=== PATIENT | male | born 1965 | race Caucasian/White ===

== ENCOUNTER 2017-07-09 03:12 | Inpatient (IN) | payer MEDICARE ==
[~2017-07-09] VITALS: Ht 182.9 cm; Wt 94.5 kg
[~2017-07-09 03:12] MED LIST: ACET500 PO; AMIT25 PO; AMIT50 PO; AMIT75 PO; AMOCLA875 PO; AMOX500 PO; ANTIBIOTIC; ASCO250CH PO; ATOR10 PO; Bactrim 400-801 EACH PO; Bactrim Ds Tab1 EACH PO; Bisac-Evac10 MG PR; CEPH500 PO; CIPR500 PO; CLIN150; CLIN300 PO; CLON.1 PO; CLON.1TP TP; CODACE30 PO; CRUTCH4 USE; CYCL10 PO; CYMBALTA; Cleocin HCl150 MG PO; DOCU100 PO; DOXY100 PO; DULO30 PO; DULO60 PO; ENOX120I SC; ENOXAPARIN150 MG/1 M SQ; FAMO20 PO; FLUC200 PO; GABA100 PO; GABA300 PO; GABA600 PO; GAVILAX17 GM PO; HYDMOR2 PO; HYDMOR4 PO; HYDR1TAB94; HYDR1TAB94 PO; IBUP400 PO; IBUP600 PO; INSDET100 SC; INSLI100I SUBQ; INSU100I6; INSU100I6 SC; INSUASPI SC; INSUASPI SUBQ; INSULANI SC; INSULANI SUBQ; INSULANPEN; INSULANPEN SC; LEVEMIR FL100 UNIT/1 SC; LEVEMIR FL100 UNIT/1 SQ; LINE600 PO; LORA1; LORA1 PO; Lantus100 UNIT/1 SC; METF500 PO; METH5 PO; MORP15ER PO; MORP30ER PO; MORP60ER PO; MORPHINE; NAPR220 PO; NAPR500 PO; NICO21TP TOP; Novolog Fl100 UNIT/1 SQ; OXYACE5T PO; OXYC10ER PO; OXYC10TA19; OXYC10TA19 PO; OXYC15ER PO; OXYC30 PO; OXYC30ER PO; OXYC5 PO; PARO10 PO; PARO20 PO; PERCOCET 10/325; PREG100 PO; PROC10 PO; PROM25 PO; Prednisone20 MG PO; RANI150 PO; ROXICODONE5 MG PO; RXCLIN PO; RXIBUP800 PO; SACC250C PO; SOMA350 MG PO; SULTRIDS PO; TAMS.4ER PO; TOBDEXOPO OP; TRAM50 PO; TRAZ100 PO; TRAZ50 PO; Ultram50 MG PO; VANC250 PO; VANCO 1 GR1 GM/250 M IV; Vancocin HCL1000 M1 IV; WARF10 PO; WARF5 PO; ZOLP5 PO; [UNRECOGNIZED DRUG - OTHER]; [UNRECOGNIZED DRUG - OTHER]
[2017-07-09 04:08] LABS: Alanine Aminotransfer (ALT/SGP 11 U/L (12-78); Albumin, Blood 2.6 g/dL (3.4-5.0); Albumin/Globulin Ratio 0.5 (0.8-1.8); Alk Phos 88 U/L (50-136); Anion Gap 7 mmol/L (6-16); Aspartate Aminotrans (AST/SGOT 9 U/L (12-37); Bilirubin, Total 0.2 mg/dL (0.1-1.0); Blood Urea Nitrogen 28 mg/dL (8-24); Bun/Creatinine Ratio 25.9 (12.0-20.0); CO2, Blood 26 mmol/L (21-32); Calcium, Blood 8.2 mg/dL (8.5-10.1); Chloride, Blood 102 mmol/L (98-108); Creatinine, Blood 1.08 mg/dL (0.60-1.20); Globulin, Blood 5.6 g/dL (2.2-4.0); Glomerular Filtration Rate >60 (60-); Glucose, Blood 207 mg/dL (70-99); Potassium, Blood 4.6 mmol/L (3.5-5.5); Sodium, Blood 135 mmol/L (136-145); Total Protein, Blood 8.2 g/dL (6.4-8.2)
[2017-07-09 04:09] LABS: BASOPHILS ABSOLUTE AUTO 0.03 K/mm3 (0.00-0.23); BASOPHILS PERCENT AUTO 0 % (0-2); EOSINOPHILS ABSOLUTE AUTO 0.06 K/mm3 (0.00-0.68); EOSINOPHILS PERCENT AUTO 0 % (0-6); Hemoglobin 11.2 g/dL (13.5-17.5); IMMATURE GRAN ABSOLUTE AUTO 0.04 K/mm3 (0.00-0.10); IMMATURE GRAN PERCENT AUTO 0 % (0-1); LYMPHOCYTES PERCENT AUTO 16 % (21-46); MONOCYTES ABSOLUTE AUTO 1.16 K/mm3 (0.16-1.47); MONOCYTES PERCENT AUTO 8 % (4-13); Mean Corpuscular HGB 27.1 pg (26.0-34.0); Mean Corpuscular HGB Conc 32.9 g/dL (31.5-36.5); Mean Corpuscular Volume 82 fL (80-100); Mean Platelet Volume 11.5 fL (9.1-12.4); NEUTROPHILS ABSOLUTE AUTO 10.92 K/mm3 (1.96-9.15); NEUTROPHILS PERCENT AUTO 75 % (41-73); Platelet Count 429 K/mm3 (150-400); RDW Coefficient Variation 15.8 % (11.7-14.2); RDW Standard Deviation 47.1 fL (35.1-46.3); Red Blood Cell Count 4.13 M/mm3 (4.30-5.90); White Blood Cell Count 14.51 K/mm3 (4.00-11.30)
[2017-07-09 04:44] LABS: International Normalized Ratio 1.07; Prothrombin Time Results 11.1 Sec (9.7-11.5)
[2017-07-09 06:45] LABS: BASOPHILS ABSOLUTE AUTO 0.02 K/mm3 (0.00-0.23); BASOPHILS PERCENT AUTO 0 % (0-2); EOSINOPHILS PERCENT AUTO 1 % (0-6); Hematocrit 31.4 % (37.0-53.0); Hemoglobin 10.3 g/dL (13.5-17.5); IMMATURE GRAN ABSOLUTE AUTO 0.03 K/mm3 (0.00-0.10); IMMATURE GRAN PERCENT AUTO 0 % (0-1); LYMPHOCYTES ABSOLUTE AUTO 3.27 K/mm3 (0.84-5.20); LYMPHOCYTES PERCENT AUTO 25 % (21-46); MONOCYTES ABSOLUTE AUTO 0.97 K/mm3 (0.16-1.47); MONOCYTES PERCENT AUTO 7 % (4-13); Mean Corpuscular HGB Conc 32.8 g/dL (31.5-36.5); Mean Corpuscular Volume 82 fL (80-100); Mean Platelet Volume 11.2 fL (9.1-12.4); NEUTROPHILS ABSOLUTE AUTO 8.88 K/mm3 (1.96-9.15); NEUTROPHILS PERCENT AUTO 67 % (41-73); Platelet Count 390 K/mm3 (150-400); RDW Coefficient Variation 15.7 % (11.7-14.2); RDW Standard Deviation 46.8 fL (35.1-46.3); Red Blood Cell Count 3.82 M/mm3 (4.30-5.90); White Blood Cell Count 13.27 K/mm3 (4.00-11.30)
[2017-07-09 07:03] LABS: Alanine Aminotransfer (ALT/SGP 12 U/L (12-78); Albumin, Blood 2.5 g/dL (3.4-5.0); Albumin/Globulin Ratio 0.5 (0.8-1.8); Alk Phos 86 U/L (50-136); Anion Gap 5 mmol/L (6-16); Aspartate Aminotrans (AST/SGOT 10 U/L (12-37); Bilirubin, Total 0.2 mg/dL (0.1-1.0); Blood Urea Nitrogen 31 mg/dL (8-24); Bun/Creatinine Ratio 28.4 (12.0-20.0); CO2, Blood 26 mmol/L (21-32); Calcium, Blood 8.6 mg/dL (8.5-10.1); Chloride, Blood 103 mmol/L (98-108); Creatinine, Blood 1.09 mg/dL (0.60-1.20); Globulin, Blood 5.4 g/dL (2.2-4.0); Glomerular Filtration Rate >60 (60-); Glucose, Blood 144 mg/dL (70-99); Potassium, Blood 4.3 mmol/L (3.5-5.5); Sodium, Blood 134 mmol/L (136-145); Total Protein, Blood 7.9 g/dL (6.4-8.2)
[2017-07-10 05:44] LABS: BASOPHILS ABSOLUTE AUTO 0.01 K/mm3 (0.00-0.23); BASOPHILS PERCENT AUTO 0 % (0-2); EOSINOPHILS PERCENT AUTO 0 % (0-6); Hematocrit 30.3 % (37.0-53.0); Hemoglobin 9.9 g/dL (13.5-17.5); IMMATURE GRAN ABSOLUTE AUTO 0.03 K/mm3 (0.00-0.10); IMMATURE GRAN PERCENT AUTO 0 % (0-1); LYMPHOCYTES ABSOLUTE AUTO 1.14 K/mm3 (0.84-5.20); LYMPHOCYTES PERCENT AUTO 9 % (21-46); MONOCYTES ABSOLUTE AUTO 0.67 K/mm3 (0.16-1.47); MONOCYTES PERCENT AUTO 5 % (4-13); Mean Corpuscular HGB 26.8 pg (26.0-34.0); Mean Corpuscular HGB Conc 32.7 g/dL (31.5-36.5); Mean Corpuscular Volume 82 fL (80-100); Mean Platelet Volume 11.4 fL (9.1-12.4); NEUTROPHILS ABSOLUTE AUTO 11.11 K/mm3 (1.96-9.15); NEUTROPHILS PERCENT AUTO 86 % (41-73); Platelet Count 363 K/mm3 (150-400); RDW Coefficient Variation 15.7 % (11.7-14.2); RDW Standard Deviation 46.9 fL (35.1-46.3); White Blood Cell Count 12.96 K/mm3 (4.00-11.30)
[2017-07-10 06:27] LABS: Albumin, Blood 2.2 g/dL (3.4-5.0); Anion Gap 10 mmol/L (6-16); Blood Urea Nitrogen 44 mg/dL (8-24); Bun/Creatinine Ratio 30.6 (12.0-20.0); CO2, Blood 22 mmol/L (21-32); Chloride, Blood 104 mmol/L (98-108); Creatinine, Blood 1.44 mg/dL (0.60-1.20); Glomerular Filtration Rate 55 (60-); Glucose, Blood 179 mg/dL (70-99); Potassium, Blood 4.8 mmol/L (3.5-5.5); Sodium, Blood 136 mmol/L (136-145)
[2017-07-10 15:59] LABS: Vancomycin, Trough 20.8 ug/mL (5.0-10.0)
[2017-07-11 05:26] LABS: BASOPHILS ABSOLUTE AUTO 0.04 K/mm3 (0.00-0.23); BASOPHILS PERCENT AUTO 0 % (0-2); EOSINOPHILS ABSOLUTE AUTO 0.15 K/mm3 (0.00-0.68); EOSINOPHILS PERCENT AUTO 1 % (0-6); Hematocrit 28.8 % (37.0-53.0); Hemoglobin 9.3 g/dL (13.5-17.5); IMMATURE GRAN ABSOLUTE AUTO 0.02 K/mm3 (0.00-0.10); IMMATURE GRAN PERCENT AUTO 0 % (0-1); LYMPHOCYTES ABSOLUTE AUTO 2.23 K/mm3 (0.84-5.20); LYMPHOCYTES PERCENT AUTO 21 % (21-46); MONOCYTES ABSOLUTE AUTO 0.61 K/mm3 (0.16-1.47); MONOCYTES PERCENT AUTO 6 % (4-13); Mean Corpuscular HGB 26.6 pg (26.0-34.0); Mean Corpuscular HGB Conc 32.3 g/dL (31.5-36.5); Mean Corpuscular Volume 82 fL (80-100); Mean Platelet Volume 11.4 fL (9.1-12.4); NEUTROPHILS ABSOLUTE AUTO 7.78 K/mm3 (1.96-9.15); NEUTROPHILS PERCENT AUTO 72 % (41-73); Platelet Count 331 K/mm3 (150-400); RDW Coefficient Variation 16.1 % (11.7-14.2); RDW Standard Deviation 48.2 fL (35.1-46.3); White Blood Cell Count 10.83 K/mm3 (4.00-11.30)
[2017-07-11 05:47] LABS: Albumin, Blood 2.2 g/dL (3.4-5.0); Anion Gap 7 mmol/L (6-16); Blood Urea Nitrogen 35 mg/dL (8-24); Bun/Creatinine Ratio 30.2 (12.0-20.0); CO2, Blood 25 mmol/L (21-32); Calcium, Blood 8.2 mg/dL (8.5-10.1); Chloride, Blood 106 mmol/L (98-108); Creatinine, Blood 1.16 mg/dL (0.60-1.20); Glomerular Filtration Rate >60 (60-); Glucose, Blood 279 mg/dL (70-99); Phosphorus, Blood 2.2 mg/dL (2.5-4.9); Potassium, Blood 4.5 mmol/L (3.5-5.5); Sodium, Blood 138 mmol/L (136-145)
[2017-07-11 18:04] LABS: Vancomycin, Trough 20.3 ug/mL (5.0-10.0)
[2017-07-12 05:32] LABS: BASOPHILS ABSOLUTE AUTO 0.07 K/mm3 (0.00-0.23); BASOPHILS PERCENT AUTO 1 % (0-2); EOSINOPHILS ABSOLUTE AUTO 0.44 K/mm3 (0.00-0.68); EOSINOPHILS PERCENT AUTO 6 % (0-6); Hematocrit 32.5 % (37.0-53.0); Hemoglobin 10.4 g/dL (13.5-17.5); IMMATURE GRAN ABSOLUTE AUTO 0.01 K/mm3 (0.00-0.10); IMMATURE GRAN PERCENT AUTO 0 % (0-1); LYMPHOCYTES ABSOLUTE AUTO 2.66 K/mm3 (0.84-5.20); LYMPHOCYTES PERCENT AUTO 37 % (21-46); MONOCYTES ABSOLUTE AUTO 0.46 K/mm3 (0.16-1.47); MONOCYTES PERCENT AUTO 6 % (4-13); Mean Corpuscular HGB 26.4 pg (26.0-34.0); Mean Corpuscular Volume 83 fL (80-100); Mean Platelet Volume 11.5 fL (9.1-12.4); NEUTROPHILS ABSOLUTE AUTO 3.54 K/mm3 (1.96-9.15); NEUTROPHILS PERCENT AUTO 49 % (41-73); Platelet Count 391 K/mm3 (150-400); RDW Coefficient Variation 16.1 % (11.7-14.2); RDW Standard Deviation 48.7 fL (35.1-46.3); Red Blood Cell Count 3.94 M/mm3 (4.30-5.90); White Blood Cell Count 7.18 K/mm3 (4.00-11.30)
[2017-07-12 05:56] LABS: Albumin, Blood 2.3 g/dL (3.4-5.0); Anion Gap 5 mmol/L (6-16); Blood Urea Nitrogen 25 mg/dL (8-24); Bun/Creatinine Ratio 22.9 (12.0-20.0); CO2, Blood 28 mmol/L (21-32); Calcium, Blood 8.7 mg/dL (8.5-10.1); Chloride, Blood 103 mmol/L (98-108); Creatinine, Blood 1.09 mg/dL (0.60-1.20); Glomerular Filtration Rate >60 (60-); Glucose, Blood 296 mg/dL (70-99); Potassium, Blood 4.6 mmol/L (3.5-5.5); Sodium, Blood 136 mmol/L (136-145)
[2017-07-13 06:47] LABS: BASOPHILS ABSOLUTE AUTO 0.07 K/mm3 (0.00-0.23); BASOPHILS PERCENT AUTO 1 % (0-2); EOSINOPHILS ABSOLUTE AUTO 0.59 K/mm3 (0.00-0.68); EOSINOPHILS PERCENT AUTO 7 % (0-6); Hemoglobin 11.2 g/dL (13.5-17.5); IMMATURE GRAN ABSOLUTE AUTO 0.03 K/mm3 (0.00-0.10); IMMATURE GRAN PERCENT AUTO 0 % (0-1); LYMPHOCYTES ABSOLUTE AUTO 3.43 K/mm3 (0.84-5.20); LYMPHOCYTES PERCENT AUTO 38 % (21-46); MONOCYTES ABSOLUTE AUTO 0.59 K/mm3 (0.16-1.47); MONOCYTES PERCENT AUTO 7 % (4-13); Mean Corpuscular HGB 27.4 pg (26.0-34.0); Mean Corpuscular HGB Conc 32.9 g/dL (31.5-36.5); Mean Corpuscular Volume 83 fL (80-100); Mean Platelet Volume 11.2 fL (9.1-12.4); NEUTROPHILS ABSOLUTE AUTO 4.43 K/mm3 (1.96-9.15); NEUTROPHILS PERCENT AUTO 48 % (41-73); Platelet Count 410 K/mm3 (150-400); RDW Coefficient Variation 16.1 % (11.7-14.2); RDW Standard Deviation 48.3 fL (35.1-46.3); Red Blood Cell Count 4.09 M/mm3 (4.30-5.90); White Blood Cell Count 9.14 K/mm3 (4.00-11.30)
[2017-07-13 07:02] LABS: Albumin, Blood 2.4 g/dL (3.4-5.0); Anion Gap 8 mmol/L (6-16); Blood Urea Nitrogen 30 mg/dL (8-24); Bun/Creatinine Ratio 25.2 (12.0-20.0); CO2, Blood 25 mmol/L (21-32); Chloride, Blood 105 mmol/L (98-108); Creatinine, Blood 1.19 mg/dL (0.60-1.20); Glomerular Filtration Rate >60 (60-); Glucose, Blood 225 mg/dL (70-99); Phosphorus, Blood 3.9 mg/dL (2.5-4.9); Potassium, Blood 5.3 mmol/L (3.5-5.5); Sodium, Blood 138 mmol/L (136-145)
[2017-07-14 05:19] LABS: BASOPHILS ABSOLUTE AUTO 0.07 K/mm3 (0.00-0.23); BASOPHILS PERCENT AUTO 1 % (0-2); EOSINOPHILS ABSOLUTE AUTO 0.58 K/mm3 (0.00-0.68); EOSINOPHILS PERCENT AUTO 6 % (0-6); Hematocrit 33.1 % (37.0-53.0); Hemoglobin 10.6 g/dL (13.5-17.5); IMMATURE GRAN ABSOLUTE AUTO 0.04 K/mm3 (0.00-0.10); IMMATURE GRAN PERCENT AUTO 0 % (0-1); LYMPHOCYTES ABSOLUTE AUTO 3.91 K/mm3 (0.84-5.20); LYMPHOCYTES PERCENT AUTO 43 % (21-46); MONOCYTES ABSOLUTE AUTO 0.52 K/mm3 (0.16-1.47); MONOCYTES PERCENT AUTO 6 % (4-13); Mean Corpuscular HGB 26.6 pg (26.0-34.0); Mean Corpuscular Volume 83 fL (80-100); Mean Platelet Volume 11.6 fL (9.1-12.4); NEUTROPHILS ABSOLUTE AUTO 3.95 K/mm3 (1.96-9.15); NEUTROPHILS PERCENT AUTO 44 % (41-73); Platelet Count 416 K/mm3 (150-400); RDW Coefficient Variation 16.2 % (11.7-14.2); RDW Standard Deviation 48.9 fL (35.1-46.3); Red Blood Cell Count 3.98 M/mm3 (4.30-5.90); White Blood Cell Count 9.07 K/mm3 (4.00-11.30)
[2017-07-14 05:40] LABS: Anion Gap 8 mmol/L (6-16); Blood Urea Nitrogen 39 mg/dL (8-24); Bun/Creatinine Ratio 33.6 (12.0-20.0); CO2, Blood 24 mmol/L (21-32); Calcium, Blood 8.8 mg/dL (8.5-10.1); Chloride, Blood 104 mmol/L (98-108); Creatinine, Blood 1.16 mg/dL (0.60-1.20); Glomerular Filtration Rate >60 (60-); Glucose, Blood 209 mg/dL (70-99); Potassium, Blood 4.9 mmol/L (3.5-5.5); Sodium, Blood 136 mmol/L (136-145)
[2017-07-16] MEDS ORDERED: ACET325 PO (10:53)
[2017-07-16] MEDS ORDERED: DOCU100 PO (10:55)
[2017-07-16] MEDS ORDERED: POLY500 PO (10:55)
[2017-07-16] MEDS ORDERED: ENOX40I SC (10:56)
[2017-07-16] MEDS ORDERED: GABA600 PO (10:57)
[2017-07-16] MEDS ORDERED: Novolog Fl100 UNIT/1 SC (10:59)
[2017-07-16] MEDS ORDERED: LEVEMIR FL100 UNIT/1 SC (11:00)
[2017-07-16] MEDS ORDERED: NICO21TP TOP (11:02)
[2017-07-16] MEDS ORDERED: Percocet 5-3251 EACH PO (11:03)
[2017-07-16] MEDS ORDERED: TRAZ50 PO (11:04)
[2017-07-16] MEDS ORDERED: CEPH500 PO (11:18)
[2017-07-16] MEDS ORDERED: VANCOMYCIN125 MG/2.5 PO (11:21)
== END 2017-07-16 14:04 | disposition home or self-care (01) | DRG 629 ==
LOC: ER 03:12 → MEDS 05:01 → ENPENDDIS 07-16 10:00 → MEDS 07-16 14:04
PROVIDERS: Emergency Medicine; Family Medicine; Hospitalist; Internal Medicine; Student in an Organized Health Care Education/Training Program
PROC: 0QBP0ZZ Excision of Left Metatarsal, Open Approach (ICD-10-PCS; principal; 2017-07-09 13:45)
DX: E11.69 Type 2 diabetes mellitus with other specified complication (principal); M86.172 Other acute osteomyelitis, left ankle and foot; N17.9 Acute kidney failure, unspecified; E11.40 Type 2 diabetes mellitus with diabetic neuropathy, unspecified; A04.72 Enterocolitis due to Clostridium difficile, not specified as recurrent; E11.628 Type 2 diabetes mellitus with other skin complications; E11.51 Type 2 diabetes mellitus with diabetic peripheral angiopathy without gangrene; I95.9 Hypotension, unspecified; E11.65 Type 2 diabetes mellitus with hyperglycemia; F11.20 Opioid dependence, uncomplicated; T81.31XA Disruption of external operation (surgical) wound, not elsewhere classified, initial encounter; L02.612 Cutaneous abscess of left foot; L03.116 Cellulitis of left lower limb; M86.679 Other chronic osteomyelitis, unspecified ankle and foot; B95.5 Unspecified streptococcus as the cause of diseases classified elsewhere; F41.9 Anxiety disorder, unspecified; F17.210 Nicotine dependence, cigarettes, uncomplicated; I10 Essential (primary) hypertension; K21.9 Gastro-esophageal reflux disease without esophagitis; M54.9 Dorsalgia, unspecified; G89.29 Other chronic pain; Z86.14 Personal history of Methicillin resistant Staphylococcus aureus infection; Z79.891 Long term (current) use of opiate analgesic; Z79.899 Other long term (current) drug therapy; Z89.432 Acquired absence of left foot; Z89.421 Acquired absence of other right toe(s); Z79.4 Long term (current) use of insulin
CPT/HCPCS: 36415; 73590; 73630; 80048; 80053; 80069; 80202; 82947; 83605; 85025; 85610; 85730; 87040; 87070; 87075; 87077; 87186; 87205; 87493; 88305; 96365; 96375; 99285; J0171; J0360; J0690; J0696; J1170; J1650; J1815; J2060; J2250; J2270; J2405; J2543; J2765; J3010; J3370; J7030; J7050; J7120

== ENCOUNTER 2017-07-27 00:13 | Inpatient (IN) | payer MEDICARE ==
[~2017-07-27] VITALS: Ht 182.9 cm; Wt 93.3 kg
[~2017-07-27 00:13] MED LIST changes: +ACET325 PO; +ENOX40I SC; +Novolog Fl100 UNIT/1 SC; +POLY500 PO; +Percocet 5-3251 EACH PO; +VANCOMYCIN125 MG/2.5 PO
[2017-07-27 00:58] LABS: International Normalized Ratio 0.96
[2017-07-27 00:59] LABS: BASOPHILS ABSOLUTE AUTO 0.02 K/mm3 (0.00-0.23); BASOPHILS PERCENT AUTO 0 % (0-2); EOSINOPHILS ABSOLUTE AUTO 0.25 K/mm3 (0.00-0.68); EOSINOPHILS PERCENT AUTO 2 % (0-6); Hematocrit 30.3 % (37.0-53.0); Hemoglobin 10.1 g/dL (13.5-17.5); IMMATURE GRAN ABSOLUTE AUTO 0.04 K/mm3 (0.00-0.10); IMMATURE GRAN PERCENT AUTO 0 % (0-1); LYMPHOCYTES ABSOLUTE AUTO 3.52 K/mm3 (0.84-5.20); LYMPHOCYTES PERCENT AUTO 25 % (21-46); MONOCYTES ABSOLUTE AUTO 1.03 K/mm3 (0.16-1.47); MONOCYTES PERCENT AUTO 7 % (4-13); Mean Corpuscular HGB 26.9 pg (26.0-34.0); Mean Corpuscular HGB Conc 33.3 g/dL (31.5-36.5); Mean Corpuscular Volume 81 fL (80-100); Mean Platelet Volume 11.1 fL (9.1-12.4); NEUTROPHILS ABSOLUTE AUTO 8.98 K/mm3 (1.96-9.15); NEUTROPHILS PERCENT AUTO 65 % (41-73); Platelet Count 385 K/mm3 (150-400); RDW Coefficient Variation 17.4 % (11.7-14.2); RDW Standard Deviation 51.4 fL (35.1-46.3); Red Blood Cell Count 3.76 M/mm3 (4.30-5.90); White Blood Cell Count 13.84 K/mm3 (4.00-11.30)
[2017-07-27 01:01] LABS: Albumin, Blood 2.8 g/dL (3.4-5.0); Albumin/Globulin Ratio 0.5 (0.8-1.8); Bilirubin, Total 0.1 mg/dL (0.1-1.0); Bun/Creatinine Ratio 28.1 (12.0-20.0); C-REACTIVE PROTEIN, EXT RANGE 11.1 mg/dL (0.000-0.300); Calcium, Blood 8.3 mg/dL (8.5-10.1); Creatinine, Blood 1.39 mg/dL (0.60-1.20); Globulin, Blood 5.2 g/dL (2.2-4.0); Potassium, Blood 4.9 mmol/L (3.5-5.5)
[2017-07-27 09:52] LABS: Alanine Aminotransfer (ALT/SGP 20 U/L (12-78); Albumin, Blood 2.3 g/dL (3.4-5.0); Albumin/Globulin Ratio 0.5 (0.8-1.8); Alk Phos 80 U/L (50-136); Anion Gap 8 mmol/L (6-16); Aspartate Aminotrans (AST/SGOT 14 U/L (12-37); Bilirubin, Total 0.3 mg/dL (0.1-1.0); Blood Urea Nitrogen 37 mg/dL (8-24); Bun/Creatinine Ratio 28.9 (12.0-20.0); CO2, Blood 22 mmol/L (21-32); Calcium, Blood 7.7 mg/dL (8.5-10.1); Chloride, Blood 108 mmol/L (98-108); Creatinine, Blood 1.28 mg/dL (0.60-1.20); Globulin, Blood 4.3 g/dL (2.2-4.0); Glomerular Filtration Rate >60 (60-); Glucose, Blood 115 mg/dL (70-99); Potassium, Blood 4.6 mmol/L (3.5-5.5); Sodium, Blood 138 mmol/L (136-145); Total Protein, Blood 6.6 g/dL (6.4-8.2)
[2017-07-27 12:57] LABS: BASOPHILS ABSOLUTE AUTO 0.03 K/mm3 (0.00-0.23); BASOPHILS PERCENT AUTO 0 % (0-2); EOSINOPHILS ABSOLUTE AUTO 0.35 K/mm3 (0.00-0.68); EOSINOPHILS PERCENT AUTO 4 % (0-6); Hematocrit 32.8 % (37.0-53.0); Hemoglobin 10.6 g/dL (13.5-17.5); IMMATURE GRAN ABSOLUTE AUTO 0.02 K/mm3 (0.00-0.10); IMMATURE GRAN PERCENT AUTO 0 % (0-1); LYMPHOCYTES ABSOLUTE AUTO 2.38 K/mm3 (0.84-5.20); LYMPHOCYTES PERCENT AUTO 25 % (21-46); MONOCYTES ABSOLUTE AUTO 0.68 K/mm3 (0.16-1.47); MONOCYTES PERCENT AUTO 7 % (4-13); Mean Corpuscular HGB Conc 32.3 g/dL (31.5-36.5); Mean Platelet Volume 11.2 fL (9.1-12.4); NEUTROPHILS ABSOLUTE AUTO 6.21 K/mm3 (1.96-9.15); NEUTROPHILS PERCENT AUTO 64 % (41-73); Platelet Count 349 K/mm3 (150-400); RDW Coefficient Variation 17.6 % (11.7-14.2); RDW Standard Deviation 54.4 fL (35.1-46.3); Red Blood Cell Count 3.93 M/mm3 (4.30-5.90); White Blood Cell Count 9.67 K/mm3 (4.00-11.30)
[2017-07-27 13:02] LABS: Mean Corpuscular Volume 84 fL (80-100)
[2017-07-27 22:53] LABS: Vancomycin, Trough 15.1 ug/mL (5.0-10.0)
[2017-07-28 05:19] LABS: BASOPHILS ABSOLUTE AUTO 0.05 K/mm3 (0.00-0.23); BASOPHILS PERCENT AUTO 1 % (0-2); EOSINOPHILS ABSOLUTE AUTO 0.32 K/mm3 (0.00-0.68); EOSINOPHILS PERCENT AUTO 4 % (0-6); Hematocrit 31.5 % (37.0-53.0); Hemoglobin 10.1 g/dL (13.5-17.5); IMMATURE GRAN ABSOLUTE AUTO 0.02 K/mm3 (0.00-0.10); IMMATURE GRAN PERCENT AUTO 0 % (0-1); LYMPHOCYTES PERCENT AUTO 28 % (21-46); MONOCYTES ABSOLUTE AUTO 0.68 K/mm3 (0.16-1.47); MONOCYTES PERCENT AUTO 8 % (4-13); Mean Corpuscular HGB 26.9 pg (26.0-34.0); Mean Corpuscular HGB Conc 32.1 g/dL (31.5-36.5); Mean Corpuscular Volume 84 fL (80-100); Mean Platelet Volume 11.2 fL (9.1-12.4); NEUTROPHILS ABSOLUTE AUTO 4.99 K/mm3 (1.96-9.15); NEUTROPHILS PERCENT AUTO 60 % (41-73); Platelet Count 344 K/mm3 (150-400); RDW Coefficient Variation 17.8 % (11.7-14.2); RDW Standard Deviation 54.5 fL (35.1-46.3); Red Blood Cell Count 3.76 M/mm3 (4.30-5.90); White Blood Cell Count 8.36 K/mm3 (4.00-11.30)
[2017-07-28 05:56] LABS: Anion Gap 10 mmol/L (6-16); Blood Urea Nitrogen 32 mg/dL (8-24); Bun/Creatinine Ratio 29.9 (12.0-20.0); CO2, Blood 20 mmol/L (21-32); Calcium, Blood 8.2 mg/dL (8.5-10.1); Chloride, Blood 106 mmol/L (98-108); Creatinine, Blood 1.07 mg/dL (0.60-1.20); Glomerular Filtration Rate >60 (60-); Glucose, Blood 245 mg/dL (70-99); Sodium, Blood 136 mmol/L (136-145)
[2017-07-29] MEDS ORDERED: TRAM50 PO (13:00)
== END 2017-07-29 14:50 | disposition home or self-care (01) | DRG 565 ==
LOC: ER 00:13 → MEDS 01:28 → ENPENDDIS 07-29 11:06 → MEDS 07-29 14:50
PROVIDERS: Emergency Medicine; Internal Medicine
DX: T87.44 Infection of amputation stump, left lower extremity (principal); M86.9 Osteomyelitis, unspecified; F11.20 Opioid dependence, uncomplicated; E11.69 Type 2 diabetes mellitus with other specified complication; T87.81 Dehiscence of amputation stump; E11.51 Type 2 diabetes mellitus with diabetic peripheral angiopathy without gangrene; E11.42 Type 2 diabetes mellitus with diabetic polyneuropathy; F15.10 Other stimulant abuse, uncomplicated; G89.29 Other chronic pain; D63.8 Anemia in other chronic diseases classified elsewhere; F17.210 Nicotine dependence, cigarettes, uncomplicated; E11.621 Type 2 diabetes mellitus with foot ulcer; K21.9 Gastro-esophageal reflux disease without esophagitis; L97.524 Non-pressure chronic ulcer of other part of left foot with necrosis of bone; Z86.14 Personal history of Methicillin resistant Staphylococcus aureus infection; Z79.4 Long term (current) use of insulin; Z89.422 Acquired absence of other left toe(s); Z89.412 Acquired absence of left great toe; Z89.431 Acquired absence of right foot; Z91.14 Patient's other noncompliance with medication regimen
CPT/HCPCS: 36415; 73630; 80048; 80053; 80202; 82947; 83605; 85025; 85610; 85651; 85730; 86140; 87040; 87070; 87075; 87205; 93922; 96365; 96366; 96367; 96375; 99285; J0690; J1650; J1815; J1817; J1885; J2060; J2543; J3010; J3370; J7030; J7050

== ENCOUNTER 2017-08-19 19:31 | Inpatient (IN) | payer MEDICARE ==
[~2017-08-19] VITALS: Ht 182.9 cm; Wt 90.7 kg
[2017-08-19 22:40] LABS: BASOPHILS ABSOLUTE AUTO 0.06 K/mm3 (0.00-0.23); BASOPHILS PERCENT AUTO 1 % (0-2); EOSINOPHILS ABSOLUTE AUTO 0.25 K/mm3 (0.00-0.68); EOSINOPHILS PERCENT AUTO 3 % (0-6); Hematocrit 32.7 % (37.0-53.0); Hemoglobin 10.7 g/dL (13.5-17.5); IMMATURE GRAN ABSOLUTE AUTO 0.03 K/mm3 (0.00-0.10); IMMATURE GRAN PERCENT AUTO 0 % (0-1); LYMPHOCYTES ABSOLUTE AUTO 2.89 K/mm3 (0.84-5.20); LYMPHOCYTES PERCENT AUTO 30 % (21-46); MONOCYTES ABSOLUTE AUTO 0.53 K/mm3 (0.16-1.47); MONOCYTES PERCENT AUTO 6 % (4-13); Mean Corpuscular HGB 26.4 pg (26.0-34.0); Mean Corpuscular HGB Conc 32.7 g/dL (31.5-36.5); Mean Corpuscular Volume 81 fL (80-100); Mean Platelet Volume 11.5 fL (9.1-12.4); NEUTROPHILS ABSOLUTE AUTO 5.93 K/mm3 (1.96-9.15); NEUTROPHILS PERCENT AUTO 61 % (41-73); Platelet Count 335 K/mm3 (150-400); RDW Coefficient Variation 15.9 % (11.7-14.2); RDW Standard Deviation 46.5 fL (35.1-46.3); Red Blood Cell Count 4.05 M/mm3 (4.30-5.90); White Blood Cell Count 9.69 K/mm3 (4.00-11.30)
[2017-08-19 22:54] LABS: Alanine Aminotransfer (ALT/SGP 20 U/L (12-78); Albumin, Blood 2.8 g/dL (3.4-5.0); Albumin/Globulin Ratio 0.5 (0.8-1.8); Alk Phos 106 U/L (50-136); Anion Gap 7 mmol/L (6-16); Aspartate Aminotrans (AST/SGOT 25 U/L (12-37); Bilirubin, Total 0.3 mg/dL (0.1-1.0); Blood Urea Nitrogen 30 mg/dL (8-24); Bun/Creatinine Ratio 28.8 (12.0-20.0); CO2, Blood 27 mmol/L (21-32); Calcium, Blood 8.7 mg/dL (8.5-10.1); Chloride, Blood 102 mmol/L (98-108); Creatinine, Blood 1.04 mg/dL (0.60-1.20); Globulin, Blood 5.8 g/dL (2.2-4.0); Glomerular Filtration Rate >60 (60-); Glucose, Blood 150 mg/dL (70-99); Potassium, Blood 4.9 mmol/L (3.5-5.5); Sodium, Blood 136 mmol/L (136-145); Total Protein, Blood 8.6 g/dL (6.4-8.2)
[2017-08-20 04:57] LABS: BASOPHILS ABSOLUTE AUTO 0.07 K/mm3 (0.00-0.23); BASOPHILS PERCENT AUTO 1 % (0-2); EOSINOPHILS ABSOLUTE AUTO 0.28 K/mm3 (0.00-0.68); EOSINOPHILS PERCENT AUTO 4 % (0-6); Hematocrit 30.3 % (37.0-53.0); Hemoglobin 9.6 g/dL (13.5-17.5); IMMATURE GRAN ABSOLUTE AUTO 0.02 K/mm3 (0.00-0.10); IMMATURE GRAN PERCENT AUTO 0 % (0-1); LYMPHOCYTES ABSOLUTE AUTO 2.56 K/mm3 (0.84-5.20); LYMPHOCYTES PERCENT AUTO 32 % (21-46); MONOCYTES ABSOLUTE AUTO 0.63 K/mm3 (0.16-1.47); MONOCYTES PERCENT AUTO 8 % (4-13); Mean Corpuscular HGB 26.2 pg (26.0-34.0); Mean Corpuscular HGB Conc 31.7 g/dL (31.5-36.5); Mean Corpuscular Volume 83 fL (80-100); Mean Platelet Volume 11.8 fL (9.1-12.4); NEUTROPHILS ABSOLUTE AUTO 4.42 K/mm3 (1.96-9.15); NEUTROPHILS PERCENT AUTO 55 % (41-73); Platelet Count 340 K/mm3 (150-400); RDW Standard Deviation 49.1 fL (35.1-46.3); Red Blood Cell Count 3.66 M/mm3 (4.30-5.90); White Blood Cell Count 7.98 K/mm3 (4.00-11.30)
[2017-08-20 05:19] LABS: Alanine Aminotransfer (ALT/SGP 19 U/L (12-78); Albumin, Blood 2.4 g/dL (3.4-5.0); Albumin/Globulin Ratio 0.5 (0.8-1.8); Alk Phos 96 U/L (50-136); Anion Gap 8 mmol/L (6-16); Aspartate Aminotrans (AST/SGOT 11 U/L (12-37); Bilirubin, Total 0.2 mg/dL (0.1-1.0); Blood Urea Nitrogen 30 mg/dL (8-24); Bun/Creatinine Ratio 27.5 (12.0-20.0); CO2, Blood 25 mmol/L (21-32); Calcium, Blood 8.5 mg/dL (8.5-10.1); Chloride, Blood 103 mmol/L (98-108); Creatinine, Blood 1.09 mg/dL (0.60-1.20); Globulin, Blood 5.2 g/dL (2.2-4.0); Glomerular Filtration Rate >60 (60-); Glucose, Blood 208 mg/dL (70-99); Potassium, Blood 4.1 mmol/L (3.5-5.5); Sodium, Blood 136 mmol/L (136-145); Total Protein, Blood 7.6 g/dL (6.4-8.2)
[2017-08-21 04:44] LABS: BASOPHILS ABSOLUTE AUTO 0.07 K/mm3 (0.00-0.23); BASOPHILS PERCENT AUTO 1 % (0-2); EOSINOPHILS PERCENT AUTO 2 % (0-6); Hemoglobin 11.2 g/dL (13.5-17.5); IMMATURE GRAN ABSOLUTE AUTO 0.02 K/mm3 (0.00-0.10); IMMATURE GRAN PERCENT AUTO 0 % (0-1); LYMPHOCYTES ABSOLUTE AUTO 3.03 K/mm3 (0.84-5.20); LYMPHOCYTES PERCENT AUTO 35 % (21-46); MONOCYTES ABSOLUTE AUTO 0.63 K/mm3 (0.16-1.47); MONOCYTES PERCENT AUTO 7 % (4-13); Mean Corpuscular HGB 26.3 pg (26.0-34.0); Mean Corpuscular Volume 82 fL (80-100); Mean Platelet Volume 11.3 fL (9.1-12.4); NEUTROPHILS ABSOLUTE AUTO 4.71 K/mm3 (1.96-9.15); NEUTROPHILS PERCENT AUTO 54 % (41-73); Platelet Count 448 K/mm3 (150-400); RDW Coefficient Variation 15.9 % (11.7-14.2); Red Blood Cell Count 4.26 M/mm3 (4.30-5.90); White Blood Cell Count 8.66 K/mm3 (4.00-11.30)
[2017-08-21 05:01] LABS: Anion Gap 4 mmol/L (6-16); Blood Urea Nitrogen 30 mg/dL (8-24); Bun/Creatinine Ratio 28.8 (12.0-20.0); CO2, Blood 29 mmol/L (21-32); Calcium, Blood 8.9 mg/dL (8.5-10.1); Chloride, Blood 103 mmol/L (98-108); Creatinine, Blood 1.04 mg/dL (0.60-1.20); Glomerular Filtration Rate >60 (60-); Glucose, Blood 125 mg/dL (70-99); Potassium, Blood 4.8 mmol/L (3.5-5.5); Sodium, Blood 136 mmol/L (136-145)
[2017-08-21 11:13] LABS: Vancomycin, Trough 20.7 ug/mL (5.0-10.0)
[2017-08-22 14:29] LABS: Vancomycin, Trough 20.9 ug/mL (5.0-10.0)
[2017-08-23 05:07] LABS: BASOPHILS ABSOLUTE AUTO 0.04 K/mm3 (0.00-0.23); BASOPHILS PERCENT AUTO 0 % (0-2); EOSINOPHILS ABSOLUTE AUTO 0.01 K/mm3 (0.00-0.68); EOSINOPHILS PERCENT AUTO 0 % (0-6); Hematocrit 27.8 % (37.0-53.0); Hemoglobin 8.9 g/dL (13.5-17.5); IMMATURE GRAN ABSOLUTE AUTO 0.08 K/mm3 (0.00-0.10); IMMATURE GRAN PERCENT AUTO 1 % (0-1); LYMPHOCYTES ABSOLUTE AUTO 2.51 K/mm3 (0.84-5.20); LYMPHOCYTES PERCENT AUTO 16 % (21-46); MONOCYTES ABSOLUTE AUTO 0.91 K/mm3 (0.16-1.47); MONOCYTES PERCENT AUTO 6 % (4-13); Mean Corpuscular Volume 81 fL (80-100); Mean Platelet Volume 11.8 fL (9.1-12.4); NEUTROPHILS ABSOLUTE AUTO 12.67 K/mm3 (1.96-9.15); NEUTROPHILS PERCENT AUTO 78 % (41-73); Platelet Count 365 K/mm3 (150-400); RDW Coefficient Variation 15.7 % (11.7-14.2); RDW Standard Deviation 46.7 fL (35.1-46.3); Red Blood Cell Count 3.42 M/mm3 (4.30-5.90); White Blood Cell Count 16.22 K/mm3 (4.00-11.30)
[2017-08-23 05:34] LABS: Anion Gap 8 mmol/L (6-16); Blood Urea Nitrogen 45 mg/dL (8-24); Bun/Creatinine Ratio 39.8 (12.0-20.0); CO2, Blood 26 mmol/L (21-32); Calcium, Blood 8.5 mg/dL (8.5-10.1); Chloride, Blood 101 mmol/L (98-108); Creatinine, Blood 1.13 mg/dL (0.60-1.20); Glomerular Filtration Rate >60 (60-); Glucose, Blood 281 mg/dL (70-99); Potassium, Blood 4.5 mmol/L (3.5-5.5); Sodium, Blood 135 mmol/L (136-145)
[2017-08-23 15:04] LABS: Vancomycin, Trough 15.9 ug/mL (5.0-10.0)
[2017-08-24 05:37] LABS: BASOPHILS ABSOLUTE AUTO 0.07 K/mm3 (0.00-0.23); BASOPHILS PERCENT AUTO 1 % (0-2); EOSINOPHILS ABSOLUTE AUTO 0.19 K/mm3 (0.00-0.68); EOSINOPHILS PERCENT AUTO 2 % (0-6); Hematocrit 31.7 % (37.0-53.0); Hemoglobin 10.2 g/dL (13.5-17.5); IMMATURE GRAN ABSOLUTE AUTO 0.04 K/mm3 (0.00-0.10); IMMATURE GRAN PERCENT AUTO 0 % (0-1); LYMPHOCYTES ABSOLUTE AUTO 4.47 K/mm3 (0.84-5.20); LYMPHOCYTES PERCENT AUTO 40 % (21-46); MONOCYTES ABSOLUTE AUTO 0.77 K/mm3 (0.16-1.47); MONOCYTES PERCENT AUTO 7 % (4-13); Mean Corpuscular HGB 26.6 pg (26.0-34.0); Mean Corpuscular HGB Conc 32.2 g/dL (31.5-36.5); Mean Corpuscular Volume 83 fL (80-100); Mean Platelet Volume 11.6 fL (9.1-12.4); NEUTROPHILS ABSOLUTE AUTO 5.62 K/mm3 (1.96-9.15); NEUTROPHILS PERCENT AUTO 50 % (41-73); Platelet Count 373 K/mm3 (150-400); RDW Coefficient Variation 16.5 % (11.7-14.2); RDW Standard Deviation 49.4 fL (35.1-46.3); Red Blood Cell Count 3.84 M/mm3 (4.30-5.90); White Blood Cell Count 11.16 K/mm3 (4.00-11.30)
[2017-08-25] MEDS ORDERED: ANCEF 1 GM1 GM/50 ML IV (14:32)
[2017-08-25] MEDS ORDERED: NICO21TP TOP (14:33)
[2017-08-25] MEDS ORDERED: DOXY100 PO (14:33)
[2017-08-25] MEDS ORDERED: Norco 10-325 T1 EACH PO (14:34)
== END 2017-08-25 13:21 | DRG 475 ==
LOC: ER 19:31 → MEDS 08-20 00:16 → ENPENDDIS 08-25 09:30 → EDPENDDIS 08-25 09:30 → MEDS 08-25 13:21
PROVIDERS: Emergency Medicine; Internal Medicine; Podiatrist Foot & Ankle Surgery
PROC: 3E0234Z Introduction of Serum, Toxoid and Vaccine into Muscle, Percutaneous Approach (ICD-10-PCS; 2017-08-20)
PROC: 0Y6N0ZC Detachment at Left Foot, Partial 3rd Ray, Open Approach (ICD-10-PCS; 2017-08-22)
PROC: 0Y6N0ZD Detachment at Left Foot, Partial 4th Ray, Open Approach (ICD-10-PCS; 2017-08-22)
PROC: 0Y6N0ZF Detachment at Left Foot, Partial 5th Ray, Open Approach (ICD-10-PCS; 2017-08-22)
PROC: 0L8P0ZZ Division of Left Lower Leg Tendon, Open Approach (ICD-10-PCS; 2017-08-22)
PROC: 0Y6N0Z9 Detachment at Left Foot, Partial 1st Ray, Open Approach (ICD-10-PCS; principal; 2017-08-22 07:30)
PROC: 0Y6N0ZB Detachment at Left Foot, Partial 2nd Ray, Open Approach (ICD-10-PCS; 2017-08-22 07:30)
DX: T87.44 Infection of amputation stump, left lower extremity (principal); M86.172 Other acute osteomyelitis, left ankle and foot; E11.69 Type 2 diabetes mellitus with other specified complication; E11.40 Type 2 diabetes mellitus with diabetic neuropathy, unspecified; F11.20 Opioid dependence, uncomplicated; L03.116 Cellulitis of left lower limb; Z23 Encounter for immunization; F17.210 Nicotine dependence, cigarettes, uncomplicated; Z91.19 Patient's noncompliance with other medical treatment and regimen
CPT/HCPCS: 36415; 73630; 80048; 80053; 80202; 82947; 85025; 88307; 88311; 93971; 96365; 96375; 96376; 97116; 97161; 99285; G8978; G8979; G8980; J0690; J1100; J1170; J1650; J1815; J1817; J1885; J2270; J2405; J3010; J3370; J7030; J7050; J7120

== ENCOUNTER 2017-09-14 14:08 | Emergency (ER) | payer MEDICARE ==
[~2017-09-14] VITALS: Ht 188 cm; Wt 102.1 kg
[~2017-09-14 14:08] MED LIST changes: +ANCEF 1 GM1 GM/50 ML IV; +Norco 10-325 T1 EACH PO
== END 2017-09-14 16:18 | disposition home or self-care (01) ==
LOC: ER 14:08
DX: M79.662 Pain in left lower leg (principal); Z79.899 Other long term (current) drug therapy; Z79.4 Long term (current) use of insulin; Z79.2 Long term (current) use of antibiotics; E11.40 Type 2 diabetes mellitus with diabetic neuropathy, unspecified; K21.9 Gastro-esophageal reflux disease without esophagitis; I10 Essential (primary) hypertension; F17.210 Nicotine dependence, cigarettes, uncomplicated
CPT/HCPCS: 73590; 99283

== ENCOUNTER 2018-03-12 16:01 | Emergency (ER) | payer MEDICARE ==
[~2018-03-12] VITALS: Ht 182.9 cm; Wt 93.0 kg
[2018-03-12 17:39] LABS: Adenovirus F 40/41 Not Detected (NOT DETECT); Astrovirus Not Detected (NOT DETECT); Campylobacter Sp Not Detected (NOT DETECT); Cryptosporidium Not Detected (NOT DETECT); Cyclospora Cayetanensis Not Detected (NOT DETECT); E. Coli O157 Not Detected (NOT DETECT); Entamoeba Histolytica Not Detected (NOT DETECT); Enteroaggregative E. coli-EAEC Not Detected (NOT DETECT); Enteropathogenic E. coli-EPEC Not Detected (NOT DETECT); Enterotoxigenic E. coli-ETEC Not Detected (NOT DETECT); Giardia Lamblia Not Detected (NOT DETECT); Norovirus GI/GII Not Detected (NOT DETECT); Plesiomonas Shigelloides Not Detected (NOT DETECT); Rotavirus A Not Detected (NOT DETECT); Salmonella Sp Not Detected (NOT DETECT); Sapovirus Not Detected (NOT DETECT); Shiga Toxin-prod E. coli-STEC Not Detected (NOT DETECT); Shigella/Enteroin E. coli-EIEC Not Detected (NOT DETECT); Vibrio Cholerae Not Detected (NOT DETECT); Vibrio Sp Not Detected (NOT DETECT); Yersinia Enterocolitica Not Detected (NOT DETECT)
== END 2018-03-12 19:28 | disposition home or self-care (01) ==
LOC: ER 16:01
PROVIDERS: Emergency Medicine
DX: R19.7 Diarrhea, unspecified (principal); E11.40 Type 2 diabetes mellitus with diabetic neuropathy, unspecified; I10 Essential (primary) hypertension; K21.9 Gastro-esophageal reflux disease without esophagitis; F17.210 Nicotine dependence, cigarettes, uncomplicated; Z79.899 Other long term (current) drug therapy; Z79.4 Long term (current) use of insulin
CPT/HCPCS: 87507; 99284

== ENCOUNTER 2019-04-02 11:44 | Inpatient (IN) | payer MEDICARE ==
[~2019-04-02] VITALS: Ht 182.9 cm; Wt 123.0 kg
[~2019-04-02 11:44] MED LIST changes: +Adipex-P37.5 M1 PO
--- NOTE | 2019-04-02 13:09 | NUR ---
PATIENT WAS ADMITTED TO DAY SURGERY FOR HIS PROCEDURE. THE PATIENT STATED THAT HE WAS NPO SINCE 04/01/19.
--- NOTE | 2019-04-02 18:50 | NUR ---
pt arrived to room 208 from pacu s/p r ankle debridement with wound vac with jacques wrap cdi pt can wiggle toes food given dr vazquez by to see pt
[2019-04-03 05:23] LABS: BASOPHILS ABSOLUTE AUTO 0.01 K/mm3 (0.00-0.23); BASOPHILS PERCENT AUTO 0 % (0-2); EOSINOPHILS PERCENT AUTO 0 % (0-6); Hematocrit 35.9 % (37.0-53.0); Hemoglobin 11.6 g/dL (13.5-17.5); IMMATURE GRAN ABSOLUTE AUTO 0.03 K/mm3 (0.00-0.10); IMMATURE GRAN PERCENT AUTO 0 % (0-1); LYMPHOCYTES ABSOLUTE AUTO 0.86 K/mm3 (0.84-5.20); LYMPHOCYTES PERCENT AUTO 8 % (21-46); MONOCYTES ABSOLUTE AUTO 0.37 K/mm3 (0.16-1.47); MONOCYTES PERCENT AUTO 4 % (4-13); Mean Corpuscular HGB 28.5 pg (26.0-34.0); Mean Corpuscular HGB Conc 32.3 g/dL (31.5-36.5); Mean Corpuscular Volume 88 fL (80-100); Mean Platelet Volume 11.9 fL (9.1-12.4); NEUTROPHILS ABSOLUTE AUTO 9.16 K/mm3 (1.96-9.15); NEUTROPHILS PERCENT AUTO 88 % (41-73); Platelet Count 243 K/mm3 (150-400); RDW Coefficient Variation 13.6 % (11.7-14.2); RDW Standard Deviation 44.2 fL (35.1-46.3); Red Blood Cell Count 4.07 M/mm3 (4.30-5.90); White Blood Cell Count 10.43 K/mm3 (4.00-11.30)
[2019-04-03 06:08] LABS: Anion Gap 7 mmol/L (6-16); Blood Urea Nitrogen 32 mg/dL (8-24); Bun/Creatinine Ratio 27.8 (12.0-20.0); CO2, Blood 25 mmol/L (21-32); Calcium, Blood 8.9 mg/dL (8.5-10.1); Chloride, Blood 103 mmol/L (98-108); Creatinine, Blood 1.15 mg/dL (0.60-1.20); Glomerular Filtration Rate >60 (60-); Glucose, Blood 300 mg/dL (70-99); Potassium, Blood 6.1 mmol/L (3.5-5.5); Sodium, Blood 135 mmol/L (136-145)
--- NOTE | 2019-04-03 06:25 | NUR ---
Pt alert and oriented. Vital signs stable. Medicated for pain as ordered. Pain not relieved. Called placed to Dr. Baron, orders to resume home methadone recieved. Patients blood glucose 462, orders received to place on Medium scale Novolog. Critical lab of potassium 6.1. Dr Baron notified and stated he will review the labs and place orders.
[2019-04-03 09:27] LABS: Anion Gap 7 mmol/L (6-16); Blood Urea Nitrogen 35 mg/dL (8-24); Bun/Creatinine Ratio 32.1 (12.0-20.0); CO2, Blood 23 mmol/L (21-32); Calcium, Blood 9.1 mg/dL (8.5-10.1); Chloride, Blood 103 mmol/L (98-108); Creatinine, Blood 1.09 mg/dL (0.60-1.20); Glomerular Filtration Rate >60 (60-); Glucose, Blood 302 mg/dL (70-99); Potassium, Blood 5.5 mmol/L (3.5-5.5); Sodium, Blood 133 mmol/L (136-145)
--- NOTE | 2019-04-03 10:52 | NUR ---
DR. TORRES HERE TO SEE PT, NOTIFIED REGARDING NUMBNESS AND PT NOT BEING ABLE TO MOVE TOES ON R FOOT.
--- NOTE | 2019-04-03 15:37 | NUR ---
PT C/O 02/20 PAIN ON R ANKLE/FOOT, PT NOW ABLE TO MOVE TOES, 2 NORCO GIVEN, PT ASSISTED TO REPOSITION AND ELEVATE RLE IN BED WITH PILLOWS, CONT. TO MONITOR FOR ANY CHANGES.
--- NOTE | 2019-04-03 17:10 | NUR ---
SUMMARY REPORTS PAIN IS BETTER ON R ANKLE BUT CONTINUES TO HAVE NUMBNESS ON RLE, WOUND VAC DSG INTACT CONTINUES TO DRAIN SEROSANGUINOUS DRAINAGE, NO ACUTE CHANGES THIS SHIFT.
--- NOTE | 2019-04-03 18:02 | NUR ---
ASSUMED CARE OF PT AT APPROX 1700. REPORT RECEIVED FROM PREVIOUS RN. PT SITTING UP IN BED EATING DINNER AT THIS MOMENT. NO COMPLAINTS OF PAIN AND NO REQUESTS AT THIS TIME.
[2019-04-03 20:25] LABS: Vancomycin, Trough 15.4 ug/mL (5.0-10.0)
--- NOTE | 2019-04-04 00:15 | NUR ---
IV ACCESS: PT PERIPHERAL IV INFITRATED. ICU JUNIOR STAFF ACCOUNTANT KATIA ATTEMPTED TO PLACE MIDLINE W/O SUCCESS. SHE ALSO ATTEMPTED TO OBTAIN PERIPHERAL ACCESS W/ASSISTANCE OF ULTRASOUND; NO USABLE SITES FOUND. PT REP HX OF DIFFICULTY OBTAINING IV ACCESS, WELL DIFFICULTY W/PICC LINE PLACEMENT IN PAST. HOSPITALIST NOTIFIED, ABX REV. ORDER TO HOLD ABX FOR TONIGHT AND PLACE ORDER FOR PICC LINE SOON PICC RN AVAILABLE. PLAN TO NOTIFY MD FOR CHANGES IN PT CONDITION FOR POSS STAT CENTRAL LINE PLACEMENT.
--- NOTE | 2019-04-04 06:42 | NUR ---
POD 2 S/P I&D OF R ANKLE. PT VSS T/O NIGHT. DRESSING INTACT W/MOD SS DRNG. PAIN MGD PER EMAR W/REP RELIEF. PT REP NO CHANGE IN NUMBNESS, IS WEAKLY WIGGLING TOES. IV ACCESS LOST, ABX ON HOLD PER MD UNTIL ABLE TO OBTAIN PICC LINE. PT JOAN REG PO, ADA DIET OPTIONS ENC. PT INDEP UP TO SOB, IS CALING FOR ASSISTANCE, WILL CONT TO MONITOR UNTIL REP GIVEN TO ONCOMING RN.
--- NOTE | 2019-04-04 08:07 | NUR ---
SITTING UP IN BED, STATES DIDN'T SLEEP WELL LAST NIGHT, NO IV ACCESS AT THIS TIME PENDING PICC PLACEMENT, PT HAS BEEN REQUESTING SNACKS FREQUENTLY T/O THE NIGHT, ADA SNACKS HAS BEEN REQUESTED YESTERDAY TO BE SENT BETWEEN MEALS, DISCUSSED BLOOD SUGAR CONTROL AND ADA DIET WITH PT PT VERBALIZES UNDERSTANDING.
[2019-04-04 08:59] LABS: Anion Gap 4 mmol/L (6-16); Blood Urea Nitrogen 39 mg/dL (8-24); Bun/Creatinine Ratio 35.1 (12.0-20.0); CO2, Blood 26 mmol/L (21-32); Calcium, Blood 8.8 mg/dL (8.5-10.1); Chloride, Blood 106 mmol/L (98-108); Creatinine, Blood 1.11 mg/dL (0.60-1.20); Glomerular Filtration Rate >60 (60-); Glucose, Blood 194 mg/dL (70-99); Potassium, Blood 4.5 mmol/L (3.5-5.5); Sodium, Blood 136 mmol/L (136-145)
--- NOTE | 2019-04-04 10:34 | NUR ---
DISCUSSED WITH CROP ROLLER WAYS TO HELP CONTROL PT'S BLOOD SUGAR THROUGH DIET, PT CONTINUES TO ASK FOR MORE FOOD DESPITE BEING GIVEN ADA SNACKS IN BETWEEN MEALS AND CALLING DOWN TO THE KITCHEN AND ASKING FOR MORE FOOD.
--- NOTE | 2019-04-05 06:32 | NUR ---
POD 3 S/P I&S OF R ANKLE. PT VSS T/O NIGHT. WOUND VAC DRESSING INTACT W/SS DRNG. PRE REP NUMBNESS RESOLVED W/RETURN OF SENSATION, AND BETTER STRENGTH/MOVEMENT OF FOOT. PAIN MGD PER EMAR W/REP RELIEF. PT NON COMPLIANT W/DIET. PT EDUCATED OFTEN AND OFFERRED ADA DIET OPTIONS, PT DECLINING OPTIONS. PT USING CALL LIGHT FOR ASSISTACE. PLAN FOR PICC LINE PLACEMENT TODAY. AWAITING INFECTIOUS DISEASE CONSULT. WILL CONT TO MONITOR UNTIL REP GIVEN TO ONCOMING RN.
[2019-04-05 08:10] LABS: BASOPHILS PERCENT AUTO 1 % (0-2); EOSINOPHILS ABSOLUTE AUTO 0.49 K/mm3 (0.00-0.68); EOSINOPHILS PERCENT AUTO 4 % (0-6); Hematocrit 34.9 % (37.0-53.0); Hemoglobin 11.2 g/dL (13.5-17.5); IMMATURE GRAN ABSOLUTE AUTO 0.05 K/mm3 (0.00-0.10); IMMATURE GRAN PERCENT AUTO 0 % (0-1); LYMPHOCYTES ABSOLUTE AUTO 3.07 K/mm3 (0.84-5.20); LYMPHOCYTES PERCENT AUTO 27 % (21-46); MONOCYTES ABSOLUTE AUTO 1.18 K/mm3 (0.16-1.47); MONOCYTES PERCENT AUTO 10 % (4-13); Mean Corpuscular HGB 28.5 pg (26.0-34.0); Mean Corpuscular HGB Conc 32.1 g/dL (31.5-36.5); Mean Corpuscular Volume 89 fL (80-100); Mean Platelet Volume 11.9 fL (9.1-12.4); NEUTROPHILS ABSOLUTE AUTO 6.64 K/mm3 (1.96-9.15); NEUTROPHILS PERCENT AUTO 58 % (41-73); Platelet Count 232 K/mm3 (150-400); RDW Coefficient Variation 14.3 % (11.7-14.2); RDW Standard Deviation 46.1 fL (35.1-46.3); Red Blood Cell Count 3.93 M/mm3 (4.30-5.90); White Blood Cell Count 11.53 K/mm3 (4.00-11.30)
[2019-04-05 08:31] LABS: Bun/Creatinine Ratio 31.6 (12.0-20.0); Calcium, Blood 8.6 mg/dL (8.5-10.1); Creatinine, Blood 1.33 mg/dL (0.60-1.20)
--- NOTE | 2019-04-05 13:15 | NUR ---
DR TENORIO HERE RECENTLY TO SEE PT.
--- NOTE | 2019-04-05 13:49 | NUR ---
NURSE LOOKED FOR SITE FOR PICC LINE, NO IDEAL SITE VISUALIZED. NURSE REQUESTED PT TO PUSH FLUIDS AND WILL RETURN AT APPROX 1500 TO ATTEMPT AGAIN. POWERGLIDE TEAM ATTEMPTED INSERTION, UNABLE TO OBTAIN SITE. DR. TENORIO CONSULTED WITH VERO THIS MORNING.
--- NOTE | 2019-04-05 14:09 | NUR ---
04/05/19 1409 Kusum Hopson VERIFICATIONS: EDIT CHART.
--- NOTE | 2019-04-05 18:35 | NUR ---
SHIFT SUMMARY: NO ACUTE CHANGES. VSS. WOUND VAC DRSG CHANGED BY DR. ROSA. AMBULATING INDEPENDENTLY IN ROOM. UNABLE TO OBTAIN PICC OR POWERGLIDE. ABLE TO MAKE NEEDS KNOWN. HAS DIETARY SNACK IN REFRIGERATOR. RESTING IN BED W/ CALL LIGHT IN REACH. USES HIS CALL LIGHT APPROPRIATELY.
--- NOTE | 2019-04-05 19:05 | NUR ---
recvd report from previous shift frantz esteban. pt sitting/dangling on bed, a/o x 4, pleasant/cooperative,requests pain medication, has finished dinner, call light within reach, bed rails up x 2 y\
--- NOTE | 2019-04-06 01:28 | NUR ---
2149-FOLLOWING STARTING IV INFUSION OF VANCOMYCIN, PT CALLED NURSE IN STATING HIS ARM "BURNED, FELT LIKE POISON". RAN VANCO WITH IV FLUID CONCURRENTLY, PT DID STILL NOT TOLERATE INFUSION. LIZY GARCIA ATTEMPTED POWER GLIDE, UNSUCCESSFUL. THIS IS FOLLOWING PICC LINE PLACEMENT ATTEMPTS X 2 DAYS SHIFT, POWER GLIDE PLACEMENT ATTEMPTS X 2. WILL NOTIFY HOSPITALIST.
--- NOTE | 2019-04-06 05:53 | NUR ---
shift summary: vss, no acute changes, pt remained a/0 x 4. pt tolerated PO intake requesting snacks/milk >x 5 t/o shift. pt medicated per mar with pain control states at 6/10 at the lowest in his low back (chronic back pain) , operative R foot at 4/10. pt independent in room and ambulating in hallway. Peripheral IV access unobtainable with multiple attemps at PICC line and power glide 04/05/19 day shift as well as restaurant shift supervisor. Order for central line placement to be obtained today per hospitalist. Wound vac operative R foot intact, patent, sealed.
--- NOTE | 2019-04-06 18:00 | NUR ---
DISCUSSED WITH , CHARGE NURSE, AND CLINICAL COORDINATOR RE: INABILITY TO OBTAIN IV/PICC/POWERGLIDE ACCESS.
[2019-04-06 18:32] LABS: International Normalized Ratio 0.91; Prothrombin Time Results 9.7 Sec (9.7-11.5)
--- NOTE | 2019-04-06 18:44 | NUR ---
SHIFT SUMMARY: NO ACUTE CHANGES. VSS. CONTINUES TO SNACK FREQUENTLY. NO PERIPHERAL IV ACCESS AT THIS TIME. POWERGLIDE TEAM UNABLE TO PLACE LINE. DR. ROSA ROUNDED THIS AFTERNOON. AMBULATING INDEPENDENTLY IN ROOM. CLEARED BY PT TODAY. SITTING AT THE SIDE OF THE BED WITH CALL LIGHT IN REACH.
--- NOTE | 2019-04-06 21:00 | NUR ---
UNABLE TO INFUSE SCHED VANCO D/T NO IV ACCESS DESPITE MULT IV ATTEMPTS DURING DAY SHIFT AND LAST NIGHT. PROVIDER AWARE.
[2019-04-07 04:46] LABS: International Normalized Ratio 0.89; Prothrombin Time Results 9.5 Sec (9.7-11.5)
--- NOTE | 2019-04-07 07:52 | NUR ---
SHIFT SUMMARY: PT S/P I&D TO RIGHT FOOT. WOUND VAC IN PLACE AND DRAINING SS FLUID. INDEPENDENT IN ROOM AND ALREADY CLEARED BY PHYSICAL THERAPY. PT STILL IN NEED OF IV ACCESS. SCHED VANCO NOT ADMINISTERED. CHRONIC BACK PAIN BEING MANAGED WITH 2 NORCO PER EMAR. PT GIVEN NICOTINE GUM Q4. PT IN THE SHOWER THIS MORNING. AMBULATING INDEPENDENTLY.
--- NOTE | 2019-04-07 18:35 | NUR ---
SHIFT SUMMARY S/P RIGHT BKA, STUMP SOCK IN PLACE AND ELEVATED ON PILLOWS. NO DRAINAGE NOTED, DRESSING C/D/I. PAIN MANAGED PER EMAR WITH ICE AND REPOSITIONING. WORKED WITH PT/OT TODAY, TOLERATED IT WELL. UP IN WHEELCHAIR. LOPEZ CATH PATENT AND DRAINING CLEAR, YELLOW URINE. A&O, VSS, SPO2 ABOVE 90% ON 3L. FAMILY AT BEDSIDE T/O SHIFT. PLEASANT AND COOPERATIVE. CALL LIGHT WITHIN REACH.
--- NOTE | 2019-04-07 18:44 | NUR ---
MIDLINE CONFIRMED OKAY TO USE BY MICHEL Carrion RN. PHARMACY NOTIFIED. ORDERS OBTAINED FROM DR. HANKINS FOR FLUIDS.
--- NOTE | 2019-04-07 18:45 | NUR ---
SHIFT SUMMARY PT A&O WITH VSS T/O SHIFT TODAY. KLEOPPER IN TO CHANGE DRESSING ON RIGHT ANKLE THIS AFTERNOON. WOUND VAC IN PLACE WITH SEROSANGEOUS DRAINAGE. DRESSING C/D/I. MIDLINE PLACED IN LUE. NOTIFIED PHARMACY OF NEW MIDLINE. PT IND IN ROOM. CALL LIGHT WITHIN REACH, PT IS PLEASANT AND COOPERATIVE.
--- NOTE | 2019-04-07 18:56 | NUR ---
Radilology read midline PICC in axillary and Dr Villa gave permission to use. Patient was difficult access and was unable to advance line and left in axillary. Good blood return and flushed well.
[2019-04-08 06:15] LABS: Hematocrit 31.3 % (37.0-53.0); Mean Corpuscular HGB 28.2 pg (26.0-34.0); Mean Corpuscular HGB Conc 31.9 g/dL (31.5-36.5); Mean Corpuscular Volume 88 fL (80-100); Mean Platelet Volume 12.2 fL (9.1-12.4); Platelet Count 245 K/mm3 (150-400); RDW Coefficient Variation 14.1 % (11.7-14.2); RDW Standard Deviation 45.7 fL (35.1-46.3); Red Blood Cell Count 3.54 M/mm3 (4.30-5.90); White Blood Cell Count 10.74 K/mm3 (4.00-11.30)
--- NOTE | 2019-04-08 06:35 | NUR ---
Pt alert and oriented, Vital signs stable. Ambulating to bathroom independently. IVF infusing. Unable to get blood return from PICC. Wound vacc line leaking, dressing changed. Complaints of pain, medicated as ordered.
[2019-04-08 06:40] LABS: Calcium, Blood 8.7 mg/dL (8.5-10.1); Creatinine, Blood 1.36 mg/dL (0.60-1.20); Potassium, Blood 5.1 mmol/L (3.5-5.5)
[2019-04-08 06:57] LABS: International Normalized Ratio 0.9; Prothrombin Time Results 9.6 Sec (9.7-11.5)
--- NOTE | 2019-04-08 11:23 | NUR ---
DR. LEROY IN TO SEE PT THIS MORNING. PLAN FOR D/C TO SNF TODAY.
--- NOTE | 2019-04-08 12:39 | NUR ---
DISCHARGE SUMMARY PT D/C TO [facility] AT 1240 VIA TRANSPORT SERVICE. REPORT GIVEN TO VALERIO AT 1235. PT DECLINED WHEELCHAIR AND AMBULATED IND FROM UNIT. A&O, VSS, PAIN MANAGED PER EMAR, AND BLOOD SUGAR CONTROLLED WITH ADA DIET/EMAR. WOUND VAC DRESSING ON R. ANKLE IN PLACE; VAC D/C UPON DISCHARGE. SL POWERGLIDE IN LUE. SCRIPT AND PERSONAL BELONGS GIVEN TO PATIENT AT DISCHARGE.
[2019-04-19] MEDS ORDERED: FLORASTOR (11:50)
[2019-04-19] MEDS ORDERED: COLACE (11:50)
[2019-04-19] MEDS ORDERED: CLIN300 PO (11:51)
[2019-04-19] MEDS ORDERED: INSDET100 (11:51)
== END 2019-04-08 12:40 | DRG 982 ==
LOC: SURS 11:44 → ORSCMMR 11:44 → ORD 13:15 → ORSCMMR 13:15 → SURS 18:33 → ORSCMMR 18:34 → SURS 18:34
PROVIDERS: Hospitalist; Internal Medicine; ADMIT Orthopaedic Surgery
PROC: 0QBJ0ZZ Excision of Right Fibula, Open Approach (ICD-10-PCS; 2019-04-02)
PROC: 0QTJ0ZZ Resection of Right Fibula, Open Approach (ICD-10-PCS; principal; 2019-04-02 15:00)
DX: E11.69 Type 2 diabetes mellitus with other specified complication (principal); M86.671 Other chronic osteomyelitis, right ankle and foot; F11.20 Opioid dependence, uncomplicated; E11.42 Type 2 diabetes mellitus with diabetic polyneuropathy; Z79.4 Long term (current) use of insulin; F32.9 Major depressive disorder, single episode, unspecified; I10 Essential (primary) hypertension; K21.9 Gastro-esophageal reflux disease without esophagitis
CPT/HCPCS: 36415; 36569; 71045; 80048; 80202; 82947; 83735; 85025; 85027; 85610; 85651; 86140; 87071; 87075; 87077; 87205; 97116; 97162; 97166; 97530; 97535; A9270-GY; C1751; J0610; J0690; J1100; J1650; J1815; J1885; J2250; J2270; J2370; J2405; J2543; J2704; J3010; J3370; J3480; J7030; J7050; J7120

== ENCOUNTER 2019-04-14 09:56 | Day surgery (SDC) | payer MEDICARE ==
--- NOTE | 2019-04-14 13:24 | NUR ---
PICC INSERTION : ATTEMPTED 2X ON L UPPER ARM, ACCESSED VEIN BOTH TIMES BUT WAS UNSUCCESSFUL TO THREAD GUIDWIRE. PT HAS HX OF IV DRUG USE AND HAS NO VEIN ACCESSIBLE ON R UPPER ARM. PT STATES THAT HE HAS HAD AT LEAST 5 PICCS IN PAST AND THEY HAD TO BE LONG ARM AND APPROX 4 OR 5 POWER GLIDES THAT HAVE FAILED. CALLED DIRECTOR RENETTA AT [facility] AND INFORMED HER THAT PT IS NOT CANDIDATE FOR PICC OR POWER GLIDE. POSSIBLY PT WOULD BENEFIT FROM MEDIPORT SHE STATES THAT SHE WILL PASS THIS ON TO THE NURSE PRACTIONER
[2019-04-19] MEDS ORDERED: FLORASTOR (11:50)
[2019-04-19] MEDS ORDERED: COLACE (11:50)
[2019-04-19] MEDS ORDERED: INSDET100 (11:51)
[2019-04-19] MEDS ORDERED: CLIN300 PO (11:51)
== END 2019-04-14 23:15 | disposition home or self-care (01) ==
LOC: ATC 09:56
DX: M86.8X6 Other osteomyelitis, lower leg (principal)
CPT/HCPCS: 36569; C1751; C1894

== ENCOUNTER 2019-04-20 08:33 | Day surgery (SDC) | payer MEDICARE ==
[~2019-04-20] VITALS: Ht 182.9 cm; Wt 131.3 kg
[~2019-04-20 08:33] MED LIST changes: +COLACE; +FLORASTOR; +INSDET100
[2019-04-20] MEDS ORDERED: DOCU100 PO (09:16)
[2019-04-20] MEDS ORDERED: Florastor250 MG PO (09:17)
[2019-04-20] MEDS ORDERED: Vancocin HCL1000 M1 IV (09:18)
--- NOTE | 2019-04-20 09:21 | NUR ---
History, Chart, Medications and Allergies reviewed before start of procedure. Patient confirms NPO status and agrees with scheduled surgery. Lungs decreased throughout. NO JEWELRY, CONTACTS, GLASSES OR HEARING DEVICES PRESENT AT ADMIT.
--- NOTE | 2019-04-20 10:12 | NUR ---
Patient States Post-Procedure ride home has been arranged.
--- NOTE | 2019-04-20 10:18 | NUR ---
PER DR JC MCINTYRE TO LLE ONLY & PATIENT WILL BE SENT TO OR WITH HIS WOUND VAC INTACT.
--- NOTE | 2019-04-20 10:23 | NUR ---
BUTT MAKER REPORT COMPLETED AT BEDSIDE WITH JAYLAN Ackerman RN.
--- NOTE | 2019-04-20 10:25 | NUR ---
PER JAYLAN, WILL GIVE OR FIVE MINUTES AND THEN BRING.
--- NOTE | 2019-04-20 13:10 | NUR ---
Discharge instructions reviewed with patient. Patient verbalizes understanding. Copy given to patient to take home. Report given to RADHA Brady at [facility]. Tunneled Catheter Infusion policy faxed for reference if needed. Right upper arm IV site bleeding, pressure dressing placed. Pt educated to remove dressing once back at [facility]. Discharged via wheelchair to private car for ride home, pt to return to care facility. Belonging gathered.
== END 2019-04-20 22:41 | disposition home or self-care (01) ==
LOC: ORSCMMR 08:33
PROVIDERS: Surgery
PROC: 05H533Z Insertion of Infusion Device into Right Subclavian Vein, Percutaneous Approach (ICD-10-PCS; principal; 2019-04-20 10:45)
DX: Z79.2 Long term (current) use of antibiotics (principal); M86.60 Other chronic osteomyelitis, unspecified site; I87.2 Venous insufficiency (chronic) (peripheral); E11.9 Type 2 diabetes mellitus without complications; F32.9 Major depressive disorder, single episode, unspecified; I10 Essential (primary) hypertension; Z79.899 Other long term (current) drug therapy
CPT/HCPCS: 77001; 82947; C1751; J0690; J1100; J1642; J2250; J2405; J2704; J3010; J7120

== ENCOUNTER 2019-05-31 00:09 | Day surgery (SDC) | payer MEDICARE ==
[~2019-05-31 00:09] MED LIST changes: +Florastor250 MG PO
== END 2019-05-31 22:56 | disposition home or self-care (01) ==
LOC: WOUND 00:09
DX: E11.621 Type 2 diabetes mellitus with foot ulcer (principal); L97.512 Non-pressure chronic ulcer of other part of right foot with fat layer exposed; E11.52 Type 2 diabetes mellitus with diabetic peripheral angiopathy with gangrene; I96 Gangrene, not elsewhere classified; E11.69 Type 2 diabetes mellitus with other specified complication; M86.8X7 Other osteomyelitis, ankle and foot; E11.42 Type 2 diabetes mellitus with diabetic polyneuropathy; I10 Essential (primary) hypertension; F15.10 Other stimulant abuse, uncomplicated; F11.10 Opioid abuse, uncomplicated; Z87.891 Personal history of nicotine dependence; Z79.4 Long term (current) use of insulin; Z79.899 Other long term (current) drug therapy
CPT/HCPCS: 87071; 87075; 87205; G0463

== ENCOUNTER 2019-06-03 10:45 | Day surgery (SDC) | payer MEDICARE | END 2019-06-03 23:18 | disposition home or self-care (01) | LOC: WOUND 10:45 | DX: E11.622 Type 2 diabetes mellitus with other skin ulcer (principal); L97.812 Non-pressure chronic ulcer of other part of right lower leg with fat layer exposed; E11.42 Type 2 diabetes mellitus with diabetic polyneuropathy; I10 Essential (primary) hypertension; Z79.4 Long term (current) use of insulin; Z79.899 Other long term (current) drug therapy ==

== ENCOUNTER 2019-06-14 14:35 | Day surgery (SDC) | payer MEDICARE | END 2019-06-14 23:07 | disposition home or self-care (01) | LOC: WOUND 14:35 | DX: E11.621 Type 2 diabetes mellitus with foot ulcer (principal); L97.513 Non-pressure chronic ulcer of other part of right foot with necrosis of muscle; E11.52 Type 2 diabetes mellitus with diabetic peripheral angiopathy with gangrene; I96 Gangrene, not elsewhere classified; E11.42 Type 2 diabetes mellitus with diabetic polyneuropathy; I10 Essential (primary) hypertension; Z79.899 Other long term (current) drug therapy; F11.10 Opioid abuse, uncomplicated; Z79.4 Long term (current) use of insulin; F15.10 Other stimulant abuse, uncomplicated ==

== ENCOUNTER 2019-06-21 15:00 | Day surgery (SDC) | payer MEDICARE | END 2019-06-21 22:43 | disposition home or self-care (01) | LOC: WOUND 15:00 | DX: E11.622 Type 2 diabetes mellitus with other skin ulcer (principal); L97.812 Non-pressure chronic ulcer of other part of right lower leg with fat layer exposed; E11.42 Type 2 diabetes mellitus with diabetic polyneuropathy; I10 Essential (primary) hypertension; Z87.891 Personal history of nicotine dependence; Z79.4 Long term (current) use of insulin; Z79.899 Other long term (current) drug therapy | CPT/HCPCS: Q4133 ==

== ENCOUNTER 2019-06-23 15:11 | Day surgery (SDC) | payer MEDICARE | END 2019-06-23 23:56 | disposition home or self-care (01) | LOC: WOUND 15:11 | DX: E11.622 Type 2 diabetes mellitus with other skin ulcer (principal); L97.812 Non-pressure chronic ulcer of other part of right lower leg with fat layer exposed; E11.42 Type 2 diabetes mellitus with diabetic polyneuropathy; I10 Essential (primary) hypertension; Z79.4 Long term (current) use of insulin; Z79.899 Other long term (current) drug therapy ==

== ENCOUNTER 2019-06-25 14:45 | Day surgery (SDC) | payer MEDICARE | END 2019-06-26 22:41 | disposition home or self-care (01) | LOC: WOUND 14:45 | DX: E11.622 Type 2 diabetes mellitus with other skin ulcer (principal); L97.813 Non-pressure chronic ulcer of other part of right lower leg with necrosis of muscle; E11.52 Type 2 diabetes mellitus with diabetic peripheral angiopathy with gangrene; I96 Gangrene, not elsewhere classified; E11.42 Type 2 diabetes mellitus with diabetic polyneuropathy; I10 Essential (primary) hypertension; F15.10 Other stimulant abuse, uncomplicated; F11.10 Opioid abuse, uncomplicated; E11.69 Type 2 diabetes mellitus with other specified complication; M86.9 Osteomyelitis, unspecified; Z79.4 Long term (current) use of insulin; Z79.2 Long term (current) use of antibiotics; Z79.899 Other long term (current) drug therapy ==

== ENCOUNTER 2019-06-28 14:59 | Day surgery (SDC) | payer MEDICARE | END 2019-06-28 22:39 | disposition home or self-care (01) | LOC: WOUND 14:59 | DX: E11.622 Type 2 diabetes mellitus with other skin ulcer (principal); L97.812 Non-pressure chronic ulcer of other part of right lower leg with fat layer exposed; E11.42 Type 2 diabetes mellitus with diabetic polyneuropathy; I10 Essential (primary) hypertension; Z79.4 Long term (current) use of insulin; Z79.899 Other long term (current) drug therapy | CPT/HCPCS: Q4133 ==

== ENCOUNTER 2019-07-05 15:04 | Day surgery (SDC) | payer MEDICARE | END 2019-07-05 22:55 | disposition home or self-care (01) | LOC: WOUND 15:04 | DX: E11.622 Type 2 diabetes mellitus with other skin ulcer (principal); L97.815 Non-pressure chronic ulcer of other part of right lower leg with muscle involvement without evidence of necrosis ==

== ENCOUNTER 2019-07-12 15:02 | Day surgery (SDC) | payer MEDICARE | END 2019-07-12 22:58 | disposition home or self-care (01) | LOC: WOUND 15:02 | DX: E11.622 Type 2 diabetes mellitus with other skin ulcer (principal); L97.812 Non-pressure chronic ulcer of other part of right lower leg with fat layer exposed; E11.42 Type 2 diabetes mellitus with diabetic polyneuropathy; I10 Essential (primary) hypertension; M86.8X6 Other osteomyelitis, lower leg; Z79.4 Long term (current) use of insulin; Z79.899 Other long term (current) drug therapy | CPT/HCPCS: G0463 ==

== ENCOUNTER 2019-07-19 15:03 | Day surgery (SDC) | payer MEDICARE | END 2019-07-19 22:42 | disposition home or self-care (01) | LOC: WOUND 15:03 | DX: T81.89XA Other complications of procedures, not elsewhere classified, initial encounter (principal); E11.52 Type 2 diabetes mellitus with diabetic peripheral angiopathy with gangrene; I96 Gangrene, not elsewhere classified; E11.621 Type 2 diabetes mellitus with foot ulcer; L97.513 Non-pressure chronic ulcer of other part of right foot with necrosis of muscle; E11.42 Type 2 diabetes mellitus with diabetic polyneuropathy; I10 Essential (primary) hypertension; F15.10 Other stimulant abuse, uncomplicated; F11.10 Opioid abuse, uncomplicated; S91.311A Laceration without foreign body, right foot, initial encounter; Z79.4 Long term (current) use of insulin; Z79.899 Other long term (current) drug therapy; X58.XXXA Exposure to other specified factors, initial encounter; Y83.8 Other surgical procedures as the cause of abnormal reaction of the patient, or of later complication, without mention of misadventure at the time of the procedure ==

== ENCOUNTER 2019-07-26 00:20 | Day surgery (SDC) | payer MEDICARE, OTHER | END 2019-07-26 22:42 | disposition home or self-care (01) | LOC: WOUND 00:20 | DX: M96.89 Other intraoperative and postprocedural complications and disorders of the musculoskeletal system (principal); S91.311A Laceration without foreign body, right foot, initial encounter; E11.621 Type 2 diabetes mellitus with foot ulcer; L97.513 Non-pressure chronic ulcer of other part of right foot with necrosis of muscle; E11.52 Type 2 diabetes mellitus with diabetic peripheral angiopathy with gangrene; I96 Gangrene, not elsewhere classified; I10 Essential (primary) hypertension; F15.10 Other stimulant abuse, uncomplicated; F11.10 Opioid abuse, uncomplicated; E11.42 Type 2 diabetes mellitus with diabetic polyneuropathy; Z79.891 Long term (current) use of opiate analgesic; Z79.4 Long term (current) use of insulin; Z79.2 Long term (current) use of antibiotics; Z79.899 Other long term (current) drug therapy; X58.XXXA Exposure to other specified factors, initial encounter; Y83.8 Other surgical procedures as the cause of abnormal reaction of the patient, or of later complication, without mention of misadventure at the time of the procedure ==

== ENCOUNTER 2019-08-09 00:22 | Day surgery (SDC) | payer MEDICARE | END 2019-08-09 23:11 | disposition home or self-care (01) | LOC: WOUND 00:22 | DX: E11.622 Type 2 diabetes mellitus with other skin ulcer (principal); E11.42 Type 2 diabetes mellitus with diabetic polyneuropathy; L97.812 Non-pressure chronic ulcer of other part of right lower leg with fat layer exposed; I10 Essential (primary) hypertension; Z79.899 Other long term (current) drug therapy; Z79.4 Long term (current) use of insulin ==

== ENCOUNTER 2019-08-16 00:08 | Day surgery (SDC) | payer MEDICARE, OTHER | END 2019-08-16 22:45 | disposition home or self-care (01) | LOC: WOUND 00:08 | DX: E11.622 Type 2 diabetes mellitus with other skin ulcer (principal); E11.42 Type 2 diabetes mellitus with diabetic polyneuropathy; L97.812 Non-pressure chronic ulcer of other part of right lower leg with fat layer exposed; S81.801A Unspecified open wound, right lower leg, initial encounter; L03.115 Cellulitis of right lower limb; I10 Essential (primary) hypertension; Z79.899 Other long term (current) drug therapy; Z79.4 Long term (current) use of insulin; X58.XXXA Exposure to other specified factors, initial encounter | CPT/HCPCS: G0463 ==

== ENCOUNTER 2019-08-23 00:21 | Day surgery (SDC) | payer MEDICARE, OTHER | END 2019-08-23 23:13 | disposition home or self-care (01) | LOC: WOUND 00:21 | DX: E11.622 Type 2 diabetes mellitus with other skin ulcer (principal); L97.812 Non-pressure chronic ulcer of other part of right lower leg with fat layer exposed; S81.801D Unspecified open wound, right lower leg, subsequent encounter; L03.115 Cellulitis of right lower limb; E11.42 Type 2 diabetes mellitus with diabetic polyneuropathy; I10 Essential (primary) hypertension; Z79.899 Other long term (current) drug therapy; Z79.4 Long term (current) use of insulin ==

== ENCOUNTER 2019-09-06 00:07 | Day surgery (SDC) | payer MEDICARE, OTHER | END 2019-09-06 23:56 | disposition home or self-care (01) | LOC: WOUND 00:07 | DX: E11.622 Type 2 diabetes mellitus with other skin ulcer (principal); E11.42 Type 2 diabetes mellitus with diabetic polyneuropathy; L97.812 Non-pressure chronic ulcer of other part of right lower leg with fat layer exposed; S81.801D Unspecified open wound, right lower leg, subsequent encounter; I10 Essential (primary) hypertension; Z79.4 Long term (current) use of insulin; Z79.899 Other long term (current) drug therapy | CPT/HCPCS: Q4133 ==

== ENCOUNTER 2019-09-13 00:32 | Day surgery (SDC) | payer MEDICARE, OTHER | END 2019-09-13 22:48 | disposition home or self-care (01) | LOC: WOUND 00:32 | DX: E11.622 Type 2 diabetes mellitus with other skin ulcer (principal); L97.812 Non-pressure chronic ulcer of other part of right lower leg with fat layer exposed; S81.801D Unspecified open wound, right lower leg, subsequent encounter; E11.42 Type 2 diabetes mellitus with diabetic polyneuropathy; I10 Essential (primary) hypertension; Z79.4 Long term (current) use of insulin; Z79.899 Other long term (current) drug therapy ==

== ENCOUNTER 2019-09-20 00:19 | Day surgery (SDC) | payer MEDICARE, OTHER | END 2019-09-20 12:00 | disposition home or self-care (01) | LOC: WOUND 00:19 | DX: E11.622 Type 2 diabetes mellitus with other skin ulcer (principal); E11.42 Type 2 diabetes mellitus with diabetic polyneuropathy; L97.812 Non-pressure chronic ulcer of other part of right lower leg with fat layer exposed; S81.801D Unspecified open wound, right lower leg, subsequent encounter; I10 Essential (primary) hypertension; Z79.899 Other long term (current) drug therapy; Z79.4 Long term (current) use of insulin | CPT/HCPCS: 87070; 87075; 87147; 87205 ==

== ENCOUNTER 2019-10-18 00:16 | Day surgery (SDC) | payer MEDICARE, MEDICAID | END 2019-10-18 23:08 | disposition home or self-care (01) | LOC: WOUND 00:16 | DX: L97.812 Non-pressure chronic ulcer of other part of right lower leg with fat layer exposed (principal); S81.801D Unspecified open wound, right lower leg, subsequent encounter; R60.0 Localized edema; E11.9 Type 2 diabetes mellitus without complications | CPT/HCPCS: Q4133 ==

== ENCOUNTER 2019-11-01 00:09 | Day surgery (SDC) | payer MEDICARE | END 2019-11-01 22:49 | disposition home or self-care (01) | LOC: WOUND 00:09 | DX: E11.622 Type 2 diabetes mellitus with other skin ulcer (principal); L97.812 Non-pressure chronic ulcer of other part of right lower leg with fat layer exposed; S81.801D Unspecified open wound, right lower leg, subsequent encounter; E11.42 Type 2 diabetes mellitus with diabetic polyneuropathy; I10 Essential (primary) hypertension; Z79.899 Other long term (current) drug therapy; Z79.4 Long term (current) use of insulin ==

== ENCOUNTER 2019-11-08 12:20 | Day surgery (SDC) | payer MEDICARE | END 2019-11-22 22:47 | disposition home or self-care (01) | LOC: WOUND 12:20 | DX: E11.622 Type 2 diabetes mellitus with other skin ulcer (principal); L97.812 Non-pressure chronic ulcer of other part of right lower leg with fat layer exposed; S81.801D Unspecified open wound, right lower leg, subsequent encounter; R60.0 Localized edema; L97.815 Non-pressure chronic ulcer of other part of right lower leg with muscle involvement without evidence of necrosis ==

== ENCOUNTER 2019-11-15 00:31 | Day surgery (SDC) | payer MEDICARE | END 2019-11-15 22:45 | disposition home or self-care (01) | LOC: WOUND 00:31 | DX: E11.622 Type 2 diabetes mellitus with other skin ulcer (principal); L97.812 Non-pressure chronic ulcer of other part of right lower leg with fat layer exposed; S81.801D Unspecified open wound, right lower leg, subsequent encounter; Z79.4 Long term (current) use of insulin ==

== ENCOUNTER 2019-12-13 00:32 | Day surgery (SDC) | payer MEDICARE | END 2019-12-13 23:01 | disposition home or self-care (01) | LOC: WOUND 00:32 | DX: E11.622 Type 2 diabetes mellitus with other skin ulcer (principal); L97.812 Non-pressure chronic ulcer of other part of right lower leg with fat layer exposed; S81.801D Unspecified open wound, right lower leg, subsequent encounter; E11.42 Type 2 diabetes mellitus with diabetic polyneuropathy; I10 Essential (primary) hypertension; Z79.899 Other long term (current) drug therapy; Z79.4 Long term (current) use of insulin ==

== ENCOUNTER 2019-12-20 00:41 | Day surgery (SDC) | payer MEDICARE | END 2019-12-20 23:14 | disposition home or self-care (01) | LOC: WOUND 00:41 | DX: E11.622 Type 2 diabetes mellitus with other skin ulcer (principal); L97.812 Non-pressure chronic ulcer of other part of right lower leg with fat layer exposed; S81.801D Unspecified open wound, right lower leg, subsequent encounter; X58.XXXD Exposure to other specified factors, subsequent encounter; I10 Essential (primary) hypertension; E11.42 Type 2 diabetes mellitus with diabetic polyneuropathy ==

== ENCOUNTER 2019-12-27 00:22 | Day surgery (SDC) | payer MEDICARE | END 2019-12-27 22:42 | disposition home or self-care (01) | LOC: WOUND 00:22 | DX: E11.622 Type 2 diabetes mellitus with other skin ulcer (principal); L97.812 Non-pressure chronic ulcer of other part of right lower leg with fat layer exposed; S81.801D Unspecified open wound, right lower leg, subsequent encounter; E11.42 Type 2 diabetes mellitus with diabetic polyneuropathy; I10 Essential (primary) hypertension; Z79.899 Other long term (current) drug therapy; Z79.4 Long term (current) use of insulin ==

== ENCOUNTER 2020-01-07 00:20 | Day surgery (SDC) | payer MEDICARE | END 2020-01-07 22:59 | disposition home or self-care (01) | LOC: WOUND 00:20 | DX: E11.621 Type 2 diabetes mellitus with foot ulcer (principal); L97.522 Non-pressure chronic ulcer of other part of left foot with fat layer exposed; L97.812 Non-pressure chronic ulcer of other part of right lower leg with fat layer exposed; S81.801D Unspecified open wound, right lower leg, subsequent encounter; E11.42 Type 2 diabetes mellitus with diabetic polyneuropathy; I10 Essential (primary) hypertension ==

== ENCOUNTER 2020-01-13 00:15 | Day surgery (SDC) | payer MEDICARE | END 2020-01-13 22:45 | disposition home or self-care (01) | LOC: WOUND 00:15 | DX: E11.622 Type 2 diabetes mellitus with other skin ulcer (principal); S81.801D Unspecified open wound, right lower leg, subsequent encounter; E11.621 Type 2 diabetes mellitus with foot ulcer; E11.42 Type 2 diabetes mellitus with diabetic polyneuropathy; I10 Essential (primary) hypertension; L97.815 Non-pressure chronic ulcer of other part of right lower leg with muscle involvement without evidence of necrosis; L97.412 Non-pressure chronic ulcer of right heel and midfoot with fat layer exposed; Z79.899 Other long term (current) drug therapy; Z79.4 Long term (current) use of insulin ==

== ENCOUNTER 2020-06-05 11:36 | Day surgery (SDC) | payer MEDICARE | END 2020-06-05 23:19 | disposition home or self-care (01) | LOC: WOUND 11:36 | DX: E11.622 Type 2 diabetes mellitus with other skin ulcer (principal); L97.313 Non-pressure chronic ulcer of right ankle with necrosis of muscle; E11.52 Type 2 diabetes mellitus with diabetic peripheral angiopathy with gangrene; I96 Gangrene, not elsewhere classified; E11.69 Type 2 diabetes mellitus with other specified complication; M86.8X7 Other osteomyelitis, ankle and foot; E11.42 Type 2 diabetes mellitus with diabetic polyneuropathy; I10 Essential (primary) hypertension; Z79.4 Long term (current) use of insulin; Z79.899 Other long term (current) drug therapy ==

== ENCOUNTER 2020-06-19 00:26 | Day surgery (SDC) | payer MEDICARE | END 2020-06-19 22:55 | disposition home or self-care (01) | LOC: WOUND 00:26 | DX: E11.622 Type 2 diabetes mellitus with other skin ulcer (principal); L97.312 Non-pressure chronic ulcer of right ankle with fat layer exposed; E11.52 Type 2 diabetes mellitus with diabetic peripheral angiopathy with gangrene; I96 Gangrene, not elsewhere classified; E11.69 Type 2 diabetes mellitus with other specified complication; M86.8X7 Other osteomyelitis, ankle and foot; E11.42 Type 2 diabetes mellitus with diabetic polyneuropathy; I10 Essential (primary) hypertension; B19.20 Unspecified viral hepatitis C without hepatic coma; Z79.4 Long term (current) use of insulin; Z79.899 Other long term (current) drug therapy | CPT/HCPCS: G0463 ==

== ENCOUNTER 2020-07-10 00:25 | Day surgery (SDC) | payer MEDICARE | END 2020-07-10 23:02 | disposition home or self-care (01) | LOC: WOUND 00:25 | DX: E11.622 Type 2 diabetes mellitus with other skin ulcer (principal); L97.312 Non-pressure chronic ulcer of right ankle with fat layer exposed; E11.52 Type 2 diabetes mellitus with diabetic peripheral angiopathy with gangrene; I96 Gangrene, not elsewhere classified; E11.69 Type 2 diabetes mellitus with other specified complication; M86.8X9 Other osteomyelitis, unspecified sites; I10 Essential (primary) hypertension; E11.42 Type 2 diabetes mellitus with diabetic polyneuropathy; F15.10 Other stimulant abuse, uncomplicated; F11.10 Opioid abuse, uncomplicated; Z79.4 Long term (current) use of insulin | CPT/HCPCS: G0463 ==

== ENCOUNTER 2020-07-31 00:30 | Day surgery (SDC) | payer MEDICARE ==
[~2020-07-31 00:30] MED LIST changes: +METH40 PO
== END 2020-07-31 22:42 | disposition home or self-care (01) ==
LOC: WOUND 00:30
DX: L97.812 Non-pressure chronic ulcer of other part of right lower leg with fat layer exposed (principal); E11.52 Type 2 diabetes mellitus with diabetic peripheral angiopathy with gangrene; I10 Essential (primary) hypertension; E11.42 Type 2 diabetes mellitus with diabetic polyneuropathy; E11.622 Type 2 diabetes mellitus with other skin ulcer; Z79.4 Long term (current) use of insulin; Z79.899 Other long term (current) drug therapy
CPT/HCPCS: A9270

== ENCOUNTER 2020-08-16 00:20 | Day surgery (SDC) | payer MEDICARE | END 2020-08-16 23:45 | disposition home or self-care (01) | LOC: WOUND 00:20 | DX: E11.622 Type 2 diabetes mellitus with other skin ulcer (principal); L97.812 Non-pressure chronic ulcer of other part of right lower leg with fat layer exposed; R60.0 Localized edema; L97.822 Non-pressure chronic ulcer of other part of left lower leg with fat layer exposed; E11.42 Type 2 diabetes mellitus with diabetic polyneuropathy; I10 Essential (primary) hypertension | CPT/HCPCS: A9270 ==

== ENCOUNTER 2020-09-02 08:50 | Emergency (ER) | payer MEDICARE ==
[~2020-09-02] VITALS: Ht 182.9 cm; Wt 124.7 kg
[2020-09-02 09:50] LABS: BASOPHILS ABSOLUTE AUTO 0.05 K/mm3 (0.00-0.23); BASOPHILS PERCENT AUTO 0 % (0-2); EOSINOPHILS ABSOLUTE AUTO 0.08 K/mm3 (0.00-0.68); EOSINOPHILS PERCENT AUTO 1 % (0-6); Hematocrit 34.8 % (37.0-53.0); Hemoglobin 11.4 g/dL (13.5-17.5); IMMATURE GRAN ABSOLUTE AUTO 0.06 K/mm3 (0.00-0.10); IMMATURE GRAN PERCENT AUTO 0 % (0-1); LYMPHOCYTES ABSOLUTE AUTO 1.56 K/mm3 (0.84-5.20); LYMPHOCYTES PERCENT AUTO 12 % (21-46); MONOCYTES ABSOLUTE AUTO 0.97 K/mm3 (0.16-1.47); MONOCYTES PERCENT AUTO 7 % (4-13); Mean Corpuscular HGB 28.4 pg (26.0-34.0); Mean Corpuscular HGB Conc 32.8 g/dL (31.5-36.5); Mean Corpuscular Volume 87 fL (80-100); Mean Platelet Volume 11.8 fL (9.1-12.4); NEUTROPHILS ABSOLUTE AUTO 10.84 K/mm3 (1.96-9.15); NEUTROPHILS PERCENT AUTO 80 % (41-73); Platelet Count 208 K/mm3 (150-400); RDW Coefficient Variation 13.9 % (11.7-14.2); RDW Standard Deviation 44.6 fL (35.1-46.3); Red Blood Cell Count 4.02 M/mm3 (4.30-5.90); White Blood Cell Count 13.56 K/mm3 (4.00-11.30)
[2020-09-02 10:09] LABS: Albumin, Blood 3.1 g/dL (3.4-5.0); Albumin/Globulin Ratio 0.7 (0.8-1.8); Bilirubin, Total 0.2 mg/dL (0.1-1.0); Bun/Creatinine Ratio 30.1 (12.0-20.0); C-REACTIVE PROTEIN, EXT RANGE 6.62 mg/dL (0.000-0.300); Calcium, Blood 9.2 mg/dL (8.5-10.1); Creatinine, Blood 1.43 mg/dL (0.60-1.20); Globulin, Blood 4.6 g/dL (2.2-4.0); Potassium, Blood 5.1 mmol/L (3.5-5.5); Total Protein, Blood 7.7 g/dL (6.4-8.2)
[2020-09-02] MEDS ORDERED: CLIN300 PO (10:35)
== END 2020-09-02 11:43 | disposition home or self-care (01) ==
LOC: ER 08:50
PROVIDERS: Emergency Medicine
DX: L03.115 Cellulitis of right lower limb (principal); I10 Essential (primary) hypertension; E11.40 Type 2 diabetes mellitus with diabetic neuropathy, unspecified; K21.9 Gastro-esophageal reflux disease without esophagitis; F17.210 Nicotine dependence, cigarettes, uncomplicated; Z89.421 Acquired absence of other right toe(s); Z79.4 Long term (current) use of insulin; Z79.899 Other long term (current) drug therapy
CPT/HCPCS: 36415; 73630; 80053; 85025; 85651; 86140; 96365-59; 99284-25

== ENCOUNTER 2020-09-04 07:35 | Inpatient (IN) | payer MEDICARE ==
[~2020-09-04] VITALS: Ht 182.9 cm; Wt 116.0 kg
[2020-09-04 08:45] LABS: BASOPHILS ABSOLUTE AUTO 0.03 K/mm3 (0.00-0.23); BASOPHILS PERCENT AUTO 0 % (0-2); EOSINOPHILS PERCENT AUTO 0 % (0-6); Hematocrit 34.9 % (37.0-53.0); Hemoglobin 11.2 g/dL (13.5-17.5); IMMATURE GRAN ABSOLUTE AUTO 0.12 K/mm3 (0.00-0.10); IMMATURE GRAN PERCENT AUTO 1 % (0-1); LYMPHOCYTES PERCENT AUTO 4 % (21-46); MONOCYTES ABSOLUTE AUTO 0.69 K/mm3 (0.16-1.47); MONOCYTES PERCENT AUTO 3 % (4-13); Mean Corpuscular HGB 28.2 pg (26.0-34.0); Mean Corpuscular HGB Conc 32.1 g/dL (31.5-36.5); Mean Corpuscular Volume 88 fL (80-100); Mean Platelet Volume 12.7 fL (9.1-12.4); NEUTROPHILS ABSOLUTE AUTO 19.75 K/mm3 (1.96-9.15); NEUTROPHILS PERCENT AUTO 92 % (41-73); Platelet Count 198 K/mm3 (150-400); RDW Coefficient Variation 14.4 % (11.7-14.2); RDW Standard Deviation 46.1 fL (35.1-46.3); Red Blood Cell Count 3.97 M/mm3 (4.30-5.90); White Blood Cell Count 21.39 K/mm3 (4.00-11.30)
[2020-09-04 09:22] LABS: Albumin, Blood 2.9 g/dL (3.4-5.0); Albumin/Globulin Ratio 0.6 (0.8-1.8); Bilirubin, Total 0.5 mg/dL (0.1-1.0); Bun/Creatinine Ratio 33.8 (12.0-20.0); Calcium, Blood 9.2 mg/dL (8.5-10.1); Creatinine, Blood 1.95 mg/dL (0.60-1.20); Globulin, Blood 5.1 g/dL (2.2-4.0); Potassium, Blood 5.2 mmol/L (3.5-5.5)
[2020-09-04 09:25] LABS: Influenza A, PCR NEGATIVE (NEGATIVE); Influenza B, PCR NEGATIVE (NEGATIVE); Resp Syncytial Virus, PCR NEGATIVE (NEGATIVE); SARS-Cov-2 (COVID-19) PCR, MMC NEGATIVE (NEGATIVE); Troponin I 0.682 ng/mL (0.000-0.040)
[2020-09-04 11:29] LABS: PCO2 Arterial 45.3 mmHg (35-45); PO2 Arterial 74.8 mmHg (80-100); pH Blood Arterial 7.33 (7.35-7.45)
[2020-09-04] MEDS ORDERED: ZOLOFT100 M4 PO (11:52)
[2020-09-04] MEDS ORDERED: PREGABALIN150 M1 PO (11:52)
[2020-09-04] MEDS ORDERED: METFORMIN HCL500 M2 PO (11:53)
[2020-09-04] MEDS ORDERED: NEURONTIN300 MG PO (11:53)
[2020-09-04] MEDS ORDERED: ARIPIPRAZOLE2 M1 PO (11:53)
[2020-09-04 13:26] LABS: U Amphetamine Screen Not Detected; U Barbituate Screen Not Detected; U Benzodiazapine Screen Not Detected; U Buprenorphine Screen Not Detected; U Cannabinoids Screen Not Detected; U Cocaine Screen Not Detected; U Methadone Screen DETECTED; U Methamphetamine Screen Not Detected; U Opiates Screen Not Detected; U Oxycodone Screen Not Detected; U Phencyclidine Screen Not Detected; U Propoxyphene Screen Not Detected
--- NOTE | 2020-09-04 18:55 | NUR ---
SHIFT SUMMARY RECIEVED PATIENT FROM ER AT 1500, NOT IN RESPIRATORY DISTRESS, AND WALKED TO THE BED WITH NO ASSISTANCE. VSS, AFIBRILE, ON 6L NC. PT FELL ASLEEP SOON HE GOT BACK INTO BED, ARROUSES TO VOICE. STATES HE IS HAVING SOME CONFUSION WHEN HE WAKES UP, BUT ANSWERS ALL ORIENTATION QUESTIONS. USES URINAL AND TRIED TO USE BEDSIDE COMMODE, BUT STATES IT WAS A FALSE ALARM.
--- NOTE | 2020-09-04 20:43 | NUR ---
ASSUMED CARE: ASSUMED CARE FROM CHITRA GARCIA. PT C/O LOWER BACK PAIN 01/20. STATES WENT THRU WITHDRAWALS LAST NIGHT AFTER THEY GAVE HIM NARCAN IN THE ER. GETS EXTREMELY SOB WITH EXERTION WITH SATS DOWN TO 82%. LS CLEAR T/O DIMINISAHED IN THE BASES WITH BIOX 92% ON 6L N/C. HEART SOUNDS S1 AND S2 AUSCULTATED, BUT DISTANT WITH MONITOR SHOWING NSR WITH HR 81. SKIN PALE, WITH WOULNDS AND SCABS AND SCARS ALL OVER. 20G L WRSIT S/L. 20G L SHOULDER WITH NS @ 75CC/HR. ABD R/O WITH HYPO BTX4. ABULATES WITH ASSIST TO COMMODE.
[2020-09-04 23:06] LABS: Source, Urine Clean Catch
[2020-09-04 23:08] LABS: Bilirubin, Urine Neg (Neg); Blood, Urine 1+ (Neg); Glucose Qualitative, Urine Neg (Neg); Ketones, Urine Neg (Neg); Leukocyte Esterase, Urine Neg (Neg); Nitrite, Urine Neg (Neg); Protein, Urine 1+ (Neg); Specific Gravity, Urine 1.015 (1.003-1.022); Urobilinogen, Urine NORM (Normal)
[2020-09-04 23:24] LABS: U Amphetamine Screen Not Detected; U Barbituate Screen Not Detected; U Benzodiazapine Screen Not Detected; U Cocaine Screen Not Detected; U Methadone Screen DETECTED; U Methamphetamine Screen Not Detected
[2020-09-04 23:25] LABS: U Buprenorphine Screen Not Detected; U Cannabinoids Screen Not Detected; U Opiates Screen Not Detected; U Oxycodone Screen Not Detected; U Phencyclidine Screen Not Detected; U Propoxyphene Screen Not Detected
[2020-09-04 23:29] LABS: Appearance, Urine Clear (Clear); Color, Urine Yellow (P-Yellow)
[2020-09-04 23:32] LABS: Bacteria Few /hpf; Squamous Epithelial Cells Few /hpf (Few); White Blood Cells, Urine 0-2 /hpf (0-5)
[2020-09-05 03:23] LABS: BASOPHILS ABSOLUTE AUTO 0.03 K/mm3 (0.00-0.23); BASOPHILS PERCENT AUTO 0 % (0-2); EOSINOPHILS ABSOLUTE AUTO 0.07 K/mm3 (0.00-0.68); EOSINOPHILS PERCENT AUTO 0 % (0-6); Hematocrit 34.1 % (37.0-53.0); IMMATURE GRAN ABSOLUTE AUTO 0.11 K/mm3 (0.00-0.10); IMMATURE GRAN PERCENT AUTO 1 % (0-1); LYMPHOCYTES ABSOLUTE AUTO 1.03 K/mm3 (0.84-5.20); LYMPHOCYTES PERCENT AUTO 6 % (21-46); MONOCYTES PERCENT AUTO 5 % (4-13); Mean Corpuscular HGB 28.3 pg (26.0-34.0); Mean Corpuscular HGB Conc 32.3 g/dL (31.5-36.5); Mean Corpuscular Volume 88 fL (80-100); Mean Platelet Volume 12.4 fL (9.1-12.4); NEUTROPHILS ABSOLUTE AUTO 15.69 K/mm3 (1.96-9.15); NEUTROPHILS PERCENT AUTO 88 % (41-73); Platelet Count 192 K/mm3 (150-400); RDW Coefficient Variation 14.6 % (11.7-14.2); RDW Standard Deviation 47.3 fL (35.1-46.3); Red Blood Cell Count 3.89 M/mm3 (4.30-5.90); White Blood Cell Count 17.83 K/mm3 (4.00-11.30)
[2020-09-05 03:43] LABS: Alanine Aminotransfer (ALT/SGP 37 U/L (12-78); Albumin, Blood 2.7 g/dL (3.4-5.0); Albumin/Globulin Ratio 0.5 (0.8-1.8); Alk Phos 82 U/L (50-136); Anion Gap 3 mmol/L (6-16); Aspartate Aminotrans (AST/SGOT 40 U/L (12-37); Bilirubin, Total 0.3 mg/dL (0.1-1.0); Blood Urea Nitrogen 59 mg/dL (8-24); Bun/Creatinine Ratio 38.8 (12.0-20.0); CO2, Blood 29 mmol/L (21-32); Calcium, Blood 8.7 mg/dL (8.5-10.1); Chloride, Blood 103 mmol/L (98-108); Creatinine, Blood 1.52 mg/dL (0.60-1.20); Glomerular Filtration Rate 51 (60-); Glucose, Blood 157 mg/dL (70-99); Magnesium, Blood 2.2 mg/dL (1.6-2.4); Potassium, Blood 4.8 mmol/L (3.5-5.5); Sodium, Blood 135 mmol/L (136-145); Total Protein, Blood 7.7 g/dL (6.4-8.2); Vancomycin, Random 15.3 ug/mL
--- NOTE | 2020-09-05 05:47 | NUR ---
SHIFT SUMMARY: HAD ATTEMPTED TO PUT BIPAP ON PT, PT TOLERATED IT FOR A MAX OF 2 MINUTES BEFORE HE TORE IT OFF. STATED HE FEELS EXTREMLY CLAUSTROPHOBIC AND NOT ABLE TO TOLERATE IT. PT WAS PLACED ON 12L HI OMAYRA WITH SATS 85-87%. I HAD A DISCUSSION WITH THE PT THIS AM THAT IF HE DIDN'T WEAR THE MASK, HE WOULD END UP HAVING A TUBE DOWN HIS THROAT. I ALSO HAD A DISCUSSION WITH THE PT THAT HE IS WAY TOO SOMULENT THIS AM AND HE AGREED. WE BOTH AGREED THAT THE METHADONE WAS TOO MUCH FOR HIM. PT STATES HE DOESN'T KNOW WHY THOUGH; STATES HE TAKE 180MG OF METHADONE AT HOME. STATES HES BEEN FEELING MORE LETHARGIC SINCE FRIDAY AND THE ONLY THING THAT WAS CHANGED WAS THAT LYRICA WAS ADDED. I EXPLAINED THAT SOMETHING NEEDED TO CHANGE. PT AGREED TO WEAR THE BIPAP. BIPAP WAS PLACED WITH A 9L BLEED IN.
--- NOTE | 2020-09-05 08:53 | NUR ---
ASSUMED CARE PT. ALERT AND ORIENTED THIS AM. RESTLESS IN BED, SITTING UP ON EDGE OF BED THIS AM. MOANING. PT REPORTS PAIN OF 6 TO BACK. REPORTS CHRONIC PAIN. METHADONE ORDERED AND LYRICA RESTARTED PER DR. BRADFORD. PT. CURRENTLY ON 12L HIGH FLOW NC, WITH HUMIDIFIED AIR. PT. DENIES COUGHING ANY THING UP, BUT DOES REPORT FEELING SOB WITH EXCERTION. PT. LS DIM T/O. PT EDUCATED ON INCENTIVE SPIROMETER USE. PT. DENEIS ANY CHEST PAIN OR PRESSURE THIS AM. VSS AT THIS TIME. PT VOIDS USING URINAL AND UP WITH WALKER. REQUESTED PT CALL FOR ASSISTANCE WHEN GETTING UP FOR ASSISTANCE WITH CORDS AND LINES. NON SLIP SOCKS IN PLACE AND BED IN LOW POSITION. PT. USES CALL LIGHT APPROPRIATELY. DR. BRADFORD AT BEDSIDE TO
--- NOTE | 2020-09-05 12:00 | NUR ---
UPDATE PT. REMAINS ON 12L HFNC. PT. RECOVERING MORE SLOWLY THE DAY GOES ON AFTER ACTIVITY. WHEN STANDING TO USE URINAL IT TAKES PT APPROX 15 FOR SPO2 TO RECOVER TO 92%, DROPPING TO THE LOW 80S. PT. DOES GET ANXIOUS WHEN THIS HAPPENS AND NEEDS SOME VERBAL REDIRECTION TO TAKE SLOW DEEP BREATHES. PT. DANGLES AT BEDSIDE FOR MOST OF THE DAY, AND IS ABLE TO REPOSITION HIMSELF IN BED. SPO2 PROBE ROTATED BETWEEN EARS T/O THE DAY, DIFFICULT TO OBTAIN READING ON FINGERS. PT CONTINUES TO USE CALL LIGHT APPROPRIATELY.
--- NOTE | 2020-09-05 15:56 | NUR ---
ANXIETY PT. STOOD TO VOID AND BEGAN TO GET VERY ANXIOUS AND FEEL AIR HUNGRY. PT. ENCOURAGED TO DANGLE AT BEDSIDE AND RECOVER. O2 INCREASED TO 14L. POWERGLIDE PLACED FOR ADDITIONAL IV ACCESS.
--- NOTE | 2020-09-05 16:06 | NUR ---
DR. LAU IN TO SEE PT PLANS FOR CARDIAC CATH AFTER IS MORE STABLE FROM RESP STAND POINT, AND INFECTION.
--- NOTE | 2020-09-05 16:08 | NUR ---
CALL TO DR. BRADFORD UPDATED ON PT CONDITION, INCREASE OXYGEN NEEDS AND ANXIETY. PRN ATIVAN ORDERED WELL PRECEDEX FOR ANXIETY. RT NOTIFIED FOR POSSIBLE NEED FOR AIRVO. PT REFUSING TO ATTEMPT TO TRY BIPAP/CPAP AT THIS TIME. STATES "I CANT DO IT, I WILL NOT PUT THAT THING BACK ON MY FACE".
[2020-09-05 16:09] LABS: International Normalized Ratio 1.1; Prothrombin Time Results 11.7 Sec (9.7-11.5)
--- NOTE | 2020-09-05 17:36 | NUR ---
Spiritual care note: Mr. Francisco was pleasant and dismissive. He feels well supported by friends and family. He reports hope and denied concerns. Advised I would remain available.
--- NOTE | 2020-09-05 17:42 | NUR ---
SHIFT SUMMARY PT. REMAINS ON HIGH FLOW NC WITH INCREASE TO 14L THIS SHIFT. PLANS FOR PRECEDEX OR ATIVAN NEEDED FOR ANXIETY. PT. CONTINUES TO REFUSE BIPAP T/O SHIFT.HEPARIN GTT STARTED THIS SHIFT, PLANS FOR HEART CATH ONCE PT IS MORE STABLE FROM RESP/ SEPSIS STAND POINT PER DR. LAU. PT. VOIDS USING URINAL. CALL LIGHT IN REACH, VSS, REPORT TO ONCOMING RN.
--- NOTE | 2020-09-05 18:23 | NUR ---
PT UP TO TOILET IN ROOM, PT BECOMING FORGETFUL THIS EVENING, CONTINUES TO TAKE OFF BP CUFF AND APOLOGIZING WHEN IT IS REPLACED. PT. REPORTS FEELING ANXIOUS REGARDING ALL THE "NEWS" HE GOT TODAY, RESTLESS IN BED. REMINDED AGAIN OF THE NEED TO CALL PRIOR TO GETTING OOB DUE TO INCREASING O2 DEMAND. BED ALARM ON. PRECEDEX GTT STARTED AT 0.4MCG/KG/MIN.
--- NOTE | 2020-09-05 20:07 | NUR ---
ASSUMPTION OF CARE RECEIVED REPORT FROM LIMA GARCIA AT 1920. ASSUMED CARE OF PATIENT. PATIENT DANGLING ON SIDE OF BED, A/O, STATES JUST FEELING LIKE HE HAD A ROUGH DAY. DENIES PAIN OR DISCOMFORTS. O2 VIA HUMIDIFIED HIGH FLOW AT 15L NASAL CANNULA. SATS 90-94%. ASSISTED PATIENT TO LAY DOWN FROM DANGLING POSITION. PATIENT INSTANTLY BECAME SHORT OF BREATH AND TACHYPNEIC WITH MINIMAL EXERTION. SATS MAINTAINED LOW 90'S. PATIENT WITH OBSERVED ANXIETY WITH SOB, STATING HE JUST CAN'T KEEPING DOING THIS AND IT MAKES HIM SCARED TO WORK THIS HARD TO BREATH. VERBAL REASSURANCE PROVIDED. PATIENT BEGAN TO CALM SLOWLY AND FOCUS ON HIS BREATHING WHICH IMPROVED WITHIN MINUTES. PRECEDEX IS INFUSING AT 0.4MCG/KG/HR. HEPARIN IS INFUSING AT 13UNITS/KG/HR. ENCOURAGED PATIENT TO MINIMIZE ACTIVITY AND TO USE URINAL AT BEDSIDE INSTEAD OF AMBULATING TO COMMODE. PATIENT IN AGREEANCE. WILL REVIEW ORDERS AND TREAT PRESCRIBED.
--- NOTE | 2020-09-05 21:18 | NUR ---
PRECEDEX TURNED PRECEDEX OFF AT 2030 PER BLOOD PRESSURE. CONTINUING TO MONITOR.
--- NOTE | 2020-09-05 23:25 | NUR ---
PRECEDEX PATIENT BECOMING MORE ANXIOUS, MOVING SELF UP AND DOWN FROM CHAIR TO BED. PRECEDEX RESTARTED AT 0.2MCG/KG. EXPLAINED TO PATIENT WHAT THE MEDICATION WAS AND HOW IT WOULD HELP WITH HIS ANXIETY AND TO RELAX. PATIENT AGREED TO THE MEDICATION. RESTARTED AT 2300. AT 2315 PATIENT MUMBLING INCOHERENT SENTENCES, AND DISCONNECTING SELF FROM MONITOR. RN TO ROOM AND ASKED ORIENTATION QUESTIONS. PATIENT A/O, CLOSING EYES AND BEGAN MUMBLING AGAIN. PATIENT STATED HE DIDN'T WANT TO LAY DOWN BECAUSE HE WAS AFRAID AND COULDN'T RELAX. EDUCATED PATIENT ON THE BENEFITS OF RESTING HIS BODY AND SLEEPING. PATIENT VERBALIZED UNDERSTANDING. ASSISTED PATIENT TO BED WITH HOB GREATER THAN 45 DEGREES. INCREASED PRECEDEX TO 0.4MCG/KG. VITALS STABLE. PATIENT CLOSING EYES AND RELAXING HIS BODY WITH VITAL STILL STABLE. WILL MONITOR CLOSELY. BED ALARM ON, CALL LIGHT IN REACH.
--- NOTE | 2020-09-06 00:24 | NUR ---
REASSESSMENT PATIENT WITH INCREASED ANXIETY, INCREASED SOB AND SATS 89-90%. BECOMING MORE CONFUSED, MUMBLING INCOHERENT WORDS. RT ROSS TO ROOM, INITIATED AIRVO WITH SETTINGS 40L 55% FIO2. PATIENT BECOMING MORE ALERT NOW, SATS AT 94% RESPIRATIONS DOWN TO MID 20 FROM HIGH 30'S. AFTER A FEW MINUTES PATIENT BECAME MORE CONFUSED TRYING TO GET OUT OF BED, STATING HE NEEDED TO FIND SOMEPLACE TO GO. PATIENT WAS NOT ABLE TO STATE WHERE HE WAS, STATING HE WAS IN COLD [place] AND WAS SPEAKING INCOMPLETE SENTENCES SUCH "IS THE DOG GETTING A BREAK" AND REMOVES OXYGEN FREQUENTLY. PATIENT KEEPS SAYING IM SO CONFUSED TO WHAT IS GOING ON. PATIENT CURRENTLY BACK IN BED, SATS 94-95%. PATIENT WITH MOMENTS OF ORIENTATION AND CLEAR SENTENCES AND THEN ASKS WHAT IS GOING ON. PATIENT FREQUENTLY APOLOGIZES FOR BEHAVIOR AND ANXIETY. RN CONTINUES TO EXPLAIN ITS OKAY WE'RE JUST TRYING TO KEEP HIM SAFE AND HELP HIM GET BETTER. WILL CONTINUE WITH CURRENT TREATMENTS AND MONITOR.
[2020-09-06 02:40] LABS: PCO2 Arterial 56.3 mmHg (35-45); PO2 Arterial 76.3 mmHg (80-100); pH Blood Arterial 7.23 (7.35-7.45)
--- NOTE | 2020-09-06 03:08 | NUR ---
INTUBATION PATIENT WITH INCREASED CONFUSION, DID NOT WANT TO STAY IN BED, DESAT TO MID 80'S, RR 30-40. DR. VILLEGAS TO ROOM TO ASSESS PATIENT AT 0130. PLACED ORDERS FOR MORPHINE FOR PATIENT'S REPORT BACK PAIN. PATIENT CONTINUED TO STATE HE DIDN'T WANT TO LAY DOWN OR SLEEP BUT COULDN'T CATCH HIS BREATH. KEPT SCREAMING "I CAN'T BREATH". TWO RN ASSISTED TO LAYING DOWN FROM DANGLE POSITION, PATIENT SWINGING ARMS AND TRYING TO PULL O2 OFF AND OTHER LINES. SATS CONTINUED TO DROP AND RESPIRATORY RATE BEGAN TO INCREASE. PATIENT DISORIENTED. ABG RETRIEVED AND REPORTED TO DR. VILLEGAS, PATIENT CLOSED EYES AND BREATHING PATTERN CHANGED. UNABLE TO AROUSE PATIENT, STERNAL RUB AND SHOUTING NAME. PATIENT OPENED EYES AND SAID "WHAT" THEN BECAME UNAROUSABLE AGAIN. DR. VILLEGAS NOTIFIED ED PHYSICIAN WHO CAME TO ROOM, ASSESSED PATIENT AND DECIDED TO INTUBATE. KETAMINE OF 200MG WAS GIVEN AT 0226 VIA IV, 200MG OF SUCC GIVEN AT 0227 VIA IV. ETT SIZE 8.0 PLACED AT 0228 MEASURING 26 CM AT THE TEETH. PROPOFOL INITIATED, PATIENT REMAINED AGITATED ON BOTH PRECEDEX AND PROPOFOL, ATIVAN GIVEN CHARTED. WILL CONTINUE TO MONITOR AND TITRATE FOR SEDATION.
[2020-09-06 03:14] LABS: Source, Urine Catheter
[2020-09-06 03:17] LABS: Appearance, Urine Clear (Clear); Bilirubin, Urine Neg (Neg); Blood, Urine 2+ (Neg); Color, Urine Yellow (P-Yellow); Glucose Qualitative, Urine 1+ (Neg); Ketones, Urine 1+ (Neg); Leukocyte Esterase, Urine 1+ (Neg); Nitrite, Urine Neg (Neg); Protein, Urine 2+ (Neg); Urobilinogen, Urine NORM (Normal)
[2020-09-06 03:23] LABS: Amorphous Mod (0-Heavy); Bacteria Mod /hpf; Squamous Epithelial Cells Not Seen /hpf (Few)
[2020-09-06 03:24] LABS: Hyaline Casts 0-2 /lpf (0-2)
--- NOTE | 2020-09-06 04:00 | NUR ---
REASESSMENT PATIENT REMAINS INTUBATED. SAS 3, TITRATING PROPOFOL DOWN. VITAL STABLE. VENT SETTINGS 16/500/12/100%. PROPOFOL AT 35MCG/KG, PRECEDEX AT 0.7MCG, HEPARIN AT 15UNIT/KG. LOPEZ CATHETER PATENT AND DRAINING CLEAR, YELLOW URINE. WILL CONTINUE TO MONITOR.
--- NOTE | 2020-09-06 06:04 | NUR ---
SHIFT SUMMARY PATIENT WITH INREASED RESPIRATORY DEMANDS AND DISORIENTATION. INTUBATED PREVIOUSLY CHARTED. VENT SETTINGS CURRENTLY 16/500/12/85% SATS ABOVE 95% DIFFICULT TO SEDATE, INITIATED BOTH PRECEDEX AND PROPOFOL PATIENT WAS FIGHTING AGAINST ETT, THRASHING HEAD IN BED FROM SIDE TO SIDE DISCONNECTING VENT FROME ETT AND FIGHTING AGAINST RESTRAINTS. DRIPS TITRATED UNTIL PATIENT SUSTAINED A SAS OF 3. CURRENTLY TITRATING DRIPS DOWN TO MAINTAIN 3. PRECEDEX AT 0.4MCG/KG AND PROPOFOL IS AT 35MCG/KG. HEPARIN CONTINUES TO INFUSE AT 15UNIT/KG. OG AND LOPEZ WERE PLACED AFTER INTUBATION, BOTH PATENT AND VERIFIED PLACEMENT BY GASTRIC RETURN VIA OG AND CLEAR YELLOW URINE IN LOPEZ. HYPOTENSION NOTED BUT IMPROVED WITH INCREASED SEDATION DOSES. MORNING LABS BEING DRAWN AT THIS TIME DUE TO POWER GLIDE DIFFICULT TO DRAW BLOOD, AND MINIMAL OPTIONS DUE TO POOR VASCULAR HISTORY. WILL REVIEW LABS WHEN AVAILABLE. CALL WAS PLACED TO PATIENT'S SISTER UZIEL AT [phone] AT 0600. NO ANSWER, UNABLE TO LEAVE VOICEMAIL THIS WAS FULL. CONTINUING TO MONITOR VITALS AND SEDATION STATUS. WILL GIVE REPORT TO ONCOMING RN.
[2020-09-06 06:29] LABS: BASOPHILS ABSOLUTE AUTO 0.03 K/mm3 (0.00-0.23); BASOPHILS PERCENT AUTO 0 % (0-2); EOSINOPHILS ABSOLUTE AUTO 0.03 K/mm3 (0.00-0.68); EOSINOPHILS PERCENT AUTO 0 % (0-6); Hemoglobin 9.7 g/dL (13.5-17.5); IMMATURE GRAN ABSOLUTE AUTO 0.14 K/mm3 (0.00-0.10); IMMATURE GRAN PERCENT AUTO 1 % (0-1); LYMPHOCYTES ABSOLUTE AUTO 0.65 K/mm3 (0.84-5.20); LYMPHOCYTES PERCENT AUTO 4 % (21-46); MONOCYTES ABSOLUTE AUTO 0.83 K/mm3 (0.16-1.47); MONOCYTES PERCENT AUTO 5 % (4-13); Mean Corpuscular HGB 28.4 pg (26.0-34.0); Mean Corpuscular HGB Conc 32.3 g/dL (31.5-36.5); Mean Corpuscular Volume 88 fL (80-100); Mean Platelet Volume 12.7 fL (9.1-12.4); NEUTROPHILS ABSOLUTE AUTO 15.08 K/mm3 (1.96-9.15); NEUTROPHILS PERCENT AUTO 90 % (41-73); Platelet Count 165 K/mm3 (150-400); RDW Coefficient Variation 14.7 % (11.7-14.2); RDW Standard Deviation 47.8 fL (35.1-46.3); Red Blood Cell Count 3.42 M/mm3 (4.30-5.90); White Blood Cell Count 16.76 K/mm3 (4.00-11.30)
[2020-09-06 06:51] LABS: Albumin, Blood 2.4 g/dL (3.4-5.0); Albumin/Globulin Ratio 0.5 (0.8-1.8); Bilirubin, Total 0.4 mg/dL (0.1-1.0); Bun/Creatinine Ratio 37.9 (12.0-20.0); Creatinine, Blood 1.4 mg/dL (0.60-1.20); Globulin, Blood 4.9 g/dL (2.2-4.0); Magnesium, Blood 2.3 mg/dL (1.6-2.4); Phosphorus, Blood 2.7 mg/dL (2.5-4.9); Potassium, Blood 5.8 mmol/L (3.5-5.5); Total Protein, Blood 7.3 g/dL (6.4-8.2); Troponin I 0.226 ng/mL (0.000-0.040)
--- NOTE | 2020-09-06 08:17 | NUR ---
ASSUMED CARE RECEIVED REPORT FROM RADHA RODRIGUEZ. PT IS SEDATED ON VENTILATOR, SETTINGS: AC16/500/85/12, CURRENT GTTPs: PROPOFOL 20 MCG/KG/MIN, PRECEDEX 0.4 MCG/KG/HR; HEPARIN WAS AT 15 UNITS/KG/HR, WITH A WEIGHT OF 98 KG AND WAS VERIFIED WITH JENNIFER AND ORDER - BUT HAS BEEN TITRATED UP TO 17 UNITS/KG/HR AT 0815 PER PHARMACY, AND VERIFIED BY RADHA JOSHI. HE IS IN SINUS BRADYCARDIA, RATE IN 50s; BP SOFT, BUT MAP > 65; AFEBRILE; RR LOW 20s, SPO2 92, PEAK PRESSURS LOW 30s. PT HAS LOPEZ, PATENT AND DRAINING YELLOW URINE. SWB RESTRAINTS SECURED TO PT AND BED. BED LOW AND LOCKED.
[2020-09-06 10:54] LABS: PCO2 Venous 65.5 mmHg (38-42); pH Blood Venous 7.11 (7.34-7.37)
[2020-09-06 10:55] LABS: Base Excess Venous -8.8 mmol/L; Bicarbonate Venous 16.7 mmol/L (24.0-30.0); PO2 Venous 46.4 mmHg (38-42)
[2020-09-06 10:58] LABS: Influenza A, PCR NEGATIVE (NEGATIVE); Influenza B, PCR NEGATIVE (NEGATIVE); Resp Syncytial Virus, PCR NEGATIVE (NEGATIVE); SARS-Cov-2 (COVID-19) PCR, MMC NEGATIVE (NEGATIVE)
[2020-09-06 11:04] LABS: BASOPHILS ABSOLUTE AUTO 0.09 K/mm3 (0.00-0.23); BASOPHILS PERCENT AUTO 0 % (0-2); EOSINOPHILS ABSOLUTE AUTO 0.11 K/mm3 (0.00-0.68); EOSINOPHILS PERCENT AUTO 0 % (0-6); Hematocrit 33.9 % (37.0-53.0); Hemoglobin 10.7 g/dL (13.5-17.5); IMMATURE GRAN ABSOLUTE AUTO 0.93 K/mm3 (0.00-0.10); IMMATURE GRAN PERCENT AUTO 4 % (0-1); LYMPHOCYTES ABSOLUTE AUTO 5.59 K/mm3 (0.84-5.20); LYMPHOCYTES PERCENT AUTO 21 % (21-46); MONOCYTES ABSOLUTE AUTO 1.55 K/mm3 (0.16-1.47); MONOCYTES PERCENT AUTO 6 % (4-13); Mean Corpuscular HGB 28.5 pg (26.0-34.0); Mean Corpuscular HGB Conc 31.6 g/dL (31.5-36.5); Mean Corpuscular Volume 90 fL (80-100); Mean Platelet Volume 12.9 fL (9.1-12.4); NEUTROPHILS ABSOLUTE AUTO 18.17 K/mm3 (1.96-9.15); NEUTROPHILS PERCENT AUTO 69 % (41-73); NRBC ABSOLUTE 0.03 K/mm3 (0.00-0.02); NRBC Auto 0.1 /100 WBC (0.0-0.2); Platelet Count 237 K/mm3 (150-400); RDW Standard Deviation 50.2 fL (35.1-46.3); Red Blood Cell Count 3.76 M/mm3 (4.30-5.90); White Blood Cell Count 26.44 K/mm3 (4.00-11.30)
[2020-09-06 11:25] LABS: Albumin, Blood 2.3 g/dL (3.4-5.0); Albumin/Globulin Ratio 0.5 (0.8-1.8); Bilirubin, Total 0.5 mg/dL (0.1-1.0); Bun/Creatinine Ratio 34.2 (12.0-20.0); Calcium, Blood 8.3 mg/dL (8.5-10.1); Creatinine, Blood 1.61 mg/dL (0.60-1.20); Globulin, Blood 5.1 g/dL (2.2-4.0); Potassium, Blood 4.2 mmol/L (3.5-5.5); Total Protein, Blood 7.4 g/dL (6.4-8.2); Troponin I 0.174 ng/mL (0.000-0.040)
--- NOTE | 2020-09-06 12:00 | NUR ---
UPDATE: CODE AT 0940 THIS AM PT's VENT WAS ALARMING AND SAVING "SEVERE OCCLUSION", THIS RN AND CHITRA RT WENT INTO ROOM TO SEE PT COUGHING ON VENT. THE RT BEGAN SUCTIONING, AND THEN THE PT WAS STACKING HIS BREATHS AND WAS NOT VENTILATING ADEQUATELY AT ALL. PT's HR HAD BEEN IN THE 50s ALL NIGHT AND MORNING, BUT HAD BETTY'D DOWN TO THE 30s, AND WITHIN SECONDS THE PT HAD DECREASED EVEN FURTHER INTO THE 20s. AT 0943 THE PT HAD NO PULSE AND CPR WAS STARTED. PRECEDEX AND PROPOFOL WAS TURNED OFF, THE RT DISCONNECTED THE PT FROM THE VENT AND STARTED TO BMV THE PT. JUST ONE MINUTE LATER THE PT APPEARED TO BE MOVING HIS ARM, AND THERE WAS A PULSE CHECK, EPI WAS NOT GIVEN - PT WAS IN SINUS TACH, BUT WITHIN SECONDS AGAIN THE PT WENT PULSELESS, AND CPR WAS STARTED AGAIN - 2 MG OF EPI GIVEN TOTAL DURING THIS PERIOD. NS FLUID BOLUS INFUSING. FAMILY HAD BEEN NOTIFIED, "GREG" THE PTs SISTER. 0948 PT HAD HIS SECOND ROSC. FENTANYL AND ATIVAN GIVEN TO PT AT [id number]. PT WAS NOW IN SINUS TACH, AND HAD A FEW HYPERTENSIVE BPs. PT WENT PULSELESS A THIRD TIME AT 1016, CPR WAS STARTED AGAIN, THE 2ND LITER WAS BEING BOLUSED IN, 0.5MG OF EPI GIVEN AND THEN FINALY PT REGAINED ROSC AT 1019, HR IN THE 120s. PT WAS NOT VENTILATING WITH VENT ADEQUATELY AND WAS PUT ON NIMBEX 1.5 MCG/KG/MIN AT 1038. PT WAS BECOMING QUITE HYPOTENSIVE AND WAS STARTED ON LEVO AT 1000, BUT QUICKLY INCREASED TO 20 MCG/MIN; SO VASO AND CARA WERE STARTED AT 1150. PT IS STABLE WITH BP, MAP > 65, AND SPO2 IS AT 88%. PT IS ON NIMBEX AT 1 MCG/KG/MIN. BIS IS ~40. PROPOFOL AT 35 MCG/KG/MIN. LEVO CURRENTLY DOWN TO 15 MCG/MIN. VASO ON 0.04 UNITS/MIN. AND CARA AT 20 MCG/MIN. HEPARIN IS ALSO INFUSING AT 17 UNITS/KG/HOUR, AND NS AT 150 ML/HR. VENT SETTINGS ARE AC 28/450/14/100%. SINUS RHYTHM 80-110. SISTER HAS BEEN AT BEDSIDE, TALKED WITH DR MCNALLY AND THIS RN. NO LONGER IN ICU, BUT STATES SHE WILL BE BACK. TEARFULL, AND UNAWARE BROTHER WAS "... THIS SICK." WILL CONTINUE TO MONITOR.
--- NOTE | 2020-09-06 16:08 | NUR ---
Spiritual care note: Responded to code. I will remain available to pt's sister.
--- NOTE | 2020-09-06 18:25 | NUR ---
END OF SHIFT NO MAJOR CHANGES/ACUTE EVENTS SINCE LAST UPDATE. CURRENT GTTPs: LEVOPHED 5 MCG/MIN, VASOPRESSIN 0.04 UNITS/MIN, NIMBEX 1 MCG/KG/MIN, PROPOFOL 35 MCG/KG/MIN, HEPARIN 18 UNITS/KG/HOUR, AND NS AT 150 ML/HR WITH VANCOMYCIN PB. VENT SETTINGS ARE AC28/400/14/70%. PT IS RIDING THE VENT, SPO2 94%. MAP HAS BEEN > 65. BIS MONITOR IS READING 37-45. SINUS RHYTHM, RATE 70s. AFEBRILE. PT HAS RIGHT FEMORAL VEIN CVC SITE IS CDI. POWERGLIDE IS JOSEPH, AND SITE IS CDI - BUT DOES NOT DRAW BLOOD, AND FLUSHES WITH SLIGHT RESISTANCE. PT HAS BEEN SLIGHTLY DIAPHORETIC AND CLAMMY, HANDS WERE MOTTLED FOR A FEW HOURS FOLLOWING THE CODE BLUE, BUT HAVE A COLOR THAT IS AT OR NEAR HIS BASELINE. DOPPLER WAS NEEDED TO CHECK FOR PEDAL PULSES, BUT CURRENTLY ARE PALPABLE (FAINT). OG TUBE CLAMPED AND AVAILABLE FOR MEDICATION ADMINISTRATION. LOPEZ PATENT AND DRAINING ADEQUATE URINE OUTPUT. BED IS LOW AND LOCKED. SISTER, UZIEL HAS BEEN UPDATED ABOUT CONDITION.
--- NOTE | 2020-09-06 19:33 | NUR ---
ASSESSMENT/ASSUMED CARE PT INTUBATED AND ON [facility] VENT. LUNGS CLEAR BUT DECREASED. VENT SETTINGS AC 28 TV 400 PEEP 14 FIO2 70%. RT SUTIONED CLEAR THIN SECRECTIONS VIA ET TUBE. SAMPLE SENT TO LAB. HEART RATE REGULAR. PT ON LEVOPHED AND VASOPRESSIN TO KEEP MAP >65. EDEMA NOTED TO LOWER EXT. DRSG TO RIGHT ANKLE INTACT. BT+ HYPOACTIVE. OG CLAMPED, PLACEMENT VERIFIED WITH AIR INSTILLED INTO STOMACH. IV 20G TO LEFT WRIST SALINE LOCKED, SITE CLEAR AND FLUSHED WITHOUT DIFFICULTY. POWER GLIDE TO LEFT UPPER ARM SALINE LOCKED, SITE CLEAR, FLUSHED WITHOUT DIFFICULTY. IV 20G TO LEFT SHOULDER/CHEST SALINE LOCKED, FLUSHED WITHOUT DIFFICULTY. CENTRAL LINE TO RIGHT GROIN WITH PROPOFOL AT 35 MCQ/KG/MIN, AND NIMBEX AT 1 MCQ/KG/MIN FOR SEDATION. BISS MONITOR 30-40. TRAIN OF FOURS 4/4. LEVOPHED AT 5 MCQ/MIN WITH VASOPRESSIN AT 0.04 UNITS/MIN TO KEEP MAP >65. HEPARIN AT 18 UNITS/KG/HR, NS AT 150 ML/HR. LOPEZ CATH PATENT AND DRAINING CLEAR YELLOW URINE.
--- NOTE | 2020-09-06 23:06 | NUR ---
VENT SETTINGS RT COLLINS TALKING WITH DR MCNALLY REGARDING VENT SETTINGS. PEAKS 36-38 AND PLAT 30-32. FIO2 DOWN TO 55%. DECREASE TV BY 20 ML INCRIMENTS NEEDED FOR PEAK AND PLAT PRESSURES. STARTING WITH 380 AND DROPPING TO 360 IF NEEDED.
[2020-09-07 05:14] LABS: BASOPHILS ABSOLUTE AUTO 0.04 K/mm3 (0.00-0.23); BASOPHILS PERCENT AUTO 0 % (0-2); EOSINOPHILS ABSOLUTE AUTO 0.29 K/mm3 (0.00-0.68); EOSINOPHILS PERCENT AUTO 2 % (0-6); Hematocrit 28.9 % (37.0-53.0); Hemoglobin 9.3 g/dL (13.5-17.5); IMMATURE GRAN ABSOLUTE AUTO 0.12 K/mm3 (0.00-0.10); IMMATURE GRAN PERCENT AUTO 1 % (0-1); LYMPHOCYTES ABSOLUTE AUTO 1.57 K/mm3 (0.84-5.20); LYMPHOCYTES PERCENT AUTO 13 % (21-46); MONOCYTES ABSOLUTE AUTO 0.89 K/mm3 (0.16-1.47); MONOCYTES PERCENT AUTO 7 % (4-13); Mean Corpuscular HGB 28.2 pg (26.0-34.0); Mean Corpuscular HGB Conc 32.2 g/dL (31.5-36.5); Mean Corpuscular Volume 88 fL (80-100); Mean Platelet Volume 12.8 fL (9.1-12.4); NEUTROPHILS ABSOLUTE AUTO 9.43 K/mm3 (1.96-9.15); NEUTROPHILS PERCENT AUTO 76 % (41-73); Platelet Count 219 K/mm3 (150-400); RDW Coefficient Variation 15.1 % (11.7-14.2); White Blood Cell Count 12.34 K/mm3 (4.00-11.30)
[2020-09-07 05:32] LABS: pH Blood Arterial 7.31 (7.35-7.45)
[2020-09-07 05:33] LABS: PCO2 Arterial 43.6 mmHg (35-45); PO2 Arterial 79.2 mmHg (80-100)
[2020-09-07 05:52] LABS: Alanine Aminotransfer (ALT/SGP 136 U/L (12-78); Albumin, Blood 1.9 g/dL (3.4-5.0); Albumin/Globulin Ratio 0.4 (0.8-1.8); Alk Phos 90 U/L (50-136); Anion Gap 6 mmol/L (6-16); Aspartate Aminotrans (AST/SGOT 129 U/L (12-37); Bilirubin, Total 0.4 mg/dL (0.1-1.0); Blood Urea Nitrogen 41 mg/dL (8-24); Bun/Creatinine Ratio 33.6 (12.0-20.0); CO2, Blood 24 mmol/L (21-32); Calcium, Blood 8.2 mg/dL (8.5-10.1); Chloride, Blood 108 mmol/L (98-108); Creatinine, Blood 1.22 mg/dL (0.60-1.20); Globulin, Blood 4.5 g/dL (2.2-4.0); Glomerular Filtration Rate >60 (60-); Glucose, Blood 175 mg/dL (70-99); Magnesium, Blood 1.9 mg/dL (1.6-2.4); Phosphorus, Blood 2.2 mg/dL (2.5-4.9); Potassium, Blood 4.5 mmol/L (3.5-5.5); Sodium, Blood 138 mmol/L (136-145); Total Protein, Blood 6.4 g/dL (6.4-8.2)
[2020-09-07 06:01] LABS: Troponin I 0.547 ng/mL (0.000-0.040)
--- NOTE | 2020-09-07 06:17 | NUR ---
SHIFT SUMMARY PT CONT INTUBATED AND ON [facility] VENT. CURRENT VENT SETTINGS AC 28 TV 380 PEEP 14 FIO2 70%. LUNGS CONT DECREASED THROUGHOUT. BP IMPROVED DURING THE NIGHT. VASOPRESSIN STOPPED AND LEVOPHED DOWN TO 4 MCQ/MIN. PT CONT SEDATED WITH PROPOFOL AT 35 MCQ/KG/MIN AND NIMBEX AT 1 MCQ/KG/MIN. BISS 32-40. TRAIN OF FOURS 4/4. PT TURNED Q2HR. ORAL CARE DONE. HEPARIN INCREASED DURING THE NIGHT TO 19 UNITS/KG/HR, AWAITING ORDERS TO INCREASE TO 20 UNITS/KG/HR. TROPONIN ELEVATED TO 0.547, DISCUSSED WITH COMMUNICATIONS ASSISTANT, EXPECTED RESULT. REPORT TO ON COMING NURSE.
--- NOTE | 2020-09-07 07:07 | NUR ---
ASSUMED CARE RECEIVED REPORT FROM RADHA OLEA. PT ON VENTILATOR AT AC 28/380/14/50%, PEAK PRESSURES ~31, PLATEAU PRESSURE ~27, HE IS RIDING THE VENT WITH A RR AT 28. 8.0 ETT 24 AT LIP. CURRENT GTTPs: PROPOFOL 35 MCG/KG/MIN, LEVOPHED 3 MCG/MIN, NS 150 ML/HR, AND HEPARIN AT 20 UNITS/KG/HOUR (VERIFIED WITH RADHA OLEA AND CURRENT ORDERS). PT IN SINUS RHYTHM RATE IN THE 60s, MAP STABLE AT 74, SPO2 AT 93%, AND AFEBRILE. BIS MONITOR SHOWING 20-34. PROPOFOL DECREASING TO 30 MCG/KG/MIN AT 0719. 4/4 TOF VIA PNS AT RIGHT EYEBROW. LOPEZ PATENT AND DRAINING LIGHT YELLOW URINE. BED LOW AND LOCKED.
--- NOTE | 2020-09-07 09:54 | NUR ---
UPDATE AT 0820 NIMBEX WAS TURNED OFF, BIS WAS 20-30, AND PT HAD BEEN TOLERATING THE VENT ALL NIGHT AND THIS MORNING, FIO2 DOWN TO 50%, PEEP WAS RECENTLY DECREASED TO [address] MCNALLY. WITHIN 30 MINUTES OF TURNING NIMBEX OFF - THE PT HAD STARTED BREATHING OVER THE VENT (PROPOFOL WAS AT 25 MCG/KG/MIN AT THE TIME), AND EVEN OCCASSIONALLY FIGHTING THE VENT. RR WAS LOW 30s, PEAK PRESSURES INCREASED DUE TO PT STARTING TO BITE/CHEW ON ETT. PT CONTINUED TO BE UNRESPONSIVE TO PAINFUL STIMULI (NAILBED SQUEEZE WITH PEN, AND SUPRAORBITAL PRESS). PT WAS NOT MOVING ANY EXTREMETIES. PROPOFOL WAS INCREASED TWICE, SO PT WOULD TOLERATE THE VENTILATOR, AND IS NOW AT 45 MCG/KG/MIN - BIS IS 41. HE IS RIDING THE VENT, RR BACK TO 28, PEAK PRESSURERS 28-29, PLAT PRESSURES IN THE 20s. SPO2 97%. WILL CONTINUE TO MONITOR. HEMODYNAMICS STABLE, LEVOPHED DOWN TO 2 MCG/MIN -- MAP @ 70-90s; HR REMAINS 60s
[2020-09-07 10:24] LABS: Vancomycin, Trough 15.1 ug/mL (5.0-10.0)
--- NOTE | 2020-09-07 17:18 | NUR ---
END OF SHIFT PT IS CURRENTLY OFF ALL VASOPRESSORS, AND NIMBEX. GTTPs INFUSING: PROPOFOL 40 MCG/KG/MIN, HEPARIN 21 UNITS/KG/HOUR (WEIGHT = 98 KG), AND NS 150 ML/HR. HE IS RIDING THE VENT: AC 28/380/12/40%. DR. MCNALLY HAS INSTRUCTED THE RTs AND NURSES TO DECREASE PEEP TOLERATED WITH FIO2 AT 50% OR BELOW. PEAK PRESSURES WHEN PROPERLY SEDATED/COMFORTABLE ARE 25-30, BUT WHEN SEDATION IS DECREASED OR PT IS STIMULATED TO BREAK THROUGH SEDATION (PT WILL REMAIN UNRESPONSIVE TO NOXIOUS STIMULI, BUT WILL SOMETIMES START CHEWING/BITING ETT), WHICH WILL CAUSE AN INCREASE IN PEAK PRESSURES TO 35-45. SPO2 HAS BEEN 87-91% FOR THE LAST FEW HOURS ON 12 PEEP AND 40% FIO2. THE SPO2 PROBE HAS BEEN ROTATING SITES ON THE PTs EARLOBES (LEFT TO RIGHT, DIFFERENT AREAS ON EACH EAR, ETC...). PT CONTINUES TO BE IN SINUS RHYTHM WITH A RATE IN THE 60s. PT IS NO LONGER RECEIVING LEVOPHED AND HIS BLOOD PRESSURE HAS BEEN SOFT SINCE, BUT MAPs HAVE REMAINED > 60 AND SBP > 90. VITAL HIGH PROTEIN TF WAS STARTED TODAY AT 25ML/HR, WITH Q4H 30 ML WATER FLUSHES. IT WILL START TO BEEP AND REQUIRE MORE VOLUME TO BE ADDED WHEN ITS TIME TO ADVANCED THE RATE 10-20ML/HR (IF RESIDUALS ARE NORMAL, AND PT IS TOLERATING THE TF) - WHICH WOULD BE 8 HOURS AFTER BEING STARTED. RESIDUALS AT 1630 WERE 85 ML OF BILE MIXED WITH FORMULA. PT HAS HAD ADEQUATE URINE OUTPUT, BUT HAS ALSO HAD A LARGE AMOUNT OF INTAKE FROM IV FLUIDS/GTTPS. SEE I/Os FLOWSHEET. PTs ULCER UNDER HIS RIGHT FOOT HAS BEEN CLEANED WITH WOUND CLEANSER AND LEFT OPEN TO AIR, NO DRAINAGE BEING PRODUCED. PTs LLE HAS IMPROVED IN BOTH COLOR AND WARMTH, NO LONGER COOL TO TOUCH OR ABNORMALLY PALE. CAP REFIL IS 3s OR LESS. RLE CONTINUES TO HAVE MORE SWELLING WHEN COMPARED TO THE LLE. THIS IS A NEW FINDING SINCE THE 1200 REASSESSMENT. BED LOW AND LOCKED. SISTER, UZIEL, AT BEDSIDE - HAS BEEN UPDATED ON PLAN OF CARE.
--- NOTE | 2020-09-07 18:01 | NUR ---
Spiritual care note: Supportive visit to pt's sister, Milagros. Facilitated conevrsation about Dino's life. She told me stories of his struggles, heartbreaks, and his unending protection of his baby sister. She was tearful throughout, but quite appropriate. She tells me she is heartend that Dino is showing signs of improvement. I provided theraputic listening, group counselor, and encouraged self-care. [employer] services will remain available.
--- NOTE | 2020-09-07 19:18 | NUR ---
UPDATE - RESPIRATORY DISTRESS REPOSITIONED PT AT 1830, AND IN PROCESS OF LAYING THE PT FLAT, BOOSTING HIM, SUCTIONING HIM, ETC... HIS WORK OF BREATHING INCREASED, RR UP IN THE 35-40s, AND SPO2 DOWN IN THE LOW TO MID 80s (THOUGH IT WAS DIFFICULT TO GET AN ACCURATE PULSE OXIMETERY DURING THIS TIME). HE CONTINUED TO BE UNRESPONSIVE, BUT CHEWING/MOVING MOUTH. PEAK PRESSURES IN 30-40s, NO SECRETIONS WHEN SUCTIONED. UPON AUSCULTATION PT WAS VERY TIGHT/WHEEZING. NOC NURSE HAD RECENTLY ENTERED ROOM, AND MEG WELLS -RT WAS PAGED. PROPOFOL TURNED UP TO 45 MCG/KG/MIN, AND 50 MCG OF FENTANYL GIVEN. PT's RR DOWN LOW 30s, PEAK PRESSURES DOWN TO 25-35. FIO2 INCREASED TO 100% FOR TIME BEING. ONCOMING CHARLI RN HAD GIVEN 2MG OF ATIVAN, AND INCREASED PROPOFOL TO 50 MCG/KG/MIN. RT GAVE PT AN ALBUTEROL NEB TREATMENT VIA ETT. AT 1930 - PT's WORK OF BREATHING HAS DECREASED, BUT NOT COMPLETELY RESOLVED. LESS WHEEZY/TIGHT, BUT STILL PRESENT T/O. RR 31, PEAK 23. FIO2 70%. SPO2 89-90%. REPORTED OFF TO RADHA OLEA.
--- NOTE | 2020-09-07 20:00 | NUR ---
ASSESSMENT/ASSUMED CARE PT CONT INTUBATED AND ON [facility] VENT. INCREASED WORK OF BREATHING NOTED WITH RESP RATE 35-40. INCREASED SEDATION WITH PROPOFOL TO 50 MCQ/KG/MIN AND ATIVAN 2 MG GIVEN. SPO2 DOWN TO 85% INCREASED FIO2 UP TO 80%. LUNGS WITH INS AND EXP WHEEZES AND DECREASED IN THE BASES. BISS UP TO 47. VENT SETTINGS AC 28 TV 380 PEEP 10 FIO2 80%. CALL TO DR MCNALLY REGARDING INCREASED WORK OF BREATHING AND DECREASED SPO2. RECEIVED ORDERS TO INCREASE PEEP TO 14 AND PT MED WITH 100 MCQ FENTANYL. BISS 57-61. ORDER ALSO OBTAINED TO RESTART NIMBEX IF ATIVAN, FENTANYL AND PROPOFOL NOT SEDATING PT TO TOLERATE VENT. HEART RATE 80-90. PT STABLE. TUBE FEED VITAL HP AT 25 ML/HR, RESIDUAL ZERO, INCREASED TO GOAL RATE OF 45 ML/HR WITH WATER 30 ML Q4HR. CENTRAL LINE TO RIGHT GROIN SITE STABLE. HEPARIN AT 21 UNITS/KG/HR AND NS AT 150 ML/HR. LOPEZ CATH PATENT AND DRAINING CLEAR YELLOW URINE.
--- NOTE | 2020-09-07 20:40 | NUR ---
SEDATION PT WITH CONT RESP RATE 35-40, SPO2 DOWN TO 88% AND BISS 40-50 AFTER FENTANYL, ATIVAN AND PROPFOL. STARTED ON NIMBEX 1 MCQ/KG/MIN.
--- NOTE | 2020-09-07 21:40 | NUR ---
RESTRAINTS PT SEDATED WITH PROPOFOL AND NIMBEX AT 1 MCQ/KG/MIN. BISS AT 32-37. TRAIN OF FOUR /. PT REPOSITIONED AND RESTRAINTS REMOVED.
[2020-09-08 04:25] LABS: BASOPHILS ABSOLUTE AUTO 0.03 K/mm3 (0.00-0.23); BASOPHILS PERCENT AUTO 0 % (0-2); EOSINOPHILS ABSOLUTE AUTO 0.22 K/mm3 (0.00-0.68); EOSINOPHILS PERCENT AUTO 2 % (0-6); Hematocrit 25.2 % (37.0-53.0); Hemoglobin 8.2 g/dL (13.5-17.5); IMMATURE GRAN ABSOLUTE AUTO 0.15 K/mm3 (0.00-0.10); IMMATURE GRAN PERCENT AUTO 1 % (0-1); LYMPHOCYTES ABSOLUTE AUTO 1.08 K/mm3 (0.84-5.20); LYMPHOCYTES PERCENT AUTO 10 % (21-46); MONOCYTES PERCENT AUTO 7 % (4-13); Mean Corpuscular HGB 28.4 pg (26.0-34.0); Mean Corpuscular HGB Conc 32.5 g/dL (31.5-36.5); Mean Corpuscular Volume 87 fL (80-100); Mean Platelet Volume 12.1 fL (9.1-12.4); NEUTROPHILS ABSOLUTE AUTO 9.01 K/mm3 (1.96-9.15); NEUTROPHILS PERCENT AUTO 80 % (41-73); NRBC ABSOLUTE 0.02 K/mm3 (0.00-0.02); NRBC Auto 0.2 /100 WBC (0.0-0.2); Platelet Count 176 K/mm3 (150-400); RDW Coefficient Variation 15.5 % (11.7-14.2); RDW Standard Deviation 49.3 fL (35.1-46.3); Red Blood Cell Count 2.89 M/mm3 (4.30-5.90); White Blood Cell Count 11.29 K/mm3 (4.00-11.30)
[2020-09-08 04:49] LABS: Alanine Aminotransfer (ALT/SGP 87 U/L (12-78); Albumin, Blood 1.6 g/dL (3.4-5.0); Albumin/Globulin Ratio 0.4 (0.8-1.8); Alk Phos 72 U/L (50-136); Anion Gap 5 mmol/L (6-16); Aspartate Aminotrans (AST/SGOT 47 U/L (12-37); Bilirubin, Total 0.2 mg/dL (0.1-1.0); Blood Urea Nitrogen 32 mg/dL (8-24); Bun/Creatinine Ratio 27.1 (12.0-20.0); CO2, Blood 24 mmol/L (21-32); Calcium, Blood 7.6 mg/dL (8.5-10.1); Chloride, Blood 110 mmol/L (98-108); Creatinine, Blood 1.18 mg/dL (0.60-1.20); Globulin, Blood 4.3 g/dL (2.2-4.0); Glomerular Filtration Rate >60 (60-); Glucose, Blood 169 mg/dL (70-99); Magnesium, Blood 1.9 mg/dL (1.6-2.4); Phosphorus, Blood 2.8 mg/dL (2.5-4.9); Potassium, Blood 4.7 mmol/L (3.5-5.5); Sodium, Blood 139 mmol/L (136-145); Total Protein, Blood 5.9 g/dL (6.4-8.2)
--- NOTE | 2020-09-08 05:55 | NUR ---
SHIFT SUMMARY PT CONT INTUBATED AND ON [facility] VENT. PT RESTARTED ON NIMBEX DURING THE NIGHT FOR VENT COMPLIANCE. CURRENT VENT SETTINGS AC 28 TV 380 PEEP 14 FIO2 50%. LUNGS CLEAR BUT DECREASED. BEFORE NIMBEX WAS STARTED RESP RATE WAS 35-40, FIO2 WAS UP TO 80%, LUNGS HAD INSP AND EXP WHEEZES THROUGHOUT WITH LONG EXP PHASE. HEART RATE REGULAR, BP STABLE. BISS 32. TRAIN OF FOUR 4/4. PT TURNED Q2HR. RESTRAINTS REMOVED AFTER STARTING NIMBEX. TUBE FEED INCREASED TO GOAL RATE OF 45 ML/HR WITH MIN RESIDUAL. REPORT TO ON COMING NURSE
--- NOTE | 2020-09-08 07:30 | NUR ---
ASSUMED CARE BEDSIDE REPORT RECIEVED. PT IS INTUBATED, SEDATED, AND PARALYZED. VENT SETTINGS AC 28, TV 380, PEEP 14, FIO2 45%. PT SEDATED WITH PROPOFOL AT 25 MCG/KG/MIN. PT PARALYZED WITH NIMBEX AT 1 MCG/KG/MIN. TRAIN OF FOUR IS 4/4, BIS MONITOR 20-40'S. CENTRAL LINE TO RIGHT FEMORAL SITE C/D/I. NS INFUSING AT 150 ML/HR. HEPARIN INFUSING AT 21 UNITS/KG/HR. OGT IN PLACE WITH TF AT 45 ML/HR GOAL RATE. LOPEZ TEMP PROBE IN PLACE WITH CLEAR YELLOW OUTPUT NOTED. PT NOT RESPONSIVE TO NOXIOUS STIMULI. EXTREMITIES FLACCID. WILL CONTINUE TO MONITOR.
[2020-09-08 12:45] LABS: Troponin I 0.202 ng/mL (0.000-0.040)
[2020-09-08 12:49] LABS: C-REACTIVE PROTEIN, EXT RANGE >19.000 mg/dL (0.000-0.300)
[2020-09-08 14:49] LABS: Adenovirus Not Detected (NOT DETECT); Bordetella pertussis Not Detected (NOT DETECT); Chlamydophila pneumoniae Not Detected (NOT DETECT); Coronavirus 229E Not Detected (NOT DETECT); Coronavirus HKU1 Not Detected (NOT DETECT); Coronavirus NL63 Not Detected (NOT DETECT); Coronavirus OC43 Not Detected (NOT DETECT); Human Metapneumovirus Not Detected (NOT DETECT); Human Rhinovirus/Enterovirus Not Detected (NOT DETECT); Influenza A/2009-H1 Not Detected (NOT DETECT); Influenza A/H1 Not Detected (NOT DETECT); Influenza A/H3 Not Detected (NOT DETECT); Influenza B Not Detected (NOT DETECT); Mycoplasma pneumoniae Not Detected (NOT DETECT); Parainfluenza Virus 1 Not Detected (NOT DETECT); Parainfluenza Virus 2 Not Detected (NOT DETECT); Parainfluenza Virus 3 Not Detected (NOT DETECT); Parainfluenza Virus 4 Not Detected (NOT DETECT); Respiratory Syncytial Virus Not Detected (NOT DETECT); SARS-Cov-2 (COVID-19), BioFire Not Detected (NOT DETECT)
--- NOTE | 2020-09-08 17:05 | NUR ---
SHIFT SUMMARY NO ACUTE CHANGES THIS SHIFT. PT REMAINS INTUBATED AND SEDATED. VENT SETTINGS AC 28, TV 380, PEEP 8, FIO2 50%. PT REMAINS SEDATED WITH PROPOFOL AT 25 MCG/KG/MIN. PT PARALYZED WITH NIMBEX AT 1 MCG/KG/MIN. TRAIN OF FOUR IS 4/4 WITH BIS 20-40'S THIS SHIFT. PT WITH NO PURPOSFUL MOVEMENTS AND NO RESPONSE TO NOXIOUS STIMULI. VITAL SIGNS HAVE REMAINED STABLE. OGT IN PLACE WITH TF AT 45 ML/HR GOAL RATE. MINIMAL RESIDUALS NOTED. CENTRAL LINE TO RIGHT FEMORAL SITE REMAINS C/D/I. NS INFUSING TKO. HEPARIN GTT INFUSING AT 21 UNITS/KG/HR. LOPEZ TEMP PROBE IN PLACE WITH LARGE AMOUNT OF CLEAR YELLOW URINE OUTPUT NOTED. PT SISTER UPDATED VIA PHONE TODAY. NO FAMILY VISIT AT BEDSIDE. WILL CONTINUE TO MONITOR AND REPORT OFF TO ONCOMING RN.
--- NOTE | 2020-09-08 20:00 | NUR ---
ASSUMED PT CARE @ 1900: PT LAYING SUPINE IN BED. INTUBATED, SEDATED, PARALYZED. GTTs: NIMBEX @ 1 mcg/kg/hr, HEPARIN @ 21u/kg/hr, PROPOFOL @ 25mcg/kg/min. BIS 30s. TOF 4/4. VENT: AC 28/380 8/50. PT UNRESPONSIVE TO BOTH VERBAL & NOXIOUS STIMULI. BIS & PT RESPONSE DEMONSTRATES A GOOD LEVEL OF SEDATION W/ PARALYSIS. HR 60s, SINUS RHYTHM. WILL CONTINUE TO MONITOR CLOSELY & REPORT APPROPRIATE.
[2020-09-09 06:53] LABS: Magnesium, Blood 2.1 mg/dL (1.6-2.4); Phosphorus, Blood 3.6 mg/dL (2.5-4.9)
--- NOTE | 2020-09-09 06:57 | NUR ---
SHIFT SUMMARY: PT REMAINS INTUBATED, SEDATED, PARALYZED. GTTs: NIMBEX @ 1mcg/kg/min, PROPOFOL 45mcg/kg/min. HEPARIN DC'd. VENT: AC, 28/380, PEEP 8 & 50% FiO2. PT WAS STABLE FOR MOST OF THE NIGHT & WAS ABLE TO REST. BIS MAINTAINED 30s-40s. TOWARDS THE END OF THE SHIFT, PT BECAME AGITATED, GRIMACING & BIS INC TO 50s-60s. AFTER REPOSITIONING & INC TO PROPOFOL, PT RETURNED TO BASELINE. Tof4 CONSISTENTLY 4/4. NO ACUTE NEG CHANGES THROUGHOUT SHIFT.
[2020-09-09 08:29] LABS: BASOPHILS ABSOLUTE AUTO 0.02 K/mm3 (0.00-0.23); BASOPHILS PERCENT AUTO 0 % (0-2); EOSINOPHILS PERCENT AUTO 0 % (0-6); Hematocrit 28.6 % (37.0-53.0); Hemoglobin 9.2 g/dL (13.5-17.5); IMMATURE GRAN ABSOLUTE AUTO 0.35 K/mm3 (0.00-0.10); IMMATURE GRAN PERCENT AUTO 4 % (0-1); LYMPHOCYTES ABSOLUTE AUTO 0.38 K/mm3 (0.84-5.20); LYMPHOCYTES PERCENT AUTO 5 % (21-46); MONOCYTES ABSOLUTE AUTO 0.17 K/mm3 (0.16-1.47); MONOCYTES PERCENT AUTO 2 % (4-13); Mean Corpuscular HGB 27.8 pg (26.0-34.0); Mean Corpuscular HGB Conc 32.2 g/dL (31.5-36.5); Mean Corpuscular Volume 86 fL (80-100); Mean Platelet Volume 12.4 fL (9.1-12.4); NEUTROPHILS PERCENT AUTO 89 % (41-73); Platelet Count 245 K/mm3 (150-400); RDW Coefficient Variation 15.7 % (11.7-14.2); RDW Standard Deviation 50.2 fL (35.1-46.3); Red Blood Cell Count 3.31 M/mm3 (4.30-5.90); White Blood Cell Count 8.42 K/mm3 (4.00-11.30)
[2020-09-09 08:37] LABS: Anion Gap 6 mmol/L (6-16); Blood Urea Nitrogen 34 mg/dL (8-24); Bun/Creatinine Ratio 34.2 (12.0-20.0); CO2, Blood 24 mmol/L (21-32); Calcium, Blood 8.1 mg/dL (8.5-10.1); Chloride, Blood 111 mmol/L (98-108); Creatinine, Blood 0.99 mg/dL (0.60-1.20); Glomerular Filtration Rate >60 (60-); Glucose, Blood 328 mg/dL (70-99); Potassium, Blood 4.9 mmol/L (3.5-5.5); Sodium, Blood 141 mmol/L (136-145)
--- NOTE | 2020-09-09 08:39 | NUR ---
ASSUMED CARE BEDSIDE REPORT RECIEVED. PT IS INTUBATED, SEDATED, AND PARALYZED. VENT SETTINGS AC 28, TV 380, PEEP 8, FIO2 60%. PT SEDATED WITH PROPOFOL AT 45 MCG/KG/MIN. NIMBEX INFUSING AT 1 MCG/KG/MIN AND NS TKO. CENTRAL LINE TO RIGHT FEMORAL SITE C/D/I. OGT IN PLACE WITH TF AT GOAL RATE, NO RESIDUALS NOTED. LOPEZ TEMP IN PLACE WITH CLEAR YELLOW OUTPUT NOTED. POWERGLIDE TO JOSEPH C/D/I. PT WITH NO PURPOSFUL MOVEMENTS AT THIS TIME. BIS MONITOR 20-40'S AT THIS TIME. TRAIN OF FOUR IS 4/4. VITAL SIGNS STABLE. WILL CONTINUE TO MONITOR.
[2020-09-09 16:48] LABS: Vancomycin, Trough 17.3 ug/mL (5.0-10.0)
--- NOTE | 2020-09-09 17:45 | NUR ---
SHIFT SUMMARY PT DOING BETTER THIS AFTERNOON. PT REMAINS INTUBATED AND SEDATED. NIMBEX ON STANDBY THIS AFTERNOON. PT FIGHTING AGAINST VENT WITH LESS SEDATION AND NIMBEX BEING OFF. PT SWITCHED TO PRESSURE SUPPORT 02/18, FIO2 60%. PT TOLERATING VENT WELL. PT WITH COPIOUS ETT SECRETIONS THIS AFTERNOON. PT WITH EYES OPEN, BUT DOES NOT TRACK. COUGH AND GAG PRESENT WITH SUCTION. PT DOES NOT FOLLOW COMMANDS. PROPOFOL AT 25 MCG/KG/MIN AND NS TKO. CENTRAL LINE TO RIGHT FEMORAL SITE C/D/I. OGT IN PLACE WITH TF AT 30 ML/HR GOAL RATE. LOPEZ TEMP PROBE IN PLACE WITH LARGE VOLUME OF CLEAR YELLOW URINE OUTPUT NOTED. VITAL SIGNS HAVE REMAINED STABLE. SBW RESTRAINTS IN PLACE. WILL CONTINUE TO MONITOR AND REPORT OFF TO ONCOMING RN.
[2020-09-09 18:09] LABS: ANA DIRECT Negative (Negative); ANTI-DNA (DS) AB QN 1 IU/mL (0-9); ANTISCLERODERMA-70 ANTIBODIES <0.2 AI (0.0-0.9); RNP ANTIBODIES <0.2 AI (0.0-0.9); SJOGREN'S ANTI-SS-A <0.2 AI (0.0-0.9); SJOGREN'S ANTI-SS-B 0.2 AI (0.0-0.9); SMITH ANTIBODIES <0.2 AI (0.0-0.9)
--- NOTE | 2020-09-09 19:30 | NUR ---
ASSUMING PT CARE: PT LAYING SUPINE IN BED. INTUBATED & SEDATED. PROPOFOL GTT @ 25mcg/kg/min. VENT: SPONTANEOUS W/ PS 8, 60%. PT AWAKES TO HIS NAME, OPENS EYES BUT DOES NOT TRACK STAFF AROUND THE ROOM. UPWARD GAZE. UNABLE TO FOLLOW COMMANDS. RECOILS W/ ORAL CARE. RR EVEN & UNLABORED. WILL CONTINUE TO MONITOR & RETURN PT BACK TO AC WHEN APPROPRIATE.
--- NOTE | 2020-09-09 21:00 | NUR ---
UPDATE: TIDAL VOLUMES DECREASING, RR SHALLOW & TACHYPNEIC. SATS 87%. PT BITING ETT & SHAKING HEAD. RT CALLED TO BEDSIDE & PT PLACED BACK ON AC. PROPOFOL INC TO 45mcg/kg/min & PT MEDICATED W/ FENTANYL. PT APPEARS MUCH MORE COMFORTABLE & IS TOLERATING ETT WELL.
[2020-09-10 05:49] LABS: BASOPHILS ABSOLUTE AUTO 0.02 K/mm3 (0.00-0.23); BASOPHILS PERCENT AUTO 0 % (0-2); EOSINOPHILS PERCENT AUTO 0 % (0-6); Hematocrit 28.6 % (37.0-53.0); Hemoglobin 9.4 g/dL (13.5-17.5); IMMATURE GRAN ABSOLUTE AUTO 0.35 K/mm3 (0.00-0.10); IMMATURE GRAN PERCENT AUTO 3 % (0-1); LYMPHOCYTES ABSOLUTE AUTO 0.96 K/mm3 (0.84-5.20); LYMPHOCYTES PERCENT AUTO 7 % (21-46); MONOCYTES PERCENT AUTO 5 % (4-13); Mean Corpuscular HGB 28.2 pg (26.0-34.0); Mean Corpuscular HGB Conc 32.9 g/dL (31.5-36.5); Mean Corpuscular Volume 86 fL (80-100); NEUTROPHILS ABSOLUTE AUTO 11.64 K/mm3 (1.96-9.15); NEUTROPHILS PERCENT AUTO 85 % (41-73); NRBC ABSOLUTE 0.04 K/mm3 (0.00-0.02); NRBC Auto 0.3 /100 WBC (0.0-0.2); Platelet Count 281 K/mm3 (150-400); RDW Coefficient Variation 15.6 % (11.7-14.2); RDW Standard Deviation 48.8 fL (35.1-46.3); Red Blood Cell Count 3.33 M/mm3 (4.30-5.90); White Blood Cell Count 13.67 K/mm3 (4.00-11.30)
--- NOTE | 2020-09-10 05:51 | NUR ---
SHIFT SUMMARY: PT CONTINUES TO BE INTUBATED, SEDATED. GTTs PRECEDEX 0.3mcg/kg/hr, PROPOFOL 35mcg/kg/min. VENT: AB 28/380, 8/70%. THROUGHOUT THE NIGHT, PT HAD DIFFICULTY MAINTAINING SATS >90%. WHEN AGITATED W/ ORAL CARE OR REPOSITIONING, PT WAS DIFFICULT TO SEDATE. GAGGING & BITING ETT, PULLING AT RESTRAINTS. PROPOFOL INC INCREMENTALLY & EVENTUALLY PRECEDEX DRIP WAS STARTED. SINCE THAT TIME, PT HAS MAINTAINED A GOOD LEVEL OF SEDATION & APPEARS COMFORTABLE. NO ACUTE NEG CHANGES THROUGHOUT SHIFT.
[2020-09-10 06:15] LABS: Alanine Aminotransfer (ALT/SGP 61 U/L (12-78); Albumin, Blood 1.7 g/dL (3.4-5.0); Albumin/Globulin Ratio 0.3 (0.8-1.8); Alk Phos 75 U/L (50-136); Anion Gap 5 mmol/L (6-16); Aspartate Aminotrans (AST/SGOT 22 U/L (12-37); Bilirubin, Total 0.2 mg/dL (0.1-1.0); Blood Urea Nitrogen 44 mg/dL (8-24); CO2, Blood 26 mmol/L (21-32); Calcium, Blood 8.4 mg/dL (8.5-10.1); Chloride, Blood 110 mmol/L (98-108); Glomerular Filtration Rate >60 (60-); Glucose, Blood 318 mg/dL (70-99); Magnesium, Blood 2.2 mg/dL (1.6-2.4); Phosphorus, Blood 3.2 mg/dL (2.5-4.9); Potassium, Blood 4.8 mmol/L (3.5-5.5); Sodium, Blood 141 mmol/L (136-145); Total Protein, Blood 6.7 g/dL (6.4-8.2)
--- NOTE | 2020-09-10 08:30 | NUR ---
ASSUMED CARE BEDSIDE REPORT RECIEVED. PT IS LAYING IN BED INTUBATED AND SEDATED. VENT SETTINGS AC 28, TV 380, PEEP 8, FIO2 70%. PT WITH LARGE VOLUMES OF ORAL AND ETT SECRETIONS WITH SUCTIONING. PT WITHDRAWS BUE'S TO NOXIOUS SIMULI, BUT DOES NOT FOLLOW ANY COMMANDS. COUGH AND GAG PRESENT. VITAL SIGNS STABLE. CENTRAL LINE TO RIGHT FEMORAL SITE C/D/I. PROPOFOL AND PRECEDEX INFUSING. OGT IN PLACE WITH TF AT GOAL RATE. LOPEZ TEMP PROBE IN PLACE WITH CLEAR YELLOW URINE OUTPUT NOTED. SBW RESTRAINTS IN PLACE. WILL CONTINUE TO MONITOR.
--- NOTE | 2020-09-10 17:47 | NUR ---
SHIFT SUMMARY NO ACUTE CHANGES THIS SHIFT. PT REMAINS INTUBATED AND SEDATED. VENT SETTINGS CHANGED TO AC 18, TV 530, PEEP 10, FIO2 55%. SEDATION MINIMIZED. PROPOFOL INFUSING AT 10 MCG/KG/MIN AND PRECEDEX AT 0.9 MCG/KG/MIN. PT SPONTANEOUSLY OPENS EYS, BUT DOES NOT TRACK. PT MOVES UPPER EXTREMITIES SPONTANEOUSLY, BUT DOES NOT FOLLOW ANY COMMANDS. PT WITH COPIOUS ETT SECRETIONS WITH SUCTIONING. CENTRAL LINE TO RIGHT FEMORAL SITE REMAINS INTACT. OGT IN PLACE WITH TF AT GOAL RATE. LOPEZ TEMP PROBE IN PLACE WITH LARGE VOLUME OF CLEAR YELLOW URINE OUTPUT NOTED. SBW RESTRAINTS IN PLACE. VITAL SIGNS HAVE REMAINED STABLE. PT SISTER AT BEDSIDE TO VISIST THIS AFTERNOON. WILL CONTINUE TO MONITOR AND REPORT OFF TO ONCOMING RN.
--- NOTE | 2020-09-10 19:30 | NUR ---
UPDATE: ASSUMED PT CARE @ 1900. PT RESTING SUPINE IN BED. VENT: AC 18/530, 10/55%. GTTs: PRECEDEX 0.3mcg/kg/hr, PROPOFOL 10mcg/kg/min. RR EVEN & UNLABORED. PT SYNCHRONOUS W/ VENT. PT OPENS EYES W/ FIXED UPWARD GAZE TO NAME, HOWEVER UNABLE TO TRACK. UNABLE TO FOLLOW COMMANDS. ONCE DISTURBED, PT BITES @ THE ETT & THRASHES HEAD FROM SIDE TO SIDE & HITS HEAD AGAINST THE HEADREST/PILLOW. AFTER PROPOFOL INC & IVP FENTANYL, PT WAS ABLE TO BETTER TOLERATE ETT. CONTINUES TO REST @ THIS TIME. WILL CONTINUE TO MONITOR & REPORT APPROPRIATE. SEE SHIFT ASSESSMENT.
[2020-09-11 03:25] LABS: BASOPHILS ABSOLUTE AUTO 0.03 K/mm3 (0.00-0.23); BASOPHILS PERCENT AUTO 0 % (0-2); EOSINOPHILS PERCENT AUTO 0 % (0-6); Hematocrit 31.4 % (37.0-53.0); Hemoglobin 10.4 g/dL (13.5-17.5); IMMATURE GRAN ABSOLUTE AUTO 0.53 K/mm3 (0.00-0.10); IMMATURE GRAN PERCENT AUTO 5 % (0-1); LYMPHOCYTES ABSOLUTE AUTO 1.66 K/mm3 (0.84-5.20); LYMPHOCYTES PERCENT AUTO 15 % (21-46); MONOCYTES ABSOLUTE AUTO 0.74 K/mm3 (0.16-1.47); MONOCYTES PERCENT AUTO 7 % (4-13); Mean Corpuscular HGB 27.7 pg (26.0-34.0); Mean Corpuscular HGB Conc 33.1 g/dL (31.5-36.5); Mean Corpuscular Volume 84 fL (80-100); Mean Platelet Volume 11.9 fL (9.1-12.4); NEUTROPHILS ABSOLUTE AUTO 8.34 K/mm3 (1.96-9.15); NEUTROPHILS PERCENT AUTO 74 % (41-73); NRBC ABSOLUTE 0.04 K/mm3 (0.00-0.02); NRBC Auto 0.4 /100 WBC (0.0-0.2); Platelet Count 329 K/mm3 (150-400); RDW Coefficient Variation 15.4 % (11.7-14.2); RDW Standard Deviation 46.7 fL (35.1-46.3); Red Blood Cell Count 3.75 M/mm3 (4.30-5.90)
[2020-09-11 04:20] LABS: Alanine Aminotransfer (ALT/SGP 56 U/L (12-78); Anion Gap 5 mmol/L (6-16); Aspartate Aminotrans (AST/SGOT 21 U/L (12-37); Blood Urea Nitrogen 45 mg/dL (8-24); Bun/Creatinine Ratio 45.3 (12.0-20.0); CO2, Blood 27 mmol/L (21-32); Calcium, Blood 8.5 mg/dL (8.5-10.1); Chloride, Blood 107 mmol/L (98-108); Creatinine, Blood 0.99 mg/dL (0.60-1.20); Glomerular Filtration Rate >60 (60-); Glucose, Blood 343 mg/dL (70-99); Phosphorus, Blood 3.5 mg/dL (2.5-4.9); Potassium, Blood 4.9 mmol/L (3.5-5.5); Sodium, Blood 139 mmol/L (136-145)
[2020-09-11 04:21] LABS: Bilirubin, Total 0.2 mg/dL (0.1-1.0)
[2020-09-11 04:24] LABS: Albumin/Globulin Ratio 0.4 (0.8-1.8); Alk Phos 81 U/L (50-136); Globulin, Blood 5.4 g/dL (2.2-4.0); Total Protein, Blood 7.4 g/dL (6.4-8.2); Troponin I 0.214 ng/mL (0.000-0.040)
[2020-09-11 05:03] LABS: PCO2 Arterial 36.9 mmHg (35-45); PO2 Arterial 70.9 mmHg (80-100); pH Blood Arterial 7.48 (7.35-7.45)
--- NOTE | 2020-09-11 05:30 | NUR ---
UPDATE: SPOKE W/ JEFERSON REGARDING PT'S NEED FOR INC SEDATION & REQUESTED ORDERS TO INC MAX PRECEDEX RATE TO 1.4mcg. HOWEVER, D/T BRADYCARDIA, JEFERSON STS PT IS OK TO HAVE INC IN PROPOFOL & TO USE PRN FENTANYL FOR AGITATION. PLAN FOR SEDATION VACATION THIS AM.
--- NOTE | 2020-09-11 06:32 | NUR ---
SHIFT SUMMARY: PT REMAINS INTUBATED & SEDATED. GTTs: PROPOFOL 25mcg/kg/min, PRECEDEX 0.7mcg/kg/hr. VENT: AC 18/530, 10/50%. PT RESTED WELL THROUGHOUT THE NIGHT. PT BECAME AGITATED W/ ORAL CARE & REPOSITIONING, BITING ETT & THRASHING HEAD FROM SIDE TO SIDE. PRN FENTANYL RESOLVED PT's AGITATION. GOOD URINE OUTPUT, 2,650mls. NO ACUTE NEG CHANGES THIS SHIFT. WILL CONTINUE TO MONITOR & REPORT APPROPRIATE.
[2020-09-11 18:08] LABS: CCP ANTIBODIES IGG/IGA 6 units (0-19)
--- NOTE | 2020-09-11 18:45 | NUR ---
SHIFT SUMMARY SEDATION VACATION THIS MORNING-DOES NOT FOLLOW COMMANDS OR TRACK. VERY RESTLESS AND TRYS TO REACH UP TO PULL ET TUBE, BUT NOT REALLY PURPOSEFUL MOVEMENT. PROPFOL TURNED BACK ON @25 WITH PRECEDEX @ 0.7. FIO2 REDUCED TO 40%. PTS SISTER CAME TO VISIT AND WANTED TO TALK TO THE MD BUT SHE WAS NOT ABLE TO WAIT AROUND TO TALK TO HIM. HE ATTEMPTED TO CALL HER BUT HER VOICEMAIL IS FULL, SO UNABLE TO LEAVE A MESSAGE. SPOKE TO UZIEL AND LET HER KNOW THAT THE MD TRIED TO CALL HER BUT HER VOICEMAIL WAS FULL. HE WILL BE IN TOMORROW AND SHE CAN ATTEMPT TO SPEAK WITH HIM THEN. PROPOFOL REDUCED TO 20ML, TRIED TO GO TO 15 BUT PT BECOMES TO RESTLESS, AND TURNED BACK UP TO 20.
--- NOTE | 2020-09-11 19:30 | NUR ---
ASSUMING PT CARE: PT LAYING SUPINE IN BED. INTUBATED, SEDATED. VENT: AC 18/530, 10/40%. GTTs PRECEDEX 0.7 mcg/kg/hr, PROPOFOL 20mcg/kg/min. PT FIGHTING ETT, THRASHING HEAD FROM SIDE TO SIDE. UNABLE TO FOLLOW COMMANDS. UPWARD GAZE, UNABLE TO TRACK OBJECTS IN FIELD OF VISION OR TRACK STAFF ABOUT THE ROOM. AFTER PRN FENTANYL, PT WAS ABLE TO TOLERATE ETT & ORAL CARE. VS STABLE. WILL CONTINUE TO MONITOR & REPORT APPROPRIATE.
[2020-09-12 05:00] LABS: BASOPHILS ABSOLUTE AUTO 0.06 K/mm3 (0.00-0.23); BASOPHILS PERCENT AUTO 1 % (0-2); EOSINOPHILS ABSOLUTE AUTO 0.24 K/mm3 (0.00-0.68); EOSINOPHILS PERCENT AUTO 2 % (0-6); Hematocrit 32.2 % (37.0-53.0); Hemoglobin 10.6 g/dL (13.5-17.5); IMMATURE GRAN ABSOLUTE AUTO 0.46 K/mm3 (0.00-0.10); IMMATURE GRAN PERCENT AUTO 4 % (0-1); LYMPHOCYTES ABSOLUTE AUTO 2.43 K/mm3 (0.84-5.20); LYMPHOCYTES PERCENT AUTO 21 % (21-46); MONOCYTES ABSOLUTE AUTO 0.86 K/mm3 (0.16-1.47); MONOCYTES PERCENT AUTO 7 % (4-13); Mean Corpuscular HGB 27.7 pg (26.0-34.0); Mean Corpuscular HGB Conc 32.9 g/dL (31.5-36.5); Mean Corpuscular Volume 84 fL (80-100); Mean Platelet Volume 11.5 fL (9.1-12.4); NEUTROPHILS ABSOLUTE AUTO 7.82 K/mm3 (1.96-9.15); NEUTROPHILS PERCENT AUTO 66 % (41-73); Platelet Count 295 K/mm3 (150-400); RDW Standard Deviation 45.9 fL (35.1-46.3); Red Blood Cell Count 3.83 M/mm3 (4.30-5.90); White Blood Cell Count 11.87 K/mm3 (4.00-11.30)
[2020-09-12 05:21] LABS: Albumin, Blood 1.9 g/dL (3.4-5.0); Anion Gap 7 mmol/L (6-16); Blood Urea Nitrogen 42 mg/dL (8-24); Bun/Creatinine Ratio 41.6 (12.0-20.0); CO2, Blood 27 mmol/L (21-32); Calcium, Blood 8.5 mg/dL (8.5-10.1); Chloride, Blood 106 mmol/L (98-108); Creatinine, Blood 1.01 mg/dL (0.60-1.20); Glomerular Filtration Rate >60 (60-); Glucose, Blood 245 mg/dL (70-99); Magnesium, Blood 1.8 mg/dL (1.6-2.4); Phosphorus, Blood 3.2 mg/dL (2.5-4.9); Potassium, Blood 3.8 mmol/L (3.5-5.5); Sodium, Blood 140 mmol/L (136-145); Troponin I 0.239 ng/mL (0.000-0.040)
--- NOTE | 2020-09-12 05:58 | NUR ---
SHIFT SUMMARY: PT REMAINS INTUABTED, SEDATED. VENT: AC 18/530, 8/40%. GTTs: PRECEDEX 0.5mcg/kg/hr, PROPOFOL 30 mcg/kg/min. PT CONTINUES TO BE INTOLERANT OF ANY DEC IN SEDATION, THRASHING HEAD FROM SIDE TO SIDE, PULLING @ RESTRAINTS, & BITING @ ETT. FENTALYL IVPs HAS BEEN VERY SUCCESSFUL IN SOOTHING PT. W/ SEDATION VACATION, PT UNABLE TO FOLLOW COMMANDS, NO IMPROVEMENT IN NEURO STATUS. NO ACUTE NEG CHANGES THIS SHIFT. WILL CONTINUE TO MONITOR & REPORT OFF TO ONCOMING RN.
--- NOTE | 2020-09-12 07:00 | NUR ---
ASSUMED CARE PTS BP ARE SOFT THIS MORNING, STARTED TRENDING DOWN AROUND 0600 THIS MORNING. NS BOLUS STARTED, SEDATION REDUCED. PROPOFOL TURNED DOWN FROM 20 TO 10, PRECEDEX TITRATED TO 0.2, BP'S STILL SOFT. DR. ALVARADO ORDERED LR 1000ML BOLUS, TITRATE PROP OFF AND REPLACE WITH PRECEDEX
[2020-09-12 13:10] LABS: ATYPICAL PANCA <1:20 titer (Neg:<1:20); CYTOPLASMIC (C-ANCA) <1:20 titer (Neg:<1:20); PERINUCLEAR (P-ANCA) <1:20 titer (Neg:<1:20)
--- NOTE | 2020-09-12 17:57 | NUR ---
SHIFT SUMMARY SEDATION VACATION AGAIN DID NOT GO WELL. PATIENT BECOMES EXTREMELY AGGITATED, TRYS TO SIT UP, SHAKES HIS HEAD, ARCHES HIS BACK OFF THE BED AND KICKS HIS LEGS EVERYWHERE. PT DOES NOT TRACK OR FOLLOW COMMANDS. PATIENT STARTED BREATHING 48 BREATHS PER MINUTE, FACE TURNING RED AND STRUGGLING. 5MG PROPOFOL PUSH, 20O FENTANYL AND PRECEDEX INCREASED TO 1.4 TO CALM HIM DOWN AND GET HIS BREATHING BACK UNDER CONTROL. 1 LITER LR GIVEN TO CORRECT SOFT BLOOD PRESSURE EARLY THIS AM, WITH GOOD RESULTS. ORDER FOR PRECEDEX TO BE TITRATED UP TO 1.4 IN [facility]. PT NOW ON 1.2 PRECEDEX AND 15 PROPOFOL. NO CHANGES TO BE MADE OVERNIGHT. ZYPREXA ADDED AND MD WILL RE-EVALUATE IN THE MORNING.
--- NOTE | 2020-09-12 20:38 | NUR ---
Assumed Care Bedside report recieved from RADHA Proctor. Pt intubated and sedated. Propofol GTT 15 MCG/KG/MIN and Precedex 1.2 mcg/kg/hr. Vent settings of PS 10/5, FIO2 50%, SPO2 > 95%. Pt withdraws to noxious stimuli, moving head back/forth during oral care but does not open eyes/follow commands. HR 50. BP stable. OG in place with TF at goal rate. Temp david in place with celar yellow urine output. SWB in place. Right femoral dressing C/D/I. Will continue to monitor.
[2020-09-13 03:39] LABS: BASOPHILS ABSOLUTE AUTO 0.05 K/mm3 (0.00-0.23); BASOPHILS PERCENT AUTO 0 % (0-2); EOSINOPHILS ABSOLUTE AUTO 0.25 K/mm3 (0.00-0.68); EOSINOPHILS PERCENT AUTO 2 % (0-6); Hematocrit 34.8 % (37.0-53.0); Hemoglobin 11.5 g/dL (13.5-17.5); IMMATURE GRAN ABSOLUTE AUTO 0.33 K/mm3 (0.00-0.10); IMMATURE GRAN PERCENT AUTO 2 % (0-1); LYMPHOCYTES ABSOLUTE AUTO 2.42 K/mm3 (0.84-5.20); LYMPHOCYTES PERCENT AUTO 17 % (21-46); MONOCYTES ABSOLUTE AUTO 0.99 K/mm3 (0.16-1.47); MONOCYTES PERCENT AUTO 7 % (4-13); Mean Corpuscular HGB 27.9 pg (26.0-34.0); Mean Corpuscular Volume 85 fL (80-100); Mean Platelet Volume 11.7 fL (9.1-12.4); NEUTROPHILS ABSOLUTE AUTO 10.37 K/mm3 (1.96-9.15); NEUTROPHILS PERCENT AUTO 72 % (41-73); Platelet Count 291 K/mm3 (150-400); RDW Coefficient Variation 14.9 % (11.7-14.2); RDW Standard Deviation 45.7 fL (35.1-46.3); Red Blood Cell Count 4.12 M/mm3 (4.30-5.90); White Blood Cell Count 14.41 K/mm3 (4.00-11.30)
[2020-09-13 03:58] LABS: Anion Gap 5 mmol/L (6-16); Blood Urea Nitrogen 41 mg/dL (8-24); Bun/Creatinine Ratio 40.2 (12.0-20.0); CO2, Blood 29 mmol/L (21-32); Calcium, Blood 8.5 mg/dL (8.5-10.1); Chloride, Blood 105 mmol/L (98-108); Creatinine, Blood 1.02 mg/dL (0.60-1.20); Glomerular Filtration Rate >60 (60-); Glucose, Blood 260 mg/dL (70-99); Magnesium, Blood 1.7 mg/dL (1.6-2.4); Phosphorus, Blood 3.9 mg/dL (2.5-4.9); Potassium, Blood 4.2 mmol/L (3.5-5.5); Sodium, Blood 139 mmol/L (136-145)
--- NOTE | 2020-09-13 04:30 | NUR ---
UPDATE Pt with increased agitation. Thrashing in bed, kicking legs, and pulling on restraints. Treated per emar and Propofol titrated, see flow sheet. Pt has mucous plug on left upper lung per RT. Copious secretion's suctioned during lavage via RT. Pt SPO2 decreasing to 82-83% and after lavage and mucous plug removal SPO2 increased to 92%. Vent settings PS 10/6, SPO2 increased to 60%. Pt not following commands, opening eyes but not tracking.
--- NOTE | 2020-09-13 06:08 | NUR ---
Shift Summary Pt continues to be intubated and sedated. Vent settings PS 10/5, fio2 60%, SPO2 > 90%. Sedated with Precedex 1.2 mcg/kg/hr and Propofol 20 mcg/kg/min. Pt responds to noxious stimuli and occasionally thrashing in bed with turns/oral care. Treated with PRN Fentanyl once. Temp david in place, 1000 ml of dark clear yellow urine. OG tube in place, tube feed at goal. VSS. Pt remains in sinus aidee (HR 50's). Will report to oncoming shift.
--- NOTE | 2020-09-13 19:10 | NUR ---
ASSUMED PT CARE: REPORT TAKEN FROM RADHA BUENROSTRO. PT LAYING SUPINE IN BED. INTUBATED & SEDATED. VENT: AC 18/530, 5/60%. GTTs: PROPOFOL 16mcg/kg/min, PRECEDEX 1.7mcg/kg/hr. PT RESTING SOUNDLY WHEN UNDISTURBED, OCCASSIONALLY BITES AGAINST ETT & TURNS HEAD FROM SIDE TO SIDE, QUICKLY RETURNS TO RESTING. WILL CONTINUE TO MONITOR & REPORT APPROPRIATE.
--- NOTE | 2020-09-13 19:26 | NUR ---
SHIFT SUMMARY PT DOES NOT RESPOND TO VOICE, WILL REACT TO PAIN. OUTPUT CONTINUES TO BE MORE THAN HE RECIEVES. TURNED EVERY 2 HOURS. PLAN TO DO A SEDATION VACATION WITH HIS SISTER HERE TO SEE IF HE REACT TO HER VOICE
[2020-09-14 04:41] LABS: BASOPHILS ABSOLUTE AUTO 0.04 K/mm3 (0.00-0.23); BASOPHILS PERCENT AUTO 0 % (0-2); EOSINOPHILS ABSOLUTE AUTO 0.23 K/mm3 (0.00-0.68); EOSINOPHILS PERCENT AUTO 2 % (0-6); Hematocrit 37.9 % (37.0-53.0); Hemoglobin 12.6 g/dL (13.5-17.5); IMMATURE GRAN ABSOLUTE AUTO 0.28 K/mm3 (0.00-0.10); IMMATURE GRAN PERCENT AUTO 2 % (0-1); LYMPHOCYTES ABSOLUTE AUTO 2.33 K/mm3 (0.84-5.20); LYMPHOCYTES PERCENT AUTO 16 % (21-46); MONOCYTES ABSOLUTE AUTO 0.75 K/mm3 (0.16-1.47); MONOCYTES PERCENT AUTO 5 % (4-13); Mean Corpuscular HGB 27.8 pg (26.0-34.0); Mean Corpuscular HGB Conc 33.2 g/dL (31.5-36.5); Mean Corpuscular Volume 84 fL (80-100); Mean Platelet Volume 12.2 fL (9.1-12.4); NEUTROPHILS ABSOLUTE AUTO 10.64 K/mm3 (1.96-9.15); NEUTROPHILS PERCENT AUTO 75 % (41-73); Platelet Count 306 K/mm3 (150-400); RDW Coefficient Variation 14.7 % (11.7-14.2); RDW Standard Deviation 44.7 fL (35.1-46.3); Red Blood Cell Count 4.54 M/mm3 (4.30-5.90); White Blood Cell Count 14.27 K/mm3 (4.00-11.30)
[2020-09-14 05:05] LABS: Anion Gap 6 mmol/L (6-16); Blood Urea Nitrogen 42 mg/dL (8-24); Bun/Creatinine Ratio 37.2 (12.0-20.0); CO2, Blood 29 mmol/L (21-32); Calcium, Blood 8.8 mg/dL (8.5-10.1); Chloride, Blood 103 mmol/L (98-108); Creatinine, Blood 1.13 mg/dL (0.60-1.20); Glomerular Filtration Rate >60 (60-); Glucose, Blood 319 mg/dL (70-99); Potassium, Blood 3.8 mmol/L (3.5-5.5); Sodium, Blood 138 mmol/L (136-145)
--- NOTE | 2020-09-14 06:03 | NUR ---
SHIFT SUMMARY: PT REMAINS INTUBATED, SEDATED. VENT SETTINGS & GTTs UNCHANGED PREVIOUSLY DOCUMENTED. PT STIRRS, SHAKES HEAD, & BITES ETT WHEN DISTURBED BUT QUICKLY RETURNS TO RESTING. POWERGLIDE TO LUE FAILED & REMOVED. 18g PERIPHERAL IV TO LUE. NO BM, PT GIVEN MILK OF MAG. NO ACUTE NEG CHANGES. WILL CONTINUE TO MONITOR & REPORT APPROPRIATE.
--- NOTE | 2020-09-14 07:34 | NUR ---
DR. ALVARADO CALLED AND INFORMED THAT PATIENT'S SBP IN 70S THIS AM. 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 ORDER FOR LR BOLUS RECEIVED.
--- NOTE | 2020-09-14 09:03 | NUR ---
INITIAL ASSESSMENT PATIENT INTUBATED AND ON SEDATION. PATIENT ONLY RESPONDING TO NURSING CARE/ NOXIOUS STIMULI THIS MORNING INITIALLY. PATIENT LATER RESPONDED TO VERBAL STIMULI BY TURNING TOWARD NURSE THAT WAS SPEAKING TO HIM. NO TRACKING OF EYES NOTED. PATIENT WAS ABLE TO NOD HEAD YES AND SQUEEZE NURSE'S HAND WITH R HAND ON COMMAND. PATIENT ABLE TO MOVE ALL EXTREMITIES. PATIENT BECOMES VERY AGITATED WITH NURSING CARE/ REPOSITIONING. PATIENT RECEIVING SCHEDULED METHADONE TO HELP WITH SIGNS OF PAIN. PATIENT HAS TEMP OF 99.6 DEGREES FAHRENHEIT. PATIENT SATTING 90% AND GREATER ON VENT SETTINGS AC 18, TV 530, PEEP 5 AND 60% FIO2. LUNGS CLEAR IN UPPER LOBES AND DIMINISHED IN LOWER LOBES. SCANT AMOUNT OF WHITE SPUTUM SUCTIONED FROM ETT THIS AM. PATIENT IN SB, HR IN THE 50S. SBP 70S TO 90S. PATIENT RECEIVED 1 L LR BOLUS THIS AM FOR HYPOTENSION. FOOT PULSES DOPPLERED. 1+ EDEMA NOTED TO ALL EXTREMITIES. ABDOMEN MODERATELY DISTENDED, SOFT, WITH HYPOACTIVE BS NOTED. OG IN PLACE. VHP TF INFUSING AT GOAL RATE OF 35 MLS/ HOUR WITH 30 ML WATER FLUSH Q4H. RESIDUAL OF ZERO THIS AM. PATIENT GIVEN PRN SUPPOSITORY. TEMP PROBE LOPEZ IN PLACE DRAINING DARK YELLOW COLORED URINE. SCATTERED SCABS AND SCARS NOTED T/O. DIABETIC ULCERS SCATTERED TO FEET. PATIENT HAS MANY TOES THAT ARE AMPUTATED. PRECEDEX INFUSING AT 1.2 MCG/ KG/ HOUR AND PROPOFOL INFUSING AT 15 MCG/ KG/ MINUTE. CALL LIGHT IN REACH. WILL CONTINUE TO MONITOR PATIENT FREQUENTLY THROUGHOUT SHIFT.
--- NOTE | 2020-09-14 09:13 | NUR ---
DR. ALVARADO IN ROOM TO SEE PATIENT. DOCTOR INFORMED THAT BOLUS HELPED BP SLIGHTLY BUT THAT SBP LOW 80S AND MAP UNDER 65. NURSE SHOWED DOCTOR COOL AND MOTTLED LEFT FOOT. INFORMED THAT PATIENT WAS ABLE TO FOLLOW A COUPLE OF COMMANDS THIS AM. ORDERS RECEIVED.
--- NOTE | 2020-09-14 12:42 | NUR ---
PATIENT AFEBRILE AT THIS TIME. PATIENT NOT FOLLOWING COMMANDS AT THIS TIME. PRECEDEX AT 1 MCG/ KG/ HOUR AND PROPOFOL AT 20 MCG/ KG/ MINUTE. PATIENT IN SR, HR IN THE 60S. SBP IN THE 90S. LEVOPHED ON SB AT THIS TIME. PATIENT SATTING 90% AND GREATER ON AC 18, TV 530, PEEP 5, 50% FIO2. PATIENT STARTED ON ANTIBIOTICS VANCOMYCIN AND CEFEPIME. PATIENT STARTED ON ENULOSE PT. BLOOD SUGAR OF 318; COVERAGE GIVEN. NO OTHER ACUTE CHANGES TO NOTE ON AT THIS TIME. WILL CONTINUE TO MONITOR.
--- NOTE | 2020-09-14 16:08 | NUR ---
PATIENT'S SISTER, UZIEL, IN ROOM WITH PATIENT. UPDATED ON PATIENT STATUS. PROPOFOL ON SB AT THIS TIME TO ALLOW PATIENT TO COMMUNICATE WITH SISTER.
--- NOTE | 2020-09-14 16:15 | NUR ---
PATIENT AFEBRILE. PROPOFOL ON SB. PATIENT IS REMAINING CALM WITH SISTER AT BEDSIDE. PATIENT ORIENTED TO FAMILY AND FOLLOWING SIMPLE COMMANDS. HR IN THE 50S. SBP IN THE 90S. TF INCREASED TO NEW GOAL RATE OF 45 MLS/ HOUR. NO OTHER ACUTE CHANGES TO NOTE ON AT THIS TIME. WILL CONTINUE TO MONITOR.
--- NOTE | 2020-09-14 18:19 | NUR ---
SHIFT SUMMARY PATIENT REMAINS INTUBATED AND ON SEDATION. PATIENT DECREASED ON SEDATION TODAY AND WAS ABLE TO REMAIN CALM AND FOLLOW SOME SIMPLE COMMANDS. PATIENT REMAINED MOVING ALL EXTREMITIES. PATIENT RECEIVED SCHEDULED METHADONE AND PRN FENTANYL FOR SIGNS/ COMPLAINTS OF PAIN. PATIENT HAD TMAX OF 99.6 DEGREES FAHRENHEIT. PATIENT REMAINED ON VENT SETTINGS OF AC 18, TV 530, PEEP 5 AND FIO2 DECREASED FROM 60% TO 50%. PATIENT REMAINED SB TO SR, HR 50S TO 60S. SBP 70S TO 140S. PATIENT RECEIVED 1 L LR BOLUS THIS AM AND STARTED ON LEVOPHED DRIP. LEVOPHED DRIP HAS BEEN OFF FOR SEVERAL HOURS AND BP REMAINS STABLE. NO BM THIS SHIFT. PATIENT GIVEN SUPPOSITORY AND STARTED ON LACTULOSE UNTIL HAS BM. VHP INCREASED TO 45 MLS FROM 35 MLS. BLOOD SUGARS 318- 367; LANTUS DOSE INCREASED. LOPEZ DRAINED ADEQUATE AMOUNT OF DARK YELLOW COLORED URINE. NO CHANGE IN SKIN. PATIENT REPOSITIONED THROUGHOUT SHIFT. PRECEDEX INFUSING AT 1.0 MCG/ KG/ MINUTE AND PROPOFOL AT 10 MCG/ KG/ HOUR. PATIENT STARTED ON CEFEPIME AND VANCO THIS SHIFT. PATIENT APPEARS COMFORTABLE AT THIS TIME. BED LOW. WILL BE GIVING REPORT TO ONCOMING BUILDING MAINTENANCE TECHNICIAN NURSE SHORTLY.
--- NOTE | 2020-09-14 18:42 | NUR ---
Spiritual care note: Provided emotional support and prayer to pt's sister at bedside. She was rather quiet and tearful and did not engage in conversation. she does feel relief that Jeremiah has opened his eyes. Rotary Saw Operator services will remain available.
--- NOTE | 2020-09-14 19:30 | NUR ---
ASSUMED CARE RECEIVED REPORT FROM RADHA CARSON. PT IS LYING IN BED ON LEFT SIDE, INTUBATED WITH 8.0 ETT, 24 AT GUM WITH VENT SETTINGS ON AT AC18/530/5/45%. CURRENTLY HE IS RIDING THE VENT, RATE AT 18/MIN; PEAK PRESSURE OF 19. SEDATED WITH PROPOFOL 10 MCG/KG/MIN, AND PRECEDEX 1.0 MCG/KG/HR. NS ON TKO, AND LEVO IS ON STANDBY. TF OF VITAL HIGH PROTEIN INFUSING VIA OG TUBE AT 45 ML/HR WITH Q4H 30 ML WATER FLUSHES. HE IS IN SINUS BETTY, RATE 50s. BP IS SOFT, BUT MAP > 60 & SBP 90-105. SPO2 96%. CORE TEMP VIA LOPEZ AT 99.9. LOPEZ IS PATENT AND DRAINING LIGHT YELLOW URINE. BED LOW AND LOCKED. PT APPEARS TO BE AWAKE, BUT IS CALM AND HAS RELAXED MUSCLES.
--- NOTE | 2020-09-15 | NUR ---
RIGHT PERIPHERAL IV IN FOREARM HAS LEVOPHED INFUSING. ORDERED BY DR. ALVARADO IF NEEDED, BUT IS NOT TO INFUSE GREATER THAN 8 MCG/MIN. STARTING A 1 MCG/MIN AT 0000. IV FLUSHES WELL, AND DRAWS BLOOD (SLUGGISHLY). SITE WNL, NO SIGNS OF INFILTRATION.
--- NOTE | 2020-09-15 00:45 | NUR ---
UPDATE/SEDATION VACATION PROPOFOL WAS TURNED OFF FROM 2200 - 0000. PRECEDEX REMAINED ON AT 1 MCG/KG/HR. BLOOD PRESSURES WERE LOW, MAP > 60, BUT SBP WAS 79-90. BLOOD PRESSURE REMAINED ON THE LOWER SIDE TILL 0038 (BP: 109/65, 79), LEVOPHED WAS TURNED ON TO 1 MCG/MIN AT 0000. DURING THE SEDATION VACATION THE PT WAS FAIRLY ALERT, KEEPING EYES OPEN AND TRACKING, FOLLOWING SIMPLE COMMANDS AND ANSWERING YES/NO QUESTIONS BY NODDING AND SHAKING HEAD APPROPRIATELY. PT WAS NOT CONSISTENT IN ANSWERING QUESTIONS, AND SOMETIMES WOULD NOT ANSWER, OR JUST VERY SLOWLY. HE NODDED TO BEING ASKED IF HE WAS IN PAIN (GIVEN 50 MCG OF FENTANYL). HE SHOOK HIS HEAD "NO" TO "ARE YOU COLD, DO YOU WANT A BLANKET?". HE HAS MOVED ALL FOUR OF HIS EXTREMITIES, GROSS MOVEMENT MAINLY. HE WAS ABLE TO SQUEEZE MY FINGERS ON COMMAND WITH A WEAK BUT EQUAL WOVEN WOOD SHADE ASSEMBLER. PT DOES LIKE TO STARE BLANKLY AHEAD WHEN NOT BEING STIMULATED, EYE LIDS WILL BE HALF CLOSED. BED LOW AND LOCKED. SWB RESTRAINTS SECURED TO PT AND BED.
--- NOTE | 2020-09-15 02:00 | NUR ---
UPDATE PT HAVING INCREASING RESTLESSNESS, AND ANXIETY, THOUGH, HE CONTINUES TO BE COOPERATIVE AND REDIRECTABLE. BLOOD PRESSURE HAS IMPROVED, PROPOFOL WAS INITIALLY TURNED UP TO 20 MCG/KG/MIN (THEN BACK DOWN TO 10 MCG/KG/HR HALF AN HOUR LATER) AND PRECEDEX UP TO 1.4 MCG/KG/HR. (SEE ICU FLOWSHEET FOR SPECIFIC TIMES THESE MEDS WERE TITRATED). PT CONTINUES TO HAVE EYES OPEN FOR LONGER PERIODS OF TIME - STARING OUT AHEAD. BUT IS NOT MOVING AROUND SO OFTEN, RESTLESSLY. CPOT OF 0-1. BP HAS IMPROVED, SBP 105-120, MAP 70-80s. HR REMAINS IN THE 50-62 RANGE. LEVO REMAINS AT 1 MCG/MIN.
[2020-09-15 03:32] LABS: BASOPHILS ABSOLUTE AUTO 0.04 K/mm3 (0.00-0.23); BASOPHILS PERCENT AUTO 0 % (0-2); EOSINOPHILS ABSOLUTE AUTO 0.15 K/mm3 (0.00-0.68); EOSINOPHILS PERCENT AUTO 1 % (0-6); Hematocrit 34.1 % (37.0-53.0); Hemoglobin 11.1 g/dL (13.5-17.5); IMMATURE GRAN ABSOLUTE AUTO 0.25 K/mm3 (0.00-0.10); IMMATURE GRAN PERCENT AUTO 2 % (0-1); LYMPHOCYTES ABSOLUTE AUTO 2.31 K/mm3 (0.84-5.20); LYMPHOCYTES PERCENT AUTO 14 % (21-46); MONOCYTES ABSOLUTE AUTO 1.09 K/mm3 (0.16-1.47); MONOCYTES PERCENT AUTO 7 % (4-13); Mean Corpuscular HGB 27.4 pg (26.0-34.0); Mean Corpuscular HGB Conc 32.6 g/dL (31.5-36.5); Mean Corpuscular Volume 84 fL (80-100); Mean Platelet Volume 12.4 fL (9.1-12.4); NEUTROPHILS ABSOLUTE AUTO 12.96 K/mm3 (1.96-9.15); NEUTROPHILS PERCENT AUTO 77 % (41-73); Platelet Count 278 K/mm3 (150-400); RDW Coefficient Variation 14.8 % (11.7-14.2); RDW Standard Deviation 45.3 fL (35.1-46.3); Red Blood Cell Count 4.05 M/mm3 (4.30-5.90)
[2020-09-15 03:46] LABS: Anion Gap 7 mmol/L (6-16); Blood Urea Nitrogen 51 mg/dL (8-24); Bun/Creatinine Ratio 47.7 (12.0-20.0); CO2, Blood 25 mmol/L (21-32); Calcium, Blood 8.5 mg/dL (8.5-10.1); Chloride, Blood 107 mmol/L (98-108); Creatinine, Blood 1.07 mg/dL (0.60-1.20); Glomerular Filtration Rate >60 (60-); Glucose, Blood 290 mg/dL (70-99); Potassium, Blood 4.1 mmol/L (3.5-5.5); Sodium, Blood 139 mmol/L (136-145)
--- NOTE | 2020-09-15 05:25 | NUR ---
UPDATE FIO2 INCREASED TO 40%, PT's SPO2 HAS BEEN 86-89% WITH A GOOD WAVEFORM. PT WAS SUCTIONED WITH NO SECRETIONS COMING UP, NO CHANGES TO PEAK PRESSURES, OR MINUTE VENTILATION. PT APPEARED TO BE IN A DEEPER SEDATION LEVEL SO PROPOFOL WAS PLACED ON STANDBY, AND PRECEDEX DECREASED TO 1.2 MCG/KG/HOUR. WILL CONTINUE TO MONITOR. RT HAS BEEN NOTIFIED OF SPO2 DROP.
--- NOTE | 2020-09-15 05:54 | NUR ---
UPDATE PT HYPOTENSIVE - LEVO STARTED BACK UP AT 0540, AND WAS INCREASED TO 5 MCG/MIN (SEE VITALS AND ICU FLOWSHEET). PROPOFOL WAS PUT ON STANDBY, AND PRECEDEX DECREASED TO 1.2 MCG/KG/HOUR. PT WAS NO LONGER RESPONDING TO VERBAL STIMULI. THOUGH, HE CONTINUED TO BE RESPONSIVE TO NOXIOUS STIMULI LIKE REPOSITIONING, AND ORAL CARE. EYES WERE SLIGHTLY OPEN, BUT WAS NOT TRACKING. SPO2 INCREASED UP TO 50% AND HE WAS REPOSITIONED BACK TO HIS LEFT SIDE - PT WAS DESATTING TO THE 86-88% RANGE. TRIED SUCTIONING VIA INLINE CATHETER AND WAS NOT ABLE TO GET ANY SECRETIONS. PEAK PRESSURES ARE 19-20. GASTRIC RESIDUALS WERE MINIMAL OVERNIGHT (5 ML OR LESS). TF AT GOAL RATE OF 45 ML/HR, WITH Q4H 30 ML WATER FLUSHES. LACTULOSE GIVEN; NO BM, ASIDE FROM WHAT APPEARED TO BE A GLOB OF MUCUS. URINE OUTPUT ADEQUATE T/O SHIFT (SEE I/Os). BED LOW AND LOCKED.
--- NOTE | 2020-09-15 09:22 | NUR ---
ASSUMED CARE OF PT, REPORT RCV'D FROM RADHA AGUILAR. PT INTUBATED AND SEDATED. VENT SETTINGS AC 18/530/5/50%. LIGHTLY SEDATED ON PRECEDEX 1.2 MCG/KG/HR. PT ALERT TO VERBAL STIMULI, FOLLOWS COMMANDS TO SQUEEZE HANDS BILATERALLY. MOVES ALL EXTREMETIES. LEVOPHED AT 2 MCG/MIN TO MAINTAIN MAP>65. VSS AT THIS TIME. SEE FULL SHIFT ASSESSMENT.
--- NOTE | 2020-09-15 18:26 | NUR ---
SHIFT SUMMARY PT REMAINS INTUBATED AND SEDATED. VENT SETTINGS AC 18/530/5/45%. PRECEDEX @1 MCG/KG/HR. PT CALM AND COOPERATIVE, FOLLOWS COMMANDS, MOVES ALL EXTREMETIES. LEVOPHED REMAINS AT W MCG/MIN, MAP 60-65. PT TUBE FEED CHANGED TO PIVOT 1.5, 40 ML/HR, LOW RESIDUALS T/O SHIFT. BLOOD SUGARS IN THE MID 300'S T/O SHIFT. 300 ML DARK YELLOW URINARY OUTPUT. PT'S SISTER AT BEDSIDE, SISTER TAKING PT'S KEYS AT THIS TIME, PT NODS YES ALLOWING SISTER TO TAKE KEYS. PER DR. MCNALLY, PLAN TO MINIMIZE SEDATION OVERNIGHT WITH POSSIBILITY OF EXTUBATION TOMORROW MORNING. PATIENT AND FAMILY UPDATED WITH PLAN. WILL REPORT TO [facility] SHIFT NURSE.
--- NOTE | 2020-09-15 20:27 | NUR ---
Care Assumed 1900 Pt intubated and sedated. Vent settings AC 18/530/5/45%, SPO2 > 90%. Pt sedated with Precedex 1 mcg/kg/hr. Able to follow commands, nods yes/no to simple questions. Nods yes to knowing location and nods yes to being in pain once. When asked again if pt was in pain after repositioning pt nods no. Pt on low dose Norepinephrine 2 mcg/min when assumed care, titrated to 1 mcg/min. Pts MAP > 80. OGT in place with tube feed at goal. Amezquita in place, draining to gravity with 75 mls of yellow/clear urine. VSS. NSR.
--- NOTE | 2020-09-15 23:30 | NUR ---
Update Pt found to have infiltrated IV. IV removed and new IV inserted by study hall supervisorHamida. Pt able to follow commands and able to state when in pain, nods yes/no to simple questions. Levophed infusing via IV, see flow sheet. VSS. NSR.
--- NOTE | 2020-09-16 01:45 | NUR ---
Update Pt has another infiltrated IV, removed. Powerglide inserted by clinic charge nurse with success. Pt is a difficult stick.
--- NOTE | 2020-09-16 02:45 | NUR ---
LEVOPHED PLACED ON SB, MAP> 80
[2020-09-16 05:09] LABS: BASOPHILS ABSOLUTE AUTO 0.05 K/mm3 (0.00-0.23); BASOPHILS PERCENT AUTO 0 % (0-2); EOSINOPHILS PERCENT AUTO 2 % (0-6); Hemoglobin 9.7 g/dL (13.5-17.5); IMMATURE GRAN ABSOLUTE AUTO 0.18 K/mm3 (0.00-0.10); IMMATURE GRAN PERCENT AUTO 1 % (0-1); LYMPHOCYTES ABSOLUTE AUTO 1.88 K/mm3 (0.84-5.20); LYMPHOCYTES PERCENT AUTO 13 % (21-46); MONOCYTES PERCENT AUTO 7 % (4-13); Mean Corpuscular HGB 27.6 pg (26.0-34.0); Mean Corpuscular HGB Conc 32.3 g/dL (31.5-36.5); Mean Corpuscular Volume 86 fL (80-100); Mean Platelet Volume 12.8 fL (9.1-12.4); NEUTROPHILS ABSOLUTE AUTO 11.39 K/mm3 (1.96-9.15); NEUTROPHILS PERCENT AUTO 77 % (41-73); Platelet Count 249 K/mm3 (150-400); RDW Coefficient Variation 15.2 % (11.7-14.2); RDW Standard Deviation 47.5 fL (35.1-46.3); Red Blood Cell Count 3.51 M/mm3 (4.30-5.90)
[2020-09-16 05:32] LABS: Bun/Creatinine Ratio 39.6 (12.0-20.0); Creatinine, Blood 1.49 mg/dL (0.60-1.20); Magnesium, Blood 2.1 mg/dL (1.6-2.4); Phosphorus, Blood 3.2 mg/dL (2.5-4.9); Potassium, Blood 4.2 mmol/L (3.5-5.5)
--- NOTE | 2020-09-16 06:20 | NUR ---
Shift Summary Pt remains off Levophed, MAP > 65. Vent settings unchanged, SPO2 > 90%. Pt able to track with eyes, awake most of the shift, and able to answer questions by nodding yes/no. During 527 pt nods yes to having pain and moving all extrems, pulling on restraints, treated per emar with Fentanyl [address]. During reassessment 599, pt nods no to being in pain. Precedex 1 mcg/kg/min. OGT in place with pivot at goal. Temp david in place, 900 yellow clear urine output during shift. VSS. NSR. Powerglide infusing and returning blood. Will report to oncoming shift.
--- NOTE | 2020-09-16 08:55 | NUR ---
ASSUMED CARE OF PT, REPORT RCV'D FROM [place] RN. PT ALERT TO VERBAL STIMULI, PT FOLLOWS COMMANDS AND NODS HEAD YES/NO IN RESPONSE TO QUESTIONS. PT ON AC 18/450/5/30%. PRECEDEX @ 1 MCG/KG/HR. VSS AT THIS TIME AND LEVOPHED REMAINS OFF. PLAN TO EXTUBATE THIS MORNING. SEE FULL SHIFT ASSESSMENT.
--- NOTE | 2020-09-16 09:11 | NUR ---
PT EXTUBATED AND PLACED ON 3LNC, PT SATS 93% AT THIS TIME. PRECEDEX DECREASED WITH GOAL TO DISCONTINUE TOLERATED. START SOLUMEDROL, [address] SPEECH EVAL, PT/OT.
[2020-09-16 17:18] LABS: Vancomycin, Trough 23.8 ug/mL (5.0-10.0)
--- NOTE | 2020-09-16 18:30 | NUR ---
SHIFT SUMMARY PT REMAINS ALERT AND ORIENTED, PT COOPERATIVE AND PLEASANT ATTEMPTING TO ASSIST WITH CARE. PT UP TO CHAIR VIA LIFT THIS AFTERNOON FOLLOWING EXTUBATION. PT TOLERATED WELL. PT ATTEMPTED TO STAND WITH WALKER, GAIT BELT AND 3-PERSON ASSIST TO BEDSIDE COMMODE, PATIENT TOO WEAK TO SAFELY STAND AND PIVOT. PHYSICAL AND OCCUPATIONAL THERAPY CONSULT PLACED. PT ON 3-5L NC, OXYGEN NEEDS INCREASE WITH REPOSITIONING. PT TREATED FOR BACK PAIN AND ANXIETY PER EMAR. LABETALOL STARTED D/T TACHYCARDIA (HR UP TO 145) AND HYPERTENSION. PT LOST IV ACCESS FOR PERIOD OF TIME, MULTIPLE ATTEMPTS TO PLACE PERIPHERAL IV AND/OR POWERGLIDE. ONE PERIPHERAL IV TO FITO PLACE, CHARGE NURSE AWARE THAT PT NEEDS CENTRAL LINE WHEN POSSIBLE. PT HAS OCCASIONAL, NON PRODUCTIVE, STRONG COUGH. ABEL AT BEDSIDE NEEDED. 2400 ML URINARY OUTPUT. PT FAILED SWALLOW EVAL AND IS STRICT NPO. DR. MCNALLY AWARE AND ORDER TO DO BEDSIDE SWALLOW EVAL FOR MEDICATION ADMINISTRATION, WILL REVISIT POSSIBLE NEED TO PLACE DOBHOFF OR NGT. WILL REPORT TO ONCOMING NURSE.
--- NOTE | 2020-09-16 20:16 | NUR ---
Care Assumed 1900 Pt sitting in bed watching TV. Able to follow commands, A/O to being in hospital, states being in [place], and states the year is 2020. Oriented on location and date. Pt is cooperative and appears anxious. States having nonradiating sharp chest pain (10), will treat per emar. Temp david in place, draining clear/yellow urine. Pt has one IV to right upper arm with TKO. Pt in Sinus Tach, on 5 L via NC, SPO2 > 90%. BP stable. Call light within reach.
--- NOTE | 2020-09-17 02:03 | NUR ---
Provider called Dr. Baron called in regards to patients elevated BP. New orders recieved for Hydralazine 10 mg PRN. Patient sitting in bed watching TV. Able to make needs known. Patient states having either chest pain or lower back pain, treated per emar. Pt is slow to respond. During midnight assessments patient had one small episode of coughing, dark blood tinged thick secretion's coughed. Oral care provided. Pt remains on 5 L via NC, SPO2 > 90%. Pt has one powerglide infusing TKO via FITO. NSR. Will continue to monitor.
--- NOTE | 2020-09-17 04:19 | NUR ---
UPDATE- BIPAP Pt placed on BIPAP due to increased RR, decreased SPO2 to mid 80's, and pt appears diaphortic. Requrining 7 L HIGH FLOW NC, increased up to 9 L. Non-rebreather placed due to increased work of breathing. BIPAP placed after. Pt with nonproductive cough. BIPAP setting of 14/8, 45% SPO2 > 90%. Pt appears anxious and nodding yes to being in pain. Pt treated Fentanyl and Ativan.
[2020-09-17 04:45] LABS: BASOPHILS ABSOLUTE AUTO 0.04 K/mm3 (0.00-0.23); BASOPHILS PERCENT AUTO 0 % (0-2); EOSINOPHILS PERCENT AUTO 0 % (0-6); Hematocrit 33.6 % (37.0-53.0); Hemoglobin 11.2 g/dL (13.5-17.5); IMMATURE GRAN ABSOLUTE AUTO 0.15 K/mm3 (0.00-0.10); IMMATURE GRAN PERCENT AUTO 1 % (0-1); LYMPHOCYTES ABSOLUTE AUTO 0.55 K/mm3 (0.84-5.20); LYMPHOCYTES PERCENT AUTO 3 % (21-46); MONOCYTES PERCENT AUTO 3 % (4-13); Mean Corpuscular HGB 27.9 pg (26.0-34.0); Mean Corpuscular HGB Conc 33.3 g/dL (31.5-36.5); Mean Corpuscular Volume 84 fL (80-100); NEUTROPHILS ABSOLUTE AUTO 16.89 K/mm3 (1.96-9.15); NEUTROPHILS PERCENT AUTO 93 % (41-73); Platelet Count 281 K/mm3 (150-400); RDW Coefficient Variation 14.9 % (11.7-14.2); RDW Standard Deviation 45.4 fL (35.1-46.3); Red Blood Cell Count 4.01 M/mm3 (4.30-5.90); White Blood Cell Count 18.13 K/mm3 (4.00-11.30)
[2020-09-17 04:48] LABS: Mean Platelet Volume 13.1 fL (9.1-12.4)
[2020-09-17 05:00] LABS: Alanine Aminotransfer (ALT/SGP 31 U/L (12-78); Albumin/Globulin Ratio 0.4 (0.8-1.8); Alk Phos 103 U/L (50-136); Anion Gap 6 mmol/L (6-16); Aspartate Aminotrans (AST/SGOT 34 U/L (12-37); Bilirubin, Total 0.7 mg/dL (0.1-1.0); Blood Urea Nitrogen 39 mg/dL (8-24); Bun/Creatinine Ratio 41.8 (12.0-20.0); CO2, Blood 22 mmol/L (21-32); Calcium, Blood 8.7 mg/dL (8.5-10.1); Chloride, Blood 109 mmol/L (98-108); Creatinine, Blood 0.93 mg/dL (0.60-1.20); Globulin, Blood 5.6 g/dL (2.2-4.0); Glomerular Filtration Rate >60 (60-); Glucose, Blood 315 mg/dL (70-99); Magnesium, Blood 1.9 mg/dL (1.6-2.4); Potassium, Blood 5.4 mmol/L (3.5-5.5); Sodium, Blood 137 mmol/L (136-145); Total Protein, Blood 7.6 g/dL (6.4-8.2); Vancomycin, Random 20.8 ug/mL
--- NOTE | 2020-09-17 06:41 | NUR ---
Shift Summary Pt removed from Bipap and placed non-rebreather procedural mask with O2 at flush, SPO2 > 90%. Pt had small emesis while wearing BIPAP, brown liquid. Oral care provided. RT notified. Pt denies nausea. Pt following directions and able to nod yes/no to simple questions, slow to respond. NSR. BP elevated, treated per emar. Temp david in place draining to gravity. Will report to oncoming shift.
[2020-09-17 08:15] LABS: PCO2 Arterial 37.7 mmHg (35-45); PO2 Arterial 64.6 mmHg (80-100); pH Blood Arterial 7.39 (7.35-7.45)
--- NOTE | 2020-09-17 09:30 | NUR ---
ASSUMED CARE OF PT, REPORT RCV'D FROM RADHA CHRISTINA. PT SITTING SUPINE IN BED WITH NRB MASK IN PLACE. NRB AT 15L, SATS 93%. PT APPEARS LETHARGIC AND DIAPHORETIC. PT ANSWERS QUESTIONS APPROPRIATELY AND ABLE TO FOLLOW COMMANDS BUT IS SLOW TO RESPOND AND OFTEN NEEDS PROMPTING. PT COMPLAINS OF STOMACH PAIN AND NAUSEA. DR. MNCALLY CALLED AND UPDATED ON PT STATUS. MEDICATED PT WITH ZOFRAN FOR NAUSEA WITH GOOD RELIEF. PLACED NGT AND CONNECTED TO MEDIUM CONTINUOUS SUCTION, MODERATE AMOUNT OF AIR RETURN FROM STOMACH FOLLOWED BY 100 ML BILE. CHEST XRAY AND ABG ORDERED. CENTRAL LINE PLACED IN LEFT IJ. 1000: PT TACHYPNEIC WITH RR 50-60'S, SATS 83-84% RT CALLED TO BEDSIDE TO PLACE PT ON AIRVO (60L 85%). DR. MCNALLY UPDATED AND HOB DOWN. PT'S SATS INCREASED WHEN HOB LAID FLAT. PT HAS CHANGED MENTATION FROM PREVIOUS SHIFT. ALTHOUGH ABLE TO NOD YES/NO AND SLOWLY RESPOND TO QUESTIONS AND COMMANDS PT IS LESS INTERACTIVE AND MOSTLY RESPONSIVE VERBALLY (CURSE WORDS) TO PAINFUL STIMULI (I.E. CHECKING BLOOD SUGAR OR HEPARIN SHOT). LOPEZ PATENT AND DRAINING TO GRAVITY. BED IN LOW/LOCKED POSITION, CALL LIGHT IN HAND. SEE FULL SHIFT ASSESSMENT
--- NOTE | 2020-09-17 11:40 | NUR ---
PT HYPERTENSIVE AND RESTLESS. MEDICATED WITH HYDRALAZINE. PT COMPLAINS OF ABDOMINAL PAIN, DR. MCNALLY AT BEDSIDE FOR ASSESSMENT. CLAMPED NGT PER DR. MCNALLY AND RESTARTED PO MEDS VIA TUBE. AIRVO FIO2 DECREASED FROM 85% TO 55%.
--- NOTE | 2020-09-17 12:45 | NUR ---
PT HEARD VOMITING, THIS NURSE AND CHARGE NURSE TO ROOM IMMEDIATELY. PT SLIGHT TRENDELENBERG WITH HEAD TURNED TO RIGHT-LARGE AMOUNT OF EMESIS NOTED ON PT'S FACE/BODY AND BED ONTO THE FLOOR. IMMEDIATELY BEGAN ORAL SUCTIONING AND RESTARTED CONTINUOUS SUCTION OF NGT. LARGE AMOUNT OF DARK BROWN BILE SUCTIONED FROM NGT AND ORAL CAVITY. PT SATS DROPPED AND AIRVO FI02 INCREASED. PT HAD MOVEMENT AND CONTINUES TO COMPLAIN OF ABDOMINAL PAIN THAT IS CONSTANT, DENIES PAIN WORSEN WITH PALPATION. BOWEL TONES PRESENT X4. DR. MCNALLY NOTIFIED AND DECISION TO REINTUBATE PT. PT UPDATED AND AGREEABLE. 1235: INTUBATION BEGINS, 50 MG PROPOFOL PUSH 1236: PROPOFOL GTT STARTED @ 40 MCG/KG/MIN 1237: 50 MG PROPOFOL GIVEN 1238: 8.0 ETT, 26 @ TEETH. VENT SETTINGS AC 15/500/5/90% PT COMFORTABLY SEDATED AT THIS TIME. ORDER FOR ABDOMINAL CT.
[2020-09-17 13:34] LABS: PCO2 Arterial 43.4 mmHg (35-45); PO2 Arterial 131 mmHg (80-100); pH Blood Arterial 7.35 (7.35-7.45)
--- NOTE | 2020-09-17 13:46 | NUR ---
CALLED PT'S SISTER GREG, ATTEMPTED TO LEAVE VOICEMAIL BUT VOICEMAIL BOX FULL.
--- NOTE | 2020-09-17 18:19 | NUR ---
SHIFT SUMMARY PT REMAINS INTUBATED AND SEDATED. VENT SETTINGS AC 15/500/5/55% WITH SATS>90%. PT SEDATED WITH 40 MCG/KG/MIN PROPOFOL INTO LEFT IJ CENTRAL LINE. PT WITHDRAWS FROM PAIN AND FACIAL GRIMACING NOTED WITH ORAL CARE. CT ABDOMEN NEGATIVE FOR BOWEL OBSTRUCTION BUT SHOWS MODERATE CONSTIPATION. ORDER FROM DR. MCNALLY TO REPLACE NGT WITH OGT (NURSE NOTIFY PLACED FOR NOC SHIFT) AND KEEP TUBE TO CONTINUOUS SUCTION OVERNIGHT. PT HAD 200 ML OUTPUT FROM NGT. HOLD ALL PO MEDICATIONS. PT HYPOTHERMIC THIS EVENING, CORE TEMP SHOWS 96.9, TEMPORAL 97.7, INCREASED ROOM TEMPERATURE AND COVERED PT WITH BLANKETS FROM WARMER, WILL CONTINUE TO REASSESS AND USE FRAN HUGGER NEEDED. FLUSHED TEMP LOPEZ WITH 20MLS STERILE SALINE TO ENSURE TEMP LOPEZ WORKING. STILL UNABLE TO MAKE CONTACT WITH PT'S SISTER TO UPDATE WITH CHANGE IN PT STATUS. SEE ALL PREVIOUS NOTES FROM THIS SHIFT. WILL REPORT TO ONCOMING NURSE.
[2020-09-17 21:18] LABS: Vancomycin, Random 10.6 ug/mL
--- NOTE | 2020-09-17 21:31 | NUR ---
Care Assumed 1900 Pt intubated and sedated. Vent settings of AC 15/500/5/45%, SPO2 > 90%. Sedated with Propofol 45 mcg/kg/min, infusing via left IJ. Pt wide awake and states having back pain. Treated with Fentanyl 50 mcg. Following commands and nod head yes/no to simple questions. NG tube removed and OGT placed, XR completed for confirmation. OGT with green sediment drainage. Temp david draining to gravity. VSS. NSR.
--- NOTE | 2020-09-18 00:29 | NUR ---
UPDATE PT RESPONDS TO NOXIOUS STIMULI. PROPOFOL 40 MCG/KG/MIN. VENT SETTINGS UNCHANGED. OGT DRAINING GREEN BILE. VSS. NSR. TEMP LOPEZ IN PLACE, DRAINING TO GRAVITY.
[2020-09-18 03:56] LABS: BASOPHILS ABSOLUTE AUTO 0.01 K/mm3 (0.00-0.23); BASOPHILS PERCENT AUTO 0 % (0-2); EOSINOPHILS PERCENT AUTO 0 % (0-6); Hematocrit 28.4 % (37.0-53.0); Hemoglobin 9.1 g/dL (13.5-17.5); IMMATURE GRAN ABSOLUTE AUTO 0.09 K/mm3 (0.00-0.10); IMMATURE GRAN PERCENT AUTO 1 % (0-1); LYMPHOCYTES ABSOLUTE AUTO 0.61 K/mm3 (0.84-5.20); LYMPHOCYTES PERCENT AUTO 4 % (21-46); MONOCYTES ABSOLUTE AUTO 0.44 K/mm3 (0.16-1.47); MONOCYTES PERCENT AUTO 3 % (4-13); Mean Corpuscular HGB 27.6 pg (26.0-34.0); Mean Corpuscular Volume 86 fL (80-100); NEUTROPHILS ABSOLUTE AUTO 14.43 K/mm3 (1.96-9.15); NEUTROPHILS PERCENT AUTO 93 % (41-73); Platelet Count 311 K/mm3 (150-400); RDW Coefficient Variation 15.4 % (11.7-14.2); RDW Standard Deviation 48.4 fL (35.1-46.3); White Blood Cell Count 15.58 K/mm3 (4.00-11.30)
[2020-09-18 03:59] LABS: Mean Platelet Volume 13.3 fL (9.1-12.4)
[2020-09-18 04:09] LABS: Anion Gap 5 mmol/L (6-16); Blood Urea Nitrogen 56 mg/dL (8-24); Bun/Creatinine Ratio 43.4 (12.0-20.0); CO2, Blood 25 mmol/L (21-32); Calcium, Blood 8.7 mg/dL (8.5-10.1); Chloride, Blood 110 mmol/L (98-108); Creatinine, Blood 1.29 mg/dL (0.60-1.20); Glomerular Filtration Rate >60 (60-); Glucose, Blood 310 mg/dL (70-99); Magnesium, Blood 2.4 mg/dL (1.6-2.4); Phosphorus, Blood 4.2 mg/dL (2.5-4.9); Potassium, Blood 5.1 mmol/L (3.5-5.5); Sodium, Blood 140 mmol/L (136-145)
--- NOTE | 2020-09-18 05:35 | NUR ---
Shift Summary Pt remains intubated and sedated. Vent settings unchanged. Propofol GTT 35 mcg/kg/min. Pt responds to noxious stimuli. OGT to LIS, draining green bile (150 output during this shift). Temp david in place, draining to gravity (550 yellow cloudy sedimented urine output during shift). VSS. NSR. SWB. Will report to oncoming shift.
--- NOTE | 2020-09-18 08:00 | NUR ---
INITIAL ASSESSMENT PATIENT INTUBATED AND SEDATED. PATIENT IS FOLLOWING SOME SIMPLE COMMANDS THIS AM. PATIENT HAS NO SIGNS OF PAIN CURRENTLY. PATIENT AFEBRILE. PATIENT SATTING 90% AND GREATER ON AC 15, TV 500, PEEP 5 AND 40% FIO2. LUNGS COARSE THROUGHOUT. NO SPUTUM NOTED WITH SUCTIONING. PATIENT IN SR, HR 70S TO 80S. SBP 1-TEENS TO 120S. HYPOACTIVE BS NOTED. OG TO LIS. LARGE AMOUNT OF CONSTIPATION NOTED ON ABD CT. TEMP PROBE LOPEZ DRAINING DARK YELLOW COLORED URINE WITH SEDIMENT NOTED. SCATTERED SCABS AND SCARS NOTED. DIABETIC ULCERS NOTED TO FEET. PROPOFOL INFUSING AT 35 MCG/ KG/ MINUTE, NS TKO. BED LOW. WILL CONTINUE TO MONITOR PATIENT FREQUENTLY THROUGHOUT SHIFT.
--- NOTE | 2020-09-18 10:19 | NUR ---
PATIENT'S SISTER, UZIEL, CALLED TO UPDATE ON STATUS. PATIENT'S PHONE MUST HAVE DURING CONVERSATION. NURSE TRIED TO CALL BACK AND GOT VOICEMAIL BUT UNABLE TO LEAVE MESSAGE VOICEMAIL FULL.
--- NOTE | 2020-09-18 10:22 | NUR ---
SISTER CALLED BACK AND ABLE TO FINISH UPDATING.
--- NOTE | 2020-09-18 12:00 | NUR ---
PATIENT AFEBRILE. NO SIGNS OF PAIN NOTED. URINE CULTURE COLLECTED. SPUTUM CULTURE COLLECTED. HR IN THE LOW 100S. SBP IN THE LOW 100S. VHP TF STARTED AT 25 MLS/ HOUR WITH 30 ML WATER FLUSH Q4H. TF GOAL OF 30 MLS/ HOUR. BLOOD SUGAR OF 287; COVERAGE GIVEN. NO OTHER ACUTE CHANGES TO NOTE ON AT THIS TIME. WILL CONTINUE TO MONITOR.
[2020-09-18 12:35] LABS: Source, Urine Catheter
[2020-09-18 13:07] LABS: Appearance, Urine Hazy (Clear); Bilirubin, Urine Neg (Neg); Blood, Urine 1+ (Neg); Color, Urine Yellow (P-Yellow); Glucose Qualitative, Urine 2+ (Neg); Ketones, Urine Neg (Neg); Leukocyte Esterase, Urine Neg (Neg); Nitrite, Urine Neg (Neg); Protein, Urine 1+ (Neg); Urobilinogen, Urine NORM (Normal)
[2020-09-18 13:20] LABS: Bacteria Few /hpf; Red Blood Cells, Urine 0-2 /hpf (0-2); Squamous Epithelial Cells Not Seen /hpf (Few); Uric Acid Crystals Many /hpf; White Blood Cells, Urine 0-2 /hpf (0-5)
--- NOTE | 2020-09-18 15:30 | NUR ---
Summary of multiple case conferences and visit to pt and sister. I was contacted by CM this am with request to revisit pt/family re: goals of care and longer term care options desired. In prep for that EMR reviewed and case conferenced with pt's RN, and Chaplain Hare who has been visiting pt and sister when she is here. Update obtained on progress, events of weekend, plan of care and current status, with pt reintubated and tx for aspiration pneumonia after pt aspirated emesis. Plan made for joint visit with CM to pt and sister when she arrived today, which was done. Chely-JIM and I spoke with sister about events of the weekend and some possible d/c options for when pt is medically ready for d/c. Sister lives in [place]. If pt was eligible for a transfer [facility] she would be in favor of that and was agreeable to CM researching that option. If pt was not eligible for [facility] and needed [facility] care or rehab she would prefer a facility closer to her in [place]. After CM left pt's room, I spoke further with Erica re: advanced care planning. We discussed what pt would want if he were to suffer further cardiac or pulmonary complications or arrest. Erica stated, "I know what he would want". She was tearful and stated that she believed that her brother would want to be a DNR. When I asked her if she felt we should change his code status order to reflect his wishes she stated she wanted to talk to her brother's friend about it first. I gave her contact info to call this evening if a family decision was made regarding his code status. I listened and supported sister as she spoke about her brother. I assured her that 's would cont to treat per his/family wishes, even if they chose to change his code status. Sister appropriately tearful. We made an attempt to speak with pt about it. At times he would nod and respond appropriately to his sister. When I asked pt if he would want us to do CPR again his eyes remained closed and he did not nod or shake his head. When I asked if he was able to hear me, I received the same non-response. Pt appeared to be more restless and was making attempts at repositioning. When asked if he was hurting, he nodded yes. I contacted his RN who medicated him for pain. Plan made with sister to further discuss and update her t/o the week. She had come down from [place] today and was headed back. Will reach out to Erica again tomorrow by phone or in person if she comes to visit for ongoing follow up and advanced care planning conversation.
--- NOTE | 2020-09-18 16:00 | NUR ---
PATIENT AFEBRILE. HR 90S TO LOW 100S. SBP LOW 100S TO 130S. PATIENT REMAINS ON SAME VENT SETTINGS. NO OTHER ACUTE CHANGES TO NOTE ON AT THIS TIME.
--- NOTE | 2020-09-18 18:50 | NUR ---
SHIFT SUMMARY PATIENT REMAINED INTUBATED AND SEDATED. PATIENT REMAINED FOLLOWING SIMPLE COMMANDS AT TIME. PATIENT AFEBRILE. PATIENT GIVEN PRN FENTANYL OT THIS SHIFT FOR SIGNS OF PAIN. LUNGS REMAINED COARSE THROUGHOUT. SMALL AMOUNT OF DARK YELLOW SPUTUM NOTED DURING ETT SUCTION. PATIENT REMAINED ON AC 15, TV 500, PEEP 5 AND 40%. PATIENT REMAINED IN SR TO ST, HR 70S TO LOW 100S. OG TO LIS AT BEGINNING OF SHIFT. PATIENT STARTED ON VHP AT 25 MLS/ HOUR WITH 30 ML WATER FLUSH Q4H. PATIENT GIVEN PRN SUPPOSITORY THIS SHIFT. DIG STIM PERFORMED FOR ASSIST WITH FUTURE BM. LOPEZ DRAINED 885 MLS OF URINE. NO CHANGE IN SKIN. MAXIPIME CHANGED TO ZOSYN. SPUTUM AND UA SENT TO LAB THIS SHIFT. PATIENT APPEARS COMFORTABLE AT THIS TIME. BED LOW, CALL LIGHT IN REACH. REPORT WILL BE GIVEN TO ASSUMING DISCHARGING MACHINE OPERATOR NURSE SHORTLY.
--- NOTE | 2020-09-18 19:36 | NUR ---
CARE ASSUMED 1900 Patient intubated and sedated. Vent settings: AC 15/500/5/40%, SPO2 > 95%. Sedated with Propofol GTT 35 mcg/kg/min. 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 OGT with VHP at 25 ml/hr, residual of 0. Temp david in place (Temp 98.1), draining to gravity (100 mls of yellow sediment urine in bag). NSR (HR 80-90'S). SWB.
--- NOTE | 2020-09-18 20:19 | NUR ---
Provider Visit Dr. Snell in to see patient. Pt tracking with eyes. Nods yes to having lower back pain, treated per emar. Has thick oral secreations from ETT suctioning per RT. Will continue to monitor.
[2020-09-18 21:10] LABS: Vancomycin, Random 13.4 ug/mL
[2020-09-19 04:39] LABS: BASOPHILS ABSOLUTE AUTO 0.01 K/mm3 (0.00-0.23); BASOPHILS PERCENT AUTO 0 % (0-2); EOSINOPHILS PERCENT AUTO 0 % (0-6); Hematocrit 29.1 % (37.0-53.0); Hemoglobin 9.2 g/dL (13.5-17.5); IMMATURE GRAN ABSOLUTE AUTO 0.07 K/mm3 (0.00-0.10); IMMATURE GRAN PERCENT AUTO 1 % (0-1); LYMPHOCYTES ABSOLUTE AUTO 0.85 K/mm3 (0.84-5.20); LYMPHOCYTES PERCENT AUTO 6 % (21-46); MONOCYTES ABSOLUTE AUTO 0.56 K/mm3 (0.16-1.47); MONOCYTES PERCENT AUTO 4 % (4-13); Mean Corpuscular HGB 27.4 pg (26.0-34.0); Mean Corpuscular HGB Conc 31.6 g/dL (31.5-36.5); Mean Corpuscular Volume 87 fL (80-100); Mean Platelet Volume 12.9 fL (9.1-12.4); NEUTROPHILS ABSOLUTE AUTO 12.55 K/mm3 (1.96-9.15); NEUTROPHILS PERCENT AUTO 89 % (41-73); Platelet Count 340 K/mm3 (150-400); RDW Coefficient Variation 15.5 % (11.7-14.2); RDW Standard Deviation 49.2 fL (35.1-46.3); Red Blood Cell Count 3.36 M/mm3 (4.30-5.90); White Blood Cell Count 14.04 K/mm3 (4.00-11.30)
[2020-09-19 05:37] LABS: Anion Gap 7 mmol/L (6-16); Blood Urea Nitrogen 64 mg/dL (8-24); Bun/Creatinine Ratio 50.4 (12.0-20.0); CO2, Blood 24 mmol/L (21-32); Calcium, Blood 8.6 mg/dL (8.5-10.1); Chloride, Blood 110 mmol/L (98-108); Creatinine, Blood 1.27 mg/dL (0.60-1.20); Ferritin, Serum 240 ng/mL (26-388); Glomerular Filtration Rate >60 (60-); Glucose, Blood 306 mg/dL (70-99); Iron Serum 24 ug/dL (65-175); Magnesium, Blood 2.6 mg/dL (1.6-2.4); Percent Saturation 13.2 % (20.0-50.0); Phosphorus, Blood 4.1 mg/dL (2.5-4.9); Potassium, Blood 4.7 mmol/L (3.5-5.5); Sodium, Blood 141 mmol/L (136-145); Total Iron Binding Capacity 182 ug/dL (250-450)
--- NOTE | 2020-09-19 06:17 | NUR ---
SBT AND SEDATION VACATION Propofol GTT decreased to 30 mcg/kg/min. Pt able to follow commands, eyes open, moves all extrems. Vent settings changed to PS 5/5, FIO2 40%. Pt tolerated these settings for roughly one hour. Increased RR, decreased tidal volumes, and SPO2 84%. Vent settings changed to AC 15/500/5/40%.
--- NOTE | 2020-09-19 07:28 | NUR ---
Shift SUMMARY Propofol GTT 40 mcg/kg/min and Vent settings unchanged. Pt able to follow commands at times. Nods head yes/no to simple commands. Temp david in place draining to gravity (yellow sediment urine). VHP at goal, residuals of 0,[address] Will report to oncoming shift. VSS. NSR.
--- NOTE | 2020-09-19 08:30 | NUR ---
INITIAL ASSESSMENT PATIENT INTUBATED AND ON SEDATION. PATIENT ABLE TO FOLLOW SOME SIMPLE COMMANDS THIS AM. PATIENT AFEBRILE. NO SIGNS OF PAIN NOTED AT THIS TIME. LUNGS COARSE THROUGHOUT. PATIENT SATTING 90% AND GREATER ON AC 15, TV 500, PEEP 5 AND 40% FIO2. SCANT AMOUNT OF FROTHY, PULIDO SPUTUM SUCTIONED FROM ETT THIS AM. PATIENT IN SR, HR IN THE 80S. SBP 1-TEENS TO 130S. HYPOACTIVE BS NOTED. PATIENT RECEIVING VHP TF AT GOAL RATE OF 30 MLS/ HOUR WITH 30 ML WATER FLUSH Q4H. RESIDUAL OF ZERO THIS AM. LOPEZ DRAINING DARK YELLOW URINE WITH SEDIMENT NOTED. SCATTERED SCABS AND SCARS NOTED. DIABETIC ULCERS TO FEET. PROPOFOL INFUSING AT 40 MCG/ KG/ MINUTE, NS TKO. BED LOW, CALL LIGHT IN REACH. WILL CONTINUE TO MONITOR PATIENT FREQUENTLY THROUGHOUT SHIFT.
--- NOTE | 2020-09-19 12:00 | NUR ---
PATIENT AFEBRILE. HR 60S TO 80S. SBP LOW 100S TO 1-TEENS. TF DECREASED TO NEW GOAL OF 20 MLS/ HOUR. RESIDUAL OF 5 MLS OBTAINED AND REINSTILLED. BLOOD SUGAR OF 236; COVERAGE GIVEN. NO OTHER ACUTE CHANGES TO NOTE ON AT THIS TIME. WILL CONTINUE TO MONITOR.
--- NOTE | 2020-09-19 16:00 | NUR ---
PATIENT HAS TEMP OF 99.3 DEGREES FAHRENHEIT. PATIENT SATTING 90% AND GREATER ON SPONTANEOUS PS 10/5, 40% FIO2. HR 80S TO 90S. SBP IN THE 140S. TF RESIDUAL OF ZERO. PROPOFOL AT 20 MCG/ KG/ MINUTE. PATIENT IS CALM AND COOPERATIVE AT THIS TIME BUT DOES TRY TO GRAB AT ETT OCCASIONALLY.
--- NOTE | 2020-09-19 16:42 | NUR ---
PATIENT'S SISTER, UZIEL, CALLED TO TRY AND SCHEDULE TIME FOR HER AND PATIENT'S FRIEND TO COME IN AND DISCUSS PATIENT'S FUTURE PLANS. UZIEL DID NOT ANSWER; NOT ABLE TO LEAVE MESSAGE AT THIS TIME VOICEMAIL BOX FULL.
--- NOTE | 2020-09-19 18:26 | NUR ---
SHIFT SUMMARY PATIENT REMAINED INTUBATED AND ON SEDATION. SEDATION WAS LOWERED A LOT OF THE DAY TO ALLOW PATIENT TO TOLERATE SPONTANEOUS PRESSURE SUPPORT. PATIENT REMAINS TOLERATING PS 10/5, 40% FIO2. LUNGS REMAIN COARSE. PATIENT FOLLOWING SIMPLE COMMANDS AND NODDING AND SHAKING HEAD TO ANSWER QUESTIONS. PATIENT HAD TMAX OF 99.3 DEGREES FAHRENHEIT. PATIENT REMAINED IN SR, HR 60S TO 90S. SBP LOW 100S TO 140S. TF CHANGED TO NEW GOAL RATE OF 20 MLS/ HOUR. RESIDUALS 5 MLS AND UNDER. 1300 MLS OF URINE OUT THIS SHIFT. NO CHANGE IN SKIN. PATIENT REPOSITIONED THROUGHOUT SHIFT. LANTUS DOSE INCREASED FOR HIGH BLOOD SUGARS. PATIENT APPEARS COMFORTABLE AT THIS TIME. BED LOW, LIGHT IN HAND. REPORT WILL BE GIVEN TO ASSUMING PROGRAM ADVISOR NURSE SHORTLY.
[2020-09-19 21:10] LABS: LEGIONELLA PNEUMOPHILA ABS. <0.91 OD ratio (0.00-0.90)
[2020-09-20 06:09] LABS: BASOPHILS ABSOLUTE AUTO 0.01 K/mm3 (0.00-0.23); BASOPHILS PERCENT AUTO 0 % (0-2); EOSINOPHILS PERCENT AUTO 0 % (0-6); Hemoglobin 8.5 g/dL (13.5-17.5); IMMATURE GRAN ABSOLUTE AUTO 0.05 K/mm3 (0.00-0.10); IMMATURE GRAN PERCENT AUTO 1 % (0-1); LYMPHOCYTES ABSOLUTE AUTO 0.99 K/mm3 (0.84-5.20); LYMPHOCYTES PERCENT AUTO 9 % (21-46); MONOCYTES ABSOLUTE AUTO 0.45 K/mm3 (0.16-1.47); MONOCYTES PERCENT AUTO 4 % (4-13); Mean Corpuscular HGB 27.7 pg (26.0-34.0); Mean Corpuscular HGB Conc 31.5 g/dL (31.5-36.5); Mean Corpuscular Volume 88 fL (80-100); NEUTROPHILS ABSOLUTE AUTO 9.36 K/mm3 (1.96-9.15); NEUTROPHILS PERCENT AUTO 86 % (41-73); Platelet Count 314 K/mm3 (150-400); RDW Coefficient Variation 15.7 % (11.7-14.2); Red Blood Cell Count 3.07 M/mm3 (4.30-5.90); White Blood Cell Count 10.86 K/mm3 (4.00-11.30)
[2020-09-20 06:13] LABS: Mean Platelet Volume 13.7 fL (9.1-12.4)
--- NOTE | 2020-09-20 06:32 | NUR ---
SHIFT SUMMARY PATIENT SLEPT WELL THRU NIGHT. INITIALLY INCREASED PROPOFOL TO HELP WITH VENTILATOR TOLERANCE AFTER SWITCHED BACK TO AC MODE EARLIER IN SHIFT, HAD TO DECREASE TO 25 MCG/KG/MIN FOR SLIGHT OVER-SEDATION, NOW BACK TO 35 WAS AT BEGIN OF SHIFT. ASSESSMENT IS CHARTED. NO C/O PAIN. VSS. WILL CONTINUE TO MONITOR.
[2020-09-20 06:42] LABS: Anion Gap 5 mmol/L (6-16); Blood Urea Nitrogen 56 mg/dL (8-24); Bun/Creatinine Ratio 47.1 (12.0-20.0); CO2, Blood 25 mmol/L (21-32); Calcium, Blood 8.4 mg/dL (8.5-10.1); Chloride, Blood 111 mmol/L (98-108); Creatinine, Blood 1.19 mg/dL (0.60-1.20); Glomerular Filtration Rate >60 (60-); Glucose, Blood 256 mg/dL (70-99); Magnesium, Blood 2.5 mg/dL (1.6-2.4); Potassium, Blood 4.6 mmol/L (3.5-5.5); Sodium, Blood 141 mmol/L (136-145)
--- NOTE | 2020-09-20 08:00 | NUR ---
ASSUMED CARE REPORT FROM MICHELLE GARCIA AT 0700. PT INTUBATED AND SEDATED. VENT SETTINGS AC 15/500/5/40%. PROPOFOL GTT AT 35 MCG/KG/MIN. PT NODS HEAD, DENIES PAIN. SQUEEZES HANDS. LUNGS COARSE THROUGHOUT. MODERATE AMOUNT OF THICK YELLOW SECRETIONS THROUGH ETT. ABD ROUND, FIRM, DISTENDED. HYPOACTIVE BT. TUBE FEEDS AT GOAL OF 20 ML/HR c 30 ML FLUSHES q 4 HR. NO RESIDUALS THIS AM. LOPEZ PATENT, DRAINING BILL URINE c SEDIMENT TO GRAVITY. SEE SKIN ASSESSMENT. CENTRAL LINE TO LEFT IJ, DRESSING C/D/I. VSS. WILL CONTINUE TO MONITOR.
--- NOTE | 2020-09-20 17:58 | NUR ---
SHIFT SUMMARY PT REMAINS INTUBATED AND SEDATED. PT HAS BEEN ON SPONT 8/5 30% SINCE 1015. PROPOFOL GTT 30 MCG/KG/MIN. PT OPENS EYES TO COMMANDS, FOLLOWS SIMPLE COMMANDS. COUGH/GAG/SWALLOW REFLEX NOTED. THICK YELLOW SECRETIONS THROUGH ETT, LARGE AMOUNT. HR 55-80'S THIS SHIFT, BP STABLE. TUBE FEEDS AT GOAL OF 20 ML/HR c 30 ML FLUSH q4 HR. MINIMAL RESIDUALS. ABD ROUND, DISTENDED. BOWEL CARE DONE THIS SHIFT, NO BM. LOPEZ PATENT, DRAINING IBLL URINE c SEDIMENT TO GRAVITY. DISCUSSION c SISTER, UZIEL, REGARDING POTENTIAL TRANSFER TO HIGHER CARE/SKILLED NURSING CARE. CLARIFIED THE DIFFERENCE. UZIEL AGREEABLE TO PT REMAINING HERE AT THIS TIME. WILL CONTINUE TO MONITOR UNTIL REPORT TO ONCOMING NURSE.
--- NOTE | 2020-09-20 19:39 | NUR ---
Care Assumed 1899 Bedside report from RADHA Rosario. Pt intubated and sedated. Vent settings: PS 8/5, FIO2 30%, SPO2 95%. Lungs coarse, mod/large thick secreations. Tidal volumes, 500's. Sedated with propofol GTT 30 mcg/kg/min, infusing via central line to left IJ. Awakens to verbal stimuli, nod head yes/no to simple qustions, nods no to having pain currently. VHP @ goal of 20 ml/hr, 0 residual. Temp david draining to gravity, temp of 99.1 and 150 ml of urine in bag (yellow sediment). NSR. VSS.
--- NOTE | 2020-09-20 20:14 | NUR ---
UPDATE Spoke to Dr. Bhat in regards to patients blood sugar. New orders recieved, see emar.
[2020-09-21 05:01] LABS: BASOPHILS ABSOLUTE AUTO 0.02 K/mm3 (0.00-0.23); BASOPHILS PERCENT AUTO 0 % (0-2); EOSINOPHILS ABSOLUTE AUTO 0.01 K/mm3 (0.00-0.68); EOSINOPHILS PERCENT AUTO 0 % (0-6); Hematocrit 29.8 % (37.0-53.0); Hemoglobin 9.5 g/dL (13.5-17.5); IMMATURE GRAN ABSOLUTE AUTO 0.06 K/mm3 (0.00-0.10); IMMATURE GRAN PERCENT AUTO 1 % (0-1); LYMPHOCYTES ABSOLUTE AUTO 1.91 K/mm3 (0.84-5.20); LYMPHOCYTES PERCENT AUTO 15 % (21-46); MONOCYTES ABSOLUTE AUTO 0.67 K/mm3 (0.16-1.47); MONOCYTES PERCENT AUTO 5 % (4-13); Mean Corpuscular HGB 27.5 pg (26.0-34.0); Mean Corpuscular HGB Conc 31.9 g/dL (31.5-36.5); Mean Corpuscular Volume 86 fL (80-100); NEUTROPHILS ABSOLUTE AUTO 9.76 K/mm3 (1.96-9.15); NEUTROPHILS PERCENT AUTO 78 % (41-73); Platelet Count 380 K/mm3 (150-400); RDW Coefficient Variation 15.5 % (11.7-14.2); RDW Standard Deviation 48.6 fL (35.1-46.3); Red Blood Cell Count 3.45 M/mm3 (4.30-5.90); White Blood Cell Count 12.43 K/mm3 (4.00-11.30)
[2020-09-21 05:18] LABS: Anion Gap 5 mmol/L (6-16); Blood Urea Nitrogen 47 mg/dL (8-24); Bun/Creatinine Ratio 44.8 (12.0-20.0); CO2, Blood 27 mmol/L (21-32); Calcium, Blood 8.6 mg/dL (8.5-10.1); Chloride, Blood 112 mmol/L (98-108); Creatinine, Blood 1.05 mg/dL (0.60-1.20); Glomerular Filtration Rate >60 (60-); Glucose, Blood 141 mg/dL (70-99); Magnesium, Blood 2.3 mg/dL (1.6-2.4); Phosphorus, Blood 2.9 mg/dL (2.5-4.9); Potassium, Blood 4.1 mmol/L (3.5-5.5); Sodium, Blood 144 mmol/L (136-145)
--- NOTE | 2020-09-21 05:24 | NUR ---
Shift Summary Pt resting, easily awakens to verbal stimuli. Nods no to being in pain. Able to answer questions by nodding yes/no. Propofol GTT 25 mcg/kg/min, infusing via central line in left IJ. Moves all extrems and following commands. Vent settings changed to PS 8/5, FIO2 30%, SPO2 96%. Tolerating well. Coarse lung sounds and thick secretion's from ETT. Pt has appeared flushed and clammy, t/o shift. VHP at goal, residual of 0. Small bowel movement this shift. Temp david draining to gravity (1000mls urine output), yellow sediment. NSR. VSS.
[2020-09-21 05:47] LABS: PCO2 Arterial 37.6 mmHg (35-45); PO2 Arterial 55.4 mmHg (80-100); pH Blood Arterial 7.45 (7.35-7.45)
--- NOTE | 2020-09-21 07:30 | NUR ---
ASSUMED CARE REPORT FROM SANFORD RN AT 0700. PT INTUBATED AND SEDATED. VENT SETTINGS SPONT 8/5 30%, TOLERATING WELL, TV 400-500ML, RATE TEENS. PROPOFOL GTT 25 MCG/KG/MIN. PT OPENS EYES SPONTANEOUSLY, FOLLOWS COMMANDS. NODS HEAD TO YES/NO QUESTIONS. LUNGS DIMINISHED IN BASES, SIGNIFICANTLY IMPROVED FROM YESTERDAY DAY SHIFT. FEWER SECRETIONS, THIN, CLEAR, MODERATE. GAG/COUGH/SWALLOW REFLEX PRESENT. VSS. ABD ROUND, SOFT, SLIGHTLY TENDER. BT X 4. BOWEL CARE PROVIDED. TUBE FEEDS AT GOAL OF 20 ML/HR c 30ML FLUSHES q4 HR. NO RESIDUALS THIS AM. LOPEZ PATENT, DRAINING CLEAR YELLOW URINE c SEDIMENT TO GRAVITY. PLAN TO GET PT UP TO CHAIR TODAY, WORK c PT/OT AND CONTINUE SPONT VENT MODE. WILL CONTINUE TO MONITOR.
--- NOTE | 2020-09-21 17:14 | NUR ---
SHIFT SUMMARY PT REMAINS INTUBATED AND SEDATED. VENT SETTINGS REMAINED ON SPONT 8/5 30% ENTIRE SHIFT. PROPOFOL GTT 20 MCG/KG/MIN. PT OPENS EYES SPONTANEOUSLY, FOLLOWS COMMANDS. PT ABLE TO PARTICIPATE IN BOTH PT AND OT THIS SHIFT. UP TO CHAIR SINCE 1130. TOLERATING WELL. SHAKES HEAD NO WHEN ASKED IF HE WANTS TO GET BACK TO BED. LUNGS CLEAR, PT CONTINUES TO HAVE DECREASED SECRETIONS. VSS. TUBE FEEDS AT GOAL, MINIMAL RESIDUALS. NO BM THIS SHIFT. LOPEZ PATENT, DRAINING YELLOW URINE c SEDIMENT TO GRAVITY. CENTRAL LINE TO LEFT IJ, DRESSING C/D/I. LESLEY. WILL CONTINUE TO MONITOR UNTIL REPORT TO ONCOMING NURSE.
--- NOTE | 2020-09-22 04:46 | NUR ---
SHIFT SUMMARY PATIENT SLEPT WELL THROUGH NIGHT. HAS MAINTAINED WELL ON SPONTANEOUS VENT SETTINGS THUS FAR. EARLY IN SHIFT INCREASED PROPOFOL, PT. HAVING COUGHING FIT AROUND VENTILATOR, HOWEVER RESPIRATORY RATE AND TIDAL VOLUMES WERE DROPPING, SO PUT PROPOFOL BACK TO 20, ONLY HAD TO GIVE 1 DOSE OF ATIVAN, TOLERATED WELL REST OF NIGHT. NO C/O PAIN. ASSESSMENT IS CHARTED. VSS. WILL CONTINUE TO MONITOR.
--- NOTE | 2020-09-22 14:22 | NUR ---
PT WAS EXTUBATED AT 1315. ON 4L NC NOW. PT IS A/O TO PERSON AND PLACE. FOLLOWING DIRECTIONS. TUBE FEED STOPPED BEFORE EXTUBATION. WILL BE NPO TODAY AND RE-EVAL TOMORROW. PT SITTING UP IN RECLINER NOW. CONSTANTLY SHIFTING WEIGHT IN CHAIR. WORKED WITH PT AND OT TODAY.
--- NOTE | 2020-09-22 18:40 | NUR ---
SUMMARY PT WAS EXTUBATED TODAY AT 1315. HAS BEEN A LITTLE CONFUSED THIS AFTERNOON. STATES DATE JUNE 24, 2021. KNOWS HE IS IN THE HOSPITAL BUT THINKS HE IS IN [facility]. BECAME ANXIOUS AND WANTING TO LEAVE. EDUCATED PT THAT HE HAS NOT STOOD UP IN A LONG TIME BUT PT JUST TRIES TO GET UP OUT OF CHAIR. GAVE ATIVAN AND IT HELPED WITH THE ANXIETY. PT IS DIFFICULT TO UNDERSTAND DUE TO HOARSE VOICE. GAVE DOSE OF HYDRALAZINE FOR INCREASED BP AND ONE DOSE OF FENTANYL FOR BACK PAIN. KEEPING NPO FOR TODAY AND WILL EVAL IN AM. NO OTHER CHANGES THIS SHIFT.
--- NOTE | 2020-09-22 19:45 | NUR ---
SHIFT ASSESSMENT ASSUMED CARE OF PT @ 1900, REPORT RECV'D FROM RADHA HAYDEN. PT IN BED, ALERT AND ORIENTED TO PERSON AND PLACE, WHEN ASKED DATE PT RESPONDS WITH "12". PT HARD TO UNDERSTAND. ANXIOUS AT TIMES. REPOSITIONING SELF IN BED. ON 4LPM O2 VIA NC c SATS >95%. PT NPO, WILL WITHOLD EVENING PO MEDICATIONS. NO OTHER CONCERNS AT THIS TIME, WILL CONTINUE TO MONITOR.
[2020-09-23 03:39] LABS: BASOPHILS ABSOLUTE AUTO 0.03 K/mm3 (0.00-0.23); BASOPHILS PERCENT AUTO 0 % (0-2); EOSINOPHILS ABSOLUTE AUTO 0.01 K/mm3 (0.00-0.68); EOSINOPHILS PERCENT AUTO 0 % (0-6); Hematocrit 32.7 % (37.0-53.0); Hemoglobin 10.3 g/dL (13.5-17.5); IMMATURE GRAN ABSOLUTE AUTO 0.06 K/mm3 (0.00-0.10); IMMATURE GRAN PERCENT AUTO 0 % (0-1); LYMPHOCYTES ABSOLUTE AUTO 1.39 K/mm3 (0.84-5.20); LYMPHOCYTES PERCENT AUTO 10 % (21-46); MONOCYTES ABSOLUTE AUTO 0.43 K/mm3 (0.16-1.47); MONOCYTES PERCENT AUTO 3 % (4-13); Mean Corpuscular HGB 26.8 pg (26.0-34.0); Mean Corpuscular HGB Conc 31.5 g/dL (31.5-36.5); Mean Corpuscular Volume 85 fL (80-100); Mean Platelet Volume 12.6 fL (9.1-12.4); NEUTROPHILS ABSOLUTE AUTO 11.75 K/mm3 (1.96-9.15); NEUTROPHILS PERCENT AUTO 86 % (41-73); Platelet Count 411 K/mm3 (150-400); RDW Standard Deviation 45.6 fL (35.1-46.3); Red Blood Cell Count 3.84 M/mm3 (4.30-5.90); White Blood Cell Count 13.67 K/mm3 (4.00-11.30)
[2020-09-23 03:55] LABS: Anion Gap 7 mmol/L (6-16); Blood Urea Nitrogen 28 mg/dL (8-24); Bun/Creatinine Ratio 31.1 (12.0-20.0); CO2, Blood 26 mmol/L (21-32); Calcium, Blood 8.7 mg/dL (8.5-10.1); Chloride, Blood 110 mmol/L (98-108); Glomerular Filtration Rate >60 (60-); Glucose, Blood 114 mg/dL (70-99); Magnesium, Blood 2.1 mg/dL (1.6-2.4); Phosphorus, Blood 3.2 mg/dL (2.5-4.9); Sodium, Blood 143 mmol/L (136-145)
--- NOTE | 2020-09-23 05:56 | NUR ---
SHIFT SUMMARY PT SLEPT IN SHORT INTERVALS DURING THE NIGHT. REMAINS ORIENTED TO PERSON AND PLACE, BUT WILL ALSO RESPOND WITH NONSENSICAL PHRASES. PT CONTINUES TO MOVE AROUND IN BED, BUT QUITE WEAK WHEN ASSISTANCE IS NEEDED FOR ATTENDS CHANGE. CBG WAS 42 YESTERDAY DURING FIRST FSBG CHECK. 1 AMP D50 GIVEN PER HYPOGLYCEMIC PROTOCOL. CBG STABLE CURRENTLY. NO OTHER CHANGES DURING THE NIGHT. WILL CONTINUE TO MONITOR.
--- NOTE | 2020-09-23 11:51 | NUR ---
ATTEMPTED TO PLACE DOBHOFF PER ORDERS BUT UNABLE TO PASS. PT STATES HE HAS BROKEN HIS NOSE IN THE PAST. NOTIFIED DR. GOVEA WHO WOULD LIKE SPEECH THERAPY TO EVAL AGAIN. SPEECH AT BEDSIDE NOW.
--- NOTE | 2020-09-23 12:21 | NUR ---
PT DID WELL WITH SECOND SWALLOW EVAL. CLEARED FOR PILLS CRUSHED WITH APPLESAUCE. WAS ABLE TO GIVE PT HIS AM METHADONE DOSE AND HIS LYRICA DOSE. NO COUGHING OR CHOKING, NO DELAY IN SWALLOW. FOLLOWING COMMANDS WELL.
--- NOTE | 2020-09-23 17:49 | NUR ---
SUMMARY PT A/O TO PERSON AND PLACE. GETS TIRED EASILY. WAS UP IN CHAIR MOST OF THE DAY. WORKED WITH PT. SPEECH THERAPY WORKED WITH PT AND PT WAS CLEARED FOR MEDS CRUSHED IN APPLESAUCE. PT TOLERATING WELL. PT IS ON RA NOW AND SPO2 IS 99%. WHEN GETTING PT BACK TO BED TONIGHT HE GOT AGITATED WITH LINEN CHANGE. LETTING PT RELAX AND DECREASING STIMULUS. BED ALARM ON DUE TO BEING IMPULSIVE AT TIMES. ATTEMPTED TO CALL SISTER TO UPDATE TODAY BUT NO ANSWER AND MAILBOX IS FULL.
--- NOTE | 2020-09-23 22:08 | NUR ---
SHIFT ASSESSMENT ASSUMED CARE OF PT @ 1900, REPORT RECV'D FROM RADAH HAYDEN. PT A&O TO PERSON AND HOSPITAL, BUT BELIEVES HE IS IN [place] [facility]. ON 2-3LPM O2 VIA NC WHILE SLEEPING, WHEN AWAKE PT DOES NOT REQUIRE OXYGEN. SAT UPRIGHT IN BED FOR EVENING METHADONE AND LYRICA, GIVEN WITH APPLESAUCE, PT TOLERATED WELL. 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 Q2 CBG RESULT OF 65, PER HYPOGLYCEMIC PROTOCOL PT GIVEN 12.5ML OF D50, WILL CONTINUE TO MONITOR CBG'S CLOSELY. VSS STABLE, WILL CONTINUE TO MONITOR.
[2020-09-24 03:48] LABS: BASOPHILS ABSOLUTE AUTO 0.05 K/mm3 (0.00-0.23); BASOPHILS PERCENT AUTO 0 % (0-2); EOSINOPHILS ABSOLUTE AUTO 0.29 K/mm3 (0.00-0.68); EOSINOPHILS PERCENT AUTO 2 % (0-6); Hematocrit 32.8 % (37.0-53.0); Hemoglobin 10.5 g/dL (13.5-17.5); IMMATURE GRAN ABSOLUTE AUTO 0.14 K/mm3 (0.00-0.10); IMMATURE GRAN PERCENT AUTO 1 % (0-1); LYMPHOCYTES ABSOLUTE AUTO 3.02 K/mm3 (0.84-5.20); LYMPHOCYTES PERCENT AUTO 22 % (21-46); MONOCYTES ABSOLUTE AUTO 0.98 K/mm3 (0.16-1.47); MONOCYTES PERCENT AUTO 7 % (4-13); Mean Corpuscular HGB 27.6 pg (26.0-34.0); Mean Corpuscular Volume 86 fL (80-100); Mean Platelet Volume 12.5 fL (9.1-12.4); NEUTROPHILS ABSOLUTE AUTO 9.07 K/mm3 (1.96-9.15); NEUTROPHILS PERCENT AUTO 67 % (41-73); Platelet Count 414 K/mm3 (150-400); RDW Coefficient Variation 15.2 % (11.7-14.2); RDW Standard Deviation 47.6 fL (35.1-46.3); White Blood Cell Count 13.55 K/mm3 (4.00-11.30)
[2020-09-24 04:03] LABS: Anion Gap 5 mmol/L (6-16); Blood Urea Nitrogen 27 mg/dL (8-24); Bun/Creatinine Ratio 22.7 (12.0-20.0); CO2, Blood 27 mmol/L (21-32); Calcium, Blood 8.9 mg/dL (8.5-10.1); Chloride, Blood 111 mmol/L (98-108); Creatinine, Blood 1.19 mg/dL (0.60-1.20); Glomerular Filtration Rate >60 (60-); Glucose, Blood 80 mg/dL (70-99); Phosphorus, Blood 3.3 mg/dL (2.5-4.9); Potassium, Blood 3.6 mmol/L (3.5-5.5); Sodium, Blood 143 mmol/L (136-145)
--- NOTE | 2020-09-24 06:36 | NUR ---
SHIFT SUMMARY NO CHANGES IN PTS MENTAL STATUS OR OXYGEN REQUIREMENTS. PT TURNING/ MOVING SELF IN BED, STATES HE CAN'T GET COMFORTABLE. MEDICATED WITH ONE DOSE OF FENTANYL FOR BACK PAIN/ DISCOMFORT, PT TOLERATED WELL. DR GOVEA CONSULTED FOR HYPOGLYCEMIA, STARTED D5-1/2NS @ 75ML/HR. GLUCOSE CONTINUED TO TREND TO THE LOW TO MID 60'S EARLY THIS AM, D5-1/2NS TITRATED UP TO 100ML/HR PER DR GOVEA. NO OTHER SIGNIFICANT CHANGES DURING THE NIGHT, WILL CONTINUE TO MONITOR.
--- NOTE | 2020-09-24 10:26 | NUR ---
TUBE FEEDING STARTED PER ORDERS AFTER DOBHOFF PLACED AND CONFIRMED BY XRAY. DR. JEFERSON QUEZADA USE.
--- NOTE | 2020-09-24 18:50 | NUR ---
SUMMARY PT A/O TO PERSON AND PLACE. SPEECH HAS CLEARED A LOT TODAY AND CONVERSATION IS MAKING MORE SENSE. ASKING APPROPRIATE QUESTIONS. WAS UP TO CHAIR USING THE LIFT MOST OF THE DAY. PT IS ABLE TO PUT RECLINER CHAIR FEET DOWN NOW WHICH IS AN IMPROVEMENT IN STRENGTH FROM YESTERDAY. WAS STARTED ON TUBE FEED TODAY TO HELP WITH LOW BLOOD SUGARS. WAS ABLE TO STOP D5 IVF NOW THAT BLOOD SUGAR IS STABLE. PT C/O PAIN THIS AFTERNOON. SPOKE WITH DR. GOVEA AND WAS GIVEN ORDERS TO GIVE TYLENOL. PT WAS OK WITH THAT AND EDUCATED THAT HE WILL GET METHADONE LATER TONIGHT. GOT PT BACK TO BED WITH LIFT. NO OTHER CHANGES THIS SHIFT.
[2020-09-25 03:41] LABS: BASOPHILS ABSOLUTE AUTO 0.04 K/mm3 (0.00-0.23); BASOPHILS PERCENT AUTO 0 % (0-2); EOSINOPHILS ABSOLUTE AUTO 0.26 K/mm3 (0.00-0.68); EOSINOPHILS PERCENT AUTO 2 % (0-6); Hematocrit 30.2 % (37.0-53.0); Hemoglobin 9.8 g/dL (13.5-17.5); IMMATURE GRAN ABSOLUTE AUTO 0.11 K/mm3 (0.00-0.10); IMMATURE GRAN PERCENT AUTO 1 % (0-1); LYMPHOCYTES ABSOLUTE AUTO 2.62 K/mm3 (0.84-5.20); LYMPHOCYTES PERCENT AUTO 24 % (21-46); MONOCYTES ABSOLUTE AUTO 0.84 K/mm3 (0.16-1.47); MONOCYTES PERCENT AUTO 8 % (4-13); Mean Corpuscular HGB 27.8 pg (26.0-34.0); Mean Corpuscular HGB Conc 32.5 g/dL (31.5-36.5); Mean Corpuscular Volume 86 fL (80-100); Mean Platelet Volume 12.4 fL (9.1-12.4); NEUTROPHILS ABSOLUTE AUTO 6.94 K/mm3 (1.96-9.15); NEUTROPHILS PERCENT AUTO 64 % (41-73); Platelet Count 351 K/mm3 (150-400); RDW Coefficient Variation 15.1 % (11.7-14.2); RDW Standard Deviation 47.2 fL (35.1-46.3); Red Blood Cell Count 3.52 M/mm3 (4.30-5.90); White Blood Cell Count 10.81 K/mm3 (4.00-11.30)
[2020-09-25 04:00] LABS: Albumin, Blood 2.2 g/dL (3.4-5.0); Anion Gap 6 mmol/L (6-16); Blood Urea Nitrogen 28 mg/dL (8-24); Bun/Creatinine Ratio 23.5 (12.0-20.0); CO2, Blood 25 mmol/L (21-32); Calcium, Blood 8.7 mg/dL (8.5-10.1); Chloride, Blood 112 mmol/L (98-108); Creatinine, Blood 1.19 mg/dL (0.60-1.20); Glomerular Filtration Rate >60 (60-); Glucose, Blood 86 mg/dL (70-99); Magnesium, Blood 1.9 mg/dL (1.6-2.4); Phosphorus, Blood 3.3 mg/dL (2.5-4.9); Potassium, Blood 3.5 mmol/L (3.5-5.5); Sodium, Blood 143 mmol/L (136-145)
--- NOTE | 2020-09-25 06:30 | NUR ---
SHIFT SUMMARY PT ALERT AND ORIENTED TO PERSON AND PLACE. REMAINS WEAK WITH A WEAK COUGH. TOLERATED EVENING PO MEDS WELL, ONE AT A TIME. NT SUCION ONCE LAST NIGHT WITH RESPIRATORY THERAPY, LS COARSE PRIOR TO SUCTION. ON 2LPM O2 VIA NC c O2 SATS >95%. VSS. LOPEZ PATENT, DRAINING TO GRAVITY. NO OTHER ACUTE CHANGES DURING THE NIGHT. WILL CONTINUE TO MONITOR.
--- NOTE | 2020-09-25 06:37 | NUR ---
SUMMARY PT ALERT AND ORIENTED TO PERSON, INTERMITTENTLY CONFUSED TO PLACE. DURING THE NIGHT PT PULLED DOBHOFF. DOBHOFF REINSERTED, PLACEMENT CONFIRMED VIA CXRAY BY DR AREVALO. TF STARTED BACK AT GOAL RATE. PT PLACED IN ROVERTO SOFT RESTRAINTS DUE TO CONTINUALLY PULLING AT LINES AND DOBHOFF. NO OTHER ACUTE CHANGES DURING THE NIGHT. WILL CONTINUE TO MONITOR.
--- NOTE | 2020-09-25 07:30 | NUR ---
PT RECEIVED FROM RADHA VALENZUELA. PT RESTING, MOVING ABOUT IN BED, WRISTS RESTRAINED. TF @ 50ML/HR, NS @ 10ML/HR, LOPEZ TO GRAVITY, ATTENDS IN PLACE. SCABS PRESENT OVER MAJORITY OF HIS EXTREMITIES AND ABDOMEN, BACK, NECK. LUNGS CLEAR, BELLY WITH GOOD TONES, PULSES PALPABLE.
--- NOTE | 2020-09-25 10:00 | NUR ---
PT REQUESTS UP TO BSC. PT HAS BEEN COOPERATIVE AND FOLLOWING DIRECTIONS. HE HAS BEEN PLEASANT, REORIENTED SEVERAL TIMES. RESTRAINTS OFF AT THIS TIME, BED BATH GIVEN. MAX EFFORT TO TRANSFER TO BSC. ABLE TO PASS LARGE STOOL. BACK TO BED, EXHAUSTED. REMAINS UNRESTRAINED.
--- NOTE | 2020-09-25 11:59 | NUR ---
OXYGEN AT 2L/NC PLACED FOR SATS <85% WHILE SLEEPING
--- NOTE | 2020-09-25 18:36 | NUR ---
JACKY HAS HAD A GOOD DAY. HE IS MORE ALERT THROUGHOUT THE DAY, HE HAS BEEN ANSWERING THAT HE IS AT THE HOSPITAL AND HE REALLY WANTS TO GO HOME. HE HAS BEEN MOVED TO PUREED DIET, HE DID NOT TAKE ANY OF HIS DINNER, BUT HE DID TAKE HOT CHOCOLATE, THICKENED. HE REALLY LIKED THAT. HIS SUGAR HAS INCREASED T/O THE DAY AND AT LAST TAKE WAS 265 WITH 3U INSULIN COVERAGE. HE WAS UP TO [facility] WITH 1 LARGE BM. HE HAS BEEN VERY MOBILE IN BED, MOVING ALL EXTREMITIES SITTING UP AND DANGLING FEET. HE HAS BEEN LEANING ON THE OVERBED TABLE, HIS SATS HAVE BEEN GOOD, WAS ON OXYGEN FOR A COUPLE OF HOURS THIS AM. HIS TUBE FEEDING HAS BEEN STOPPED UNTIL 1999. HE CONTINUES WITH THE LOPEZ TO GRAVITY DRAINAGE. HE IS "BORED" AND WANTS TO "GO HOME". WILL REPORT OFF TO NEXT SHIFT.
--- NOTE | 2020-09-25 23:10 | NUR ---
ASSUMED CARE AT 1900 PT ALERT AND ORIENTED TO SELF AND MONTH/YEAR. PT DID NOT KNOWN WHERE HE WAS AND IS ALSO IMPUSLIVE/FORGETFUL AT TIMES. PT ATTEMPTED TO GET OUT OF BED TO "GO FOR A WALK" AND ALSO ASKED IF HE COULD GO OUT AND HAVE A CIGARETTE. HE IS REDIRECTABLE AND CALM/COOPERATIVE. SPO2 >95% ON RA WHILE AWAKE, WHEN PT IS SLEEPING 2L NC NEEDED FOR SPO2 <88%. AFIBRILE. HR 80'S. BP STABLE. DOBHOFF IN PLACE WITH PIVOT STARTING AT 2030 AT 30ML/HR, AT 2131 INCREASED TO 60ML/HR FOR THE NEXT 8HRS. LOPEZ PATENT AND DRAINING TO GRAVITY. DRESSING TO RLE C/D/I. NS TKO INFUSING VIA LIJ. SEE SHIFT ASSESSMENT FOR FULL ASSESSMENT.
[2020-09-26 06:25] LABS: BASOPHILS ABSOLUTE AUTO 0.03 K/mm3 (0.00-0.23); BASOPHILS PERCENT AUTO 0 % (0-2); EOSINOPHILS ABSOLUTE AUTO 0.22 K/mm3 (0.00-0.68); EOSINOPHILS PERCENT AUTO 3 % (0-6); Hematocrit 29.5 % (37.0-53.0); Hemoglobin 9.4 g/dL (13.5-17.5); IMMATURE GRAN ABSOLUTE AUTO 0.06 K/mm3 (0.00-0.10); IMMATURE GRAN PERCENT AUTO 1 % (0-1); LYMPHOCYTES ABSOLUTE AUTO 2.38 K/mm3 (0.84-5.20); LYMPHOCYTES PERCENT AUTO 31 % (21-46); MONOCYTES ABSOLUTE AUTO 0.54 K/mm3 (0.16-1.47); MONOCYTES PERCENT AUTO 7 % (4-13); Mean Corpuscular HGB 28.1 pg (26.0-34.0); Mean Corpuscular HGB Conc 31.9 g/dL (31.5-36.5); Mean Corpuscular Volume 88 fL (80-100); Mean Platelet Volume 12.8 fL (9.1-12.4); NEUTROPHILS ABSOLUTE AUTO 4.42 K/mm3 (1.96-9.15); NEUTROPHILS PERCENT AUTO 58 % (41-73); Platelet Count 307 K/mm3 (150-400); RDW Coefficient Variation 15.4 % (11.7-14.2); RDW Standard Deviation 49.6 fL (35.1-46.3); Red Blood Cell Count 3.34 M/mm3 (4.30-5.90); White Blood Cell Count 7.65 K/mm3 (4.00-11.30)
[2020-09-26 06:42] LABS: Albumin, Blood 2.1 g/dL (3.4-5.0); Anion Gap 5 mmol/L (6-16); Blood Urea Nitrogen 37 mg/dL (8-24); Bun/Creatinine Ratio 24.3 (12.0-20.0); CO2, Blood 27 mmol/L (21-32); Calcium, Blood 8.5 mg/dL (8.5-10.1); Chloride, Blood 112 mmol/L (98-108); Creatinine, Blood 1.52 mg/dL (0.60-1.20); Glomerular Filtration Rate 51 (60-); Glucose, Blood 233 mg/dL (70-99); Phosphorus, Blood 4.1 mg/dL (2.5-4.9); Potassium, Blood 3.5 mmol/L (3.5-5.5); Sodium, Blood 144 mmol/L (136-145)
--- NOTE | 2020-09-26 06:52 | NUR ---
END OF SHIFT SUMMARY PT SLEPT FOR MOST OF THE NIGHT, WHEN AWAKE PT IS ALERT AND ORIENTED TO TIME BUT NOT PLACE. SPO2 >90% ON 4L WHILE SLEEPING. VSS. AFIBRILE. OG IN PLACE, TF DECREASED TO 30ML/HR AT 0530 AND THAN TURNED OFF AT 0630. LOPEZ PATENT AND DRAINING TO GRAVITY, INCREASE IN SEDAMENT NOTED. DRESSING TO RT FOOT C/D/I. WILL REPORT TO AM RN WHEN AVAILABLE.
--- NOTE | 2020-09-26 07:30 | NUR ---
ASSUMED CARE: PT RESTING QUIETLY AT THIS TIME. DOBHOFF NOTED IN NOSE, CLAMPED. NSR ON TELE. NO ACUTE NEEDS OR CONCERNS AT THIS TIME.
--- NOTE | 2020-09-26 15:10 | NUR ---
PT C/O DISCOMFORT AT CATHETER SITE. CALL TO DR ROWE AND ASKED ABOUT BLADDER TRAINING. STATES BLADDER TRAIN FOR 6 HOURS THEN DC LOPEZ. ORDER IN PLACE. PT AWARE AND AGREEABLE
--- NOTE | 2020-09-26 18:47 | NUR ---
Spiritual care note: Dino was soft spoken and a bit confused. He was slow to respond and had trouble finging words at times. He appears quite weak. He told me about his adams with alcoholism and his success with sobriety through AA. He has a sponsor and has been actively attending meetings. He also states that he recently started using again. A clear conflict. I assited him with calling his sister at his request. Assured him of continued care and support. Offered prayer. I will remain available.
--- NOTE | 2020-09-26 19:39 | NUR ---
SHIFT SUMMARY: PT HAS BEEN UP IN CHAIR MOST OF SHIFT. STARTED BLADDER TRAINING. NIGHT RN AWARE THAT 6 HOURS WILL BE UP AT 2100. NIGHT RN RECLAMPED LOPEZ DURING BEDSIDE REPORT. CL IN PLACE. DOBHOFF IN PLACE BUT CLAMPED AT THIS TIME. NO FURTHER NEEDS OR CONCERNS
--- NOTE | 2020-09-26 21:00 | NUR ---
Care Assumed 1900 Pt sitting in chair watching TV. A/O to location, year, and able to follow directions. Unable to state exact event that resulted in coming to hospital. Slow to respond at times but is cooperative to care. Attempts to move from chair to bed, chair alarm on. Reoriented to importance of using call light due to being high risk for falls. Pt states understanding. States, "I need to go pee." Pt has temp david in place, draining to gravity with yellow sediment cloudy urine in bag. On RA, destats to SPO2 85% when standing from chair. SPO2 > 90% when resting and quickly recovers. Dobhoff in place, PIVOT 1.5 started per orders. Pt tolerating well. Pt able to take one pill at a time with puree diet, tolerated well. See full shift assessment. VSS. NSR.
--- NOTE | 2020-09-27 00:40 | NUR ---
Update Pts david removed, tolerated well. Pt able to state when he needs to urinate. Pt would like to ammbulate in room. Stood at beside, tolerated well. A/O X4. Pivot 1.5 @ goal. VSS. on RA. Call light within reach.
[2020-09-27 04:31] LABS: BASOPHILS ABSOLUTE AUTO 0.04 K/mm3 (0.00-0.23); BASOPHILS PERCENT AUTO 0 % (0-2); EOSINOPHILS ABSOLUTE AUTO 0.23 K/mm3 (0.00-0.68); EOSINOPHILS PERCENT AUTO 2 % (0-6); Hemoglobin 9.3 g/dL (13.5-17.5); IMMATURE GRAN ABSOLUTE AUTO 0.06 K/mm3 (0.00-0.10); IMMATURE GRAN PERCENT AUTO 1 % (0-1); LYMPHOCYTES PERCENT AUTO 31 % (21-46); MONOCYTES ABSOLUTE AUTO 0.72 K/mm3 (0.16-1.47); MONOCYTES PERCENT AUTO 7 % (4-13); Mean Corpuscular HGB 27.3 pg (26.0-34.0); Mean Corpuscular Volume 88 fL (80-100); Mean Platelet Volume 12.9 fL (9.1-12.4); NEUTROPHILS ABSOLUTE AUTO 6.02 K/mm3 (1.96-9.15); NEUTROPHILS PERCENT AUTO 59 % (41-73); Platelet Count 295 K/mm3 (150-400); RDW Coefficient Variation 15.5 % (11.7-14.2); RDW Standard Deviation 49.1 fL (35.1-46.3); Red Blood Cell Count 3.41 M/mm3 (4.30-5.90); White Blood Cell Count 10.17 K/mm3 (4.00-11.30)
[2020-09-27 04:52] LABS: Albumin, Blood 2.2 g/dL (3.4-5.0); Anion Gap 4 mmol/L (6-16); Blood Urea Nitrogen 41 mg/dL (8-24); Bun/Creatinine Ratio 29.9 (12.0-20.0); CO2, Blood 27 mmol/L (21-32); Calcium, Blood 8.7 mg/dL (8.5-10.1); Chloride, Blood 112 mmol/L (98-108); Creatinine, Blood 1.37 mg/dL (0.60-1.20); Glomerular Filtration Rate 58 (60-); Glucose, Blood 117 mg/dL (70-99); Phosphorus, Blood 3.4 mg/dL (2.5-4.9); Potassium, Blood 3.8 mmol/L (3.5-5.5); Sodium, Blood 143 mmol/L (136-145)
--- NOTE | 2020-09-27 05:17 | NUR ---
Shift Summary Pt A/O X 4 and on RA. VSS. Pivot 1.5 @ 20ml/hr, will discontinue at 0600 per order. Able to stand at bedside/chair with one person assistance, weak gait. Temp david removed and pt denies having to urinate. Sleeping/resting since david removal, will report to oncoming shift. Call light within reach and no significant changes t/o shift.
--- NOTE | 2020-09-27 06:43 | NUR ---
Attempted to urinate Pt standing at bedside with two person assist, states he needs to urinate. Urinal given but unable to urinate at this time. Asked for urinal to be given to him so he can attempt again. Pt sitting up in bed watching TV, urinal within reach @ bedside table.
--- NOTE | 2020-09-27 09:16 | NUR ---
PT SITTING UP IN BED. ABLE TO FEED SELF PUREE BREAKFAST. STILL HAS DOBHOFF IN PLACE FOR CYCLIC FEEDINGS AT NIGHT. PT REMEMBERED RN FROM TAKING CARE OF HIM OVER THE WEEKEND. MENTATION GREATLY IMPROVED. CHANGED TO MEDICAL STATUS WITH TELE FOR 24HRS. NO SIGN OF DISTRESS.
--- NOTE | 2020-09-27 15:04 | NUR ---
PT HAS BEEN DOING WELL TODAY. A/O X4. HAS BEEN OOB TO CHAIR WITH 1-2 PERSON ASSIST WITH WALKER. WORKING WITH OT NOW. DOBHOFF STILL IN PLACE. PT HAS BEEN [facility] SOFT DIET AND NECTAR LIQUIDS. HAVE GIVEN REPORT TO MEDICAL RN WHO WILL ASSUME CARE OF PT WHEN TRANSFERED TO MEDICAL FLOOR.
--- NOTE | 2020-09-27 18:08 | NUR ---
PATIENT IS ALERT AND ORIENTED AND COOPERATIVE WITH CARE. DOBHOFF IS IN PLACE AND NOT BEING USED. PATIENT IS A 1PA TO THE BATHROOM. ON RA WITH O2 SATS AT 94%. PATIENT HAS TOLERATED THE MECHANICAL SOFT DIET WITH NECTAR THICK LIQUIDS WELL. VSS. WILL CONTINUE TO MONITOR
--- NOTE | 2020-09-28 02:49 | NUR ---
C/O DOBB NUVIA IN THE WAY AND WANTED IT OUT EARLIER. LATER STAFF CALLED ME IN TO ROOM RE DOBBHOFF TUBE "ALMOST OUT". PT WAS GETTING OUT OF BED AND IT APPEARS IT CAUGHT THE TUBE AND PULLED IT. NURSE ATTEMPTED TO FINISH PULLING TUBE OUT AND TUBE STOPPED AT END IN NOSE WITH ABRUPT PAIN. NURSE STOPPED PULLING TUBE, DANGLING AT END. CHARGE NURSE AND MD NOTIFIED. MD ORDERED TO TAPE IT IN PLACE IS AND NOT TO MESS WITH IT. ORDERED - TAPED IN PLACE. PT INSTRUCTED TO LEAVE IT ALONE WELL. CALL LIGHT IN REACH. NO NOTED DISCHARGE FROM NOSE.
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
[2020-09-28 05:21] LABS: Albumin, Blood 2.7 g/dL (3.4-5.0); Anion Gap 7 mmol/L (6-16); Blood Urea Nitrogen 33 mg/dL (8-24); Bun/Creatinine Ratio 25.4 (12.0-20.0); CO2, Blood 26 mmol/L (21-32); Calcium, Blood 9.5 mg/dL (8.5-10.1); Chloride, Blood 106 mmol/L (98-108); Glomerular Filtration Rate >60 (60-); Glucose, Blood 102 mg/dL (70-99); Phosphorus, Blood 2.5 mg/dL (2.5-4.9); Potassium, Blood 3.9 mmol/L (3.5-5.5); Sodium, Blood 139 mmol/L (136-145)
--- NOTE | 2020-09-28 07:33 | NUR ---
Dobhoff At start of shift, received report that patient pulled dobhoff out detention. RN attempted to pull out completely, but met resistance. Dr. Fields notified this AM and will be in to see patient shortly. No new orders at this time.
--- NOTE | 2020-09-28 11:15 | NUR ---
Attempted visit. Pt is awaiting ICU staff to assist with removal of partially removed NG/dobhoff feeding tube. Will try again later.
--- NOTE | 2020-09-28 11:54 | NUR ---
DOBHOFF DOBHOFF REMOVED BY DR. MCNALLY WITHOUT COMPLICATION.
--- NOTE | 2020-09-28 18:45 | NUR ---
Shift Summary A/Ox4, pleasant and cooperative. Flat affect, sometimes irritable if staff asking multiple questions. C/O indigestion and back pain, medicated for both. Re-evaluated by speech therapy, changed to thin liquids. Diet updated with new modifications. Dressing to R lateral feet changed. Dobbhoff removed by Dr. Bocanegra and ICU traffic control operator this morning, patient tolerated this well. No signs of bleeding from nasal passage. C/O diarrhea however, stools are soft and pasty, not runny. 1P c FWW. Up in chair for meals. WCTM and report to oncoming RN.
--- NOTE | 2020-09-28 20:10 | NUR ---
AWAKE, ASSISTED BACK TO BED. BED ALARM ON. CALL LIGHT IN REACH.
--- NOTE | 2020-09-29 03:52 | NUR ---
SHIFT SUMMARY HAS BEEN RESTING QUITE DEEPLY UNTIL NOW SINCE HS. AWAKE AT THIS TIME, SOME FIDGETING AND TRIPS ACROSS THE ROOM, BUT NO NOTED ACUTE DISTRESS. CALL LIGHT IN REACH. WILL CONTINUE TO MONITOR
[2020-09-29 05:38] LABS: Albumin, Blood 2.2 g/dL (3.4-5.0); Anion Gap 5 mmol/L (6-16); Blood Urea Nitrogen 29 mg/dL (8-24); Bun/Creatinine Ratio 25.7 (12.0-20.0); CO2, Blood 27 mmol/L (21-32); Chloride, Blood 108 mmol/L (98-108); Creatinine, Blood 1.13 mg/dL (0.60-1.20); Glomerular Filtration Rate >60 (60-); Glucose, Blood 133 mg/dL (70-99); Phosphorus, Blood 3.1 mg/dL (2.5-4.9); Potassium, Blood 4.2 mmol/L (3.5-5.5); Sodium, Blood 140 mmol/L (136-145)
--- NOTE | 2020-09-29 13:15 | NUR ---
Transfer of care Patient undergoing angiogram today. A/Ox4, cooperative with care. Dressing to right foot changed after shower. Medicated for back pain per sheduled meds. Report handed to Scarlet PCU-RN and patient will be transferring to PCU unit after angiogram. Personal belongings taken with patient to ear mold laboratory technician. Patient already notified sponsor of procedure planned and transferring of unit.
--- NOTE | 2020-09-29 14:35 | NUR ---
pt arrived from [facility], TR band in place on the right wrist. Pt is sleepy but awakens easily, is cooperative and alert and oriented when awake. Denies pain. Given urinal to void. Telemetry shows sinus rhythm at 60 bpm. Vital signs stable. spo2 measured on right hand is 95% on room air. Lung sounds clear. Bedside report received from Veronica Angel RN, who states that coronary arteries were clear.
--- NOTE | 2020-09-29 15:58 | NUR ---
TR band deflation started. 2 cc air removed. No changes to right radial site, no heamtoma, no bruising, palpable distal pulse.
--- NOTE | 2020-09-29 16:19 | NUR ---
TR band completely deflated.
--- NOTE | 2020-09-30 07:44 | NUR ---
ASSUMED CARE FROM CHARLI RN PT WAS AWAKE AND NEEDING TO USE THE BATHROOM DURING REPORT. PT WAS ABLE TO USE THE WALKER WITH SBA TO THE BATHROOM. PT WAS A BIT WITHDRAWN DURING OUR CONVERSATION, CHARLI RN REPORTS PT BEING IRRITATED ABOUT THE USE OF THE BED ALARM HOWEVER REPORTS THAT HE WAS NOT CALLING APPROPRIATELY. PT IS RESTING IN BED AT THIS TIME
--- NOTE | 2020-09-30 07:46 | NUR ---
SHIFT SUMMARY PATIENT EASILY IRITATED THROUGHOUT THE NIGHT. PATIENT VERY IMPULSIVE AND UNSTEADY ON FEET, PATIENT KEPT GETTING UP WITHOUT CALLING TO USE THE BATHROOM AND WOULD BE UNSTEADY ON FEET. PATIENT EDUCATED FREQUENTLY ON THE NEED TO USE THE CALL LIGHT. HOWEVER, PATIENT KEPT GETTING UP WITHOUT CALLING. BED ALARM PLACED FOR SAFETY BUT BED ALARM MAKES PATIENT VERY FRUSTRATED. PATIENT DID APPEAR TO BE ABLE TO NAP WELL THROUGHOUT THE NIGHT. REPORT GIVEN TO ONCOMING RN.
--- NOTE | 2020-09-30 13:01 | NUR ---
UPDATE PT HAS WORKED WITH PHYSICAL THERAPY FOR A REEVALUATION THIS MORNING. THE EVAL RECOMMENDS AN ADULT FOSTER HOME FOR THE PT RATHER THAN A SNF. GUEVARA LOPEZ WITH DISCHARGE PLANNING WAS NOTIFIED OF THE RECOMMENDATION SO THAT PLANS COULD BE MADE ON FRIDAY FOR PLACEMENT AND DISCHARGE
--- NOTE | 2020-09-30 18:25 | NUR ---
TRANSFER TO MEDICAL PT WAS TRANSFERRED TO MEDICAL FLOOR AT APPROXIMATELY 1810 VIA WHEELCHAIR. REPORT WAS GIVEN TO RADHA RHODES. VS STABLE, PT ON RA AND TRANSFERRED WITH ALL PERSONAL BELONGINGS.
--- NOTE | 2020-09-30 18:27 | NUR ---
Assumed Care Received report from MADISON Hickey-RN. Patient arrived to unit via w/c and belongings. Settled to room. A/Ox4. WCTM and report to oncoming RN.
--- NOTE | 2020-10-01 05:04 | NUR ---
PHOTOGRAPHER SUMMARY NO ACUTE CHANGES NOTED TO PT THIS SHIFT. PT A&OX4, ABLE TO MAKE NEEDS KNOWN. PLEASANT AND STABLE IN MOOD. PT MEDICATED FOR NAUSEA AND HEARTBURN. PT SBA TO THE BATHROOM, IMPULSIVE AT TIMES. EDUCATED PT IN USING CALL LIGHT BEFORE AMBULATING TO BATHROOM. PT RESTING IN BED AT THIS TIME. BED AT LOWEST POSITION. CALL LIGHT WITHIN REACH.
--- NOTE | 2020-10-01 11:18 | NUR ---
PT IN BATHROOM FOR A LONG PERIOD OF TIME, PT WOULD ANSWER APPROPRAITELY WHEN ASKED HOW HE WAS DOING OR IF HE NEEDED ASSISTANCE. REQUESTED OF PT NOT TO FLUSH THE TOILET SO WE COULD ASSESS HIS OUTPUT HOWEVER PT FLUSHED ANYWAY. PT HAD SOME STOOL IN HIS ATTENDS THAT APPEARED PASTY AND DARK BROWN/BLACK. PT STATED THAT IS HOW IS STOOL HAS LOOKED FOR A WHILE. PT VERY EXHAUSTED COMING OUT OF BATHROOM. ATTENDS WERE CHANGED AND HE WAS PLACED BACK IN BED. JAE CALLED AND INFORMED OF STOOL APPEARANCE, SHE STATED SHE WOULD REVIEW HIS LABS AND ENTERED ORDERS PRN. SHE STATED SHE WOULD BE BY TO SEE THE PT LATER.
--- NOTE | 2020-10-01 17:37 | NUR ---
SHIFT SUMMARY NO ACUTE CHANGES T/O SHIFT. PT COOPERATIVE WITH CARE, DROSWY T/O MOST OF DAY LIKELY RELATED TO METHADONE. PT APOLOGIZED FREQUENTLY FOR FALLING ASLEEP. PT DID HAVE A PASTY DARK BROWN/BLACK STOOL THIS AM, GUAIAC TEST ORDERED, RESULTS CURRENTLY PENDING. MEPLIEX PADS PLACED ON WOUND LOCATED ON THE R FOOT, WELL AN OPEN WOUND ON THE L CASH. PT DENIES ANY DISTRESS OR DISCOMFORT T/O SHIFT. PT DID NOT EACH BREAKFAST OR LUNCH BUT SNACKED BETWEEN MEALS. SNACKS INCLUDED A STRING CHEESE, PUDDING, AND SANDWICH. PT IS CURRENTLY SITTING UP IN CHAIR, CALL LIGHT IS WITHIN REACH.
[2020-10-02 05:01] LABS: Hematocrit 30.9 % (37.0-53.0); Hemoglobin 9.6 g/dL (13.5-17.5)
--- NOTE | 2020-10-02 06:09 | NUR ---
DIRECTOR BIOLOGICS SUMMARY NO ACUTE CHANGES NOTED TO PT OVERNIGHT. A&OX3, ABLE TO MAKE NEEDS KNOWN. PLEASANT AND COOPERATIVE TO CARE. NO C/O CP, SOB, OR N&V. PT REQUESTED SNACKS T/O SHIFT, GIVEN SNACKS ACCORDING TO ORDERED DIET. PT CALM AND RESTED IN BED AT THIS TIME. BED AT LOWEST POSITION. CALL LIGHT WITHIN REACH.
[2020-10-02 12:19] LABS: Stool Occult Blood Guaiac 1 Pos (Neg)
--- NOTE | 2020-10-02 16:37 | NUR ---
SHIFT SUMMARY NO ACUTE CHANGES T/O SHIFT, PT MOSTLY CALM AND COOPERATIVE WITH CARE. PT IS MORE AWAKE THIS SHIFTAND ALERT; HOWEVER STILL DOZES OFF FREQUENTLY. PT IS EASILY WAKEABLE. PT IS ABLE TO ANSWER ALL ORIENTATION ANSWERS CORRECTLY, MAKE NEEDS KNOWN, AND CARRY A CONVERSATION. PT DOES NOT USE THE CALL LIGHT APPROPRIATELY AND BECOMES AGGITATED WHEN STAFF TURNS ON THE BED ALARM. IT IS EXPLAINED TO THE PT SEVERAL TIMES THAT THE BED ALARM IS NEEDED FOR HIS SAFETY. GUAIAC RESULTS CAME BACK POSITIVE THIS SHIFT, ISTRATE IS AWAY OF RESULTS AND ORDERED FOR LOVENOX TO BE DC'D AND REPLACE WITH SCDs. PT IS CURRENTLY LYING IN BED WITH CALL LIGHT NEAR AND BED ALARM ON.
--- NOTE | 2020-10-02 20:25 | NUR ---
ASSUMPTION OF CARE. BILL IS AOX3, UP IN ROOM, STATES HE IS HURTING BUT WHEN HE SITS ON THE BED HE TENDS TO LEAN FORWARD AND FALL ASLEEP. WAKES RIGHT UP WHEN HE MOVES. STATES PAIN IS IN THE BACK. DENIES ANY SOB, OR CHEST PAIN. LUNG SOUNDS ARE CLEAR. HR IS REGULAR. UP TO BATHROOM INDEPENDENTLY. BS IN THE 200'S. ADMINISTERED PM MEDS. DENIES ANY OTHER NEEDS. CALL LIGHT IS IN REACH.
[2020-10-03 06:04] LABS: BASOPHILS ABSOLUTE AUTO 0.03 K/mm3 (0.00-0.23); BASOPHILS PERCENT AUTO 0 % (0-2); EOSINOPHILS ABSOLUTE AUTO 0.41 K/mm3 (0.00-0.68); EOSINOPHILS PERCENT AUTO 5 % (0-6); Hemoglobin 9.1 g/dL (13.5-17.5); IMMATURE GRAN ABSOLUTE AUTO 0.03 K/mm3 (0.00-0.10); IMMATURE GRAN PERCENT AUTO 0 % (0-1); LYMPHOCYTES ABSOLUTE AUTO 2.07 K/mm3 (0.84-5.20); LYMPHOCYTES PERCENT AUTO 24 % (21-46); MONOCYTES ABSOLUTE AUTO 0.65 K/mm3 (0.16-1.47); MONOCYTES PERCENT AUTO 8 % (4-13); Mean Corpuscular HGB 27.5 pg (26.0-34.0); Mean Corpuscular HGB Conc 31.4 g/dL (31.5-36.5); Mean Corpuscular Volume 88 fL (80-100); NEUTROPHILS ABSOLUTE AUTO 5.36 K/mm3 (1.96-9.15); NEUTROPHILS PERCENT AUTO 63 % (41-73); Platelet Count 164 K/mm3 (150-400); RDW Standard Deviation 51.3 fL (35.1-46.3); Red Blood Cell Count 3.31 M/mm3 (4.30-5.90); White Blood Cell Count 8.55 K/mm3 (4.00-11.30)
--- NOTE | 2020-10-03 06:04 | NUR ---
SHIFT SUMMARY: AOX3, INDEPENDENT IN THE ROOM. STATES PAIN IN LOWER BACK, ON METHADONE. OCCATIONALLY HE TENDS TO FALL ASLEEP OUT OF THE BLUE NO MATTER WHERE HE IS AT BUT AWAKES EASILY. HYPERGLYCEMIC, INSULIN GIVEN. TENDS TO SNACK ALL NIGHT LONG, HAD TO CUT OFF OF SNACKS TO PREVENT BLOOD SUGAR FROM RISING. WOUND TO ANKLE OPEN TO AIR HE REMOVES DRESSINGS NO MATTER WHAT IS APPLIED. WOUND HAS YELLOW ESCAR AND SEROUS SANGUOUS FLUID DRAINING SCANT AMOUNTS. NO SIGNS OF INFECTION. PLAN IS FOR PLACEMENT, CARE MANGEMENT IS WORKING ON IT. CALL LIGHT IS IN REACH.
[2020-10-03 06:06] LABS: Mean Platelet Volume 14.6 fL (9.1-12.4)
[2020-10-03 06:19] LABS: Anion Gap 5 mmol/L (6-16); Blood Urea Nitrogen 25 mg/dL (8-24); Bun/Creatinine Ratio 24.3 (12.0-20.0); CO2, Blood 28 mmol/L (21-32); Calcium, Blood 8.6 mg/dL (8.5-10.1); Chloride, Blood 106 mmol/L (98-108); Creatinine, Blood 1.03 mg/dL (0.60-1.20); Glomerular Filtration Rate >60 (60-); Glucose, Blood 117 mg/dL (70-99); Potassium, Blood 4.5 mmol/L (3.5-5.5); Sodium, Blood 139 mmol/L (136-145)
--- NOTE | 2020-10-03 17:57 | NUR ---
SHIFT SUMMARY PT AXO, PLEASANT AND COOPERATIVE WITH CARE. UP AD RAMBO IN ROOM, REFUSED BED ALARM AND EDUCATED ON FALL PREVENTION. VSS. NO ACUTE CHANGES THIS SHIFT. PT ON RA. DENIES SOB, CHEST PAIN, NV. PT MEDICATED FOR PAIN PER EMAR. BED IN LOW POSITION, CALL LIGHT WITHIN REACH. WOUND OPEN TO AIR.
--- NOTE | 2020-10-03 20:45 | NUR ---
ASSUMPTION OF CARE. JACKY WAS SLEEPING WHEN I WALKED INTO THE ROOM. AWAKENED EASILY, PLEASANT AND COOPERATIVE. DENIES ANY ACUTE CHANGES TODAY. STILL NO DRESSING ON ANKLE STATES IT FELL OFF. NO SIGNS OF INFECTION. YELLOW ESCAR COVERING WOUND BED, SANGUOUS DRAINAGE SCANT. PAIN IN BACK, MEDICATED WITH METHADONE. BS 151, 1 UNIT OF INSULIN GIVEN. DENIES ANY OTHER NEEDS AT THIS TIME CALL LIGHT IS IN REACH.
--- NOTE | 2020-10-04 06:36 | NUR ---
SHIFT SUMMARY: AOX3, INDEPENDENT. COOPERATIVE. METHADONE FOR PAIN. GOOD APPETITE, DID NOT SNACK MUCH LAST NIGHT. BS 151. 1 UNIT OF INSULIN GIVEN. VS WNL, AFEBRILE. REFUSED TO HAVE CENTRAL LINE REMOVED, STATES HE IS A VERY HARD STICK AND PERFERS TO LEAVE IT IN JUST IN CASE SOMETHING HAPPENS. ENCOURAGED HIM TO TALK TO DOCTOR TODAY. NO OTHER CHANGES TO REPORT THIS SHIFT. CALL LIGHT IS IN REACH.
--- NOTE | 2020-10-04 09:30 | NUR ---
PT PLEASANT COOP A/O X3. STATES PAIN IS CONSTANT FOR YEARS. 6-7 ALL THE TIME. BACK PAIN. MED PER EMAR. H/R REG, NO MURMER NOTED. NO TELE. LUNGS CLEAR, RESP EASY, UNLABORED. ON R.A. BT X4 LAST BM TODAY. VOIDS BATHROOM. SBA ASST. FWW. BED IN LOW POSITION, CALL LITE IN REACH, CALLS APPROP EXPECTING D/C 1-2 DAYS SNF/
--- NOTE | 2020-10-04 15:02 | NUR ---
NEW MEPILEX ON CLEANED FOOT AND ANKLE
--- NOTE | 2020-10-04 18:05 | NUR ---
PT PLEASANT TODAY. PLACED NEW DRESSING ON SIDE OF FOOT AND ANKLE, MEPILEX. PLANNING FOR D/C SOON, HOPEFUL FOR TOMORROW PER CARE MGMT. NO NEW CONCERNS NOTED TODAY. PT IND IN ROOM BED IN LOW POSITION, CALL LITE IN REACH, CALLS APPROP
--- NOTE | 2020-10-04 19:14 | NUR ---
ASSUMPTION OF CARE. NO CHANGES TODAY. JACKY IS CHILLING IN HIS ROOM WATCHING TV. DRESSING TO LATERAL ANKLE IS INTAKE. DENIES ANY CONCERNS. ASK TO GET HIS MEDS EARLY HE CAN SO HE CAN GO TO SLEEP. GOOD APPETITE. WILL CONTINUE TO MONITOR, CALL LIGHT IS IN REACH.
--- NOTE | 2020-10-05 06:15 | NUR ---
SHIFT SUMMARY: AOX3, INDEPENDENT. COOPERATIVE. NO CHANGE IN PAIN MANAGMENT. HAD A GOOD NIGHT, BUT WAS UP AND DOWN ALL NIGHT. DRESSING TO ANKLE INTACT, MINIMAL DRAINAGE. GOOD APPETITE. BS 151, 1 UNIT GIVEN. VS WNL. AFEBRILE. CENTRAL LINE DC'D THIS AM, NO COMPLICATIONS. DRESSING WAS APPLIED. STILL AWAITING PLACEMENT. CALL LIGHT REMAINS IN REACH.
--- NOTE | 2020-10-05 15:45 | NUR ---
[facility] care visit for s/s assessment and advanced care planning conversation for future medical needs. Case conferenced with CUSTOMER SUCCESS MANAGER prior to my visit. She reports pt doing very well with therapy. OT notes reviewed via EMR also, along with all other PN from PT, CM, , RN. Pt reports chronic back pain. He reports feeling short of breath and anxious and feels it is increasing this afternoon. CUSTOMER SUCCESS MANAGER reported pt is distressed over lack of viable d/c plan at this time. We explored whether his sob is causing anxiety or anxiety causing SOB. He is unsure. He does not have prn rx for anxiety. He also reports lack of sleep. No Rx for insomnia in eMAR. Dino reports he takes methadone for chronic pain and to deal with previous opiode addiction. He is sitting up at the side of the bed. I coached him in deep breathing, PLB and other anti-anxiety tools. He has not been outside or had fresh air since admission. I offered to take him outside but he does not want to miss Dr fraga today. Report given to pt's RN and requested a w/c ride out the front door if time and staffing allowed this glen[place] and asked tomorrow's [facility] care staff same for tomorrow. I discussed pt's advanced care planning with him. He does not remember very much of his prolonged ICU stay, ventilatory support or pre/post codes. He verbalizes that he is greatful that "they didn't give up on me". He confirms that he would like to remain a full code at this time and I confirmed that his current orders are in agreement with that. He has questions about what happened to him. I answered what I knew and encouraged him to ask his providers too. Although, he wanted to know causes of cardiac arrest and resp failure, I could see his anxiety growing as he listened and so turned the conversation more towards prevention of complications in the future and focusing on the positives, especially his extreme improvements/progress with therapies. We discussed future measures to improve health, #1-cont smoking cessation, connection to others, increasing activity as he is able, regular medical care, quality sleep/rest, good nutrition and doing positive things he enjoys that add meaning and quality to his life, basically good self care. He verbalized appreciation for the conversation but was demonstrating feeling anxious with rocking back and forth and rubbing his head in hands. While I was reporting on our visit to pt's RN and SUEDE BRUSHER he walked out to hallway to report feeling more short of breath. RN to speak with Dr when he rounds today.
--- NOTE | 2020-10-05 19:32 | NUR ---
SHIFT SUMMARY- PT BECAME VERY ANXIOUS TODAY AFTER SPEAKING TO PALLIATIVE CARE AND ASKING MANY QUESTIONS. PALLIATIVE CARE STAFF ANSWERED THE QUESTIONS. PT SISTER CAME THIS EVENING AND SHE SPOKE TO HIM AND ANSWERED MORE QUESTIONS. RN CONTACTED DR BRADFORD AND RECIEVED AN ORDER FOR PO ATIVAN 0.5MG GIVEN PRIOR TO THE PT SISTER COMING IN AND HE SEEMED A LOT LESS AGGITATED WHEN SHE ARRIVED. PT C/O ACID REFLUX AFTER HE SPOKE WITH HER, CONTACTED DR BRADFORD AND RECIEVED ORDER FOR THE TUMS. PT TOOK TUMS BUT WAS UNABLE TO EAT THE FISH DINNER HER ORDERED PROVIDED WITH A HALF ROAST BEEF SANDWICH. NIGHT CARDIOVASCULAR SURGICAL TECH PROVIDED SOME ADDITIONAL SNACKS AT SHIFT CHANGE. PT IN BED CALL LIGHT PAT, INDEPENDENT IN THE ROOM. BEDSIDE REPORT COMPLETED WITH NIGHT RADHA BECKHAM.
[2020-10-06 04:57] LABS: BASOPHILS ABSOLUTE AUTO 0.03 K/mm3 (0.00-0.23); BASOPHILS PERCENT AUTO 0 % (0-2); EOSINOPHILS ABSOLUTE AUTO 0.31 K/mm3 (0.00-0.68); EOSINOPHILS PERCENT AUTO 4 % (0-6); Hematocrit 32.3 % (37.0-53.0); IMMATURE GRAN ABSOLUTE AUTO 0.03 K/mm3 (0.00-0.10); IMMATURE GRAN PERCENT AUTO 0 % (0-1); LYMPHOCYTES ABSOLUTE AUTO 2.26 K/mm3 (0.84-5.20); LYMPHOCYTES PERCENT AUTO 28 % (21-46); MONOCYTES ABSOLUTE AUTO 0.67 K/mm3 (0.16-1.47); MONOCYTES PERCENT AUTO 8 % (4-13); Mean Corpuscular HGB 27.2 pg (26.0-34.0); Mean Corpuscular Volume 88 fL (80-100); NEUTROPHILS ABSOLUTE AUTO 4.68 K/mm3 (1.96-9.15); NEUTROPHILS PERCENT AUTO 59 % (41-73); Platelet Count 171 K/mm3 (150-400); RDW Coefficient Variation 15.3 % (11.7-14.2); RDW Standard Deviation 48.7 fL (35.1-46.3); Red Blood Cell Count 3.68 M/mm3 (4.30-5.90); White Blood Cell Count 7.98 K/mm3 (4.00-11.30)
[2020-10-06 04:58] LABS: Mean Platelet Volume 13.7 fL (9.1-12.4)
[2020-10-06 05:12] LABS: Anion Gap 5 mmol/L (6-16); Blood Urea Nitrogen 20 mg/dL (8-24); Bun/Creatinine Ratio 18.9 (12.0-20.0); CO2, Blood 28 mmol/L (21-32); Calcium, Blood 9.1 mg/dL (8.5-10.1); Chloride, Blood 105 mmol/L (98-108); Creatinine, Blood 1.06 mg/dL (0.60-1.20); Glomerular Filtration Rate >60 (60-); Glucose, Blood 102 mg/dL (70-99); Potassium, Blood 4.7 mmol/L (3.5-5.5); Sodium, Blood 138 mmol/L (136-145)
--- NOTE | 2020-10-06 09:48 | NUR ---
DON BRADFORD- PT VERY LETHARGIC THIS MORNING POSSIBLY R/T ATIVAN. PER REPORT PT WAS ANXIOUS WELL INTO THE NIGHT AND DID NOT SLEEP UNTIL THIS MORNING. AWARE, ORDER RECIEVED TO DC ATIVAN AND LET PT SLEEP; WILL CTM.
[2020-10-06] MEDS ORDERED: ACET325 PO (11:41)
[2020-10-06] MEDS ORDERED: ATOR40TA PO (11:43)
[2020-10-06] MEDS ORDERED: ASPIR 8181 M1 PO (11:43)
[2020-10-06] MEDS ORDERED: ASCO500 PO (11:43)
[2020-10-06] MEDS ORDERED: BISA10S PR (11:43)
[2020-10-06] MEDS ORDERED: TUMS500 MG PO (11:45)
[2020-10-06] MEDS ORDERED: FERSU300 PO (11:45)
[2020-10-06] MEDS ORDERED: COMBIVENT RESPIM4 G1 INH (11:46)
[2020-10-06] MEDS ORDERED: LOPE2C PO (11:47)
[2020-10-06] MEDS ORDERED: OMEP20ER PO (11:47)
[2020-10-06] MEDS ORDERED: VISBIOME 112.51 EACH PO (11:48)
[2020-10-06] MEDS ORDERED: ONDA4ODT MM (11:48)
--- NOTE | 2020-10-06 17:22 | NUR ---
DISCHARGE NOTE- PT WAS GIVEN VERBAL AND WRITTEN DISCHARGE INSTRUCTIONS AND ACKNOLWEDGED UNDERSTANDING OF THEM. NO FURTHER QUESTIONS AT THE TIME OF DISCHARGE. PT ESCORTED OUT VIA WC BY A STAFF MEMBER, NO S&S OF DISTRESS NOTED AT THE TIME OF DISCHARGE.
== END 2020-10-06 16:55 | disposition home health service (06) | DRG 870 ==
LOC: ER 07:35 → ERHOLD 11:07 → ICUE 11:07 → MEDS 09-27 15:30 → PCU 09-29 14:18 → MEDS 09-30 18:21
PROVIDERS: Emergency Medicine; Family Medicine; Internal Medicine; Internal Medicine Critical Care Medicine; Internal Medicine Pulmonary Disease; Nurse Practitioner Acute Care; Pharmacist; ADMIT Internal Medicine
PROC: 5A1955Z Respiratory Ventilation, Greater than 96 Consecutive Hours (ICD-10-PCS; 2020-09-06)
PROC: 3E033XZ Introduction of Vasopressor into Peripheral Vein, Percutaneous Approach (ICD-10-PCS; 2020-09-06)
PROC: 0BH17EZ Insertion of Endotracheal Airway into Trachea, Via Natural or Artificial Opening (ICD-10-PCS; 2020-09-06)
PROC: 06HM33Z Insertion of Infusion Device into Right Femoral Vein, Percutaneous Approach (ICD-10-PCS; principal; 2020-09-17)
PROC: 02HV33Z Insertion of Infusion Device into Superior Vena Cava, Percutaneous Approach (ICD-10-PCS; 2020-09-17)
PROC: 5A09357 Assistance with Respiratory Ventilation, Less than 24 Consecutive Hours, Continuous Positive Airway Pressure (ICD-10-PCS; 2020-09-17)
PROC: B2111ZZ Fluoroscopy of Multiple Coronary Arteries using Low Osmolar Contrast (ICD-10-PCS; 2020-09-29)
PROC: B2151ZZ Fluoroscopy of Left Heart using Low Osmolar Contrast (ICD-10-PCS; 2020-09-29)
PROC: 4A023N7 Measurement of Cardiac Sampling and Pressure, Left Heart, Percutaneous Approach (ICD-10-PCS; 2020-09-29)
DX: A41.81 Sepsis due to Enterococcus (principal); J96.01 Acute respiratory failure with hypoxia; G92 Toxic encephalopathy; N17.0 Acute kidney failure with tubular necrosis; I21.A1 Myocardial infarction type 2; I50.21 Acute systolic (congestive) heart failure; J15.8 Pneumonia due to other specified bacteria; J96.22 Acute and chronic respiratory failure with hypercapnia; R65.21 Severe sepsis with septic shock; L03.115 Cellulitis of right lower limb; Z68.41 Body mass index [BMI] 40.0-44.9, adult; Z20.822 Contact with and (suspected) exposure to COVID-19; Z89.421 Acquired absence of other right toe(s); Z89.422 Acquired absence of other left toe(s); Z87.891 Personal history of nicotine dependence; F11.11 Opioid abuse, in remission; F15.11 Other stimulant abuse, in remission; E11.65 Type 2 diabetes mellitus with hyperglycemia; E66.01 Morbid (severe) obesity due to excess calories; Z79.4 Long term (current) use of insulin; Z91.14 Patient's other noncompliance with medication regimen; F32.9 Major depressive disorder, single episode, unspecified; K21.9 Gastro-esophageal reflux disease without esophagitis; E11.649 Type 2 diabetes mellitus with hypoglycemia without coma; I25.10 Atherosclerotic heart disease of native coronary artery without angina pectoris; E11.621 Type 2 diabetes mellitus with foot ulcer; D63.8 Anemia in other chronic diseases classified elsewhere; L97.519 Non-pressure chronic ulcer of other part of right foot with unspecified severity; K59.00 Constipation, unspecified; Z86.718 Personal history of other venous thrombosis and embolism; N18.9 Chronic kidney disease, unspecified; E11.22 Type 2 diabetes mellitus with diabetic chronic kidney disease
CPT/HCPCS: 0202U; 0241U; 31500; 31720; 36415; 36556; 36600; 51702; 71045; 71260; 73630; 74176; 80048; 80053; 80069; 80202; 81001; 82270; 82330; 82550; 82607; 82728; 82746; 82803; 82947; 83036; 83516; 83540; 83550; 83605; 83735; 83880; 84100; 84145; 84484; 85014; 85018; 85025; 85610; 85651; 85730; 86140; 86200; 86225; 86235; 86256; 86431; 86713; 86790; 87040; 87070; 87077; 87086; 87186; 87205; 92526; 92610; 93005; 93010; 93306; 93458; 94002; 94003; 94640; 94660; 94667; 94668; 94760; 96365-59; 96367; 96372-59; 96375-59; 97110; 97112; 97116; 97129; 97130; 97140-CQ; 97163; 97164; 97167; 97168; 97530; 97535; 99152; 99153; 99284-25; 99285-25; A9270; C1751; C1769; C2623; C8929; J0330; J0360; J0456; J0692; J0696; J1644; J1650; J1940; J2060; J2250; J2310; J2370; J2405; J2543; J2704; J2920; J3010; J3370; J3475; J7030; J7040; J7042; J7050; J7060; J7120; Q9957; Q9967

== ENCOUNTER 2020-10-18 00:33 | Day surgery (SDC) | payer MEDICARE ==
[~2020-10-18 00:33] MED LIST changes: +ARIPIPRAZOLE2 M1 PO; +ASCO500 PO; +ASPIR 8181 M1 PO; +ATOR40TA PO; +BISA10S PR; +COMBIVENT RESPIM4 G1 INH; +FERSU300 PO; +LOPE2C PO; +METFORMIN HCL500 M2 PO; +NEURONTIN300 MG PO; +OMEP20ER PO; +ONDA4ODT MM; +PREGABALIN150 M1 PO; +TUMS500 MG PO; +VISBIOME 112.51 EACH PO; +ZOLOFT100 M4 PO
== END 2020-10-18 22:44 | disposition home or self-care (01) ==
LOC: WOUND 00:33
DX: E11.622 Type 2 diabetes mellitus with other skin ulcer (principal); L97.822 Non-pressure chronic ulcer of other part of left lower leg with fat layer exposed; L97.812 Non-pressure chronic ulcer of other part of right lower leg with fat layer exposed; R60.0 Localized edema
CPT/HCPCS: A9270; G0463

== ENCOUNTER 2020-10-25 00:17 | Day surgery (SDC) | payer MEDICARE ==
[~2020-10-25 00:17] MED LIST changes: +ASPI81CH PO; -ASPIR 8181 M1 PO
== END 2020-10-25 22:49 | disposition home or self-care (01) ==
LOC: WOUND 00:17
DX: E11.621 Type 2 diabetes mellitus with foot ulcer (principal); L97.415 Non-pressure chronic ulcer of right heel and midfoot with muscle involvement without evidence of necrosis; E11.622 Type 2 diabetes mellitus with other skin ulcer; L97.822 Non-pressure chronic ulcer of other part of left lower leg with fat layer exposed; L97.812 Non-pressure chronic ulcer of other part of right lower leg with fat layer exposed; R60.0 Localized edema
CPT/HCPCS: A9270

== ENCOUNTER 2020-11-01 00:28 | Day surgery (SDC) | payer MEDICARE | END 2020-11-01 22:45 | disposition home or self-care (01) | LOC: WOUND 00:28 | DX: E11.622 Type 2 diabetes mellitus with other skin ulcer (principal); L97.822 Non-pressure chronic ulcer of other part of left lower leg with fat layer exposed; L97.812 Non-pressure chronic ulcer of other part of right lower leg with fat layer exposed; R60.0 Localized edema | CPT/HCPCS: 87071; 87075; 87077; 87186; 87205; A9270 ==

== ENCOUNTER 2020-11-08 01:17 | Day surgery (SDC) | payer MEDICARE | END 2020-11-08 23:18 | disposition home or self-care (01) | LOC: WOUND 01:17 | DX: E11.621 Type 2 diabetes mellitus with foot ulcer (principal); L97.415 Non-pressure chronic ulcer of right heel and midfoot with muscle involvement without evidence of necrosis; E11.622 Type 2 diabetes mellitus with other skin ulcer; L97.822 Non-pressure chronic ulcer of other part of left lower leg with fat layer exposed; L97.812 Non-pressure chronic ulcer of other part of right lower leg with fat layer exposed; R60.0 Localized edema; L97.312 Non-pressure chronic ulcer of right ankle with fat layer exposed; E11.42 Type 2 diabetes mellitus with diabetic polyneuropathy; I10 Essential (primary) hypertension | CPT/HCPCS: A9270 ==

== ENCOUNTER 2020-11-24 00:54 | Day surgery (SDC) | payer MEDICARE ==
[~2020-11-24 00:54] MED LIST changes: -ASPI81CH PO; +ASPIR 8181 M1 PO
== END 2020-11-24 23:06 | disposition home or self-care (01) ==
LOC: WOUND 00:54
DX: E11.622 Type 2 diabetes mellitus with other skin ulcer (principal); L97.822 Non-pressure chronic ulcer of other part of left lower leg with fat layer exposed; L97.812 Non-pressure chronic ulcer of other part of right lower leg with fat layer exposed; E11.621 Type 2 diabetes mellitus with foot ulcer; L97.412 Non-pressure chronic ulcer of right heel and midfoot with fat layer exposed; R60.0 Localized edema
CPT/HCPCS: 87071; 87075; 87205; A9270

== ENCOUNTER 2020-11-30 00:45 | Day surgery (SDC) | payer MEDICARE | END 2020-11-30 23:02 | disposition home or self-care (01) | LOC: WOUND 00:45 | DX: E11.622 Type 2 diabetes mellitus with other skin ulcer (principal); L97.822 Non-pressure chronic ulcer of other part of left lower leg with fat layer exposed; L97.812 Non-pressure chronic ulcer of other part of right lower leg with fat layer exposed; R60.0 Localized edema | CPT/HCPCS: A9270 ==

== ENCOUNTER 2020-12-06 12:45 | Emergency (ER) | payer MEDICARE ==
[~2020-12-06] VITALS: Ht 182.9 cm; Wt 111.1 kg
[2020-12-06 13:34] LABS: BASOPHILS ABSOLUTE AUTO 0.05 K/mm3 (0.00-0.23); BASOPHILS PERCENT AUTO 1 % (0-2); EOSINOPHILS ABSOLUTE AUTO 0.18 K/mm3 (0.00-0.68); EOSINOPHILS PERCENT AUTO 2 % (0-6); Hematocrit 35.1 % (37.0-53.0); Hemoglobin 11.2 g/dL (13.5-17.5); IMMATURE GRAN ABSOLUTE AUTO 0.05 K/mm3 (0.00-0.10); IMMATURE GRAN PERCENT AUTO 1 % (0-1); LYMPHOCYTES ABSOLUTE AUTO 2.24 K/mm3 (0.84-5.20); LYMPHOCYTES PERCENT AUTO 22 % (21-46); MONOCYTES ABSOLUTE AUTO 0.71 K/mm3 (0.16-1.47); MONOCYTES PERCENT AUTO 7 % (4-13); Mean Corpuscular HGB 25.6 pg (26.0-34.0); Mean Corpuscular HGB Conc 31.9 g/dL (31.5-36.5); Mean Corpuscular Volume 80 fL (80-100); Mean Platelet Volume 12.4 fL (9.1-12.4); NEUTROPHILS ABSOLUTE AUTO 6.97 K/mm3 (1.96-9.15); NEUTROPHILS PERCENT AUTO 68 % (41-73); Platelet Count 294 K/mm3 (150-400); RDW Coefficient Variation 15.3 % (11.7-14.2); RDW Standard Deviation 44.5 fL (35.1-46.3); Red Blood Cell Count 4.38 M/mm3 (4.30-5.90)
[2020-12-06 13:51] LABS: Alanine Aminotransfer (ALT/SGP 21 U/L (12-78); Albumin, Blood 2.8 g/dL (3.4-5.0); Albumin/Globulin Ratio 0.5 (0.8-1.8); Alk Phos 95 U/L (50-136); Anion Gap 7 mmol/L (6-16); Aspartate Aminotrans (AST/SGOT 11 U/L (12-37); Bilirubin, Total 0.2 mg/dL (0.1-1.0); Blood Urea Nitrogen 27 mg/dL (8-24); Bun/Creatinine Ratio 22.7 (12.0-20.0); CO2, Blood 24 mmol/L (21-32); Calcium, Blood 9.5 mg/dL (8.5-10.1); Chloride, Blood 98 mmol/L (98-108); Creatinine, Blood 1.19 mg/dL (0.60-1.20); Globulin, Blood 6.1 g/dL (2.2-4.0); Glomerular Filtration Rate >60 (60-); Glucose, Blood 325 mg/dL (70-99); Potassium, Blood 4.6 mmol/L (3.5-5.5); Sodium, Blood 129 mmol/L (136-145); Total Protein, Blood 8.9 g/dL (6.4-8.2); Troponin I <0.015 ng/mL (0.000-0.040)
[2020-12-06] MEDS ORDERED: CLIN150 PO (15:10)
[2020-12-06] MEDS ORDERED: HYDPAM50 PO (17:28)
== END 2020-12-06 17:54 | disposition home or self-care (01) ==
LOC: ER 12:45
PROVIDERS: Physician Assistant
DX: F41.9 Anxiety disorder, unspecified (principal); E10.40 Type 1 diabetes mellitus with diabetic neuropathy, unspecified; I10 Essential (primary) hypertension; K21.9 Gastro-esophageal reflux disease without esophagitis; Z87.891 Personal history of nicotine dependence; Z79.899 Other long term (current) drug therapy; Z79.82 Long term (current) use of aspirin
CPT/HCPCS: 36415; 71046; 80053; 82947; 83880; 84484; 85025; 85379; 93005; 93010; 96374; 96376; 99285-25; J2060; J7030

== ENCOUNTER 2020-12-14 05:36 | Day surgery (SDC) | payer MEDICARE ==
[~2020-12-14 05:36] MED LIST changes: +CLIN150 PO; +HYDPAM50 PO
== END 2020-12-14 22:45 | disposition home or self-care (01) ==
LOC: WOUND 05:36
DX: E11.622 Type 2 diabetes mellitus with other skin ulcer (principal); L97.815 Non-pressure chronic ulcer of other part of right lower leg with muscle involvement without evidence of necrosis; L97.822 Non-pressure chronic ulcer of other part of left lower leg with fat layer exposed; R60.0 Localized edema; E11.42 Type 2 diabetes mellitus with diabetic polyneuropathy; I10 Essential (primary) hypertension
CPT/HCPCS: A9270

== ENCOUNTER 2020-12-21 03:49 | Day surgery (SDC) | payer MEDICARE | END 2020-12-21 22:50 | disposition home or self-care (01) | LOC: WOUND 03:49 | DX: E11.622 Type 2 diabetes mellitus with other skin ulcer (principal); L97.822 Non-pressure chronic ulcer of other part of left lower leg with fat layer exposed; L97.812 Non-pressure chronic ulcer of other part of right lower leg with fat layer exposed; R60.0 Localized edema | CPT/HCPCS: 87071; 87075; 87205; A9270 ==

== ENCOUNTER 2020-12-25 07:58 | Emergency (ER) | payer MEDICARE, OTHER ==
[~2020-12-25] VITALS: Ht 182.9 cm; Wt 111.1 kg
[2020-12-25 08:57] LABS: BASOPHILS ABSOLUTE AUTO 0.05 K/mm3 (0.00-0.23); BASOPHILS PERCENT AUTO 0 % (0-2); EOSINOPHILS ABSOLUTE AUTO 0.08 K/mm3 (0.00-0.68); EOSINOPHILS PERCENT AUTO 1 % (0-6); Hematocrit 35.9 % (37.0-53.0); Hemoglobin 11.4 g/dL (13.5-17.5); IMMATURE GRAN ABSOLUTE AUTO 0.04 K/mm3 (0.00-0.10); IMMATURE GRAN PERCENT AUTO 0 % (0-1); LYMPHOCYTES ABSOLUTE AUTO 1.48 K/mm3 (0.84-5.20); LYMPHOCYTES PERCENT AUTO 13 % (21-46); MONOCYTES ABSOLUTE AUTO 0.48 K/mm3 (0.16-1.47); MONOCYTES PERCENT AUTO 4 % (4-13); Mean Corpuscular HGB 25.7 pg (26.0-34.0); Mean Corpuscular HGB Conc 31.8 g/dL (31.5-36.5); Mean Corpuscular Volume 81 fL (80-100); Mean Platelet Volume 12.6 fL (9.1-12.4); NEUTROPHILS ABSOLUTE AUTO 9.22 K/mm3 (1.96-9.15); NEUTROPHILS PERCENT AUTO 81 % (41-73); Platelet Count 267 K/mm3 (150-400); RDW Coefficient Variation 15.9 % (11.7-14.2); RDW Standard Deviation 47.1 fL (35.1-46.3); Red Blood Cell Count 4.43 M/mm3 (4.30-5.90); White Blood Cell Count 11.35 K/mm3 (4.00-11.30)
[2020-12-25 09:19] LABS: Alanine Aminotransfer (ALT/SGP 20 U/L (12-78); Albumin/Globulin Ratio 0.5 (0.8-1.8); Alk Phos 109 U/L (50-136); Anion Gap 5 mmol/L (6-16); Aspartate Aminotrans (AST/SGOT 14 U/L (12-37); Bilirubin, Total 0.2 mg/dL (0.1-1.0); Blood Urea Nitrogen 27 mg/dL (8-24); Bun/Creatinine Ratio 23.5 (12.0-20.0); CO2, Blood 25 mmol/L (21-32); Calcium, Blood 9.1 mg/dL (8.5-10.1); Chloride, Blood 101 mmol/L (98-108); Creatinine, Blood 1.15 mg/dL (0.60-1.20); Globulin, Blood 6.2 g/dL (2.2-4.0); Glomerular Filtration Rate >60 (60-); Glucose, Blood 317 mg/dL (70-99); Sodium, Blood 131 mmol/L (136-145); Total Protein, Blood 9.2 g/dL (6.4-8.2); Troponin I <0.015 ng/mL (0.000-0.040)
[2020-12-25] MEDS ORDERED: MELATONIN5 M1 PO (10:03)
[2020-12-25] MEDS ORDERED: HYDHCL25 PO (10:03)
== END 2020-12-25 10:11 | disposition home or self-care (01) ==
LOC: ER 07:58
PROVIDERS: Emergency Medicine
DX: R06.02 Shortness of breath (principal); G47.00 Insomnia, unspecified; E10.40 Type 1 diabetes mellitus with diabetic neuropathy, unspecified; I10 Essential (primary) hypertension; Z87.891 Personal history of nicotine dependence; Z79.84 Long term (current) use of oral hypoglycemic drugs
CPT/HCPCS: 36415; 71046; 80053; 83880; 84484; 85025; 93005; 93010; 99283-25

== ENCOUNTER 2020-12-28 04:06 | Day surgery (SDC) | payer MEDICARE, OTHER ==
[~2020-12-28 04:06] MED LIST changes: +HYDHCL25 PO; +MELATONIN5 M1 PO
== END 2020-12-28 23:19 | disposition home or self-care (01) ==
LOC: WOUND 04:06
DX: E11.621 Type 2 diabetes mellitus with foot ulcer (principal); L97.416 Non-pressure chronic ulcer of right heel and midfoot with bone involvement without evidence of necrosis; E11.622 Type 2 diabetes mellitus with other skin ulcer; L97.312 Non-pressure chronic ulcer of right ankle with fat layer exposed; L97.822 Non-pressure chronic ulcer of other part of left lower leg with fat layer exposed; R60.0 Localized edema
CPT/HCPCS: A9270

== ENCOUNTER 2021-01-05 08:18 | Inpatient (IN) | payer MEDICARE ==
[~2021-01-05] VITALS: Ht 182.9 cm; Wt 118.0 kg
[2021-01-05 10:04] LABS: BASOPHILS ABSOLUTE AUTO 0.03 K/mm3 (0.00-0.23); BASOPHILS PERCENT AUTO 0 % (0-2); EOSINOPHILS ABSOLUTE AUTO 0.02 K/mm3 (0.00-0.68); EOSINOPHILS PERCENT AUTO 0 % (0-6); Hematocrit 29.7 % (37.0-53.0); Hemoglobin 9.9 g/dL (13.5-17.5); IMMATURE GRAN ABSOLUTE AUTO 0.32 K/mm3 (0.00-0.10); IMMATURE GRAN PERCENT AUTO 2 % (0-1); LYMPHOCYTES ABSOLUTE AUTO 0.78 K/mm3 (0.84-5.20); LYMPHOCYTES PERCENT AUTO 4 % (21-46); MONOCYTES ABSOLUTE AUTO 1.72 K/mm3 (0.16-1.47); MONOCYTES PERCENT AUTO 9 % (4-13); Mean Corpuscular HGB 25.6 pg (26.0-34.0); Mean Corpuscular HGB Conc 33.3 g/dL (31.5-36.5); Mean Corpuscular Volume 77 fL (80-100); Mean Platelet Volume 12.8 fL (9.1-12.4); NEUTROPHILS ABSOLUTE AUTO 16.43 K/mm3 (1.96-9.15); NEUTROPHILS PERCENT AUTO 85 % (41-73); Platelet Count 207 K/mm3 (150-400); RDW Coefficient Variation 16.8 % (11.7-14.2); RDW Standard Deviation 47.2 fL (35.1-46.3); Red Blood Cell Count 3.87 M/mm3 (4.30-5.90)
[2021-01-05 10:17] LABS: Albumin, Blood 2.2 g/dL (3.4-5.0); Albumin/Globulin Ratio 0.4 (0.8-1.8); Bilirubin, Total 0.3 mg/dL (0.1-1.0); Bun/Creatinine Ratio 38.8 (12.0-20.0); Calcium, Blood 8.7 mg/dL (8.5-10.1); Creatinine, Blood 1.34 mg/dL (0.60-1.20); Globulin, Blood 5.5 g/dL (2.2-4.0); Potassium, Blood 5.4 mmol/L (3.5-5.5); Total Protein, Blood 7.7 g/dL (6.4-8.2)
[2021-01-05] MEDS ORDERED: BASAGLAR K100 UNIT/3 SC (11:46)
[2021-01-05] MEDS ORDERED: OXYC5 PO (11:46)
[2021-01-05] MEDS ORDERED: Melatonin5 M1 PO (11:47)
--- NOTE | 2021-01-05 19:41 | NUR ---
SHIFT SUMMARY PT ADMITTED TO UNIT FROM ER. RIGHT 5TH TOE AND FOOT INFECTION. ORTHO/PODIATRY CONSULT NEEDS TO BE FIGURED OUT TOMORROW 01/06/21. RESEARCH NEUROPSYCHOLOGIST RN INFORMED OF THIS. TOLERATING ADA DIET AND FLUIDS. IV FLUIDS AND ABX RUNNING. MEDICATED FOR PAIN WITH 2 MG DILAUDID Q4. TELE NS AT 80. REPORT GIVEN TO RESEARCH NEUROPSYCHOLOGIST RN.
[2021-01-06 05:25] LABS: Hematocrit 30.1 % (37.0-53.0); Hemoglobin 9.8 g/dL (13.5-17.5); Mean Corpuscular HGB 25.5 pg (26.0-34.0); Mean Corpuscular HGB Conc 32.6 g/dL (31.5-36.5); Mean Corpuscular Volume 78 fL (80-100); Platelet Count 230 K/mm3 (150-400); RDW Coefficient Variation 17.1 % (11.7-14.2); RDW Standard Deviation 48.2 fL (35.1-46.3); Red Blood Cell Count 3.85 M/mm3 (4.30-5.90); White Blood Cell Count 19.17 K/mm3 (4.00-11.30)
[2021-01-06 05:59] LABS: Bun/Creatinine Ratio 31.4 (12.0-20.0); Calcium, Blood 8.8 mg/dL (8.5-10.1); Creatinine, Blood 1.4 mg/dL (0.60-1.20); Percent Saturation 7.3 % (20.0-50.0); Potassium, Blood 4.5 mmol/L (3.5-5.5)
--- NOTE | 2021-01-06 07:48 | NUR ---
SHIFT SUMMARY S/P R 5TH DIGIT GANGRENOUS TOE, A/O X4, AMBULATES BUT VERY PAINFUL, ORTHO CONSULT IN PLACE PER ADMITTING PHYSICIAN, PODIATRY NOT AVIALABLE UNTIL FRIDAY, PAIN MINIMALLY MANAGED PER EMAR, PT REPORTS PAIN MEDICATIONS SLOWLY BECOMING LESS EFFECTIVE, NO ACUTE EVENTS THIS SHIFT. CALL LIGHT IN REACH, REPORT GIVEN TO DAY RN.
--- NOTE | 2021-01-06 17:55 | NUR ---
SUMMARY: PT ADMITTED WITH R 5TH GANGRENE TOE. VSS A/O. PT GIVEN 2MG IV DILAUDID Q4 FOR FOOT PAIN, PT REPORTS THAT DILAUDID "USED TO WORK BETTER". PO DILADID OFFERED, PT PREFERS IV. SMALL AMT SS DRAINAGE FROM TOE, WRAPPED IN NON ADHERENT DRESSING AND GAUZE. SPOKE WITH DR. WITT CONCERNING PT, WHO ORDERED PODIATRY CONSULT. MESSAGE LEFT AT DR. BRITO' OFFICE, DR. BRITO RETURNS ON FRIDAY. NO ACUTE SAFETY CONCERNS. WILL REPORT TO NOC RADHA.
--- NOTE | 2021-01-07 00:26 | NUR ---
PT TOOK APART AND REMOVED ENTIRE DRESSING RIGHT FOOT
--- NOTE | 2021-01-07 01:26 | NUR ---
01/06/211999 PTS RIGHT FOOT HAD LARGE AMOUNT SEROSANGINUOUS DRAINAGE NOTED; THIS NURSE CHANGED DRESSING AND APPLIED TELFA, 4X4 AND KERLIX WRAP GENTLY APPLIED; RIGHT FOOT HOT TO TOUCH; #5 DIGIT BLACKENED WITH SURROUNDING SKIN EXCORIATED AND RED; SITE PAINFUL TO TOUCH.
[2021-01-07 04:47] LABS: Anion Gap 8 mmol/L (6-16); Blood Urea Nitrogen 35 mg/dL (8-24); Bun/Creatinine Ratio 29.4 (12.0-20.0); CO2, Blood 22 mmol/L (21-32); Calcium, Blood 8.2 mg/dL (8.5-10.1); Chloride, Blood 103 mmol/L (98-108); Creatinine, Blood 1.19 mg/dL (0.60-1.20); Glomerular Filtration Rate >60 (60-); Glucose, Blood 273 mg/dL (70-99); Potassium, Blood 4.5 mmol/L (3.5-5.5); Sodium, Blood 133 mmol/L (136-145)
[2021-01-07 05:35] LABS: BASOPHILS ABSOLUTE AUTO 0.05 K/mm3 (0.00-0.23); BASOPHILS PERCENT AUTO 0 % (0-2); EOSINOPHILS ABSOLUTE AUTO 0.19 K/mm3 (0.00-0.68); EOSINOPHILS PERCENT AUTO 1 % (0-6); Hematocrit 26.4 % (37.0-53.0); IMMATURE GRAN ABSOLUTE AUTO 0.12 K/mm3 (0.00-0.10); IMMATURE GRAN PERCENT AUTO 1 % (0-1); LYMPHOCYTES ABSOLUTE AUTO 1.84 K/mm3 (0.84-5.20); LYMPHOCYTES PERCENT AUTO 11 % (21-46); MONOCYTES ABSOLUTE AUTO 1.72 K/mm3 (0.16-1.47); MONOCYTES PERCENT AUTO 10 % (4-13); Mean Corpuscular HGB 26.2 pg (26.0-34.0); Mean Corpuscular HGB Conc 34.1 g/dL (31.5-36.5); Mean Corpuscular Volume 77 fL (80-100); Mean Platelet Volume 12.9 fL (9.1-12.4); NEUTROPHILS ABSOLUTE AUTO 13.19 K/mm3 (1.96-9.15); NEUTROPHILS PERCENT AUTO 77 % (41-73); Platelet Count 243 K/mm3 (150-400); RDW Coefficient Variation 17.2 % (11.7-14.2); RDW Standard Deviation 47.9 fL (35.1-46.3); Red Blood Cell Count 3.44 M/mm3 (4.30-5.90); White Blood Cell Count 17.11 K/mm3 (4.00-11.30)
--- NOTE | 2021-01-07 06:29 | NUR ---
SHIFT SUMMARY: 55 Y/O MALE HAD VERY RESTLESS NIGHT ALL SHIFT; PT REFUSED TO KEEP DRESSING APPLIED TO RIGHT FOOT HE FELT IT WAS TO TIGHT AND CREATED INCREASED PAIN WITH SLIGHT MOVEMENT; RIGHT FOOT RED, HOT AND PAINFUL TO TOUCH; PT RATED RIGHT FOOT PAIN 9/10 WITH MODERATE PAIN RELIEF FELT WITH DILAUID ALL SHIFT; PT ALERT AND ORIENTED X 4; BED LOW POSITION WITH CALL LIGHT AT SIDE.
[2021-01-07 14:14] LABS: Vancomycin, Trough 7.5 ug/mL (5.0-10.0)
--- NOTE | 2021-01-07 20:39 | NUR ---
SHIFT SUMMARY PAIN HAS BEEN MANAGED WITH PO AND IV PAIN MEDICATION ALTHOUGH PT REPORTS MINIMAL IMPROVEMENT AFTER MEDICATION. PT IS A 1 ASSIST WHEN OOB. PLAN FOR PODIATRY CONSULT TOMORROW. REPORT GIVEN TO CHARLI GARCAI.
--- NOTE | 2021-01-08 08:25 | NUR ---
SUMMARY PT REQUIRING AND REQUESTING BOTH IV AND PO PAIN MEDS LAS NIGHT. PT HAS NO DRESSING ON R FOOT NOTED WITH SILVIO.PT PENDING CX WITH PODIATRY TODAY.
[2021-01-08 14:14] LABS: Vancomycin, Trough 16.2 ug/mL (5.0-10.0)
--- NOTE | 2021-01-08 18:39 | NUR ---
SHIFT SUMMARY PT A&OX4, VSS. TELE SR @ 69 BPM. CBG COVERAGE PER EMAR. RIGHT FOOT GAUZE BANDAGE DRY/INTACT. PAIN MANAGED WITH 2 MG IV AND 4 MG ORAL TAB DILAUDID. DR BRITO CONSULT CONFIRMED FOR TONIGHT. POWERGLIDE FITO, FLUSHES, UNABLE TO DRAW. AMB SBA TO BRP, VOIDING WELL. IVF/ABX ORDERED. WILL REPORT TO ONCOMING NOC RADHA.
--- NOTE | 2021-01-09 04:32 | NUR ---
SHIFT SUMMARY NO ACUTE CHANGES THIS SHIFT. DRESSING TO RIGHT FOOT REMAINS CDI. MEDICATED WITH ORAL AND IV DILAUDID FOR PAIN PER ORDERS. ENCOURAGING ELEVATION TO RIGHT FOOT. USING URINAL TO VOID. NPO SINCE MIDNIGHT. PLAN FOR PROCEDURE TODAY WITH PODIATRY. USES CALL LIGHT APPROPRIATELY.
[2021-01-09 13:46] LABS: Vancomycin, Trough 16.4 ug/mL (5.0-10.0)
--- NOTE | 2021-01-09 16:46 | NUR ---
SHIFT SUMMARY PT A&OX4, VSS, CBG REQ COVERAGE, TELE S@84 BPM, JOAN PO, VOIDING WELL, USES URINAL, OCCASSIONALLY AMBULATES TO BRP INDEPENDENTLY. RIGHT FOOT DRESSING CHANGED 2X THIS SHIFT. PAIN MANAGED WITH PO AND IV DILAUDID. IV ABX INFUSING PER EMAR ORDERS. PLAN FOR NPO MIDNIGHT FOR O.R. AMPUTATION OF RIGHT LITTLE TOE TOMORROW. WILL REPORT TO ONCOMING NOC RN.
--- NOTE | 2021-01-10 05:09 | NUR ---
SHIFT SUMMARY NO ACUTE CHANGES THIS SHIFT. PT DID SHOWER. R FOOT REDRESSED WITH NONADHERENT PAD + KERLEX. ELEVATED ON PILLOWS. MEDICATING FOR PAIN WITH IV + PO PER ORDERS. IV ABX PER ORDERS. NPO SINCE MIDNIGHT FOR SURGERY TODAY WITH PODIATRY.
[2021-01-10 05:11] LABS: Hematocrit 27.1 % (37.0-53.0); Hemoglobin 9.2 g/dL (13.5-17.5); Mean Corpuscular HGB 25.2 pg (26.0-34.0); Mean Corpuscular HGB Conc 33.9 g/dL (31.5-36.5); Mean Corpuscular Volume 74 fL (80-100); Mean Platelet Volume 12.2 fL (9.1-12.4); Platelet Count 329 K/mm3 (150-400); RDW Standard Deviation 45.9 fL (35.1-46.3); Red Blood Cell Count 3.65 M/mm3 (4.30-5.90); White Blood Cell Count 13.39 K/mm3 (4.00-11.30)
[2021-01-10 05:26] LABS: Albumin, Blood 1.6 g/dL (3.4-5.0); Anion Gap 7 mmol/L (6-16); Blood Urea Nitrogen 22 mg/dL (8-24); Bun/Creatinine Ratio 22.8 (12.0-20.0); CO2, Blood 25 mmol/L (21-32); Calcium, Blood 8.2 mg/dL (8.5-10.1); Chloride, Blood 99 mmol/L (98-108); Creatinine, Blood 0.97 mg/dL (0.60-1.20); Glomerular Filtration Rate >60 (60-); Glucose, Blood 282 mg/dL (70-99); Magnesium, Blood 1.4 mg/dL (1.6-2.4); Phosphorus, Blood 3.9 mg/dL (2.5-4.9); Potassium, Blood 4.2 mmol/L (3.5-5.5); Sodium, Blood 131 mmol/L (136-145)
--- NOTE | 2021-01-10 07:52 | NUR ---
pt reporting pain 02/20 dilaudid 2 mg ivp given pt stated pain goes up to the knee area pt has gauze pt has serosang drainage on dressing changed after shower last night
--- NOTE | 2021-01-10 11:12 | NUR ---
pt req pain meds 2 mg ivp dilaudid given pain back up to 02/[address] saldivar by to see pt oob to bathroom to have a bm
--- NOTE | 2021-01-10 18:12 | NUR ---
pt transported to [facility] via [facility]
[2021-01-11 02:03] LABS: Vancomycin, Trough 24.2 ug/mL (5.0-10.0)
[2021-01-11 13:52] LABS: Vancomycin, Trough 14.3 ug/mL (5.0-10.0)
--- NOTE | 2021-01-11 14:41 | NUR ---
01/11/21 1441 Kusum Hopson VERIFICATIONS: EDIT CHART.
--- NOTE | 2021-01-11 17:13 | NUR ---
SUMMARY: PT IS POD1 TOE AMPUTATION. A/O, VSS. SURGICAL SITE WNL. PT ABLE TO TAKE SHOWER TODAY AND WORKED WITH OT, REFUSED WORK WITH PHYSICAL THERAPY DUE TO PAIN. SEE OT NOTES, PT APPEARS TO MOVE WELL WITH WALKER AND 50% WEIGHT BEAR PRECAUTIONS. CBG'S IN THE 400'S TODAY, DR. DICKENS MADE AWARE. SEE NEW ORDERS IN EMAR. WILL CTM. PT PLEASENT TODAY, PAIN APPEARS TO BE IMPROVED SINCE POST OP. NO SAFETY CONCERNS AT THIS TIME.
--- NOTE | 2021-01-11 18:19 | NUR ---
PT CBG IS 422 TONIGHT, AFTER 20 UNITS OF HUMALOG BEFORE DINNER. DR. DICKENS MADE AWARE, SEE ADJUSTMENT MADE TO SEMGLEE IN EMAR. WILL CTM, PT DENIES ANY SYMPTOMS AT THIS TIME.
--- NOTE | 2021-01-12 01:44 | NUR ---
CBG AND INSULIN: PT CBG ELEVATED AT MIDNIGHT SPOT CHECK. CALL PALCED TO HOSPITALIST, PT CBG TREND AND INSULIN ORDERS REVIEWED W/MD. NEW ORDER FOR 1X DOSES OF HUMALOG AND SEMGLEE, AND TO CHANGE SEMGLEE FROM 50 UNITS DAILY TO 25 UNITS BID. ORDERS CONFIRMED W/MD, UPDATED ORDERS PLACED. PRIMARY RN NOTIIFED.
[2021-01-12 05:05] LABS: Hematocrit 29.6 % (37.0-53.0); Hemoglobin 9.8 g/dL (13.5-17.5); Mean Corpuscular HGB 25.2 pg (26.0-34.0); Mean Corpuscular HGB Conc 33.1 g/dL (31.5-36.5); Mean Corpuscular Volume 76 fL (80-100); Mean Platelet Volume 12.4 fL (9.1-12.4); Platelet Count 443 K/mm3 (150-400); RDW Coefficient Variation 17.1 % (11.7-14.2); RDW Standard Deviation 47.5 fL (35.1-46.3); Red Blood Cell Count 3.89 M/mm3 (4.30-5.90); White Blood Cell Count 15.18 K/mm3 (4.00-11.30)
--- NOTE | 2021-01-12 05:14 | NUR ---
SHIFT SUMMARY: PT POD#2 FOR AMPUTATION OF RT 5TH TOE. DRESSING C/D/I. PT ABLE TO WIGGLE TOES. CAP REFILL WNL. REPORTS N/T TO BLE AT BASELINE. 50%WB TO RT FOOT. PAIN BEING MANAGED WITH ORAL DILAUDID + IV DILAUDID PER EMAR. PT RATING PAIN 8/10. CBG'S ELEVATED >[address] NOTIFIED TWICE. SEE NEW ORDERS AND PREVIOUS NOTE. PT REQUESTING SUGARY SNACKS SVERAL TIMES AND EDUCATED ON DM MANAGEMENT+ADA DIET. PT FRUSTURATED THIS MORNING AND REPORTS BEING IN A BAD MOOD BECAUSE HE IS HUNGRY. PT REFUSING VS AT THIS TIME.
[2021-01-12 06:06] LABS: Anion Gap 6 mmol/L (6-16); Blood Urea Nitrogen 39 mg/dL (8-24); Bun/Creatinine Ratio 35.5 (12.0-20.0); CO2, Blood 27 mmol/L (21-32); Calcium, Blood 8.8 mg/dL (8.5-10.1); Chloride, Blood 99 mmol/L (98-108); Glomerular Filtration Rate >60 (60-); Glucose, Blood 351 mg/dL (70-99); Potassium, Blood 4.6 mmol/L (3.5-5.5); Sodium, Blood 132 mmol/L (136-145)
[2021-01-12 14:28] LABS: Vancomycin, Trough 13.7 ug/mL (5.0-10.0)
[2021-01-12] MEDS ORDERED: VISBIOME 112.51 EACH PO (17:02)
[2021-01-12] MEDS ORDERED: SULTRIDS PO (17:06)
[2021-01-12] MEDS ORDERED: HYDMOR4 PO (17:07)
--- NOTE | 2021-01-12 18:20 | NUR ---
METHADONE SCRIPT: PT GIVEN METHADONE SCRIPT FOR DISCHARGE FROM DR. AREVALO OF 150 MG PO FOR 3 DAYS FOR [facility]. [facility] CALL[facility]. PER ALL 3 PHARMACISTS THEY ARE UNABLE TO FILL A METHADONE DOSE OF THAT SIZE. [facility] CLINIC HAS BEEN UNABLE TO BE REACHED TODAY AND WILL NOT RE OPEN UNTIL FRIDAY DUE TO HOLIDAY. DR. AREVALO MADE AWARE OF THIS. PT GIVEN NEW SCRIPT FOR PO DILAUDID 4MG, WHICH PT APPROVED OF. PLAN IS FOR THIS AMOUNT TO HELP MANAGE PT PAIN UNTIL PT CAN GO TO [facility] CLINIC ON FRIDAY. METHADONE SCRIPT SHREDDED.
--- NOTE | 2021-01-12 18:28 | NUR ---
DISCHARGE: PT SET UP FOR HH AND VISITS TO WOUND CLINIC. FWW DELIVERED TO PT'S ROOM. WET TO DRY DRESSINGS TAKEN OFF R FOOT AND WOUND VAC WITH BLACK FOAM PLACED WITH 120 MMHG CONTINUIOUS SUCTION. NO LEAKS INDICATED. DISCHARGE PAPERWORK PRINTED AND PT EDUCATED. PT GIVEN DILAUDID SCRIPT AND MEDS FAXED TO [facility]. IAN CADET'Autumn WNL. PT LEFT UNIT VIA WHEELCHAIR AT ABOUT 1815 WITH [facility] [place]. PT DISCHARGED WITH PERSONAL ITEMS WELL HIS OWN CANE AND THE WALKER THAT WAS DELIVERED.
== END 2021-01-12 18:17 | disposition home or self-care (01) | DRG 854 ==
LOC: ER 08:18 → SURS 11:47 → ERHOLD 11:47 → SURS 13:58
PROVIDERS: Emergency Medicine; Internal Medicine; Pharmacist; Podiatrist; ADMIT Internal Medicine
PROC: 0Y6M0ZF Detachment at Right Foot, Partial 5th Ray, Open Approach (ICD-10-PCS; principal; 2021-01-10 18:15)
DX: A41.02 Sepsis due to Methicillin resistant Staphylococcus aureus (principal); L03.115 Cellulitis of right lower limb; M86.171 Other acute osteomyelitis, right ankle and foot; E87.1 Hypo-osmolality and hyponatremia; N17.9 Acute kidney failure, unspecified; E11.52 Type 2 diabetes mellitus with diabetic peripheral angiopathy with gangrene; I96 Gangrene, not elsewhere classified; E11.69 Type 2 diabetes mellitus with other specified complication; E11.42 Type 2 diabetes mellitus with diabetic polyneuropathy; E11.22 Type 2 diabetes mellitus with diabetic chronic kidney disease; I12.9 Hypertensive chronic kidney disease with stage 1 through stage 4 chronic kidney disease, or unspecified chronic kidney disease; M54.9 Dorsalgia, unspecified; D50.9 Iron deficiency anemia, unspecified; Z68.33 Body mass index [BMI] 33.0-33.9, adult; N18.30 Chronic kidney disease, stage 3 unspecified; D63.1 Anemia in chronic kidney disease; E66.01 Morbid (severe) obesity due to excess calories; G89.29 Other chronic pain; F41.9 Anxiety disorder, unspecified; F32.9 Major depressive disorder, single episode, unspecified; I25.2 Old myocardial infarction; K21.9 Gastro-esophageal reflux disease without esophagitis; Z79.899 Other long term (current) drug therapy; Z79.82 Long term (current) use of aspirin; Z79.4 Long term (current) use of insulin; Z98.890 Other specified postprocedural states; Z89.422 Acquired absence of other left toe(s); Z87.891 Personal history of nicotine dependence
CPT/HCPCS: 36415; 73620; 80048; 80053; 80069; 80202; 82728; 82947; 83540; 83550; 83605; 83735; 85025; 85027; 87040; 87071; 87075; 87077; 87147; 87186; 87205; 88305; 88311; 93308; 93321; 93922; 94640; 94760; 96365; 96375; 97110; 97116; 97162; 97165; 97535; 99284-25; A9270; C1751; J0295; J1100; J1170; J1650; J2250; J2405; J2543; J2704; J3010; J3370; J3475; J7030; J7050; J7120

== ENCOUNTER 2021-01-19 00:27 | Day surgery (SDC) | payer MEDICARE ==
[~2021-01-19 00:27] MED LIST changes: +BASAGLAR K100 UNIT/3 SC; +Melatonin5 M1 PO
== END 2021-01-19 23:00 | disposition home or self-care (01) ==
LOC: WOUND 00:27
DX: E11.621 Type 2 diabetes mellitus with foot ulcer (principal); L97.515 Non-pressure chronic ulcer of other part of right foot with muscle involvement without evidence of necrosis
CPT/HCPCS: A9270

== ENCOUNTER 2021-02-02 01:39 | Day surgery (SDC) | payer MEDICARE | END 2021-02-02 12:00 | disposition home or self-care (01) | LOC: WOUND 01:39 | DX: E11.621 Type 2 diabetes mellitus with foot ulcer (principal); L97.514 Non-pressure chronic ulcer of other part of right foot with necrosis of bone; L97.512 Non-pressure chronic ulcer of other part of right foot with fat layer exposed; R60.0 Localized edema; Z89.421 Acquired absence of other right toe(s) | CPT/HCPCS: A9270 ==

== ENCOUNTER 2021-02-09 08:00 | Day surgery (SDC) | payer MEDICARE ==
[2021-02-10] MEDS ORDERED: Roxicodone5 MG PO (18:28)
== END 2021-02-09 23:59 | disposition home or self-care (01) ==
LOC: WOUND 08:00
DX: E11.622 Type 2 diabetes mellitus with other skin ulcer (principal); L97.312 Non-pressure chronic ulcer of right ankle with fat layer exposed; E11.621 Type 2 diabetes mellitus with foot ulcer; L97.514 Non-pressure chronic ulcer of other part of right foot with necrosis of bone; L97.812 Non-pressure chronic ulcer of other part of right lower leg with fat layer exposed; R60.0 Localized edema; E11.42 Type 2 diabetes mellitus with diabetic polyneuropathy; I11.0 Hypertensive heart disease with heart failure; I50.9 Heart failure, unspecified; Z89.421 Acquired absence of other right toe(s)
CPT/HCPCS: A9270

== ENCOUNTER 2021-02-10 13:31 | Emergency (ER) | payer MEDICARE ==
[~2021-02-10] VITALS: Ht 182.9 cm; Wt 115.7 kg
[2021-02-10 15:22] LABS: BASOPHILS ABSOLUTE AUTO 0.05 K/mm3 (0.00-0.23); BASOPHILS PERCENT AUTO 1 % (0-2); EOSINOPHILS PERCENT AUTO 2 % (0-6); Hematocrit 25.3 % (37.0-53.0); Hemoglobin 8.1 g/dL (13.5-17.5); IMMATURE GRAN ABSOLUTE AUTO 0.02 K/mm3 (0.00-0.10); IMMATURE GRAN PERCENT AUTO 0 % (0-1); LYMPHOCYTES ABSOLUTE AUTO 2.27 K/mm3 (0.84-5.20); LYMPHOCYTES PERCENT AUTO 26 % (21-46); MONOCYTES ABSOLUTE AUTO 0.62 K/mm3 (0.16-1.47); MONOCYTES PERCENT AUTO 7 % (4-13); Mean Corpuscular HGB 24.8 pg (26.0-34.0); Mean Corpuscular Volume 77 fL (80-100); Mean Platelet Volume 12.1 fL (9.1-12.4); NEUTROPHILS ABSOLUTE AUTO 5.47 K/mm3 (1.96-9.15); NEUTROPHILS PERCENT AUTO 63 % (41-73); Platelet Count 316 K/mm3 (150-400); RDW Coefficient Variation 16.6 % (11.7-14.2); RDW Standard Deviation 47.4 fL (35.1-46.3); Red Blood Cell Count 3.27 M/mm3 (4.30-5.90); White Blood Cell Count 8.63 K/mm3 (4.00-11.30)
[2021-02-10 15:34] LABS: Alanine Aminotransfer (ALT/SGP 17 U/L (12-78); Albumin/Globulin Ratio 0.3 (0.8-1.8); Alk Phos 90 U/L (50-136); Anion Gap 4 mmol/L (6-16); Aspartate Aminotrans (AST/SGOT 20 U/L (12-37); Bilirubin, Total 0.1 mg/dL (0.1-1.0); Blood Urea Nitrogen 26 mg/dL (8-24); Bun/Creatinine Ratio 22.2 (12.0-20.0); CO2, Blood 22 mmol/L (21-32); Calcium, Blood 8.7 mg/dL (8.5-10.1); Chloride, Blood 109 mmol/L (98-108); Creatinine, Blood 1.17 mg/dL (0.60-1.20); Globulin, Blood 6.6 g/dL (2.2-4.0); Glomerular Filtration Rate >60 (60-); Glucose, Blood 149 mg/dL (70-99); Potassium, Blood 5.5 mmol/L (3.5-5.5); Sodium, Blood 135 mmol/L (136-145); Total Protein, Blood 8.6 g/dL (6.4-8.2); Troponin I <0.015 ng/mL (0.000-0.040)
[2021-02-10] MEDS ORDERED: Roxicodone5 MG PO (18:28)
== END 2021-02-10 19:22 | disposition home or self-care (01) ==
LOC: ER 13:31
PROVIDERS: Physician Assistant
DX: L02.612 Cutaneous abscess of left foot (principal); I10 Essential (primary) hypertension; E10.40 Type 1 diabetes mellitus with diabetic neuropathy, unspecified; K21.9 Gastro-esophageal reflux disease without esophagitis; Z87.891 Personal history of nicotine dependence; Z79.82 Long term (current) use of aspirin; Z79.899 Other long term (current) drug therapy
CPT/HCPCS: 36415; 73630; 80053; 83690; 84484; 85025; 85651; 93005; 93010; 96374; 99284-25; J1170

== ENCOUNTER 2021-02-14 14:01 | Inpatient (IN) | payer MEDICARE ==
[~2021-02-14] VITALS: Ht 182.9 cm; Wt 118.4 kg
[~2021-02-14 14:01] MED LIST changes: +Roxicodone5 MG PO
[2021-02-14 14:51] LABS: BASOPHILS ABSOLUTE AUTO 0.03 K/mm3 (0.00-0.23); BASOPHILS PERCENT AUTO 0 % (0-2); EOSINOPHILS ABSOLUTE AUTO 0.02 K/mm3 (0.00-0.68); EOSINOPHILS PERCENT AUTO 0 % (0-6); Hematocrit 27.1 % (37.0-53.0); Hemoglobin 8.7 g/dL (13.5-17.5); IMMATURE GRAN ABSOLUTE AUTO 0.05 K/mm3 (0.00-0.10); IMMATURE GRAN PERCENT AUTO 0 % (0-1); LYMPHOCYTES ABSOLUTE AUTO 1.45 K/mm3 (0.84-5.20); LYMPHOCYTES PERCENT AUTO 11 % (21-46); MONOCYTES ABSOLUTE AUTO 0.66 K/mm3 (0.16-1.47); MONOCYTES PERCENT AUTO 5 % (4-13); Mean Corpuscular HGB 24.8 pg (26.0-34.0); Mean Corpuscular HGB Conc 32.1 g/dL (31.5-36.5); Mean Corpuscular Volume 77 fL (80-100); Mean Platelet Volume 11.7 fL (9.1-12.4); NEUTROPHILS ABSOLUTE AUTO 10.93 K/mm3 (1.96-9.15); NEUTROPHILS PERCENT AUTO 83 % (41-73); Platelet Count 373 K/mm3 (150-400); RDW Coefficient Variation 17.1 % (11.7-14.2); RDW Standard Deviation 47.5 fL (35.1-46.3); Red Blood Cell Count 3.51 M/mm3 (4.30-5.90); White Blood Cell Count 13.14 K/mm3 (4.00-11.30)
[2021-02-14 15:22] LABS: Albumin, Blood 2.1 g/dL (3.4-5.0); Albumin/Globulin Ratio 0.3 (0.8-1.8); Bilirubin, Total 0.2 mg/dL (0.1-1.0); Bun/Creatinine Ratio 21.7 (12.0-20.0); Creatinine, Blood 1.38 mg/dL (0.60-1.20); Globulin, Blood 6.9 g/dL (2.2-4.0); Potassium, Blood 5.4 mmol/L (3.5-5.5)
[2021-02-14] MEDS ORDERED: BUSPIRONE HCL7.5 M1 PO (16:53)
--- NOTE | 2021-02-14 20:13 | NUR ---
transfer report from DRUG COUNSELOR Irma who is being preceptored. Complex PT with multiple problems per his including polysubstance abuse reortedly on high dose Methadone 180 mg & lyrica 150 mg tid with buspar recently dose doubled per rx review. Was getting oral dilaudid & oxycodone with oxy picked up yesterday 10 mg q 6 hours. Discussed with reporting RNS pain meds ordered & hx of depedency on opiods. Will be in contact droplet isolation due to open draining wounds MRSA & MDRI in last 3 months. Recieved abx in ER with Tramo pending administration. Covid 19 results for preop pending with planned BKA planned for tomorrow by DR Montes De Oca per consult in ER. Await admission.
[2021-02-14 20:30] LABS: SARS-Cov-2 (COVID-19) PCR, MMC NEGATIVE (NEGATIVE)
[2021-02-14] MEDS ORDERED: OXYC10TA19 PO (20:54)
--- NOTE | 2021-02-15 02:23 | NUR ---
DR TUCKER updated on PTs request for additional meds for rt le pain control. She rx percocet 5/325 mg 1 tab q 6 prn as PT is narcotic dependant & tolerant. Will administer & assess effect.
[2021-02-15 05:16] LABS: BASOPHILS ABSOLUTE AUTO 0.04 K/mm3 (0.00-0.23); BASOPHILS PERCENT AUTO 1 % (0-2); EOSINOPHILS PERCENT AUTO 1 % (0-6); Hematocrit 22.6 % (37.0-53.0); Hemoglobin 7.1 g/dL (13.5-17.5); IMMATURE GRAN ABSOLUTE AUTO 0.02 K/mm3 (0.00-0.10); IMMATURE GRAN PERCENT AUTO 0 % (0-1); LYMPHOCYTES ABSOLUTE AUTO 1.83 K/mm3 (0.84-5.20); LYMPHOCYTES PERCENT AUTO 23 % (21-46); MONOCYTES ABSOLUTE AUTO 0.83 K/mm3 (0.16-1.47); MONOCYTES PERCENT AUTO 10 % (4-13); Mean Corpuscular HGB 24.1 pg (26.0-34.0); Mean Corpuscular HGB Conc 31.4 g/dL (31.5-36.5); Mean Corpuscular Volume 77 fL (80-100); Mean Platelet Volume 11.2 fL (9.1-12.4); NEUTROPHILS ABSOLUTE AUTO 5.27 K/mm3 (1.96-9.15); NEUTROPHILS PERCENT AUTO 65 % (41-73); Platelet Count 283 K/mm3 (150-400); RDW Standard Deviation 47.8 fL (35.1-46.3); Red Blood Cell Count 2.94 M/mm3 (4.30-5.90); White Blood Cell Count 8.09 K/mm3 (4.00-11.30)
[2021-02-15 05:43] LABS: Albumin, Blood 1.7 g/dL (3.4-5.0); Albumin/Globulin Ratio 0.3 (0.8-1.8); Bilirubin, Total 0.2 mg/dL (0.1-1.0); Bun/Creatinine Ratio 21.2 (12.0-20.0); Calcium, Blood 8.4 mg/dL (8.5-10.1); Creatinine, Blood 1.32 mg/dL (0.60-1.20); Globulin, Blood 5.6 g/dL (2.2-4.0); Potassium, Blood 4.4 mmol/L (3.5-5.5); Total Protein, Blood 7.3 g/dL (6.4-8.2)
--- NOTE | 2021-02-15 17:34 | NUR ---
SHIFT SUMMARY PT IS AOX4. PT MEDICATED FOR RLE PAIN THIS SHIFT PER EMAR. PT DENIES N/V, SOB. PT HAD HYPOGLYCEMIA X2 THIS SHIFT-SEE EMAR FOR INTERVENTIONS PER PHYSICIAN. PT IS INDEPENDENT IN ROOM. PT REMAINS NPO AND AWAITING PROCEDURE. PLAN IS FOR RLE AMPUTATION WITH ABX. PT HAS NOT HAD VISITORS AND REMAINS IN DROPLET ISOLATION. PT IS IN BED, CALL LIGHT IN REACH, BED IN LOW POSITION.
[2021-02-15 21:07] LABS: Vancomycin, Trough 29.1 ug/mL (5.0-10.0)
--- NOTE | 2021-02-16 05:05 | NUR ---
SHIFT SUMMARY: PT IS ALERT AND ORIENTED. PT IS ANXIOUS BUT COOPERATIVE WITH CARE. PT CALLS APPROPRIATELY, BUT OFTEN. PT IS INDEPENDENT IN THE ROOM. PT REPORTS PAIN IN HIS RLE THROUGHOUT THE NIGHT, MEDICATING PER EMAR. PT DENIES NAUSEA, VOMITING, AND SOB. PT LOST IV ACCESS, WAS ABLE TO RE-ESTABLISH ACCESS ALTHOUGH THE SITE IS FAIRLY POSITIONAL AND ITS LENGTH OF LIFE SEEMS QUESTIONABLE. PT AWAKE FOR MOST OF THE SHIFT, EVENTUALLY FELL ASLEEP IN THE BLOCK MACHINE OPERATOR HOURS. BED IN LOW POSITION, CALL LIGHT WITHIN REACH. WILL CONTINUE TO MONITOR.
[2021-02-16 05:10] LABS: BASOPHILS ABSOLUTE AUTO 0.09 K/mm3 (0.00-0.23); BASOPHILS PERCENT AUTO 1 % (0-2); EOSINOPHILS ABSOLUTE AUTO 0.29 K/mm3 (0.00-0.68); EOSINOPHILS PERCENT AUTO 4 % (0-6); Hematocrit 23.6 % (37.0-53.0); Hemoglobin 7.4 g/dL (13.5-17.5); IMMATURE GRAN ABSOLUTE AUTO 0.04 K/mm3 (0.00-0.10); IMMATURE GRAN PERCENT AUTO 1 % (0-1); LYMPHOCYTES ABSOLUTE AUTO 2.49 K/mm3 (0.84-5.20); LYMPHOCYTES PERCENT AUTO 30 % (21-46); MONOCYTES ABSOLUTE AUTO 0.78 K/mm3 (0.16-1.47); MONOCYTES PERCENT AUTO 10 % (4-13); Mean Corpuscular HGB 24.6 pg (26.0-34.0); Mean Corpuscular HGB Conc 31.4 g/dL (31.5-36.5); Mean Corpuscular Volume 78 fL (80-100); Mean Platelet Volume 11.7 fL (9.1-12.4); NEUTROPHILS ABSOLUTE AUTO 4.54 K/mm3 (1.96-9.15); NEUTROPHILS PERCENT AUTO 55 % (41-73); Platelet Count 335 K/mm3 (150-400); RDW Coefficient Variation 17.3 % (11.7-14.2); RDW Standard Deviation 49.2 fL (35.1-46.3); Red Blood Cell Count 3.01 M/mm3 (4.30-5.90); White Blood Cell Count 8.23 K/mm3 (4.00-11.30)
[2021-02-16 05:33] LABS: Anion Gap 7 mmol/L (6-16); Blood Urea Nitrogen 28 mg/dL (8-24); Bun/Creatinine Ratio 18.5 (12.0-20.0); CO2, Blood 24 mmol/L (21-32); Calcium, Blood 8.4 mg/dL (8.5-10.1); Chloride, Blood 107 mmol/L (98-108); Creatinine, Blood 1.51 mg/dL (0.60-1.20); Glomerular Filtration Rate 48 (60-); Glucose, Blood 146 mg/dL (70-99); Potassium, Blood 4.7 mmol/L (3.5-5.5); Sodium, Blood 138 mmol/L (136-145); Vancomycin, Random 21.4 ug/mL
[2021-02-16 13:32] LABS: Vancomycin, Random 17.2 ug/mL
--- NOTE | 2021-02-16 14:24 | NUR ---
PT RECENTLY HERE FROM MEDICAL FLOOR ROOM 304 BY BED WITH ISOLATION PROTOCOL IN PLACE. PT REPORTS PAIN 02/20. DENIES N/V, SOB. History, Chart, Medications and Allergies reviewed before start of procedure. Lungs clear T/O to Auscultation. Pre-Op teaching done. Pt verbalizes understanding.
--- NOTE | 2021-02-16 16:52 | NUR ---
ALERT. ORIENTED. UNLABORED RESPIRATIONS. VERY ANXIOUS. MEDICATED FOR MOSTLY BACK PAIN WITH LITTLE RESULTS BUT TOLERABLE. IN O.R. AT THIS TIME FOR RLE AMPUTATION. AWAITING RETURN.
--- NOTE | 2021-02-16 19:40 | NUR ---
ASSUMED CARE OF PATIENT. REPORT RECEIVED FROM RADHA WEAVER. PT IS ADMITTED TO ICU S/P R BKA THIS AFTERNOON BY DR ROSA. PT HAS HAD POOR CONTROL OF PAIN DESPITE POPLITEAL BLOCK AND CONSIDERABLE DOSES OF PAIN MEDICATIONS AND ANXIOLYTICS. DRESSING OVER R BKA IS CDI, EXT IS ELEVATED ON A PILLOW AND COLD PACK PLACED.
--- NOTE | 2021-02-16 21:20 | NUR ---
DR ROSA AND BAKARI CONTACTED FOR PAIN CONTROL ISSUES. WILL HAVE HOSPITALIST MANAGE PER DR. ROSA. ORDERS FOR INCREASED DOSING ON DILAUDID HOSPITAL SECURITY OFFICER RECEIVED AND METHADONE ORDER RECEIVED.
[2021-02-16 22:05] LABS: Hematocrit 25.6 % (37.0-53.0); Hemoglobin 8.3 g/dL (13.5-17.5)
--- NOTE | 2021-02-16 22:40 | NUR ---
PT CONTINUES TO BE IN UNCONTROLLED PAIN RATED 10/10. DR. VILLEGAS CONTACTED FOR ORDERS.
--- NOTE | 2021-02-17 01:20 | NUR ---
REPORT GIVEN TO RADHA NICK
--- NOTE | 2021-02-17 03:08 | NUR ---
ASSUMED CARE OF PATIENT @0130. PATIENT IS ALERT AND ORIENTED X4, AGITATED AND ANXIOUS. 02 SATS >95% ON RA. SR @80s, DENIES CP/PRESSURE. R BKA DRESSING C/D/I. MEDICATED FOR ANXIETY AND PAIN PER EMAR. PT USES URINAL. PT TEACHING PROVIDED ON HIGH BLOOD GLUCOSE AND APPROPRIATE FOOD CHOICES, INSULIN COVERAGE PROVIDED FOR HIGH BLOOD GLUCOSE PER HOSPITALIST ORDERS. REPSOSITIONS INDEPENDENTLY. VSS. CALL LIGHT IN REACH.
[2021-02-17 04:09] LABS: BASOPHILS ABSOLUTE AUTO 0.02 K/mm3 (0.00-0.23); BASOPHILS PERCENT AUTO 0 % (0-2); EOSINOPHILS PERCENT AUTO 0 % (0-6); Hematocrit 22.4 % (37.0-53.0); Hemoglobin 7.2 g/dL (13.5-17.5); IMMATURE GRAN ABSOLUTE AUTO 0.03 K/mm3 (0.00-0.10); IMMATURE GRAN PERCENT AUTO 0 % (0-1); LYMPHOCYTES PERCENT AUTO 15 % (21-46); MONOCYTES ABSOLUTE AUTO 0.66 K/mm3 (0.16-1.47); MONOCYTES PERCENT AUTO 7 % (4-13); Mean Corpuscular HGB 24.4 pg (26.0-34.0); Mean Corpuscular HGB Conc 32.1 g/dL (31.5-36.5); Mean Corpuscular Volume 76 fL (80-100); Mean Platelet Volume 11.2 fL (9.1-12.4); NEUTROPHILS ABSOLUTE AUTO 7.28 K/mm3 (1.96-9.15); NEUTROPHILS PERCENT AUTO 78 % (41-73); Platelet Count 336 K/mm3 (150-400); RDW Coefficient Variation 17.2 % (11.7-14.2); RDW Standard Deviation 46.4 fL (35.1-46.3); Red Blood Cell Count 2.95 M/mm3 (4.30-5.90); White Blood Cell Count 9.39 K/mm3 (4.00-11.30)
[2021-02-17 04:36] LABS: Anion Gap 7 mmol/L (6-16); Blood Urea Nitrogen 27 mg/dL (8-24); CO2, Blood 23 mmol/L (21-32); Calcium, Blood 8.1 mg/dL (8.5-10.1); Chloride, Blood 104 mmol/L (98-108); Creatinine, Blood 1.23 mg/dL (0.60-1.20); Glomerular Filtration Rate >60 (60-); Glucose, Blood 391 mg/dL (70-99); Potassium, Blood 4.8 mmol/L (3.5-5.5); Sodium, Blood 134 mmol/L (136-145)
--- NOTE | 2021-02-17 07:07 | NUR ---
PATIENT IS STILL ALERT & ORIENTED X4. AGITATED AND YELLS AT TIMES BECAUSE HE FEEL LIKE HE IS NOT BEING ALLOWED TO SLEEP. PROVIDED QUIET ENVIRONMENT MUCH POSSIBLE. 02 SATS >95% ON RA. VSS, NO ACUTE CHANGE. PATIENT SLEPT MOST THE TIME HE WAS IN MY CARE. CALL LIGHT IN REACH.
--- NOTE | 2021-02-17 10:45 | NUR ---
TRANSFER: PT TO ROOM 209 FROM ICU. PT REPORTS 10/10 PAIN. VERY ANXIOUS. 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 PT STUMP SOCK TO RIGHT BKA CDI AT THIS TIME, ELEVATED ON PILLOW. ICE PACK PLACED BEHIND RIGHT KNEE. PT GIVEN COFFEE. WILL MEDICATE FOR PAIN ABLE. WILL MONITOR WOUND DRAINAGE. WILL CONT ABX. CALL LIGHT IN REACH.
[2021-02-17 15:51] LABS: Vancomycin, Trough 26.2 ug/mL (5.0-10.0)
--- NOTE | 2021-02-17 17:50 | NUR ---
PT HAS BEEN STABLE SINCE TRANSFER FROM ICU. PT HAS CONTINUALLY COMPLAINED OF HIGH PAIN. DOCTORS HAVE SPOKE WITH HIM IN LENGTH REGARDING PAIN CONTROL MEASURES. PT HAS BEEN UP TO BSC WITH 2 PERSON MAX ASSIST WITH WALKER. HAD BM THIS AFTERNOON. VOIDING WELL WITH URINAL. PT JOAN DIET. BLOOD SUGARS WELL CONTROLLED. STUMP DRESSING CHANGED PER DOCTOR SHELLEY. VANCO HELD PER PHARMACY CONSULT FOR VANCO TROUGH. AM LABS TO REPEAT. PT CALLS OFTEN BUT APPROPRIATELY NEEDED.
[2021-02-18 03:58] LABS: BASOPHILS ABSOLUTE AUTO 0.06 K/mm3 (0.00-0.23); BASOPHILS PERCENT AUTO 1 % (0-2); EOSINOPHILS ABSOLUTE AUTO 0.19 K/mm3 (0.00-0.68); EOSINOPHILS PERCENT AUTO 2 % (0-6); Hematocrit 28.1 % (37.0-53.0); Hemoglobin 8.7 g/dL (13.5-17.5); IMMATURE GRAN ABSOLUTE AUTO 0.03 K/mm3 (0.00-0.10); IMMATURE GRAN PERCENT AUTO 0 % (0-1); LYMPHOCYTES ABSOLUTE AUTO 3.34 K/mm3 (0.84-5.20); LYMPHOCYTES PERCENT AUTO 28 % (21-46); MONOCYTES ABSOLUTE AUTO 0.84 K/mm3 (0.16-1.47); MONOCYTES PERCENT AUTO 7 % (4-13); Mean Corpuscular HGB 24.6 pg (26.0-34.0); Mean Corpuscular Volume 80 fL (80-100); NEUTROPHILS ABSOLUTE AUTO 7.38 K/mm3 (1.96-9.15); NEUTROPHILS PERCENT AUTO 62 % (41-73); Platelet Count 392 K/mm3 (150-400); RDW Coefficient Variation 17.3 % (11.7-14.2); RDW Standard Deviation 50.3 fL (35.1-46.3); Red Blood Cell Count 3.53 M/mm3 (4.30-5.90); White Blood Cell Count 11.84 K/mm3 (4.00-11.30)
[2021-02-18 04:14] LABS: Anion Gap 5 mmol/L (6-16); Blood Urea Nitrogen 19 mg/dL (8-24); Bun/Creatinine Ratio 17.4 (12.0-20.0); CO2, Blood 22 mmol/L (21-32); Calcium, Blood 8.7 mg/dL (8.5-10.1); Chloride, Blood 106 mmol/L (98-108); Creatinine, Blood 1.09 mg/dL (0.60-1.20); Glomerular Filtration Rate >60 (60-); Glucose, Blood 159 mg/dL (70-99); Potassium, Blood 4.6 mmol/L (3.5-5.5); Sodium, Blood 133 mmol/L (136-145); Vancomycin, Random 16.6 ug/mL
--- NOTE | 2021-02-18 06:33 | NUR ---
SHIFT SUMMARY POD2 R BKA, A/O X4, VSS, PT WAS VERY ANXIOUS T/O THE SHIFT, CONTINUALLY ASKING FOR MORE PAIN MEDICATIONS AND ATIVAN PRIOR TO IT BEING AVAILABLE, EPIC RADIANT ANALYST ON DEMAND DOSE WAS NOTED TO BE AVAILABLE AT MOST OF THESE TIMES HE WAS REQUESTING, PT EDUCATED TO TAKE ADVANTAGE OF THESE AVAILABLE DOSES IF HE FELT HE NEEDED THEM. PT EDUCATED ON IMPORTANCE OF ICE AND ELEVATION OF EFFECTED EXTREMITY THOUGH HE DID NOT APPEAR TO BE INTERESTED IN KEEPING HIS LEG ELEVATED, HE WAS USUALLY SITTING ON THE SIDE OF THE BED WHEN ENTERING THE ROOM. NO ACUTE EVENTS THIS SHIFT. CALL LIGHT IN REACH, WILL CTM AND REPORT TO DAY RN.
--- NOTE | 2021-02-18 19:00 | NUR ---
PT HAS BEEN STABLE THIS SHIFT. HYPERTENSIVE WITH PAIN. EKG TECH DC'D THIS AM. PT ON IVP DILAUDID AND PO PAIN MEDICATION ORDERED. CONT TO REPORT HIGH PAIN. PT HAD FALL THIS AM BUT HAS HAD NO COMPLICATIONS THIS SHIFT. STUMP DRESSING REMAINS CDI. CONTINUING TO ENCOURAGE ICE AND ELEVATION. PT JOAN DIET. EDUCATED PT ABOUT FOOD CHOICES BLOOD SUGAR HAS INCREASED TODAY. PT VOIDING WELL. PT HAD BM TODAY. IV ABX DC'D.
--- NOTE | 2021-02-19 07:38 | NUR ---
SHIFT SUMMARY POD3 R BKA, A/O X4, VSS, TOLERATING PO, PAIN CONTROLLED c SIGNIFICANTLY LESS MEDICATION THAN PRIOR NOC SHIFT ALTERNATING DILAUDID AND PERCOCET. PT FOUND SLEEPING ON SEVERAL ROUNDINGS WHICH WAS AN IMPROVEMENT COMPARED TO PRIOR NOC SHIFT. NO ACUTE EVENTS THIS SHIFT, CALL LIGHT IN REACH, REPORT GIVEN TO DAY RN.
--- NOTE | 2021-02-19 17:59 | NUR ---
SHIFT SUMMARY PT IS A/O X4. S/P R BKA W/ STUMP SOCK IN PLACE, CDI. PT HAS REPORTED PAIN IN R STUMP TODAY AND HAS BEEN MEDICATED PER ORDERS. PT WAS ABLE TO SLEEP MOST OF THE MORNING AND REST T/O THE AFTERNOON. PT IS ABLE TO SIT ON EDGE OF BED IND TO USE URINAL. HE WAS SEEN BY THERAPY TODAY. PT HAS BEEN TOLERATING PO INTAKE AND VOIDING. PT RESTING AT THIS TIME, CALL LIGHT IN REACH.
--- NOTE | 2021-02-19 19:26 | NUR ---
RECEIVED REPORT AND ASSUMED CARE OF PT. HE IS LYING IN BED WITH EYES CLOSED, RESPIRATIONS EVEN AND UNLABORED. ARON.
--- NOTE | 2021-02-19 23:07 | NUR ---
PT CONTINUES TO REPORT MINIMAL PAIN RELIEF. 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 DISCUSSED NON-OPIATE PAIN MEDICATION INTERVENTIONS AND PT STATES HE IS AMENDABLE. ON-CALL PHYSICIAN CONTACTED, NEW ORDER FOR CELEBREX AND TO RESTART HOME DOSE OF LYRICA.
--- NOTE | 2021-02-20 06:07 | NUR ---
SHIFT SUMMARY: JACKY IS A&OX4. VSS, NO ACUTE EVENTS OVERNIGHT. R BKA STUMP SOCK C/D&I. HE IS TOLERATING PO INTAKE WELL, DIABETIC EDUCATION PROVIDED, URINATING WITHOUT DIFFICULTY. HE REPORTS MINIMAL PAIN CONTROL WITH THE METHADONE, CELEXA, DILAUDID, AND ATIVAN. DISCUSSED PAIN MANAGEMENT, EDUCATION PROVIDED. HE IS LYING IN BED WITH THE CALL LIGHT IN REACH. WILL REPORT TO DAY SHIFT RN.
--- NOTE | 2021-02-20 15:41 | NUR ---
PLAN TO DISCHARGE TO [facility] THIS EVENING.
[2021-02-20 16:48] LABS: SARS-Cov-2 (COVID-19) PCR, MMC NEGATIVE (NEGATIVE)
--- NOTE | 2021-02-20 17:54 | NUR ---
SHIFT SUMMARY PT IS A/O X4. MOVES SELF IND IN BED, SITTING ON EDGE OF BED IN. PT TOLERATING PO INTAKE AND VOIDING. PAIN MANAGED WITH PO PAIN MEDS PER ORDERS. PT ALSO FREQUENTLY REQUESTING IV ATIVAN. SPOKE WITH PHYSICIAN; PLAN TO WEAN FROM IV ATIVAN TO PO ATIVAN. PLAN WAS TO DC TO [facility] TODAY, HOWEVER THERE IS QUESTION ABOUT ACCEPTANCE REGARDING HISTORY OF DRUG ABUSE. WAITING FOR UPDATE FROM [facility] OR [facility] AT THIS TIME.
--- NOTE | 2021-02-21 04:34 | NUR ---
SHIFT SUMMARY POD5 R BKA. NO ACUTE CHANGES OVERNIGHT. AOX4. VSS. MOVES SELF IN BED, PT IS CURRENTLY SITTING AT THE EDGE OF BED, SNACKING. PT HAS BEEN REQUESTING FOR A SNACK FREQUENTLY. EDUCATED HIM WITH ADA DIET/CONTROL. HE WOULD ALSO REQUEST FOR ATIVAN AND PAIN MEDS EVERY 4 HR. I HAVE BEEN ALTERNATING ATIVAN 1MG PO AND ATIVAN 0.5MG IV Q8. PT ALSO TAKES 4MG DILAUDID PO FOR PAIN. PT REPORTS PHANTOM PAIN ON RLE. DENIES N/T. RLE ON ICE. TOLERATING PO INTAKE DENIES N/V. MOVES AND TRANSFER IN BSC W/ 1 SBA. VOIDING WELL. CBG AT HS WAS 191, NO COVERAGE FOR INSULIN NEEDED LAST NIGHT. CALL LIGHT WITHIN REACH. WILL PROVIDE REPORT TO ONCOMING NURSE. PT WAITING FOR PLACEMENT.
--- NOTE | 2021-02-21 19:31 | NUR ---
SUMMARY: PT IS POD5 R BKA. PT IS A/O, VSS. SURGICAL SITE IS WNL WITH STUMP SOCK IN PLACE. ENCOURAGING ELEVATION AND ICE. PT CONTINUES TO REQUEST 4MG PO DILAUDID Q4 AND PO ATIVAN Q8. PT REPORTED FEELING MORE ANXIOUS TODAY CONCERNING FUTURE PLAN FOR HIS CARE. ATTEMPTING TO WEAN FROM IV ATIVAN, MEDICATED X1. CBG'S HAVE BEEN STABLE. PT ABLE TO WORK WITH THERAPY TODAY, TOLERATED WELL. NO ACUTE SAFETY CONCERNS AT THIS TIME. REPORT PASSED TO EVENS AUGUSTIN RN.
--- NOTE | 2021-02-22 04:38 | NUR ---
SHIFT SUMMARY POD6 FOR RIGHT BKA. AOX4. VSS. RLE WITH STUMP SOCK, CDI. NO ACUTE CHANGES OVERNIGHT. PT HAD BEEN REPORTING PAIN, MEDICATED WITH 4MG DILAUDID PO Q4 AND HE HAS BEEN CONSISTENTLY (FREQUENT) ASKING FOR SNACKS T/O SHIFT. PT ALSO REPORTS FEELING ANXIOUS. MEDICATED WITH ATIVAN PO (1MG) AND IV (0.5MG)- ALTERNATING. ATTEMPT TO WEAN PT ON IV ATIVAN, PROVIDE ADA DIET EDUCATION. CBG WAS 160 AT HS. PT VOIDING WELL. TOLERATING PO. DENIES N/V. PT ALSO DENIES NUMBNESS AND TINGLING BUT REPORTED SOME MUSCLE SPASM. CALL LIGHT WITHIN REACH. WILL PROVIDE REPORT TO ONCOMING NURSE.
--- NOTE | 2021-02-22 18:54 | NUR ---
SUMMARY:PT IS POD6 R BKA. NO ACUTE CHANGE TODAY, VSS, A/O. PT CONTINUES TO C/O PAIN, AND ANXIETY. MEDICATED PER EMAR. SURGICAL SITE DRESSING CHANGED THIS MORNING WITH EXUDRY AND KYLE WRAP WITH STUMP SOCK PLACED OVER TOP. SURGICAL SITE WNL. NO SAFETY CONCERNS, REPORT GIVEN TO CHARLI MAJOR RN.
--- NOTE | 2021-02-23 00:55 | NUR ---
PAIN PT ASKED FOR PAIN MEDICATION APPROXIMATELY 2 HOURS AFTER PRIOR ADMINISTRATION. AFTER CONFIRMING THAT IT WAS NOT TIME FOR ANOTHER DOSE I WENT IN TO DISCUSS THIS WITH HIM. PAUSING BRIEFLY OUTSIDE HIS DOOR IT WAS QUIET IN THE ROOM AND I THOUGHT THAT THE PATIENT MAY BE SLEEPING WAS THE CASE EARLIER IN THE SHIFT WHEN HE HAD CALLED FOR PAIN MEDS AND FELL ASLEEP SHORTLY AFTER. UPON ENTERING THE ROOM THE PATIENT BEGAN TO MOAN IF THE PAIN WAS SUDDENLY INCREASING. I DISCUSSED WITH HIM THAT IT WAS NOT TIME FOR PAIN MEDICATION YET AND THAT THE NEXT AVAILABLE DOSE WOULDN'T BE UNTIL AROUND 0200. THE PATIENT THEN ASKED FOR ATIVAN BUT WAS ONLY INTERESTED IN GETTING IT IN IV FORM. PER DAY RN REPORT, AND CONFIRMED REVIEWING DR NOTES FROM EARLIER ROUNDING, I DISCUSSED THE DR DESIRE TO AVOID THE IV ROUTE IF POSSIBLE. THE PT APPEARED TO BE A LITTLE AGGITATED BUT WAS WILLING TO TAKE THE ATIVAN PO.
--- NOTE | 2021-02-23 03:48 | NUR ---
SHIFT SUMMARY POD7 R BKA, A/O X4, VSS, PT CONDITION REMAINS UNCHANGED SINCE PRIOR SHIFT, PT SEEMS TO GET MINIMAL USE OUT OF HIS PAIN MEDICATION WHICH IS LIKELY DUE TO EXTENDED USE, ANXIETY APPEARS TO BE MINIMAL T/O SHIFT c PT ONLY ASKING FOR ATIVAN WHEN HE IS UNABLE TO HAVE PAIN MEDS DUE TO INADEQUATE TIME PASSING SINCE PRIOR DOSE, PO ATIVAN APPEARS TO BE MORE THAN ADEQUATE FOR MANAGING ANXIETY. NO ACUTE EVENTS THIS SHIFT. CALL LIGHT IN REACH, WILL CTM AND REPORT TO DAY RN.
--- NOTE | 2021-02-23 05:21 | NUR ---
EDUCATION DISCUSSED PAIN MANAGEMENT AND HOW EFFECTIVE THE PATIENT FEELS HE IS GETTING WITH HIS CURRENT MEDICATIONS. PT STATES THAT HE USED TO USE VERY LARGE DOSES OF IV MEDICATIONS TO SELF MEDICATE IN THE PAST. PT DID NOT REACT WHEN DISCUSSING THE POSSIBILITY OF CHANGING PAIN MEDICATION IF THE CURRENT FORM IS NOT BEING EFFECTIVE. PT EDUCATED ON IMPORTANCE OF MANAGING PAIN WITHOUT REVERTING TO IV PAIN MEDICATIONS.
--- NOTE | 2021-02-23 10:12 | NUR ---
PT ASSISTED TO BATHROOM, THEN TO CHAIR WITH GB AND WALKER. ASSISTED WITH ADL'S PRN.
--- NOTE | 2021-02-23 13:36 | NUR ---
REPORT GIVEN TO GENOVEVA Flannery RN WHO IS ASSUMING CARE AT THIS TIME.
--- NOTE | 2021-02-23 13:45 | NUR ---
ASSUMED CARE OF PT FROM MEG Lopez RN AT THIS TIME.
--- NOTE | 2021-02-23 17:54 | NUR ---
SHIFT SUMMARY PT POD #7 FOR RIGHT BKA. PT IS A/O X4 BUT IS ANXIOUS. MEDICATED WITH ATIVAN X1 AND FOR PAIN WELL. REPORTS CONSTANT PAIN IN BACK. BLOOD GLUCOSE STABLE THIS SHIFT. VSS. WILL REPORT TO ONCOMING RN.
--- NOTE | 2021-02-23 18:31 | NUR ---
PT FELL OUT OF BED. BLOOD NOTED ON DRESSING BUT RAMANA INTACT. PT REPORTS NO INJURY AND VSS BUT REPORTS INCREASED PAIN AT THE SITE. CALL PLACED TO DR. ROBLERO AND ORDERS RECEIVED.
--- NOTE | 2021-02-24 05:51 | NUR ---
SHIFT SUMMARY: JACKY IS A&OX4. VSS, NO ACUTE EVENTS OVERNIGHT. HE CONTINUES TO ASK FOR SNACKS FREQUENTLY. DIABETIC EDUCATION PROVIDED, PT KNOWLEDGABLE, BUT IS NOT INTERESTED IN MAKING HEALTHY DECISIONS. HE WAS ALSO FOUND WITH HIS STUMP SOCK AND DRESSING REMOVED FROM HIS R BKA. WOUND CARE EDUCATION PROVIDED, PT ENCOURAGED NOT TO TOUCH THE SURGICAL SITE, ESPEICALLY WITH UNWASHED HANDS. HE IS TOLERATING PO INTAKE WELL, USING THE URINAL WITHOUT DIFFICULTY, AND HAS NOT ATTEMPTED TO GET OUT OF BED INDEPENDENTLY THIS SHIFT. HE IS LYING IN BED WITH THE CALL LIGHT IN REACH. WILL REPORT TO DAY SHIFT RN.
[2021-02-24 10:02] LABS: Hematocrit 26.6 % (37.0-53.0); Hemoglobin 8.3 g/dL (13.5-17.5)
[2021-02-24 10:26] LABS: Bun/Creatinine Ratio 35.3 (12.0-20.0); Creatinine, Blood 2.01 mg/dL (0.60-1.20); Potassium, Blood 5.8 mmol/L (3.5-5.5)
--- NOTE | 2021-02-24 17:46 | NUR ---
SHIFT SUMMARY PT A&OX4, VSS, CBGS CNI, JOAN PO, VOIDING WELL IN URINAL, AMB WITH SBA & FWW TO BRP X1 TODAY FOR BM. REPOSITIONS SELF WELL. DRESSING CHANGED TODAY. PT REMOVED STUMP SOCK & DRESSING, EDU PT TO NOT REMOVE DRESSING AND NOT TO TOUCH INCISION. PAIN MANAGED PER EMAR. WILL REPORT TO ONCOMING NOC RN.
--- NOTE | 2021-02-25 04:59 | NUR ---
SHIFT SUMMARY: JACKY IS A&OX4. VSS, NO ACUTE EVENTS OVERNIGHT. HE CONTINUES TO REPORT MINIMAL PAIN CONTROL WITH THE PRESCRIBED MEDICATIONS AND INTERVENTIONS. HE IS USING THE URINAL WITHOUT DIFFICULTY, TOLERATING PO INTAKE WELL, AND USES THE CALL LIGHT APPROPRIATELY. HE HAS LEFT THE DRESSING TO HIS RIGHT UNMOLESTED THIS SHIFT. HE IS LYING IN BED WITH THE CALL LIGHT IN REACH. WILL REPORT TO DAY SHIFT RN.
--- NOTE | 2021-02-25 15:20 | NUR ---
SHIFT SUMMARY PT A&OX4, VSS/RA, CBG CNI, JOAN PO, VOIDING WELL USING URINAL, TRANSFERS SELF BETWEEN CHAIR AND BED, REPOSITIONS SELF WELL. POD9 R BKA, DRESSING CHANGED TODAY - ABD PAD WITH GAUZE WRAP AND STUMP SOCK. PAIN TREATED PER EMAR, ALL PO MEDICATIONS. WILL REPORT TO ONCOMING NOC RN.
--- NOTE | 2021-02-25 19:21 | NUR ---
RECEIVED REPORT AND ASSUMED CARE OF PT. HE IS SITTING UP IN BED C/O PAIN. MEDICATED PER SEP. DISCUSSED APPROPRIATE BLOOD SUGAR PARAMETERS. WCTM.
--- NOTE | 2021-02-25 22:05 | NUR ---
PT CALLED STATING THAT THE DRESSING HAD COME OFF OF HIS RIGHT LEG. WOUND CLEANSED AND FRESH DRSG APPLIED INCLUDING NEW STUMP SOCK. WOUND ON BOTTOM OF STUMP FROM PT's FALL ON FRIDAY IS DEVELOPING A SCAB AND REDNESS AROUND WOUND. SLIGHT REDNESS AROUND RAMANA NOTED. OTHERWISE, RAMANA INTACT AND NO INDURATION SEEN. WCTM.
--- NOTE | 2021-02-25 23:30 | NUR ---
PT REQUESTING MORE SNACKS, DISCUSSED BLOOD SUGAR AND INFECTION CONTROL. IT WAS SUGGESTED THAT PERHAPS JACKY IS EATING IN RESPONSE TO STRESS. HE DID EXPRESS CONCERN OVER GETTING INTO HIS APARTMENT AND MOBILITY ONCE INSIDE HIS APARTMENT. HE STATED THAT HE DOESN'T THINK TRANSPORT WILL BE ABLE TO GET HIM INSIDE AND THAT HE THINKS HE WOULD HAVE TO CRAWL ON HIS HANDS AND KNESS UP THE STAIRS. HE ALSO STATED THAT HE WOULD NOT BE ABLE TO FIT INSIDE HIS BATHROOM WITH A WALKER AND THAT HE DOESN'T FEEL HE HAS THE ABILITY TO MOVE HIMSELF SAFELY YET. HE WAS GIVEN A PAD OF PAPER TO WRITE SPECIFIC AREAS OF CONCERN TO ADDRESS WITH PHYSICAL THERAPY TOMORROW. WILL REPORT THESE CONCERNS TO DAY SHIFT RN.
[2021-02-26 04:59] LABS: Bun/Creatinine Ratio 33.9 (12.0-20.0); Calcium, Blood 8.6 mg/dL (8.5-10.1); Creatinine, Blood 1.68 mg/dL (0.60-1.20); Potassium, Blood 5.7 mmol/L (3.5-5.5)
--- NOTE | 2021-02-26 05:11 | NUR ---
SHIFT SUMMARY: JACKY IS A&OX4. VSS, NO ACUTE EVENTS OVERNIGHT. HE CONTINUES TO REPORT MINIMAL PAIN CONTROL WITH MEDICATIONS PER MAR. HE IS TOLERATING PO INTAKE WELL, USING THE URINAL WITHOUT DIFFICULTY, AND IS A ONE PERSON ASSIST TO THE BATHROOM WITH THE GAIT BELT AND FWW. HE HAS MADE A LIST OF HIS CONCERNS TO SHARE WITH PT AND THE ROUNDING PHYSICIAN. HE IS LYING IN BED WITH THE CALL LIGHT IN REACH. WILL REPORT TO DAY SHIFT RN.
--- NOTE | 2021-02-26 07:48 | NUR ---
CONTACTED DR. ROSA TO UPDATE HIM ON STATUS OF PT'S WOUND. NO NEW ORDERS AT THIS TIME.
--- NOTE | 2021-02-26 08:32 | NUR ---
DR NOTIFIED OF PT NOT HAVING IV, REPORTS WILL CHANGE ORDERS.
[2021-02-26 10:54] LABS: SARS-Cov-2 (COVID-19) PCR, MMC NEGATIVE (NEGATIVE)
--- NOTE | 2021-02-26 12:11 | NUR ---
DR ROSA HERE TO SEE PT. DISCUSSED PT'S STATUS.
[2021-02-27 04:47] LABS: BASOPHILS ABSOLUTE AUTO 0.12 K/mm3 (0.00-0.23); BASOPHILS PERCENT AUTO 2 % (0-2); EOSINOPHILS ABSOLUTE AUTO 0.41 K/mm3 (0.00-0.68); EOSINOPHILS PERCENT AUTO 6 % (0-6); Hematocrit 28.3 % (37.0-53.0); Hemoglobin 8.8 g/dL (13.5-17.5); IMMATURE GRAN ABSOLUTE AUTO 0.04 K/mm3 (0.00-0.10); IMMATURE GRAN PERCENT AUTO 1 % (0-1); LYMPHOCYTES ABSOLUTE AUTO 3.34 K/mm3 (0.84-5.20); LYMPHOCYTES PERCENT AUTO 46 % (21-46); MONOCYTES ABSOLUTE AUTO 0.73 K/mm3 (0.16-1.47); MONOCYTES PERCENT AUTO 10 % (4-13); Mean Corpuscular HGB 25.1 pg (26.0-34.0); Mean Corpuscular HGB Conc 31.1 g/dL (31.5-36.5); Mean Corpuscular Volume 81 fL (80-100); Mean Platelet Volume 12.2 fL (9.1-12.4); NEUTROPHILS ABSOLUTE AUTO 2.58 K/mm3 (1.96-9.15); NEUTROPHILS PERCENT AUTO 36 % (41-73); Platelet Count 383 K/mm3 (150-400); RDW Coefficient Variation 19.1 % (11.7-14.2); RDW Standard Deviation 55.2 fL (35.1-46.3); White Blood Cell Count 7.22 K/mm3 (4.00-11.30)
[2021-02-27 05:04] LABS: Bun/Creatinine Ratio 34.4 (12.0-20.0); Creatinine, Blood 1.57 mg/dL (0.60-1.20); Potassium, Blood 5.4 mmol/L (3.5-5.5)
--- NOTE | 2021-02-27 06:32 | NUR ---
POD 11 S/P R BKA. PT VSS T/O NIGHT. DRESSING AND STUMP SOCK CDI. PT DENIED N/T. PAIN MGD PER EMAR AND W/ICE PACKS PER PT REQ. PT JOAN PO, ADA DIET OPTIONS ENC. PT PLEASANT AND COOPERATIVE W/CARE. AWAITING DC PLANNING.
--- NOTE | 2021-02-27 16:30 | NUR ---
PT REPORTS HAVING HEARTBURN, ACIDY TASTE IN MOUTH. DISCUSSED WITH DR. VILLEGAS. SEE ORDERS.
--- NOTE | 2021-02-28 07:22 | NUR ---
PT PLEASANT AND COOPERATIVE, VSS, DRESSING CDI. PAIN MGD PER EMAR; MED FOR BREAKTHROUGH PAIN X2. ADA DIET REINFORCED. CONT TO AWAIT DC PLANNING.
--- NOTE | 2021-02-28 18:38 | NUR ---
SHIFT SUMMARY PT A/O X4 AND PLEASANT. HE IS POST OP FOR R BKA. TREATED FOR PAIN PER EMR. NEW STUMP SOCK IN PLACE. VSS. WILL REPORT TO CHARLI GARCIA.
[2021-03-01 05:16] LABS: Albumin/Globulin Ratio 0.4 (0.8-1.8); Bilirubin, Total 0.1 mg/dL (0.1-1.0); Bun/Creatinine Ratio 30.7 (12.0-20.0); Calcium, Blood 9.2 mg/dL (8.5-10.1); Creatinine, Blood 1.99 mg/dL (0.60-1.20); Globulin, Blood 5.1 g/dL (2.2-4.0); Total Protein, Blood 7.1 g/dL (6.4-8.2)
--- NOTE | 2021-03-01 06:05 | NUR ---
SHIFT SUMMARY POD#13 BKA AAOX4. DISCOMFORT CONTROLLED WITH 4MG PO DILAUDID Q6H. NO NAUSEA/EMESIS. DRESSING TO RIGHT STUMP C/D/I. PT UP IN ROOM WITH FWW, 1 PERSON MODERATE ASSIST. PT DENIES SOB/CP. NO ACUTE CHANGES OVER NIGHT. PT RESTED WELL T/O NIGHT.
--- NOTE | 2021-03-01 17:27 | NUR ---
pt states pain adequately controlled with po meds. right stump with rosalinda intact, no drainage at suture site. pt up to chair with 1 person assist. pt awaiting discharge plans
[2021-03-02 04:27] LABS: BASOPHILS PERCENT AUTO 1 % (0-2); EOSINOPHILS ABSOLUTE AUTO 0.46 K/mm3 (0.00-0.68); EOSINOPHILS PERCENT AUTO 6 % (0-6); Hematocrit 26.1 % (37.0-53.0); Hemoglobin 8.1 g/dL (13.5-17.5); IMMATURE GRAN ABSOLUTE AUTO 0.02 K/mm3 (0.00-0.10); IMMATURE GRAN PERCENT AUTO 0 % (0-1); LYMPHOCYTES ABSOLUTE AUTO 3.35 K/mm3 (0.84-5.20); LYMPHOCYTES PERCENT AUTO 41 % (21-46); MONOCYTES ABSOLUTE AUTO 0.95 K/mm3 (0.16-1.47); MONOCYTES PERCENT AUTO 12 % (4-13); Mean Corpuscular HGB 25.2 pg (26.0-34.0); Mean Corpuscular Volume 81 fL (80-100); Mean Platelet Volume 12.3 fL (9.1-12.4); NEUTROPHILS PERCENT AUTO 41 % (41-73); Platelet Count 264 K/mm3 (150-400); RDW Coefficient Variation 19.9 % (11.7-14.2); RDW Standard Deviation 58.4 fL (35.1-46.3); Red Blood Cell Count 3.21 M/mm3 (4.30-5.90); White Blood Cell Count 8.28 K/mm3 (4.00-11.30)
[2021-03-02 04:45] LABS: C-REACTIVE PROTEIN, EXT RANGE 2.57 mg/dL (0.000-0.300)
[2021-03-02 04:46] LABS: Albumin, Blood 2.2 g/dL (3.4-5.0); Albumin/Globulin Ratio 0.4 (0.8-1.8); Bilirubin, Total 0.2 mg/dL (0.1-1.0); Bun/Creatinine Ratio 32.7 (12.0-20.0); Calcium, Blood 8.7 mg/dL (8.5-10.1); Creatinine, Blood 1.99 mg/dL (0.60-1.20); Globulin, Blood 5.1 g/dL (2.2-4.0); Potassium, Blood 5.4 mmol/L (3.5-5.5); Total Protein, Blood 7.3 g/dL (6.4-8.2)
--- NOTE | 2021-03-02 06:13 | NUR ---
SHIFT SUMMARY POD#14 BKA AAOX4. PAIN CONTROLLED WITH 4MG PO DILAUDID Q6H. NO NAUSEA/EMESIS. DRESSING TO RIGHT STUMP C/D/I. GOOD PO INTAKE + OUTPUT. ADA DIET, CHEMBGs AC + HS WITH SS COVERAGE, COVERAGE NOT INDICIATED THIS SHIFT. NO ACUTE CHANGES OVER NIGHT. PT RESTED WELL T/O NIGHT WITH CALL LIGHT IN REACH.
--- NOTE | 2021-03-02 10:10 | NUR ---
1010 TRANSFERRED VIA WHEELCHAIR TO [facility]
--- NOTE | 2021-03-02 10:56 | NUR ---
1010 PATIENT RECEIVED FROM SURGICAL FLOOR AND TRANSFERRED TO [facility]. RESTING COMFORTLY, VOICES NO CONCERNS. DRESSING INTACT, CALL LIGHT WITHIN REACH.
--- NOTE | 2021-03-02 16:20 | NUR ---
1445- PATIENT SAID HE FELT HUNGRY. ASKED TO HAVE BLOOD SUGAR CHECKED. BLOOD SUGAR WAS 92. 1600-PT WAS HERE WORKING WITH PATIENT, PATIENT STATES PAIN LEVEL HAS DECREASED TO6.
--- NOTE | 2021-03-02 16:57 | NUR ---
1700-EMR SPECIALIST WILL CALL FRIEND AT [facility] WHICH IS OPENED M-F ONLY.
--- NOTE | 2021-03-02 17:33 | NUR ---
1730 SHIFT OVERVIEW: PATIENT STATES PAIN LEVEL HAS BEEN TOLERABLE. ABLE TO USE WALKER WHILE HOPPING BUT TIRES EASILY THIS WAY. EATING AND DRINKING WITHOUT NAUSEA OR VOMITING. STUMP DRESSING REMAINS DRY AND INTACT.
--- NOTE | 2021-03-02 17:54 | NUR ---
PT ATTEMPTED TO GET OUT OF BED BY HIMSELF. PT FELL HE WAS ATTEMPTING TO GET UP. RADHA PEREZ AND RADHA NASSAR ALONG WITH BUDDY HOLLIS AND BUDDY DING ASSISTED PT BACK TO BED. PT STATES HE DID NOT HIT HIS HEAD. PTS STUMP OBSERVED TO BE BLEEDING THROUGH THE DRESSING. RADHA PEREZ REMOVED DRESSING AND PER CLEANED INCISION WITH HYDROGEN PEROXIDE AND GAUZE. STUMP WAS REDRESSED WITH BACITRACIN, EXUDRY, AND ANOTHER STOCKINETTE. PTS STUMP APPEARED TO BE OOZING ON THE LATERALSIDE OF INCISION, BUT WAS SLOWING. DR. AREVALO UPDATED BY THIS RN ABOUT PATIENT'S STATUS. NO NEW ORDERS RECEIVED. WILL CONTINUE TO MONITOR.
--- NOTE | 2021-03-02 21:29 | NUR ---
PTS GLUCOSE LEVEL CHECKED AT 2019 RESULT WAS 147. PER INSULIN SCALE, GLUCOSE LEVEL BELOW 150 INSULIN NOT INDICATED AT THIS TIME. WILL CONTINUE TO MONITOR
--- NOTE | 2021-03-02 21:59 | NUR ---
PT REQUESTING PO PAIN MEDICATION DILAUDID TO Q4 FROM Q6 HOURS PT HAD A FALL EARLIER TODAY AND HIS PAIN IS 10/10. CALL PUT OUT TO MD LINCOLN, HE SAID "NO, I'M NOT CHANGING IT." PT UPDATED ON MD'S RESPONSE AND PT THANKED US FOR TRYING." PT IN BED, LIGHTS OUT, IN LOW LOCKED POSITION, CALL LIGHT IN REACH.
--- NOTE | 2021-03-02 23:15 | NUR ---
PT SLEEPING, CALL LIGHT IN REACH, BED IN LOW LOCKED POSITION. WILL GIVE DILAUDID PAIN MED WHEN DUE. CONT TO MONITOR.
--- NOTE | 2021-03-03 02:12 | NUR ---
PT HUNGRY AND WANTED SNACKS, BROUGHT DIABETIC PUDDING, CHEESE AND MILK AND HERBER CRACKERS. PT SLEEPING ON AND OFF THROUGH THE NIGHT, RECEIVED PAIN MED WHEN IT WAS TIME FOR HIM TO HAVE IT.
--- NOTE | 2021-03-03 05:50 | NUR ---
PT WANTED A 1/2 SANDWICH AFTER DINNER AND HIS PAIN MED. PRN PAIN MED IS SCHEDULED Q6HRS, AND WASN'T DUE. HE HAD US CALL HIS DOCTOR TO SEE IF HE WOULD CHANGE IT TO EVERY 4HRS LIKE IT USED TO BE. WE DID, AND DOCTOR REFUSED. MEDICATED W/PAIN MED AT APPROPRIATE TIME. GAVE PT A SNACK AROUND MIDNIGHT, PO FLUIDS AT BEDSIDE. PT SLEPT WELL THE REMAINDER OF THE NIGHT. CALL LIGHT IN REACH AND BED IN LOW, LOCKED POSITION.
--- NOTE | 2021-03-03 08:56 | NUR ---
LATE ENTRY: BEFORE MEDS WERE GIVEN PT STARTED TO MOAN WHEN HE SAW US ARRIVE TO HIS ROOM, PT REQUESTED PAIN MEDS, THEY WERE GIVEN ORDERED. PT HAS A LOT OF REQUESTS, NEED TO GET UP TO RESTROOM, HE WAS TAKEN BY WHEELCHAIR AND HAD A BM. PT BACK TO ROOM WITHOUT DIFFICULTY. PT ASKS FOR BREAKFAST AND AFTER CBG WAS DONE THAT WAS DELIVERD, HE USES HIS CALL LIGHT OFTEN ASKING FOR COFFEE AND LIGHTS ON OR OFF. HIS CALL LIGHT IS IN REACH AND HE HAS FLUIDS AT BEDSIDE.
--- NOTE | 2021-03-03 09:51 | NUR ---
SEMGLEE 20 UNITS WAS NOT GIVEN ORDER WAS CHANGED AND IT WAS GIVEN. SEMGLEE 10 UNITS.
--- NOTE | 2021-03-03 10:55 | NUR ---
HOSPITALIST IN TO SEE PATIENT TODAY.
--- NOTE | 2021-03-03 11:10 | NUR ---
PT REQUESTS ANOTHER SNACK. PT WAS GIVEN SNACK BY BUDDY.
--- NOTE | 2021-03-03 13:52 | NUR ---
PT CALLS FOR HELP TO SCRATCH HIS BACK, HE WAS PROVIDED WITH A ROLLED TOWEL TO HELP HIM SCRATCH HIS BACK, SKIN ON BACK WAS CLEAR AND PINK,NOTHING UNUSUAL TO NOTE. HE ALSO REQUESTS AN ICE PACK TO PLACE UNDER HIS KNEE AND WAS ENCOURAGE TO ALSO ELEVATE THE STUMP TO HELP WITH PAIN AND SWELLING. HE HAD REMOVED HIS DRESSING. HE ASKS IF HE COULD LEAVE IT OFF FOR A LITTLE WHILE TO ALLOW IT TO BREATHE. I SAID HE COULD DO THAT. THE INCISION LOOKS PINK WITHOUT DRAINAGE OR SIGNS OF INFECTION.
--- NOTE | 2021-03-03 17:17 | NUR ---
LATE ENTRY: 1600 PT CALLS FOR RN. HE ASKS TO HAVE A WARM WASH CLOTH TO WASH HANDS. IT WAS GIVEN, THEN HE CALLS OUT THAT HE NEEDS HYDROGEN PEROXIDE TO CLEAN THE SURGICAL SITE. THE RN DISCOVERS THAT HE HAD BEEN USING THE WARM WASH CLOTH TO SCRUB THE SURGICAL SITE, HE HAD SMEARS OF BLOOD ON THE WASH RAG AND APPEARS HE HAD PICKED AT THE SCABS. HE IS ALSO PICKING AT OTHER SCABS ON HIS BODY. HE WAS TOLD THAT HE SHOULD NOT DO THAT AND I WAS ABLE TO REWRAP THE WOUND ORDERED. I ENCOURAGED HIM TO CALL FOR RN IF HE NEEDS CARE TO THE SURGICAL WOUND OR HELP WITH OTHER IRRITATED AREAS. HE AGREES TO CALL THE RN. 1725 HE IS EATING DINNER AND HE SEEMS MORE COMFORTABLE WITH THE SURGICAL SITE REDRESSED.
--- NOTE | 2021-03-03 18:31 | NUR ---
PT USES CALL LIGHT FREQUENTLY. PT NEEDS CONSTANT REMINDING TO NOT PICK AT SCABS AND SURGICAL SITE. HE HAS A LARGE APPETITE AND REQEST SNACKS OFTEN.
--- NOTE | 2021-03-03 23:17 | NUR ---
INSULIN NOT GIVEN AT 2099 DUE TO BLOOD SUGAR BEING 122 @ 2114. ACCORDING TO SLIDING SCALE INSULIN DOSING, ONLY GIVE IT IF BLOOD SUGAR OVER 150.
--- NOTE | 2021-03-04 01:22 | NUR ---
LATE ENTRY: APPROXIMATELY 2099, PT ASKED FOR A HALF A SANDWHICH WHICH WAS PROVIDED. APPROXIMATELY 2129, PT ASKED FOR HERBER CRACKERS AND A MILK WHICH WERE PROVIDED. APPROXIMATELY 0, PT ASKED FOR MORE HERBER CRACKERS AGAIN, RN TOLD PT HE NEEDED PROTEIN AND HAD ALREADY HAD ALOT OF CARBS THIS EVENING SO RN BROUGHT 2 CHEESE STICKS TO PT. PT INSTRUCTED TO TRY TO SLEEP SO HIS BODY WILL HEAL. WARM BLANKET BROUGHT TO PT.
--- NOTE | 2021-03-04 05:29 | NUR ---
PT UP TO BATHROOM IN W/C 2 TIMES THROUGHOUT THE EVENING/NIGHT WITH ASSISTANCE. RX'D WITH DILAUDID IN THE EVENING. PT INSTRUCTED NOT TO RUB ANYTHING ON HIS STUMP OR TRY TO CLEAN IT HIMSELF, THAT IS OUR JOB. DRESSING C/D/I. SLEPT AFTER MULTIPLE REQUESTS FOR FOOD DURING THE EVENING WHICH HE RECEIVED, BUT GAVE HIM CHEESE INSTEAD OF MORE HERBER CRACKERS TO CUT THE CARBS AND INCREASE HIS PROTEIN TO HELP PROMOTE HEALING.
[2021-03-04 06:15] LABS: BASOPHILS ABSOLUTE AUTO 0.07 K/mm3 (0.00-0.23); BASOPHILS PERCENT AUTO 1 % (0-2); EOSINOPHILS PERCENT AUTO 6 % (0-6); Hematocrit 27.5 % (37.0-53.0); Hemoglobin 8.6 g/dL (13.5-17.5); IMMATURE GRAN ABSOLUTE AUTO 0.02 K/mm3 (0.00-0.10); IMMATURE GRAN PERCENT AUTO 0 % (0-1); LYMPHOCYTES ABSOLUTE AUTO 2.72 K/mm3 (0.84-5.20); LYMPHOCYTES PERCENT AUTO 40 % (21-46); MONOCYTES ABSOLUTE AUTO 0.84 K/mm3 (0.16-1.47); MONOCYTES PERCENT AUTO 12 % (4-13); Mean Corpuscular HGB 25.2 pg (26.0-34.0); Mean Corpuscular HGB Conc 31.3 g/dL (31.5-36.5); Mean Corpuscular Volume 81 fL (80-100); Mean Platelet Volume 12.4 fL (9.1-12.4); NEUTROPHILS ABSOLUTE AUTO 2.82 K/mm3 (1.96-9.15); NEUTROPHILS PERCENT AUTO 41 % (41-73); Platelet Count 261 K/mm3 (150-400); RDW Standard Deviation 58.4 fL (35.1-46.3); Red Blood Cell Count 3.41 M/mm3 (4.30-5.90); White Blood Cell Count 6.87 K/mm3 (4.00-11.30)
[2021-03-04 06:26] LABS: Albumin, Blood 2.3 g/dL (3.4-5.0); Albumin/Globulin Ratio 0.4 (0.8-1.8); Bilirubin, Total 0.1 mg/dL (0.1-1.0); Bun/Creatinine Ratio 33.2 (12.0-20.0); Calcium, Blood 8.9 mg/dL (8.5-10.1); Creatinine, Blood 1.96 mg/dL (0.60-1.20); Globulin, Blood 5.7 g/dL (2.2-4.0); Potassium, Blood 5.3 mmol/L (3.5-5.5)
--- NOTE | 2021-03-04 08:29 | NUR ---
0700 INSULIN HELD DUE TO CBG OF 57 - FOLLOWING S/S ORDERS.
--- NOTE | 2021-03-04 10:28 | NUR ---
PATIENT ASSISTED TO BATHROOM VIA WC TO BATHROOM-GIVEN ORAL CARE SUPPLIES, RAZOR, AND BED BATH WIPES GIVEN WITH CALL LIGHT IN REACH. PATIENT WANTS TO DO CARE INDEPENDTLY. WILL PULL CALL LIGHT WHEN READY TO BE TRANSFERRED BACK TO ROOM. LINENS CHANGED IN ROOM WHILE PATIENT UP IN BATHROOM.
--- NOTE | 2021-03-04 12:49 | NUR ---
PT STATES THAT HE BUMPED HIS LT HEEL ON THE BED RAIL WHEN HE PLACED HIS FOOT OVER THE SIDE OF THE BED. PT STATES THAT HE THEN NOTICED IT WAS BLEEDING AND MOTIONED THIS NURSE INTO ROOM. LT HEEL BLEEDING, CLEANED WITH WOUND LATRINE CLEANER, DRIED WITH 4X4 AND COVERED WITH 2X2 AND TEGADERM BANDAID WOULD NOT STICK TO HEEL.
--- NOTE | 2021-03-04 17:49 | NUR ---
PATIENT IN BED. ASSISTED WITH REARRANING AND CLEANING LINENS. WATER REFILLED. PATIENT STATING PAIN HAS GONE DOWN TO 5/10 AFTER PAIN MEDICATION GIVEN WHICH TOLERABLE TO HIM. FOUND PATIENT TO BE PULLING OFF TAPE AROUND AMPUTATION SITE AND TOUCHING STUMP. ENCOURAGED PATIENT TO LEAVE BANDAGE AND WOUND ALONE. EDUCATED ON INFECTION AND DISRUPTING HEALING PROCESS WHEN PICKING AT SCABS,WOUND,OR INTRODUCING NEW BACTERIA TO AREA. PT STATES UNDERSTANDING AND STATES ITS " FINE AND YOU NURSES NEED TO STOP GETTING SO WORKED UP ABOUT IT" NO OTHER NEEDS IDENTIFIED AT PRESENT/ CALL LIGHT IN REACH
--- NOTE | 2021-03-04 23:27 | NUR ---
ROAST BEEF SANDWICH GIVEN TO PATIENT PER HIS REQUEST AFTER TAKING PAIN PILL
--- NOTE | 2021-03-05 01:30 | NUR ---
PATIENT REQUESTED MILK AND HERBER CRACKERS FOR SNACK. SNACK GIVEN.
--- NOTE | 2021-03-05 05:59 | NUR ---
JACKY SEEMED TO BE IN BETTER SPIRITS TONIGHT, MORE PLEASANT TO INTERACT WITH, AND VERY COOPERATIVE. HE STILL IS ASKING FOR SEVERAL SNACKS THROUGHOUT THE SHIFT, BUT IT SEEMED A LITTLE LESS FREQUENTLY TONIGHT. I DIDN'T CATCH HIM PICKING AT HIS STUMP THIS SHIFT, AND HE EVEN SEEMED PROUD OF THE WAY HE HAD IT WRAPPED UP TIGHTLY IN THE STOCKINETTE, SO MAYBE THE PICKING BEHAVIOR IS SOMETHING HE SAVES FOR THE DAY SHIFT. HE WAS UP TO THE BATHROOM A COUPLE OF TIMES, WITH STAFF AND WHEELCHAIR ASSIST. HE WAS QUIET FOR A GOOD PORTION OF THE SHIFT AFTER ABOUT 2 AM, ONCE HE FINALLY SETTLED IN. HE DID TAKE HIS SLEEPING AID TONIGHT, SO THAT HELPED.
[2021-03-05 06:10] LABS: BASOPHILS ABSOLUTE AUTO 0.06 K/mm3 (0.00-0.23); BASOPHILS PERCENT AUTO 1 % (0-2); EOSINOPHILS ABSOLUTE AUTO 0.34 K/mm3 (0.00-0.68); EOSINOPHILS PERCENT AUTO 6 % (0-6); Hematocrit 23.8 % (37.0-53.0); Hemoglobin 7.5 g/dL (13.5-17.5); IMMATURE GRAN ABSOLUTE AUTO 0.01 K/mm3 (0.00-0.10); IMMATURE GRAN PERCENT AUTO 0 % (0-1); LYMPHOCYTES ABSOLUTE AUTO 2.41 K/mm3 (0.84-5.20); LYMPHOCYTES PERCENT AUTO 43 % (21-46); MONOCYTES ABSOLUTE AUTO 0.69 K/mm3 (0.16-1.47); MONOCYTES PERCENT AUTO 12 % (4-13); Mean Corpuscular HGB 25.6 pg (26.0-34.0); Mean Corpuscular HGB Conc 31.5 g/dL (31.5-36.5); Mean Corpuscular Volume 81 fL (80-100); Mean Platelet Volume 12.8 fL (9.1-12.4); NEUTROPHILS ABSOLUTE AUTO 2.14 K/mm3 (1.96-9.15); NEUTROPHILS PERCENT AUTO 38 % (41-73); Platelet Count 209 K/mm3 (150-400); RDW Coefficient Variation 19.9 % (11.7-14.2); RDW Standard Deviation 58.5 fL (35.1-46.3); Red Blood Cell Count 2.93 M/mm3 (4.30-5.90); White Blood Cell Count 5.65 K/mm3 (4.00-11.30)
[2021-03-05 06:41] LABS: Bun/Creatinine Ratio 31.3 (12.0-20.0); Calcium, Blood 8.9 mg/dL (8.5-10.1); Creatinine, Blood 1.95 mg/dL (0.60-1.20)
--- NOTE | 2021-03-05 14:11 | NUR ---
PATIENT RESTING COMFORTABLY. APPLIED OINTMENT AND LIGHT DRESSINGS TO OPEN AREAS ON LEFT LEG. REQUESTS FREQUENT SNACKS, DISCUSSED HAVING LIGHT SNACKS ONLY TO KEEP HIS BLOOD SUGAR IN CONTROL.
--- NOTE | 2021-03-06 00:38 | NUR ---
STOCKINETTE AND EXUDRY REMOVED. INCISION LINE NO REDDNESS OR OOZING. SMALL DIME SIZE WOUND NOTICED ON TIP OF STUMP, NO BLEEDING. APPEARS TO BE HEALING. PT COMPLAINTS OF ITICHY SKIN, ADVISED PT TO NOT SCRATCH AND REASSURED HIM ITS APART OF THE HEALTING PROCESS. PT SCRATCHED STUMP AGAINST ADVICE. BROKE SKIN. BACITRACIN APPLIED. WILL PROVIDE NEW STOCKINETTE PER PT TO HELP HIM NOT SCRATCH.
--- NOTE | 2021-03-06 05:22 | NUR ---
PATIENT LYING COMFORTABLY IN BED IN NO APPARENT DISTRESS. CALL LIGHT WITHIN REACH.
[2021-03-06 05:47] LABS: BASOPHILS ABSOLUTE AUTO 0.06 K/mm3 (0.00-0.23); BASOPHILS PERCENT AUTO 1 % (0-2); EOSINOPHILS ABSOLUTE AUTO 0.34 K/mm3 (0.00-0.68); EOSINOPHILS PERCENT AUTO 4 % (0-6); Hematocrit 24.7 % (37.0-53.0); Hemoglobin 7.6 g/dL (13.5-17.5); IMMATURE GRAN ABSOLUTE AUTO 0.02 K/mm3 (0.00-0.10); IMMATURE GRAN PERCENT AUTO 0 % (0-1); LYMPHOCYTES ABSOLUTE AUTO 2.26 K/mm3 (0.84-5.20); LYMPHOCYTES PERCENT AUTO 28 % (21-46); MONOCYTES ABSOLUTE AUTO 0.71 K/mm3 (0.16-1.47); MONOCYTES PERCENT AUTO 9 % (4-13); Mean Corpuscular HGB 24.8 pg (26.0-34.0); Mean Corpuscular HGB Conc 30.8 g/dL (31.5-36.5); Mean Corpuscular Volume 81 fL (80-100); Mean Platelet Volume 12.5 fL (9.1-12.4); NEUTROPHILS ABSOLUTE AUTO 4.76 K/mm3 (1.96-9.15); NEUTROPHILS PERCENT AUTO 59 % (41-73); Platelet Count 203 K/mm3 (150-400); RDW Coefficient Variation 19.8 % (11.7-14.2); RDW Standard Deviation 58.4 fL (35.1-46.3); Red Blood Cell Count 3.06 M/mm3 (4.30-5.90); White Blood Cell Count 8.15 K/mm3 (4.00-11.30)
--- NOTE | 2021-03-06 06:00 | NUR ---
MR. SANCHEZ, SLEPT OFF AND ON THROUGHOUT THE NIGHT. PT CONTINUES TO HAVE A LARGE APPETITE, SNACKS PROVIDED, VSS, BUT DID HAVE COMPLAINTS OF PAIN. MEDICATED APPROPIATELY, DRESSING WAS REMOVED FROM HIS RIGHT STUMP, RAMANA IN PLACE, INCISION LINE PINK BUT NO OOZING OR ODOR. HE DID HAVE TROUBLE WITH IT BEING ITCHY, ENCOURAGED HIM NOT TO SCRATCH AND EXPLAINED RISK OF INFECTION. HE DID SCRATCH AND BREAK SKIN ABOVE THE INCISION LINE. BACITRACIN WAS APPLIED AND NEW STOCKINETTE PROVIDED. OFFERED HIM COFFEE AND ORAL CARE THIS MORNING BUT HE DECLINED. WILL GIVE REPORT TO DAY RN
[2021-03-06 06:10] LABS: Bun/Creatinine Ratio 33.9 (12.0-20.0); Calcium, Blood 8.4 mg/dL (8.5-10.1); Creatinine, Blood 1.89 mg/dL (0.60-1.20); Potassium, Blood 5.2 mmol/L (3.5-5.5)
--- NOTE | 2021-03-06 13:48 | NUR ---
PATIENT RESTING TODAY. INCISION INTACT, ENCOURAGED TO NOT SCRATCH WOUNDS. LOTION APPLIED WITH RELIEF VERBALIZED. APPETITE GOOD. PT AND OT HERE TO WORK WITH PATIENT WITH GOOD TOLERANCE. UP TO BATHROOM WITH ASSISTANCE. WATCHING TV.
--- NOTE | 2021-03-07 04:01 | NUR ---
LATE ENTRY: UPON INITIAL ASSESMENT AT START OF SHIFT. PT WITH COMPLAINT OF SMALL DIME SIZE WOUND ON LEFT HEEL. NO BLEEDING OR DRAINAGE NOTED. BACITRACIN APPLIED AND COVERED WITH NON-ADHERENT PAD AND SMALL TEGADERM. WILL PASS FINDING TO DAY RN.
--- NOTE | 2021-03-07 06:12 | NUR ---
PT WAS IN GOOD SPIRITS TONIGHT. WAS APPRECIATIVE OF CARE. APPETITE GOOD, REQUESTED SNACKS AND MILK, VSS, WANTED TO REST. RIGHT STUMP RAMANA INTACT,TISSUE APPEARS TO BE HEALING WITH NO DRAINAGE OR SIGNS OF INFECTION, STATES THE ITCHING IS BETTER AFTER CREAM PROVIDED. SMALL WOUND ON LEFT HEEL NOTED, BACITRACIN APPLIED, DRESSED WITH TELFA, AND TEGADERM. WILL REPORT TO DAY SHIFT RN.
[2021-03-07 16:03] LABS: SARS-Cov-2 (COVID-19) PCR, MMC NEGATIVE (NEGATIVE)
--- NOTE | 2021-03-07 16:38 | NUR ---
SHIFT SUMMARY PT RESTING IN BED / RECLINER T/O THE DAY. VSS. PAIN MEDS PRN ORDERS. RIGHT LEG STUMP RAMANA C/D/I, OPEN TO AIR. C/O ITCHING TO BACK, REDNESS / RASH NOTICED, ORDERS FOR BENADRYL CREAM RECEIVED. PT TRANSFERING SELF WITH WALKER BETWEEN BED AND RECLINER. WILL CONTINUE TO MONITOR AND REPORT OFF TO CLIENT REPORTING ASSOCIATE RN.
[2021-03-07] MEDS ORDERED: BISA10S PR (17:45)
[2021-03-07] MEDS ORDERED: DOCU100 PO (17:46)
[2021-03-07] MEDS ORDERED: Calcium Carbon500 MG PO (17:46)
[2021-03-07] MEDS ORDERED: Cymbalta20 MG PO (17:47)
[2021-03-07] MEDS ORDERED: HUMALOG KW100 UNIT/1 (17:48)
[2021-03-07] MEDS ORDERED: NARCAN4 M1 (17:49)
[2021-03-07] MEDS ORDERED: VISBIOME 112.51 EACH PO (17:50)
[2021-03-07] MEDS ORDERED: TRAZ50 PO (17:50)
[2021-03-07] MEDS ORDERED: BACITO TOP (17:54)
[2021-03-07] MEDS ORDERED: Benadryl Itch28.3 G1 TOP (17:55)
--- NOTE | 2021-03-07 21:14 | NUR ---
PT CHEM BG 136, SLIDING SCALE SAYS NOT TO GIVE IF LESS THAN 150, SO NOT GIVEN
--- NOTE | 2021-03-08 04:49 | NUR ---
PT SLEPT WELL TONIGHT AFTER 1/2 SANDWICH AND A SNACK. USING URINAL AND CALL LIGHT FOR THE BATHROOM. PT SCHEDULED FOR TRANSFER 03/08/21 AT 0900. CALL LIGHT IN REACH, BED IN LOW, LOCKED POSITION. DRINKS ON SIDE TABLE.
[2021-03-08 04:59] LABS: BASOPHILS ABSOLUTE AUTO 0.07 K/mm3 (0.00-0.23); BASOPHILS PERCENT AUTO 1 % (0-2); EOSINOPHILS ABSOLUTE AUTO 0.42 K/mm3 (0.00-0.68); EOSINOPHILS PERCENT AUTO 7 % (0-6); Hematocrit 27.4 % (37.0-53.0); Hemoglobin 8.6 g/dL (13.5-17.5); IMMATURE GRAN ABSOLUTE AUTO 0.02 K/mm3 (0.00-0.10); IMMATURE GRAN PERCENT AUTO 0 % (0-1); LYMPHOCYTES ABSOLUTE AUTO 1.99 K/mm3 (0.84-5.20); LYMPHOCYTES PERCENT AUTO 34 % (21-46); MONOCYTES ABSOLUTE AUTO 0.57 K/mm3 (0.16-1.47); MONOCYTES PERCENT AUTO 10 % (4-13); Mean Corpuscular HGB 25.7 pg (26.0-34.0); Mean Corpuscular HGB Conc 31.4 g/dL (31.5-36.5); Mean Corpuscular Volume 82 fL (80-100); NEUTROPHILS ABSOLUTE AUTO 2.76 K/mm3 (1.96-9.15); NEUTROPHILS PERCENT AUTO 47 % (41-73); Platelet Count 182 K/mm3 (150-400); RDW Coefficient Variation 20.1 % (11.7-14.2); RDW Standard Deviation 59.7 fL (35.1-46.3); Red Blood Cell Count 3.34 M/mm3 (4.30-5.90); White Blood Cell Count 5.83 K/mm3 (4.00-11.30)
[2021-03-08 05:02] LABS: Mean Platelet Volume 13.2 fL (9.1-12.4)
[2021-03-08 05:19] LABS: Bun/Creatinine Ratio 30.6 (12.0-20.0); Calcium, Blood 8.9 mg/dL (8.5-10.1); Creatinine, Blood 1.93 mg/dL (0.60-1.20); Potassium, Blood 5.2 mmol/L (3.5-5.5)
--- NOTE | 2021-03-08 06:12 | NUR ---
PT RESTING WELL DURING THE NIGHT, SLEPT BETTER THAN OTHER NIGHTS. PAIN PILL DURING THE NOC ASSISTED WITH THAT. BED IN LOW, LOCKED POSITION, CALL LIGHT IN REACH.
--- NOTE | 2021-03-08 11:01 | NUR ---
[facility] PATIENTS BELONGINGS,CANE,AND WALKER LOADED INTO FRONT OF TRANSIT VAN PER FILING CLERK REQUEST. NO OTHER NEEDS IDENTIFIED AT TRANSFER TO [facility].
== END 2021-03-08 10:35 | disposition home or self-care (01) | DRG 617 ==
LOC: ER 14:01 → MEDS 18:32 → ICUE 18:32 → MEDS 20:32 → ICUE 02-16 19:40 → SURS 02-17 10:23 → ORSCIP 03-02 10:35
PROVIDERS: Family Medicine; Internal Medicine; Orthopaedic Surgery; Pharmacist; Physician Assistant; ADMIT Internal Medicine
PROC: 0Y6H0Z3 Detachment at Right Lower Leg, Low, Open Approach (ICD-10-PCS; principal; 2021-02-16 14:00)
DX: E10.628 Type 1 diabetes mellitus with other skin complications (principal); L03.116 Cellulitis of left lower limb; M86.672 Other chronic osteomyelitis, left ankle and foot; M86.671 Other chronic osteomyelitis, right ankle and foot; F11.20 Opioid dependence, uncomplicated; E10.69 Type 1 diabetes mellitus with other specified complication; F41.9 Anxiety disorder, unspecified; G89.29 Other chronic pain; E10.621 Type 1 diabetes mellitus with foot ulcer; L97.519 Non-pressure chronic ulcer of other part of right foot with unspecified severity; E10.42 Type 1 diabetes mellitus with diabetic polyneuropathy; M54.9 Dorsalgia, unspecified; F32.9 Major depressive disorder, single episode, unspecified; E66.01 Morbid (severe) obesity due to excess calories; K21.9 Gastro-esophageal reflux disease without esophagitis; Z20.822 Contact with and (suspected) exposure to COVID-19; D63.1 Anemia in chronic kidney disease; E10.22 Type 1 diabetes mellitus with diabetic chronic kidney disease; F19.10 Other psychoactive substance abuse, uncomplicated; N17.9 Acute kidney failure, unspecified; E87.6 Hypokalemia; E87.5 Hyperkalemia; I12.9 Hypertensive chronic kidney disease with stage 1 through stage 4 chronic kidney disease, or unspecified chronic kidney disease; N18.30 Chronic kidney disease, stage 3 unspecified; I25.2 Old myocardial infarction; Z98.890 Other specified postprocedural states; Z89.421 Acquired absence of other right toe(s); Z87.891 Personal history of nicotine dependence; Z79.4 Long term (current) use of insulin; Z79.899 Other long term (current) drug therapy; Z79.82 Long term (current) use of aspirin; Z91.14 Patient's other noncompliance with medication regimen; Z86.718 Personal history of other venous thrombosis and embolism; Z68.35 Body mass index [BMI] 35.0-35.9, adult
CPT/HCPCS: 36415; 71045; 73718; 80048; 80053; 80202; 82947; 84132; 84484; 85014; 85018; 85025; 86140; 86850; 86900; 86901; 88307; 88311; 93005; 93010; 96361; 96374; 96375; 97110; 97112; 97116; 97140; 97162; 97166; 97530; 97535; 99284-25; 99285-25; A9270; C1751; C9113; J0171; J0360; J1100; J1170; J1650; J1885; J2060; J2250; J2270; J2370; J2405; J2543; J2704; J3010; J3360; J3370; J7030; J7042; J7050; J7070; J7120; U0004

== ENCOUNTER → 2021-05-05 | Outpatient (CLI) | payer MEDICARE ==
[~2021-05-05] MED LIST changes: +BACITO TOP; +BUSPIRONE HCL7.5 M1 PO; +Benadryl Itch28.3 G1 TOP; +Calcium Carbon500 MG PO; +Cymbalta20 MG PO; +HUMALOG KW100 UNIT/1; +NARCAN4 M1
[2021-05-05 13:41] LABS: Source, Urine Clean Catch
[2021-05-05 15:41] LABS: Appearance, Urine Hazy (Clear); Bilirubin, Urine Neg (Neg); Blood, Urine 5+ (Neg); Color, Urine Yellow (P-Yellow); Glucose Qualitative, Urine Neg (Neg); Ketones, Urine Neg (Neg); Leukocyte Esterase, Urine Neg (Neg); Nitrite, Urine Neg (Neg); Protein, Urine 3+ (Neg); Urobilinogen, Urine NORM (Normal)
[2021-05-05 16:00] LABS: Red Blood Cells, Urine 25-50 /hpf (0-2)
[2021-05-05 16:01] LABS: Bacteria Mod /hpf; Squamous Epithelial Cells Rare /hpf (Few)
== END | disposition home or self-care (01) ==
LOC: LAB 13:39 → LAB SHORT 13:39
PROVIDERS: Registered Nurse
DX: N17.9 Acute kidney failure, unspecified (principal); R30.0 Dysuria
CPT/HCPCS: 81001; 87086

== ENCOUNTER 2021-06-30 07:01 | Emergency (ER) | payer MEDICARE ==
[~2021-06-30] VITALS: Ht 182.9 cm; Wt 117.9 kg
[2021-06-30 07:57] LABS: BASOPHILS ABSOLUTE AUTO 0.06 K/mm3 (0.00-0.23); BASOPHILS PERCENT AUTO 0 % (0-2); EOSINOPHILS ABSOLUTE AUTO 0.02 K/mm3 (0.00-0.68); EOSINOPHILS PERCENT AUTO 0 % (0-6); Hematocrit 37.9 % (37.0-53.0); Hemoglobin 13.2 g/dL (13.5-17.5); IMMATURE GRAN ABSOLUTE AUTO 0.12 K/mm3 (0.00-0.10); IMMATURE GRAN PERCENT AUTO 1 % (0-1); LYMPHOCYTES ABSOLUTE AUTO 2.28 K/mm3 (0.84-5.20); LYMPHOCYTES PERCENT AUTO 9 % (21-46); MONOCYTES PERCENT AUTO 5 % (4-13); Mean Corpuscular HGB 27.8 pg (26.0-34.0); Mean Corpuscular HGB Conc 34.8 g/dL (31.5-36.5); Mean Corpuscular Volume 80 fL (80-100); Mean Platelet Volume 13.3 fL (9.1-12.4); NEUTROPHILS ABSOLUTE AUTO 21.69 K/mm3 (1.96-9.15); NEUTROPHILS PERCENT AUTO 86 % (41-73); Platelet Count 195 K/mm3 (150-400); RDW Coefficient Variation 14.1 % (11.7-14.2); RDW Standard Deviation 40.9 fL (35.1-46.3); Red Blood Cell Count 4.75 M/mm3 (4.30-5.90); White Blood Cell Count 25.37 K/mm3 (4.00-11.30)
[2021-06-30 08:18] LABS: Albumin, Blood 2.7 g/dL (3.4-5.0); Albumin/Globulin Ratio 0.5 (0.8-1.8); Bilirubin, Total 0.5 mg/dL (0.1-1.0); Bun/Creatinine Ratio 38.7 (12.0-20.0); Calcium, Blood 9.3 mg/dL (8.5-10.1); Creatinine, Blood 1.81 mg/dL (0.60-1.20); Globulin, Blood 5.1 g/dL (2.2-4.0); Total Protein, Blood 7.8 g/dL (6.4-8.2)
[2021-06-30] MEDS ORDERED: BUPRENORPHIN-N1 EAC1 SL (11:06)
[2021-06-30] MEDS ORDERED: Protonix40 MG PO (11:06)
== END 2021-06-30 12:14 | disposition home or self-care (01) ==
LOC: ER 07:01
PROVIDERS: Emergency Medicine
DX: F11.23 Opioid dependence with withdrawal (principal); E11.65 Type 2 diabetes mellitus with hyperglycemia; K20.90 Esophagitis, unspecified without bleeding; D72.829 Elevated white blood cell count, unspecified; E11.40 Type 2 diabetes mellitus with diabetic neuropathy, unspecified; I10 Essential (primary) hypertension; K21.9 Gastro-esophageal reflux disease without esophagitis; I25.2 Old myocardial infarction; Z79.82 Long term (current) use of aspirin; Z79.899 Other long term (current) drug therapy; Z79.4 Long term (current) use of insulin
CPT/HCPCS: 36415; 74176; 80053; 82947; 85025; 93005; 93010; 96372; 99284-25; A9270; J0572; J1815; J1885; J2405; J7030

== ENCOUNTER 2021-07-04 03:08 | Emergency (ER) | payer MEDICARE ==
[~2021-07-04] VITALS: Ht 182.9 cm; Wt 117.9 kg
[~2021-07-04 03:08] MED LIST changes: +BUPRENORPHIN-N1 EAC1 SL; +Protonix40 MG PO
[2021-07-04 05:54] LABS: Source, Urine Clean Catch
[2021-07-04 05:58] LABS: BASOPHILS ABSOLUTE AUTO 0.04 K/mm3 (0.00-0.23); BASOPHILS PERCENT AUTO 0 % (0-2); EOSINOPHILS ABSOLUTE AUTO 0.07 K/mm3 (0.00-0.68); EOSINOPHILS PERCENT AUTO 1 % (0-6); Hematocrit 35.7 % (37.0-53.0); Hemoglobin 12.3 g/dL (13.5-17.5); IMMATURE GRAN ABSOLUTE AUTO 0.08 K/mm3 (0.00-0.10); IMMATURE GRAN PERCENT AUTO 1 % (0-1); LYMPHOCYTES PERCENT AUTO 20 % (21-46); MONOCYTES ABSOLUTE AUTO 0.71 K/mm3 (0.16-1.47); MONOCYTES PERCENT AUTO 6 % (4-13); Mean Corpuscular HGB 27.9 pg (26.0-34.0); Mean Corpuscular HGB Conc 34.5 g/dL (31.5-36.5); Mean Corpuscular Volume 81 fL (80-100); NEUTROPHILS ABSOLUTE AUTO 8.29 K/mm3 (1.96-9.15); NEUTROPHILS PERCENT AUTO 72 % (41-73); Platelet Count 281 K/mm3 (150-400); RDW Coefficient Variation 14.8 % (11.7-14.2); RDW Standard Deviation 42.6 fL (35.1-46.3); Red Blood Cell Count 4.41 M/mm3 (4.30-5.90); White Blood Cell Count 11.49 K/mm3 (4.00-11.30)
[2021-07-04 05:59] LABS: Mean Platelet Volume 13.7 fL (9.1-12.4)
[2021-07-04 06:01] LABS: Appearance, Urine Clear (Clear); Bilirubin, Urine Neg (Neg); Blood, Urine 5+ (Neg); Color, Urine Yellow (P-Yellow); Glucose Qualitative, Urine Neg (Neg); Ketones, Urine Neg (Neg); Leukocyte Esterase, Urine Neg (Neg); Nitrite, Urine Neg (Neg); Protein, Urine 3+ (Neg); Urobilinogen, Urine NORM (Normal)
[2021-07-04 06:31] LABS: Red Blood Cells, Urine TNTC /hpf (0-2); Squamous Epithelial Cells Rare /hpf (Few)
[2021-07-04 06:32] LABS: Bacteria Mod /hpf; Uric Acid Crystals Many /hpf
[2021-07-04 06:36] LABS: Albumin, Blood 2.5 g/dL (3.4-5.0); Albumin/Globulin Ratio 0.5 (0.8-1.8); Bilirubin, Total 0.3 mg/dL (0.1-1.0); Bun/Creatinine Ratio 30.2 (12.0-20.0); Creatinine, Blood 2.22 mg/dL (0.60-1.20); Globulin, Blood 4.8 g/dL (2.2-4.0); Potassium, Blood 3.7 mmol/L (3.5-5.5); Total Protein, Blood 7.3 g/dL (6.4-8.2)
[2021-07-04] MEDS ORDERED: BUPRENORPHIN-N1 EAC1 SL (09:40)
[2021-07-04] MEDS ORDERED: SUCR1 PO (09:40)
== END 2021-07-04 11:47 | disposition home or self-care (01) ==
LOC: ER 03:08
PROVIDERS: Emergency Medicine
DX: K20.90 Esophagitis, unspecified without bleeding (principal); E10.22 Type 1 diabetes mellitus with diabetic chronic kidney disease; I12.9 Hypertensive chronic kidney disease with stage 1 through stage 4 chronic kidney disease, or unspecified chronic kidney disease; N18.9 Chronic kidney disease, unspecified; Z87.891 Personal history of nicotine dependence
CPT/HCPCS: 36415; 76770; 80053; 81001; 83615; 83690; 85025; 87086; A9270; C9113; J2405; J7120

== ENCOUNTER → 2021-08-30 | Outpatient (CLI) | payer MEDICARE, OTHER ==
[~2021-08-30] MED LIST changes: +SUCR1 PO
[2021-08-30 18:25] LABS: BASOPHILS ABSOLUTE AUTO 0.08 K/mm3 (0.00-0.23); BASOPHILS PERCENT AUTO 1 % (0-2); EOSINOPHILS PERCENT AUTO 3 % (0-6); Hematocrit 32.8 % (37.0-53.0); Hemoglobin 10.7 g/dL (13.5-17.5); IMMATURE GRAN ABSOLUTE AUTO 0.03 K/mm3 (0.00-0.10); IMMATURE GRAN PERCENT AUTO 0 % (0-1); LYMPHOCYTES ABSOLUTE AUTO 2.77 K/mm3 (0.84-5.20); LYMPHOCYTES PERCENT AUTO 40 % (21-46); MONOCYTES ABSOLUTE AUTO 0.45 K/mm3 (0.16-1.47); MONOCYTES PERCENT AUTO 6 % (4-13); Mean Corpuscular HGB 28.4 pg (26.0-34.0); Mean Corpuscular HGB Conc 32.6 g/dL (31.5-36.5); Mean Corpuscular Volume 87 fL (80-100); NEUTROPHILS ABSOLUTE AUTO 3.49 K/mm3 (1.96-9.15); NEUTROPHILS PERCENT AUTO 50 % (41-73); Platelet Count 198 K/mm3 (150-400); RDW Coefficient Variation 15.3 % (11.7-14.2); RDW Standard Deviation 49.1 fL (35.1-46.3); Red Blood Cell Count 3.77 M/mm3 (4.30-5.90); White Blood Cell Count 7.02 K/mm3 (4.00-11.30)
[2021-08-30 18:27] LABS: Mean Platelet Volume 14.4 fL (9.1-12.4)
[2021-08-30 19:05] LABS: Albumin, Blood 2.8 g/dL (3.4-5.0); Albumin/Globulin Ratio 0.7 (0.8-1.8); Bilirubin, Total 0.3 mg/dL (0.1-1.0); Bun/Creatinine Ratio 17.8 (12.0-20.0); Calcium, Blood 9.2 mg/dL (8.5-10.1); Creatinine, Blood 1.29 mg/dL (0.60-1.20); Globulin, Blood 4.1 g/dL (2.2-4.0); Potassium, Blood 5.1 mmol/L (3.5-5.5); Total Protein, Blood 6.9 g/dL (6.4-8.2)
== END | disposition home or self-care (01) ==
LOC: LAB 15:40 → LAB SHORT 15:40
PROVIDERS: Registered Nurse
DX: E11.40 Type 2 diabetes mellitus with diabetic neuropathy, unspecified (principal); I10 Essential (primary) hypertension; Z79.4 Long term (current) use of insulin
CPT/HCPCS: 80053; 83036; 85025